=== PATIENT | female | born 1950 | race Caucasian/White ===

== ENCOUNTER 2021-10-05 10:17 | Outpatient (CLI) | payer MEDICARE, OTHER, SELFPAY | END 2021-10-05 10:18 | disposition home or self-care (01) | LOC: WOUND 10:17 | PROVIDERS: PCP Internal Medicine; Visit Provider Nurse Practitioner Family | DX: I89.0 Lymphedema, not elsewhere classified (principal); I87.301 Chronic venous hypertension (idiopathic) without complications of right lower extremity; L97.819 Non-pressure chronic ulcer of other part of right lower leg with unspecified severity | CPT/HCPCS: 11042 ==

== ENCOUNTER 2021-10-12 10:10 | Outpatient (CLI) | payer MEDICARE, OTHER, SELFPAY | END 2021-10-12 10:11 | disposition home or self-care (01) | PROVIDERS: PCP Internal Medicine; Visit Provider Nurse Practitioner Family | DX: I87.311 Chronic venous hypertension (idiopathic) with ulcer of right lower extremity (principal); L97.812 Non-pressure chronic ulcer of other part of right lower leg with fat layer exposed; I89.0 Lymphedema, not elsewhere classified | CPT/HCPCS: 11042 ==

== ENCOUNTER 2021-10-26 10:00 | Outpatient (CLI) | payer MEDICARE, OTHER, SELFPAY | END 2021-10-26 10:01 | disposition home or self-care (01) | LOC: WOUND 10:01 | PROVIDERS: PCP Internal Medicine; Visit Provider Nurse Practitioner Family | DX: I87.311 Chronic venous hypertension (idiopathic) with ulcer of right lower extremity (principal); I89.0 Lymphedema, not elsewhere classified; L97.812 Non-pressure chronic ulcer of other part of right lower leg with fat layer exposed | CPT/HCPCS: 11042 ==

== ENCOUNTER 2021-11-02 10:16 | Outpatient (CLI) | payer MEDICARE, OTHER, SELFPAY | END 2021-11-02 10:17 | disposition home or self-care (01) | LOC: WOUND 10:17 | PROVIDERS: PCP Internal Medicine; Visit Provider Nurse Practitioner Family | DX: I87.311 Chronic venous hypertension (idiopathic) with ulcer of right lower extremity (principal); L97.812 Non-pressure chronic ulcer of other part of right lower leg with fat layer exposed | CPT/HCPCS: 11042 ==

== ENCOUNTER 2021-11-09 14:47 | Outpatient (CLI) | payer MEDICARE, OTHER, SELFPAY ==
--- OUTSIDE RECORDS SUMMARY | 2022-01-19 15:35 | XMS_ITS | Encounter Summary ---
:1950 Author Organization [facility] Address [address] [place] [address] Care Team Providers Name Role Phone Elsewhere, Pcp Primary Care Provider Unavailable Encounter Details Date Type Department Care Team Description 03/10/2021 Ancillary Procedure Department of Emergency Medicine Social History Tobacco Use Types Packs/Day Years Used Date Smoking Tobacco: Never Smokeless Tobacco: Never Alcohol Use Standard Drinks/Week Comments Not Currently 0 (1 standard drink = 0.6 oz pure alcoho l) Sex Assigned at Date Recorded Female 12/20/2020 12:41 PM CDT documented as of this encounter Plan of Treatment Not on filedocumented as of this encounter Procedures Procedure Name Priority Date/Time Associated Comments Diagnosis EMERGENCY DEPARTMENT Routine 03/10/2021 2:04 PM R esults for this IMAGE EXAM COOK SOUP procedure are i n the results section. documented in this encounter Results Leg-Emergency Department Image Exam (03/10/2021 2:04 PM COOK SOUP) Specimen (Source) Anatomical Collection Method Collection Time Re ceived Time Location / / Volume Laterality 03/10/2021 2:02 PM COOK [facility]OUP Narrative [facility] - 03/10/2021 2:04 PM COOK SOUP This order has been created and auto-finalized to support the import of images acquired without order. The clini jordon documentation to support these images can be found on the encounter maty t produced images. Provider Not In System IMG NON RAD IMAGING PROCEDUR ES Performing Organization Address City/State/ZIP Code Phon e Number IIMS I[facility] NA documented in this encounter Visit Diagnoses Not on filedocumented in this encounter Care Teams Licensing Director Relationship Specialty Start Date End Date Elsewhere, Pcp PCP - General Family Medicine 12/02/20 documented as of this encounter
--- OUTSIDE RECORDS SUMMARY | 2022-01-19 15:35 | XMS_ITS | Encounter Summary ---
:1950 Author Organization [facility] Address [address] [place] [address] Care Team Providers Name Role Phone Elsewhere, Pcp Primary Care Provider Unavailable Encounter Details Date Type Department Care Team Description 08/09/2021 Immunization [facility] of [facility] [address] [address] [place], [place] [address] [phone] Social History Tobacco Use Types Packs/Day Years Used Date Smoking Tobacco: Never Smokeless Tobacco: Never Alcohol Use Standard Drinks/Week Comments Not Currently 0 (1 standard drink = 0.6 oz pure alcoho l) Sex Assigned at Date Recorded Female 12/20/2020 12:41 PM CDT documented as of this encounter Plan of Treatment Not on filedocumented as of this encounter Visit Diagnoses Not on filedocumented in this encounter Care Teams Cheese Blender Relationship Specialty Start Date End Date Elsewhere, Pcp PCP - General Family Medicine 12/02/20 documented as of this encounter
--- OUTSIDE RECORDS SUMMARY | 2022-01-19 15:35 | XMS_ITS | Encounter Summary ---
:1950 Author Organization [facility] Address [address] [place] [address] Care Team Providers Name Role Phone Elsewhere, Pcp Primary Care Provider Unavailable Reason for Visit Reason Comments Immunizations Encounter Details Date Type Department Care Team Description 01/19/2021 Immunization Section of Infectious Need V accine Immunization Diseases in [place], (Prim thomas Dx) [place] [address] [place] [address] Social History Tobacco Use Types Packs/Day Years Used Date Smoking Tobacco: Never Smokeless Tobacco: Never Sex Assigned at Date Recorded Female 12/20/2020 12:41 PM CDT documented as of this encounter Last Filed Vital Signs Vital Sign Reading Time Taken Comments Blood Pressure - - Pulse - - Temperature 36.4 ??C (97.6 ??F) 01/19/2021 10:39 AM CDT Respiratory Rate - - Oxygen Saturation - - Inhaled Oxygen Concentration - - Weight - - Height - - Body Mass Index - - documented in this encounter Plan of Treatment Not on filedocumented as of this encounter Visit Diagnoses Diagnosis Need Vaccine Immunization - Primary documented in this encounter Care Teams Pipeline Maintenance Supervisor Relationship Specialty Start Date End Date Elsewhere, Pcp PCP - General Family Medicine 12/02/20 documented as of this encounter
--- OUTSIDE RECORDS SUMMARY | 2022-01-19 15:35 | XMS_ITS | Encounter Summary ---
:1950 Author Organization [facility] Address [address] [place] [address] Care Team Providers Name Role Phone Elsewhere, Pcp Primary Care Provider Unavailable Reason for Visit Reason Comments Results Fabiana Patient Encounter Details Date Type Department Care Team Description 01/04/2021 Clinical Communication Department of Sabino Jung s ([facility] Neu[facility] krish Leach M.D., Patient) Laverne, Ph.D. [place] [address] [address] [facility] [address] [place] [id number] [phone] Social History Tobacco Use Types Packs/Day Years Used Date Smoking Tobacco: Never Smokeless Tobacco: Never Sex Assigned at Date Recorded Female 12/20/2020 12:41 PM CDT documented as of this encounter Miscellaneous Notes Telephone Encounter - Isabel Haley R.N. - 01/12/2021 9:05 AM CDT Missed call. Left portal message. Telephone Encounter - Sabino Jung M.D., Ph.D. - 01/10/2021 4:31 PM CDT If I were to order a simple thoracic MRI scan with and without contrast, which she be able to undergo that. If so, I would order that. Would then see her back after that scan is done. If she agrees shewould be able the tolerate this, the please go ahead and order those appointments and I will sign off on them. Telephone Encounter - Isabel Haley R.N. - 01/06/2021 3:16 PM CDT Portal message sent. Telephone Encounter - Tanya Espinoza - 01/04/2021 2:08 PM CDT Chief Complaint / Reason for Call: ?? Test results Patient calls checking the status of her MRI results. Home: or [phone] Date last seen: 12-20-2020 Future appointment: 01-19-2021 Dx: # 1 Imbalance # 2 Spasms # 3 Brief sudden episodes of loss of feeling from the waist down # 4 Episodes of lower extremity to whole-body spasms impairing respiration # 5 Massive lower extremity lymphedema Valid Auth, scan date of: Reverify prior to releasing information. documented in this encounter Plan of Treatment Not on filedocumented as of this encounter Visit Diagnoses Not on filedocumented in this encounter Care Teams Sprinkler Fitter Relationship Specialty Start Date End Date Elsewhere, Pcp PCP - General Family Medicine 12/02/20 documented as of this encounter
--- OUTSIDE RECORDS SUMMARY | 2022-01-19 15:35 | XMS_ITS | Continuity of Care Document ---
:1950 Author Organization [facility] Care Team Providers Name Role Phone [facility] Unavailable Unavailable Medications Combined list of outpatient medications from Department of Defense and Veterans Affairs facilities. Medications provided include 1) outpatient medications from the last 15 months, and 2) patient-reported medications. Medication Details Route Status Patient Prescription Prescription Last Ordering Order Source Instructions Expires Number Dispense Provider Date Date CEFUROXIME Active [id number] CAMEJO, Pharmac (CEFUROXIME 1 2020 y Data AXETIL), Transac 500 MG, tion TABLET, Service ORAL, Facilit ASCEND y LABORATO, 20 ea. BOTTLE CLOBETASOL Active [id number] [facility] 03/08/ Pharmac PROPIONATE 1 THERINE 2020 y Data (clobetasol Transac propionate) tion , 0.05 %, Service CREAM (G), Facilit TOPICAL, y AVKARE, 15 g TUBE CYCLOBENZAP Active [id number] [facility] / Pharmac RINE HCL 1 THERINE 2020 y Data (cyclobenza Transac maria isabel HCl), tion 10 MG, Service TABLET, Facilit ORAL, y AVKARE, 1000 ea. BOTTLE CYCLOBENZAP Active [id number] [facility] / Pharmac RINE HCL 2 THERINE 2021 y Data (cyclobenza Transac maria isabel HCl), tion 10 MG, Service TABLET, Facilit ORAL, y AVKARE, 1000 ea. BOTTLE CYCLOBENZAP Active [id number] [facility] / Pharmac RINE HCL 2 THERINE 2021 y Data (cyclobenza Transac maria isabel HCl), tion 10 MG, Service TABLET, Facilit ORAL, y AVKARE, 1000 ea. BOTTLE HYDROCHLORO Active [id number] [facility] / Pharmac THIAZIDE 1 THERINE 2020 y Data (hydrochlor Transac othiazide), tion 50 MG, Service TABLET, Facilit ORAL, GSMS, y INC., 1000 ea. BOTTLE KETOCONAZOL Active [id number] [facility] / Pharmac E 1 THERINE 2020 y Data (ketoconazo Transac le), 2 %, tion CREAM (G), Service TOPICAL, Facilit [employer], INC[employer] y 30 g TUBE TOBRAMYCIN- Active [id number] [facility], / Pharmac DEXAMETHASO 2 2021 y Data NE Transac (TOBRAMYCIN tion /DEXAMETHAS Service ONE), 0.3 Facilit %-0.1%, y DROPS SUSP, OPHTHALMIC, BAUSCH & LOMB P, 5 ml DROP BTL VALSARTAN Active [id number] [facility] 05/23 / Pharmac (valsartan) 2 THERINE 2021 y Data , 80 MG, Transac TABLET, tion ORAL, Service AVKARE, 90 Facilit ea. BOTTLE y VALSARTAN Active [id number] [facility] 08/03 / Pharmac (valsartan) 2 THERINE 2021 y Data , 80 MG, Transac TABLET, tion ORAL, Service AVKARE, 90 Facilit ea. BOTTLE y VALSARTAN Active [id number] [facility] 10/30 / Pharmac (valsartan) 2 THERINE 2021 y Data , 80 MG, Transac TABLET, tion ORAL, Service AVKARE, 90 Facilit ea. BOTTLE y Social History Combined list of available smoking, tobacco, and other social history from Department of Defense andVeterans Affairs facilities. Social History Type Response Date Comment Source This section is an empty social history section. DoD
--- OUTSIDE RECORDS SUMMARY | 2022-01-19 15:35 | XMS_ITS | Encounter Summary ---
:1950 Author Organization [facility] Address [address] [place] [address] Care Team Providers Name Role Phone Elsewhere, Pcp Primary Care Provider Unavailable Reason for Visit Reason Comments Wound Infection Lt lateral leg/foot wound-Hx stage 4 Lymph Edema, spont. blister burst 03/05, concerned for c ellulitis Encounter Details Date Type Department Care Team Description 03/10/2021 Emergency [facility] Sumeet Kearney , Cellulitis Leg Left Department ACCIDENT REPORT CLERK, C.N.P. (Primary Dx) [id number] [place], [place] [phone] (Wo rk) Social History Tobacco Use Types Packs/Day Years Used Date Smoking Tobacco: Never Smokeless Tobacco: Never Alcohol Use Standard Drinks/Week Comments Not Currently 0 (1 standard drink = 0.6 oz pure alcoho l) Sex Assigned at Date Recorded Female 12/20/2020 12:41 PM CDT documented as of this encounter Last Filed Vital Signs Vital Sign Reading Time Taken Comments Blood Pressure 176/94 03/10/2021 2:42 PM DIVERSIFIED CROPS FARMWORKER Pulse 84 03/10/2021 2:42 PM DIVERSIFIED CROPS FARMWORKER Temperature 36.7 ??C (98.1 ??F) 03/10/2021 2:42 PM DIVERSIFIED CROPS FARMWORKER Respiratory Rate 16 03/10/2021 2:42 PM DIVERSIFIED CROPS FARMWORKER Oxygen Saturation 98% 03/10/2021 2:42 PM DIVERSIFIED CROPS FARMWORKER Inhaled Oxygen Concentration - - Weight 140 kg (308 lb 3.3 oz) 03/10/2021 1:50 PM DIVERSIFIED CROPS FARMWORKER Height 176.5 cm (5' 9.5) 03/10/2021 1:50 PM DIVERSIFIED CROPS FARMWORKER Body Mass Index 44.86 03/10/2021 1:50 PM DIVERSIFIED CROPS FARMWORKER documented in this encounter Discharge Instructions Discharge InstructionsSumeet Kearney APRN, C.N.P. - 03/10/2021 2:40 PM DIVERSIFIED CROPS FARMWORKER Keep a close eye on the wound if the redness begins to spread up the leg after 48 hours on the antibiotic please return the ER immediately. If you develop any worsening fevers chills for feel that yourgetting sicker please return immediately. RSIFIED CROPS FARMWORKER AttachmentsThe following attachments cannot be sent through Care Everywhere. Cellulitis Adult Gacp-ev-Fayr (Hungarian)documented in this encounter Medications at Time of Discharge Medication Sig Dispensed Refills Start Date End Date cetirizine (ZyrTEC) 10 mg Take 1 tablet by 0 09/07 tablet mouth daily. clobetasol (TEMOVATE) 0.05 Apply topically as 0 0 10/03/2016 % cream directed. cyclobenzaprine (FLEXERIL) Take 0.3 tablets by 0 10/03/2016 10 mg tablet mouth at bedtime. hydroCHLOROthiazide 0 03/13/2019 (HYDRODIURIL) 50 mg tablet magnesium oxide (MAG-OX) Take 250 mg by 0 250 mg of magnesium tablet mouth daily. multivitamin capsule Take 1 capsule by 0 mouth daily. Women's day vitamin UNABLE TO FIND Apply topically as 0 10/03/2016 needed. KETOCONAZOLE CREAM TOP PRN cefUROXime (CEFTIN) 500 mg Take 1 tablet (500 20 tablet 0 1 05/11/2020 03/20/2021 tablet mg total) by mouth every 12 (twelve) hours for 10 days. documented as of this encounter ED Notes Sumeet Kearney APRN, C.N.P. - 03/10/2021 2:46 PM CST Images from the original note were not included. SUBJECTIVE CHIEF COMPLAINT/REASON FOR VISIT Wound Infection (Lt lateral leg/foot wound-Hx stage 4 Lymph Edema, spont. blister burst 03/05, concerned for cellulitis) HISTORY OF PRESENT ILLNESS Patient is 70-year-old female coming for evaluation of cellulitis of her left lower extremity. She does have a history of lymphedema to bilateral lower extremities. She notes that a few days ago she had a blister that burst and she has applied compression to the area to help with wound healing. She noted started this morning that she had significant redness going up her left leg. Extends about usp up her meyer where the blisters just above the ankle. She has not taken anything at home. She is coming in for concern for underlying cellulitis. She denies any fevers chills or any other accompanying symptoms this. History provided by: Patient REVIEW OF SYSTEMS Constitutional: Negative for fatigue and fever. HENT: Negative for sinus pressure and sore throat. Eyes: Negative for pain and redness. Respiratory: Negative for cough and shortness of breath. Cardiovascular: Positive for leg swelling (Baseline). Gastrointestinal: Negative. Genitourinary: Negative for urgency. Musculoskeletal: Negative. Skin: Positive for color change, rash and wound. Allergic/Immunologic: Negative. Negative for immunocompromised state. Neurological: Negative for speech difficulty, weakness and light-headedness. Hematological: Negative. Does not bruise/bleed easily. Psychiatric/Behavioral: Negative. OBJECTIVE Initial Vitals Temperature Pulse Rate Heart Rate Resp Rate Blood Pressure SpO2 03/10/21 1352 03/10/21 1352 -- 03/10/21 1352 03/10/21 1352 03/10/21 1352 36.5 ??C 88 16 (!) 163/88 99 % Pain Score 03/10/21 1350 0 - No pain PHYSICAL EXAMINATION Constitutional: Nursing note and vitals reviewed. Vital signs are normal. She appears not listless and not lethargic. She is active and cooperative. She is easily aroused. She does not appear ill. No distress. HENT: Head: Normocephalic and atraumatic. No signs of injury. There is normal jaw occlusion. Mouth/Throat: Oropharynx is clear and moist. Mucous membranes are moist. Eyes: Conjunctivae and EOM are normal. Pupils are equal, round, and reactive to light. Periorbital area normal appearing. Neck: Neck supple. Cardiovascular: Normal rate and normal peripheral perfusion. PMI is not displaced. Pulses are palpable. Pulses are no weak pulses. Capillary refill: takes less than 3 seconds, Edema: edema noted (Chronic lymphedema) Pulmonary/Chest: Effort normal. There is normal air entry. No apnea and no tachypnea. No respiratorydistress. Abdominal: Non-distended. Musculoskeletal: General: Edema present. No tenderness or deformity. Normal range of motion. Cervical back: Full passive range of motion without pain, normal range of motion and neck supple. Neurological: Alert, oriented to person, place, and time and easily aroused. She has normal sensation, normal strength and intact cranial nerves. She is not disoriented. GCS eye subscore is 4. GCS verbal subscore is 5. GCS motor subscore is 6. Normal speech. Gait normal. Skin: Skin is warm, dry, intact and normal color. Erythema of area and blister noted. She is not diaphoretic. Psychiatric: She has a normal mood and affect. Speech pattern is normal. Judgment and thought content normal. Relaxed.Cognition and memory are normal. ASSESSMENT/PLAN IMPRESSION AND PLAN Patient is 70-year-old female coming for evaluation of underlying cellulitis to her left leg. Her overall evaluation is concerning for cellulitis I do not suspect any systemic infection at this time she denies any fevers chills or any other general unwell feeling. She does have allergies to penicillins. She has tolerated Ceclor in the past which has previously done very well with her cellulitis. I did discuss with our ED pharmacist in [place] about placing her on Ceftin if they agreed that that would be a good choice given that the 2nd generation and that she has tolerated 2nd generation in the past. Patient will be discharged home advised to cloth picker the Ceftin and return to the ER if she has any worsening redness or development of fever. She verbalized understanding this. The patient was discharged stable condition. ED Course as of 03/10/21 184SatMar 10, 2021 1411 Patient has tolerated Ceclor in the past unfortunately it is very difficult to find will discuss with the ED pharmacist to see if Duricef will be a good substitute. 1420 I was able to speak with the ED pharmacist in [place] at this time given that Duricef is a 1st generation there is concern for possible cross-reactivity with the allergy to penicillins. As she has tolerated 2nd generation cephalosporins in the past we will provide her with Ceftin which has good coverage. The patient is agreeable to this plan. 1440 Patient remained stable in the ED. ??Indications to return to the emergency department were discussed in detail with the patient and they verbalized understanding. Educational handouts were given with further details on diagnoses and related topics. ??All was explained in plain language and the patient expressed agreement and understanding in the plan moving forward. Final Diagnoses: as of 03/10/21 1842 Cellulitis Leg Left Sumeet Kearney APRN, C.N.P. 03/11/21 0729 RSIFIED CROPS FARMWORKER documented in this encounter Plan of Treatment Not on filedocumented as of this encounter Visit Diagnoses Diagnosis Cellulitis Leg Left - Primary documented in this encounter Care Teams Aircraft Parts Assembler Relationship Specialty Start Date End Date Elsewhere, Pcp PCP - General Family Medicine 12/02/20 documented as of this encounter
--- OUTSIDE RECORDS SUMMARY | 2022-01-19 15:35 | XMS_ITS | Clinical Summary ---
:1950 Author Organization [facility] Address [address] [place] [address] Care Team Providers Name Role Phone Elsewhere, Pcp Primary Care Provider Unavailable Source Comments Patient records contain information from all sites at [facility]. For routine questions regarding patient records, call [phone] during business hours, M-F 8:00 AM - 5:00 PM Central Time. Record requests for emergency care only can be directed to [phone] at any time.[facility] Allergies Active Allergy Reactions Severity Noted Date Comments Animal Dander Other (see comments) 10/03/2016 asthma Diphtheria, Pertussis, Other (see comments) 04/06/2019 Tetanus Vaccine Erythromycin Base Nausea And Vomiting 04/03/2010 Melon Anaphylaxis 04/06/2019 Penicillins Other (see comments) 04/03/2010 Pineapple Other (see comments) 04/06/2019 Ragweed Shortness of breath 10/03/2016 wheeze, asthma, scrathy throat Allen Other (see comments) 04/06/2019 Positiv e on skin test, however a ble to eat. Sulfa (Sulfonamide Other (see comments) 10/03/2016 Antibiotics) Nathalie Anaphylaxis 04/06/2019 Both Urdu an d Black walnut Medications Medication Sig Dispensed Refills Start Date End Date Status hydroCHLOROthiazide 0 03/13/2019 Active (HYDRODIURIL) 50 mg tablet cyclobenzaprine Take 0.3 tablets 0 10/03/2016 Active (FLEXERIL) 10 mg tablet by mouth at bedtime. cetirizine (ZyrTEC) 10 Take 1 tablet by 0 10/03/2016 Active mg tablet mouth daily. clobetasol (TEMOVATE) Apply topically 0 10/03/2016 Active 0.05 % cream as directed. UNABLE TO FIND Apply topically 0 10/03/2016 Active as needed. KETOCONAZOLE CREAM TOP PRN magnesium oxide (MAG-OX) Take 250 mg by 0 Active 250 mg of magnesium mouth daily. tablet multivitamin capsule Take 1 capsule by 0 Active mouth daily. Women's day vitamin acetaminophen (TYLENOL) Take 2 capsules 25 capsule 0 1 Active 500 mg capsule (1,000 mg total) by mouth every 6 (six) hours as needed for pain for up to 5 days. Active Problems Problem Noted Date Lymphedema 06/25/2019 Morbid Obesity Body Mass Index 40.0-44.9 Adult 020 Bleeding Postmenopausal 04/06/2019 Overview: Added automatically from request for kamilah jain [id number] Radiculopathy Lumbar 09/20/2016 Immunizations Name Administration Dates Next Due Influenza high dose QV(65 years or older) (PF) 01/04/2021, 1 SARS-COV-2 (COVID-19) - PFIZER (12 years or older) 1 SARS-COV-2 (COVID-19) - PFIZER TS(12 years or older) 022 Td (Adult), adsorbed 09/21/2019 Td Preservative Free (TENIVAC, DECAVAC) 03/14/2016, 01/25/20 05 Family History Medical History Relation Name Comments defects Cousin Ovarian cancer Neg Hx Uterine cancer Neg Hx Relation Name Status Comments Cousin Social History Tobacco Use Types Packs/Day Years Used Date Smoking Tobacco: Never Smokeless Tobacco: Never Alcohol Use Standard Drinks/Week Comments Not Currently 0 (1 standard drink = 0.6 oz pure alcoho l) Sex Assigned at Date Recorded Female 12/20/2020 12:41 PM CDT Last Filed Vital Signs Vital Sign Reading Time Taken Comments Blood Pressure 176/94 03/10/2021 2:42 PM BASS GUITAR TEACHER Pulse 84 03/10/2021 2:42 PM BASS GUITAR TEACHER Temperature 36.7 ??C (98.1 ??F) 03/10/2021 2:42 PM BASS GUITAR TEACHER Respiratory Rate 16 03/10/2021 2:42 PM BASS GUITAR TEACHER Oxygen Saturation 98% 03/10/2021 2:42 PM BASS GUITAR TEACHER Inhaled Oxygen Concentration - - Weight 140 kg (308 lb 3.3 oz) 03/10/2021 1:50 PM BASS GUITAR TEACHER Height 176.5 cm (5' 9.5) 03/10/2021 1:50 PM BASS GUITAR TEACHER Body Mass Index 44.86 03/10/2021 1:50 PM BASS GUITAR TEACHER Plan of Treatment Health Maintenance Due Date Last Done Comments Bone Density Scan (Osteoporosis 1950 Screen) CT Colonography 1950 Cologuard 1950 FIT 1950 Hepatitis C Screening 1950 Zoster Vaccines (1 of 2) 06/29/2001 Mammogram 10/04/2011 10/03/2010 (Performed elsewhere), 03/08/2010, 03/08/2010, Additional history exists Pneumococcal vaccine (65+ years) 06/29/2016 (1 - PCV) Colonoscopy 10/04/2018 10/04/2008 (Performed elsewhere) Colorectal Cancer Screening 10/04/2018 Depression Screening (Annual 04/08/2021 PHQ-2) Fall Risk Screen (Annual) 04/08/2021 COVID-19 Vaccine (5 - Booster for 10/04/2021 08/09/2021, , Pfizer series) 05/24/2020, Additional history exists Creatinine Level 12/20/2021 12/20/2020, 10/14/2019, 04/06/2019 Potassium Level 12/20/2021 12/20/2020, 10/14/2019 Sodium Level 12/20/2021 12/20/2020, 10/14/2019 Influenza Vaccine (#1) 2022 01/04/2021, 01/26/2020 Fasting Glucose for Diabetes 12/21/2023 12/20/2020 Screening Medical Devices Implanted Type Area Human Services Instructor Device Shelf Model / Identifier Expiration Serial / Date Lot Conversions - Default Historical Implant Device Knee Left: Implanted: 10/03/2016 (Quantity not on file) Implant Knee Description: Body Location - Knee L. Dev ice Status Text - Knee Imp. Conversions - Default Historical Implant Device Ocular Lens Implanted: 10/03/2016 (Quantity not on file) Description: Device Status Text - OculrL ens. cataract lenses. Insurance Payer Benefit Plan Subscriber ID Effective Phone Address Typ e / Group Dates MEDICARE MEDICARE A [id number] 2016-Prese [address] Medicare AND B ernestine Mcginnis, SARAH [address] FOR FOR [id number] 2019-Pres [phone] [address] Indemnity [place] [address] (Home) [place] [address] Advance Directives For more information, please contact: [phone] Latest Code Status on File Code Status Date Activated Date Inactivated Comments Full Code 04/24/2019 10:01 AM 04/24/2019 3:16 PM Full Code: Discussed Care Teams Banana Handler Relationship Specialty Start Date End Date Elsewhere, Pcp PCP - General Family Medicine 12/02/20
--- OUTSIDE RECORDS SUMMARY | 2022-01-19 15:35 | XMS_ITS | Encounter Summary ---
:1950 Author Organization [facility] Address [address] [place] [address] Care Team Providers Name Role Phone Elsewhere, Pcp Primary Care Provider Unavailable Reason for Visit Outpatient (Routine) - Closed Specialty Diagnoses / Procedures Referred By Contact Refer red To Contact Neurology Sabino Jung M. D., Ph.D. [facility] [address] [place] [phone] Referral ID Status Reason Start Date Expiration Date Visits Requ ested Visits Authorized [id number] Closed 12/20/2020 12/20/2021 1 1 Encounter Details Date Type Department Care Team Description 01/19/2021 Office Visit Department of Sabino Jung Abnormal Gait Non Orthopedic (Primary Dx); Neurology in [place], Abnormal Findin gs On Diagnostic Imaging Of Other Parts Of Musculoskeletal System [place], [place] Ph.D. [address] [place] [address] [place] [phone] Social History Tobacco Use Types Packs/Day Years Used Date Smoking Tobacco: Never Smokeless Tobacco: Never Sex Assigned at Date Recorded Female 12/20/2020 12:41 PM CDT documented as of this encounter Progress Notes Sabino Jung M.D., Ph.D. - 01/19/2021 11:30 AM CDT Mrs. Mota came for follow-up after completing her tests. We reviewed her MRI scans of brain and cervical spinal cord and I pointed out that there were no clear lesions, such as a tumor stroke bleed or MS. Her thoracic spine MRI scan could not be done because of the long time in the scanner and she simply could not tolerate it with back pain making it difficult to hold still. We discussed whether would be appropriate to go ahead and try that again as a stand-alone imaging study and she thought she could be able to tolerate this if the scan time was not too long and I think this should go okay. Forthe pain, and OTC analgesics would be appropriate and I will defer to Radiology colleagues to provide her with a mildly sedating oral medication. As we discussed, I had also communicated with Dr. Velásquez, from the [facility]. I ultimately concluded as did he that there probably are not going to be any further treatment strategies thatwe could employed to address her lymphedema. As she knows as well as I do, she is caring around a lot of water weight in her lower extremities and this is contributing to her gait problems. We also reviewed the blood work. There was some minor departure is from the normal range but nothingof clinical significance. We are going to go ahead and have her undergo the thoracic MRI scan without contrast. I told her that I would not make her return to the clinic for the report but I can send the room result to her via the portal system. As I discussed with her, this is not a high probability of finding a thoracic spine abnormality relevant to her condition but I think it would be good to put complete closure on this. Time allocated for this visit including preparation of the above note spanned about 30 minutes. documented in this encounter Plan of Treatment Not on filedocumented as of this encounter Visit Diagnoses Diagnosis Abnormal Gait Non Orthopedic - Primary Abnormal Findings On Diagnostic Imaging Of Other Parts Of Musculoskeletal System documented in this encounter Care Teams Transportation Maintenance Supervisor Relationship Specialty Start Date End Date Elsewhere, Pcp PCP - General Family Medicine 12/02/20 documented as of this encounter"
--- OUTSIDE RECORDS SUMMARY | 2022-01-19 15:36 | XMS_ITS | Encounter Summary ---
:1950 Author Organization [facility] Address [address] [place] [address] Care Team Providers Name Role Phone Elsewhere, Pcp Primary Care Provider Unavailable Reason for Visit Reason Comments Pre-visit Intake Encounter Details Date Type Department Care Team Description 12/13/2020 Clinical Communication Visit Review in Pr e-visit Intake [place], [place] [address] [place], [place] [phone] Social History Tobacco Use Types Packs/Day Years Used Date Smoking Tobacco: Never Smokeless Tobacco: Never Sex Assigned at Date Recorded Female 12/20/2020 12:41 PM CDT documented as of this encounter Plan of Treatment Not on filedocumented as of this encounter Visit Diagnoses Not on filedocumented in this encounter Care Teams Professor Of Floriculture Relationship Specialty Start Date End Date Elsewhere, Pcp PCP - General Family Medicine 12/02/20 documented as of this encounter
--- OUTSIDE RECORDS SUMMARY | 2022-01-19 15:36 | XMS_ITS | Encounter Summary ---
:1950 Author Organization [facility] Address [address] [place] [address] Care Team Providers Name Role Phone Elsewhere, Pcp Primary Care Provider Unavailable Reason for Visit Outpatient (Routine) - Closed Specialty Diagnoses / Procedures Referred By Contact Refer red To Contact Obstetrics and Guerrero Ordonez Noemi on Gynecology Lori Costa M.D. [address] [place] [phone] Referral ID Status Reason Start Date Expiration Date Visits Requ ested Visits Authorized [id number] Closed 04/29/2019 04/28/2020 1 1 Encounter Details Date Type Department Care Team Description 10/19/2019 Office Visit Department of Mindy Ordonez Postmenopausal Obstetrics and Lori Costa M.D. (Primary Dx) Gynecology in [address] [place] [address] [place] [phone] [place], [place] [phone] (Work) [phone] Social History Tobacco Use Types Packs/Day Years Used Date Smoking Tobacco: Never Smokeless Tobacco: Never Sex Assigned at Date Recorded Female 12/20/2020 12:41 PM CDT documented as of this encounter Progress Notes Lori Ordonez M.D. - 10/19/2019 11:30 AM CDT Mrs. Mota comes for follow-up visit after her polypectomy which showed pathology with focal glandular crowding. We had wanted her to come back for biopsy because of the results but then COVID occurred. She has not been bleeding at all - she had one episode of a hollingsworth discharge that did not appear brown or blood-tinged at all. We discussed that bleeding after menopause can be a sign of abnormal tissueand bleeding can present as brown discharge or bright red blood. If she has any signs of this, she should contact us. We discussed endometrial biopsy - it was difficult to do the first time so we have decided to monitor for signs of bleeding instead of proceeding with biopsy based on risks and benefits of biopsy She can call us with any questions about whether she should come in - she would prefer not to have to [facility] during pandemic but reach us by phone. We did review that we removed 2 polyps and the glandular crowding was likely in one of them which wedid remove. There is a chance of recurrence which is why we want her to be alert to bleeding. documented in this encounter Plan of Treatment Not on filedocumented as of this encounter Visit Diagnoses Diagnosis Bleeding Postmenopausal - Primary documented in this encounter Care Teams Network Intern Relationship 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
--- OUTSIDE RECORDS SUMMARY | 2022-01-19 15:36 | XMS_ITS | Encounter Summary ---
:1950 Author Organization [facility] Address [address] [place] [address] Care Team Providers Name Role Phone Elsewhere, Pcp Primary Care Provider Unavailable Encounter Details Date Type Department Care Team Description 11/29/2020 Lab Urgent Care in [facility] , Encounter For Screening [place] Lori Costa M.D. For Other Viral Diseases [address] [facility] (COVID-19) [place] [address] [place], [place] [phone] (Wo rk) Social History Tobacco Use Types Packs/Day Years Used Date Smoking Tobacco: Never Smokeless Tobacco: Never Sex Assigned at Date Recorded Female 12/20/2020 12:41 PM CDT documented as of this encounter Plan of Treatment Not on filedocumented as of this encounter Procedures Procedure Name Priority Date/Time Associated Diagnosis Comme nts SARS CORONAVIRUS-2 STAT 11/29/2020 2:04 PM Encounter For Re sults for this RNA, V CDT Screening For Other procedur e are in Viral Diseases the results (COVID-19) section. documented in this encounter Results SARS Coronavirus-2 RNA, V Asymptomatic (11/29/2020 2:04 PM CDT) [facility] Method Time Signature SARS-CoV-2 Swab, 11/30/2020 [facility] Specimen Nasopharynx 2:52 AM CDT Source SARS CoV-2 Undetected Undetected 11/30/2020 [facility] RNA, TMA 2:52 AM CDT Comment: SARS-CoV-2 RNA absent. This result does not rule out COVID-19 in the patient, as the sensitivity of the test depends o n the timing of the specimen collection and the quality of the specim en. Result should be correlated with patient's history and clinical presentat ion. ----ADDITIONAL INFORMATION---- This molecular amplification test was pe rformed using the Aptima SARS-CoV-2 assay ([employer] on the [employer] tem under emergency use authorization (EUA) by the U.S. Food and Drug Administ ration. Fact sheets for this EUA assay can be fo und at the following links: For Healthcare Providers: https://www.RPost a.gov/media/096994/download For Patients: https://www.fda.gov/media/ 988913/download Specimen Anatomical Collection Method Collection Time Receive d Time (Source) Location / / Volume Laterality Varies 11/29/2020 2:04 PM 9:37 (Nasopharynx) CDT PM CDT Lori Ordonez M.D. LAB MICROBIOLOGY - GEN ERAL ORDERABLES Performing Organization Address City/State/ZIP Code Phon e Number [facility]- [address] [place] [phone] [facility] [place] [address] System in [address] documented in this encounter Visit Diagnoses Diagnosis Encounter For Screening For Other Viral Diseases (COVID-19) documented in this encounter Additional Health Concerns Infection Onset Date Last Indicated Resolved Time COVID19 Pending 11/29/2020 11/29/2020 11/30/2020 2:53 AM CDT documented as of this encounter Care Teams Flight Crew Time Clerk Relationship 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
--- OUTSIDE RECORDS SUMMARY | 2022-01-19 15:36 | XMS_ITS | Encounter Summary ---
:1950 Author Organization [facility] Address [address] [place] [address] Care Team Providers Name Role Phone Elsewhere, Pcp Primary Care Provider Unavailable Reason for Referral Outpatient (Routine) - Closed Specialty Diagnoses / Procedures Referred By Contact Refer red To Contact Diagnoses Bleeding Postmenopausal [facility] Procedures US Pelvis Transvaginal and Transabdominal Lori Costa M.D. [address] [place] [phone] Referral ID Status Reason Start Date Expiration Date Visits Requ ested Visits Authorized [id number] Closed 10/07/2020 10/07/2021 1 1 Reason for Visit Outpatient (Routine) - Closed Specialty Diagnoses / Procedures Referred By Contact Refer red To Contact Diagnoses Bleeding Postmenopausal [facility] Procedures US Pelvis Transvaginal and Transabdominal Lori Costa M.D. [address] [place] [phone] Referral ID Status Reason Start Date Expiration Date Visits Requ ested Visits Authorized [id number] Closed 10/07/2020 10/07/2021 1 1 Encounter Details Date Type Department Care Team Description 10/21/2020 [facility], Lori Peng, Postmenopa krish Topete M.D. [address] [place] [phone] [place], [place] [phone] (Work) [phone] Social History Tobacco Use Types Packs/Day Years Used Date Smoking Tobacco: Never Smokeless Tobacco: Never Sex Assigned at Date Recorded Female 12/20/2020 12:41 PM CDT documented as of this encounter Medications at Time of Discharge Medication Sig Dispensed Refills Start Date End Date acetaminophen (TYLENOL) Take 2 capsules 25 capsule 0 021 500 mg capsule (1,000 mg total) by mouth every 6 (six) hours as needed for pain for up to 5 days. cetirizine (ZyrTEC) 10 mg Take 1 tablet [...] 0 10/03/2016 needed. KETOCONAZOLE CREAM TOP PRN acetaminophen (Tylenol Take 2 tablets by 0 201612/02/2020 Arthritis Pain) 650 mg ER mouth at bedtime. tablet aspirin [address] tablet Take 81 mg by mouth 0 01/20/2021 daily. ibuprofen (ADVIL,MOTRIN) Take 1 tablet (600 20 tablet 0 01/20/2021 600 mg tablet mg total) by mouth every 6 (six) hours as needed for pain for up to 5 days. documented as of this encounter Plan of Treatment Not on filedocumented as of this encounter Procedures Procedure Name Priority Date/Time Associated Diagnosis Comme nts US PELVIS RAD - Routine 10/21/2020 Bleeding Results for TRANSVAGINAL AND (most inpatients 11:52 AM CDT Postmenopausal this procedure TRANSABDOMINAL and all are in the outpatients) results section. documented in this encounter Results US Pelvis Transvaginal and Transabdominal (10/21/2020 11:52 AM CDT) Anatomical Region Laterality Modality Pelvis, Ultrasound RST LOS, Ultrasound ARZ LOS, Ultrasound F LA N/A Ultrasound LOS Specimen (Source) Anatomical Collection Method Collection Time Re ceived Time Location / / Volume Laterality 10/21/2020 11:54 AM CDT Impressions 10/21/2020 11:59 AM CDT 1. Abnormal thickening of the endometrium. Sampling is recommended. 2. Small uterine fibroids are not signif icantly changed from prior. Narrative 10/21/2020 11:59 AM CDT EXAM: ??US PELVIS TRANSVAGINAL AND TRANSABDOMINAL COMPARISON: ??Pelvic ultrasound 04/06/20 19. TECHNIQUE: ??Transabdominal and transvag inal. FINDINGS: Uterus: 5.0 cmx6.3 cmx11.0 cm. Myometrium: Uterine positioning results in suboptimal endovaginal assessment. Two small uterine fibroids are seen in a myometrial and subserosal location at the lower uterine segment posteriorly me asuring 2.1 cm and at the uterine fundus measuring 2.9 cm; not significantly dumont ged from prior accounting for differences in technique. Endometrium: Uterine positioning results in suboptimal evaluation of the endometrium, however it appears at least markedly thickened with scattered cystic spaces and mildly increased color Doppler flow. No discrete polyp. Thickness: 22 mm ?? Right ovary: Seen transabdominally only. Normal. ??Ovarian volume: 4 ml. Left ovary: Normal. ??Ovarian volume: 3 ml. Intraperitoneal Fluid: None. Procedure Note Julian Allen M.D. - 10/21/2020 EXAM: US PELVIS TRANSVAGINAL AND TRANSAB DOMINAL COMPARISON: Pelvic ultrasound 04/06/2019 . TECHNIQUE: Transabdominal and transvagin al. FINDINGS: Uterus: 5.0 cmx6.3 cmx11.0 cm. Myometrium: Uterine positioning results in suboptimal endovaginal assessment. Two small uterine fibroids are seen in a myometrial and subserosal location at the lower uterine segment posteriorly me asuring 2.1 cm and at the uterine fundus measuring 2.9 cm; not significantly dumont ged from prior accounting for differences in technique. Endometrium: Uterine positioning results in suboptimal evaluation of the endometrium, however it appears at least markedly thickened with scattered cystic spaces and mildly increased color Doppler flow. No discrete polyp. Thickness: 22 mm Right ovary: Seen transabdominally only. Normal. Ovarian volume: 4 ml. Left ovary: Normal. Ovarian volume: 3 ml . Intraperitoneal Fluid: None. IMPRESSION: 1. Abnormal thickening of the endometriu m. Sampling is recommended. 2. Small uterine fibroids are not signif icantly changed from prior. Lori EMMANUEL US PROCEDURES documented in this encounter Visit Diagnoses Diagnosis Bleeding Postmenopausal documented in this encounter Care Teams Hop Farm Worker Relationship 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
--- OUTSIDE RECORDS SUMMARY | 2022-01-19 15:36 | XMS_ITS | Encounter Summary ---
:1950 Author Organization [facility] Address [address] [place] [phone] Care Team Providers Name Role Phone Elsewhere, Pcp Primary Care Provider Unavailable Reason for Visit Physical Therapy (Routine) - Closed Specialty Diagnoses / Procedures Referred By Contact Refer red To Contact Diagnoses Lymphedema Jese Velásquez M.D. [facility] Procedures PT or OT eval and treat (first available) [address] [place] [phone] Referral ID Status Reason Start Date Expiration Date Visits Requ ested Visits Authorized [id number] Closed 10/14/2019 10/13/2020 1 1 Encounter Details Date Type Department Care Team Description 10/19/2019 Comprehensive Visit Department of Physical Schmi Jese snowden M.D. [address] [place] [phone] Lymphedema Medicine and Catrachita Calix O.T., CLT-AISHA [address] [place] [phone] Rehabilitation in [place], [place] [address] [place] [phone] Social History Tobacco Use Types Packs/Day Years Used Date Smoking Tobacco: Never Smokeless Tobacco: Never Sex Assigned at Date Recorded Female 12/20/2020 12:41 PM CDT documented as of this encounter Consult Notes Catrachita Calix O.T., ALEXIST-AISHA - 10/19/2019 9:30 AM CDT Occupational Therapy Lymphedema Outpatient Evaluation and Treatment By co-signing this note, the provider certifies the therapy being provided to this patient is reasonable and necessary for the diagnosis or treatment of this patient. Patient's Name: Abby Mota Referring Provider: Jese Velásquez M.D. Rehab Diagnosis: 1. Lymphedema Reason for Referral: lower extremity edema management History of Present Illness: 69 year old with bilateral lower extremity multifactoirial lower extremity edema with lymphedema component. She has neuropathy, obesity, history cellulitis, Payor: MEDICARE / Plan: MEDICARE A AND B / Product Type: Medicare / Total Visit Count: 1 SUBJECTIVE Abby Mota is a 69 y.o. female who presents to therapy for evaluation and treatment for lower extremity edema. Activity and Prior Treatment Prior to Covid 19 performed water exercises three days a week. Occupational Profile Occupational Profile and History Review (OT): Brief Patient Comments: My has his own health problems so he cant help me. PERTINENT MEDICAL / SURGICAL HISTORY: Patient Active Problem List Diagnosis ??? Bleeding Postmenopausal ??? Radiculopathy Lumbar ??? Morbid Obesity Body Mass Index 40.0-44.9 Adult (HCC) ??? Lymphedema Past Surgical History: Procedure Laterality Date ??? CHOLECYSTECTOMY ??? OPERATIVE HYSTEROSCOPY N/A 04/24/2019 Procedure: OPERATIVE HYSTEROSCOPY, POLYPECTOMY, TruClear.; Surgeon: Lori Carranza M.D.; Location: [place] [address] OR ??? ORTHOPEDIC SURGERY Left left knee replacement. OBJECTIVE PHYSICAL EXAM Fall Risk Screening: Lymphedema/Edema Eval: Sensation: diminshed in feet Edema: Early Stage 2 Lymphedema +2 Pitting Edema Location: below knee, left greater then right Observations: Obscuration of normal anatomical landmarks and brenton prominences yes Perimalleolar swelling yes Brawny skin yes Stasis dermatitis minimal Functional Mobility: Travels by wheelchair but able to ambulate short distances Right Lower Extremity 10/19/2019 10 cm 24.9 20 cm 35.2 30 cm 45.1 40 cm 54.3 50 cm 55.6 60 cm 70 cm 80 cm 90 cm Lymph Volume (L) 6388.98 ml Left Lower Extremity 10/19/2019 10 cm 25.2 20 cm 35.7 30 cm 43.4 40 cm 55.3 50 cm 59.7 60 cm 70 cm 80 cm 90 cm Lymph Volume (L) 6573.44 ml TREATMENT Reviewed with patient role of compression, elevation and exercise to manage edema. Discussed importance of edema management to prevent infection. She verbalized many reasons why she could not use compression on her feet primarily revolving around her inability to tolerate comrpession as she gets hot. There is a lymphedema therapist in [place] we located that she could see daily for wrapping to reduce the leg She agreed to try wrapping to see what it is like. Reviewed with patient, teaching short stretch bandaging to left knee. Tolerated maybe 5 minutes and then requested it be removed. I showed her Velcro devices and that ideally we would wrap her to reduce her signification edema prior to fitting. She would like to try Velcro as a sole source of compression, start with one leg. This is at least some comrpession although not ideal and will be minimally effective. Contact monitoring: PPE used during therapy: Therapist was wearing the following PPE throughout entire session: surgicalmask and eye protection Patient was wearing a mask during therapy session: yes Additional Staff Present During Session: Maria L Vaz DPT Assessment Upon patient's arrival she verbalized many variables to why compression is not tolerable for her. She agreed to try wraps, they were removed in about 5 minutes due to being really hot. I showed her Velcro devices. She would like to try one of these at home to see if she tolerates. She has significant brawny leg edema below knees with risk of cellulitis if it is not managed. Therapy is very limited due to her ability to tolerate compression and participate in therapy. Rehab Potential: Ms. Mota has poor potential to achieve established occupational therapy therapy goals within the time frame outlined below, provided she actively participates in her occupational therapy treatment plan and home program. Complicating Factors: Comorbid Conditions: Arthritis Personal Factors: Balance impairment, Body habitus, Sedentary lifestyle Functional Goals and Timeframe's: Lymphedema OT/PT Goals Goal #1: patient to understand role of compression, elevation and exercise with managing edema Goal #1 Status: Met The severity of Ms. Mota's functional limitation will be re-assessed within the next 0 visits. Plan Ms. Mota was educated regarding evaluative findings, diagnosis, prognosis, potential risks and benefits of rehabilitation interventions. A collaborative effort was used to establish goals and plan ofcare. She was informed of her right to make decisions regarding her care, including refusal of examination or treatment or selection of therapy services from another provider if desired. The treatment plan may be progressed or modified based upon her response to treatment. Treatment Plan: Start of Plan of Care: 10/19/2019 Number of Visits: up to 1 visits Plan: Discontinue therapy Treatment interventions may include: Number of Performance Deficits (OT): 3 - 5 performance deficits Evaluation Complexity (OT): Moderate OT: Time Spent with Patient OT Evaluation (min): 15 min Therapeutic Activity (min): 49 min Time Calculation Total Timed Units (min): 49 min Total Treatment Time (min): 64 min Catrachita Calix O.T., CLT-LANA documented in this encounter Plan of Treatment Not on filedocumented as of this encounter Visit Diagnoses Diagnosis Lymphedema documented in this encounter Care Teams Accounting Methods Analyst Relationship 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
--- OUTSIDE RECORDS SUMMARY | 2022-01-19 15:36 | XMS_ITS | Encounter Summary ---
:1950 Author Organization [facility] Address [address] [place] [address] Care Team Providers Name Role Phone Elsewhere, Pcp Primary Care Provider Unavailable Encounter Details Date Type Department Care Team Description 12/02/2020 Ancillary Procedure Department of Gynecology Social History Tobacco Use Types Packs/Day Years Used Date Smoking Tobacco: Never Smokeless Tobacco: Never Sex Assigned at Date Recorded Female 12/20/2020 12:41 PM CDT documented as of this encounter Plan of Treatment Not on filedocumented as of this encounter Procedures Procedure Name Priority Date/Time Associated Comments Diagnosis GYNECOLOGY IMAGE Routine 12/02/2020 10:55 AM Resu lts for this EXAM CDT procedure are i n the results section. documented in this encounter Results HYST-Gynecology Image Exam (12/02/2020 10:55 AM CDT) Specimen (Source) Anatomical Collection Method Collection Time Re ceived Time Location / / Volume Laterality 12/02/2020 10:51 AM CDT Narrative [facility] - 12/02/2020 12:12 PM CDT This order has been created and auto-finalized [...] on filedocumented in this encounter Care Teams Harp Repairer Relationship Specialty Start Date End Date Elsewhere, Pcp PCP - General Family Medicine 12/02/20 documented as of this encounter
--- OUTSIDE RECORDS SUMMARY | 2022-01-19 15:36 | XMS_ITS | Encounter Summary ---
:1950 Author Organization [facility] Address [address] [place] [address] Care Team Providers Name Role Phone Elsewhere, Pcp Primary Care Provider Unavailable Reason for Referral MRI/CAT/PET Scan (Routine) - Closed Specialty Diagnoses / Procedures Referred By Contact Refer red To Contact Radiology Diagnoses Abnormal Findings On Diagnostic Imaging Of Other Parts Of Musculoskeletal System Sabino Jung M.D., [facility] Procedures MR Thoracic Spine without IV Contrast Ph.D. [address] [place] [phone] Referral ID Status Reason Start Date Expiration Date Visits Requ ested Visits Authorized [id number] Closed 12/20/2020 12/20/2021 1 1 MRI/CAT/PET Scan (Routine) - Closed Specialty Diagnoses / Procedures Referred By Contact Refer red To Contact Radiology Diagnoses Stenosis Spinal Cervical Sabino Jung M.D., [facility] Procedures MR Cervical Spine without IV Contrast Ph.D. [address] [place] [phone] Referral ID Status Reason Start Date Expiration Date Visits Requ ested Visits Authorized [id number] Closed 12/20/2020 12/20/2021 1 1 MRI/CAT/PET Scan (Routine) - Closed Specialty Diagnoses / Procedures Referred By Contact Refer red To Contact Radiology Diagnoses Paresthesia Stenosis Spinal Cervical Sabino Jung M.D., [facility] Procedures MR Brain without IV Contrast NV MRI BRAIN WO CNTRST HC MRI BRAIN WO CNTRST Ph.D. [address] [place] [phone] Referral ID Status Reason Start Date Expiration Date Visits Requ ested Visits Authorized [id number] Closed 12/20/2020 12/20/2021 1 1 Reason for Visit MRI/CAT/PET Scan (Routine) - Closed Specialty Diagnoses / Procedures Referred By Contact Refer red To Contact Radiology Diagnoses Abnormal Findings On Diagnostic Imaging Of Other Parts Of Musculoskeletal System Sabino Jung M.D., [facility] Procedures MR Thoracic Spine without IV Contrast Ph.D. [address] [place] [phone] Referral ID Status Reason Start Date Expiration Date Visits Requ ested Visits Authorized [id number] Closed 12/20/2020 12/20/2021 1 1 Encounter Details Date Type Department Care Team Description 01/03/2021 Hospital Encounter Department of Sabino Jung; Radiology, Jacob Leach M.D., Stenosis Spinal Cervical; [place], in Ph.D. Abnormal Findings On Diagnostic Imaging Of Other Parts Of Musculoskeletal System [address] [phone] [place], [place] [phone] (Work) [phone] Social History Tobacco Use Types Packs/Day Years [...] 0 10/03/2016 needed. KETOCONAZOLE CREAM TOP PRN aspirin [address] tablet Take 81 [...] Name Priority Date/Time Associated Diagnosis Comme nts MR THORACIC RAD - Routine 01/03/2021 5:21 Abnormal Findings On Res ults for SPINE WITHOUT IV (most inpatients PM CDT Diagnostic Imaging O f this procedure CONTRAST and all Other Parts Of are in the outpatients) Musculoskeletal results System section. MR CERVICAL RAD - Routine 01/03/2021 5:21 Stenosis Spinal Results for SPINE WITHOUT IV (most inpatients PM CDT Cervical this pr ocedure CONTRAST and all are in the outpatients) results section. MR BRAIN WITHOUT RAD - Routine 01/03/2021 5:21 Paresthesia Results for IV CONTRAST (most inpatients PM CDT Stenosis Spinal this pro cedure and all Cervical are in the outpatients) results section. documented in this encounter Results MR Thoracic Spine without IV Contrast (01/03/2021 5:21 PM CDT) Anatomical Region Laterality Modality Thoracic Spine, Neuroradiology RST LOS, Neuroradiology N/A Magnetic Resonance ARZ LOS, Neuroradiology FLA LOS Specimen (Source) Anatomical Collection Method Collection Time Re ceived Time Location / / Volume Laterality 01/03/2021 5:37 PM CDT Impressions 01/03/2021 5:37 PM CDT Examination could not be performed due t o patient discomfort. Narrative 01/03/2021 5:37 PM CDT EXAM: MR THORACIC SPINE WITHOUT IV CONTRAST Procedure Note Jason Terry M.D., Ph.D. - 01/03 EXAM: MR THORACIC SPINE WITHOUT IV CONTR AST IMPRESSION: Examination could not be performed due t o patient discomfort. Sabino Jung M.D., Ph.D. IMG MRI PROCEDURES MR Cervical Spine without IV Contrast (01/03/2021 5:21 PM CDT) Anatomical Region Laterality Modality Spine, Cervical Spine, Neuroradiology RST LOS, N/A Magnetic Resonance Neuroradiology ARZ [facility], Neuroradiology FLA [facility] Specimen (Source) Anatomical Collection Method Collection Time Re ceived Time Location / / Volume Laterality 01/03/2021 5:35 PM CDT Impressions 01/03/2021 5:36 PM CDT Disc osteophyte complex causing slight compression of the left side of the cord at C5-6 but no signal abnorm ality. Narrative 01/03/2021 5:36 PM CDT EXAM: MR CERVICAL SPINE WITHOUT IV CONTRAST COMPARISON: No comparison FINDINGS: Images are degraded by patient motion. Disc osteophyte complex at the C5-6 level causes slight indentation of the left side of the cord but there is no signal abnormality. Remainder of cerv ical spine grossly normal. Procedure Note Jason Terry M.D., Ph.D. - 01/03 EXAM: MR CERVICAL SPINE WITHOUT IV CONTR AST COMPARISON: No comparison FINDINGS: Images are degraded by patient motion. Disc osteophyte complex at the C5-6 level causes slight indentation of the left side of the cord but there is no signal abnormality. Remainder of cerv ical spine grossly normal. IMPRESSION: Disc osteophyte complex causing slight c ompression of the left side of the cord at C5-6 but no signal abnorm ality. Sabino Jung M.D., Ph.D. IMG MRI PROCEDURES MR Brain without IV Contrast (01/03/2021 5:21 PM CDT) Anatomical Region Laterality Modality Head, Brain, Neuroradiology RST LOS, Neuroradiology ARZ N/A Magnetic Resonance LOS, Neuroradiology FLA LOS Specimen (Source) Anatomical Collection Method Collection Time Re ceived Time Location / / Volume Laterality 01/03/2021 5:31 PM CDT Impressions 01/03/2021 5:34 PM CDT No cause for imbalance demonstrated. Narrative 01/03/2021 5:34 PM CDT EXAM: MR BRAIN WITHOUT IV CONTRAST COMPARISON: No comparison FINDINGS: Minimal leukoaraiosis. Ventric les are mildly prominent relative to sulcal atrophy but I see no prominent fl ow void and the temporal horns do not appear dilated. CP angles appear normal. Opacification of a left posterior sphenoid air cell. Retention cyst in the right maxillary antrum. Procedure Note Jason Terry M.D., Ph.D. - 01/03 EXAM: MR BRAIN WITHOUT IV CONTRAST COMPARISON: No comparison FINDINGS: Minimal leukoaraiosis. Ventric les are mildly prominent relative to sulcal atrophy but I see no prominent fl ow void and the temporal horns do not appear dilated. CP angles appear normal. Opacification of a left posterior sphenoid air cell. Retention cyst in the right maxillary antrum. IMPRESSION: No cause for imbalance demonstrated. Sabino Jung M.D., Ph.D. IMG MRI PROCEDURES documented in this encounter Visit Diagnoses Diagnosis Paresthesia Stenosis Spinal Cervical Abnormal Findings On Diagnostic Imaging Of Other Parts Of Musculoskeletal System documented in this encounter Care Teams Brim Stretching Machine Operator Relationship Specialty Start Date End Date Elsewhere, Pcp PCP - General Family Medicine 12/02/20 documented as of this encounter
--- OUTSIDE RECORDS SUMMARY | 2022-01-19 15:36 | XMS_ITS | Encounter Summary ---
:1950 Author Organization [facility] Address [address] [place] [address] Care Team Providers Name Role Phone Elsewhere, Pcp Primary Care Provider Unavailable Reason for Visit Reason Comments COVID Nurse Line Encounter Details Date Type Department Care Team Description 09/29/2019 Clinical Communication Department of [facility] LAURAID Nurse Line Obstetrics and Lori Gynecology in [facility], [address] [place], [place] [address] [place] [phone] [place], [place] [phone] (Work) [phone] Social History Tobacco Use Types Packs/Day Years Used Date Smoking Tobacco: Never Smokeless Tobacco: Never Sex Assigned at Date Recorded Female 12/20/2020 12:41 PM CDT documented as of this encounter Miscellaneous Notes Telephone Encounter - Emma Mendez - 09/29/2019 2:03 PM CDT ([facility] and [facility] locations only: If the patient is not having symptoms and is requesting COVID-19 Nasal Swab testing only, use the process listed [facility] the [facility] OTG COVID-19 [place] Patient Requesting COVID PCR Test). In the past 30 days have you had a swab for COVID that tested positive? no Route reply to: Scheduling Contact Number: documented in this encounter Plan of Treatment Not on filedocumented as of this encounter Visit Diagnoses Not on filedocumented in this encounter Care Teams Auto Self Service Station Attendant Relationship 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
--- OUTSIDE RECORDS SUMMARY | 2022-01-19 15:36 | XMS_ITS | Encounter Summary ---
:1950 Author Organization [facility] Address [address] [place] [address] Care Team Providers Name Role Phone Elsewhere, Pcp Primary Care Provider Unavailable Reason for Visit Reason Comments COVID Inquiry Encounter Details Date Type Department Care Team Description 10/13/2019 Clinical Communication Department of Physical Velásquez, Jese SANCHEZID Inquiry Medicine and D, M.D. Rehabilitation in [address] [place] [address] [place] [phone] [place], [place] [phone] (Work) [phone] Social History Tobacco Use Types Packs/Day Years Used Date Smoking Tobacco: Never Smokeless Tobacco: Never Sex Assigned at Date Recorded Female 12/20/2020 12:41 PM CDT documented as of this encounter Miscellaneous Notes Telephone Encounter - Gloria Rene Jennifer - 10/13/2019 2:02 PM CDT ([facility] and [facility] locations only: If the patient is not having symptoms and is requesting COVID-19 Nasal Swab testing only, use the process listed in the COVID-19 Patient Requesting COVID PCR Test OTG COVID-19 [place] Patient Requesting COVID PCR Test). 1. Do you have a pending COVID test because you had symptoms or exposure to someone with COVID or you have tested positive for COVID in the last 30 days? no 2. In the past 14 days, do you, anyone in the household, or anyone you have had prolonged exposure have any of the following? a. Fever greater than or equal to 37.8 C (100.0 F)? no b. New symptoms (Specifically: headache, cough, shortness of breath, respiratory distress, sore throat, diarrhea, nausea, vomiting, chills and repeated shaking with chills, myalgia's (muscle aches), loss of smell, or change or loss of taste sensation)? no c. Had close contact with a patient with known or possible COVID-19 in the last 14 days? no documented in this encounter Plan of Treatment Not on filedocumented as of this encounter Visit Diagnoses Not on filedocumented in this encounter Care Teams Museum Informatics Specialist Relationship 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
--- OUTSIDE RECORDS SUMMARY | 2022-01-19 15:36 | XMS_ITS | Encounter Summary ---
:1950 Author Organization [facility] Address [address] [place] [address] Care Team Providers Name Role Phone Elsewhere, Pcp Primary Care Provider Unavailable Encounter Details Date Type Department Care Team Description 11/03/2020 Virtual Visit Department of Victor M Conner M.D. [address] [place] [phone] Screening Dermatology in Aixa Alvarado R.N. [address] [place] [phone] Examination Skin [place], [place] Cancer [address] [place] [phone] Social History Tobacco Use Types Packs/Day Years Used Date Smoking Tobacco: Never Smokeless Tobacco: Never Sex Assigned at Date Recorded Female 12/20/2020 12:41 PM CDT documented as of this encounter Progress Notes Aixa Alvarado R.N. - 11/03/2020 8:00 AM CDT Patient referred through ARF process. Completed administrative pre-visit discussion to better understand patient goals and the needed patient itinerary for forthcoming on-site visit. Patient contacted [facility] requesting on-campus appointment; Pre-visit was scheduled following that request. Patient Provided Information 1. What is your main skin concern? Has a lot of dark spots, dark bumps under her breasts and her back. The spots under her breasts are irritating, itchy and hurt when rubbed by her bra they can also bleed. She has one spot that is like a flap that is near armpit, that also becomes very irritated from her bra. She would like these irritating spots removed. Patient states she also has some dark spots on face that hurt and itch, when rubbed or scratched they too may bleed and are bothersome. Patient states she also has Lichen Sclerosis on her vulva and she would like to more about the webbing that sheis able to feel in the area. 2. Describe your concern above. Onset:It is hard to see her back so she is unable to know when those spots came or how long they have been there, the spots under breasts have been there for years. Duration: Lichen Sclerosis has had for decades. Associated symptoms: Patient states she also has Itching in the folds of her pubic area and uses Ketoconazole for this. 3. Describe any evaluation including dermatology visits, laboratory results, skin biopsy location, date and outcome. Evaluated by a palletizer?: No Laboratory results: Skin biopsy: (site, date, result/report): No Imaging studies: No Other tests: None 4. Describe previous treatments, duration and response. Topical treatments (name, strength, duration, outcome, reason for discontinuation): Clobetasol for the Lichen Sclerosis every third night which keeps it from itching. Ketoconazole for the itching in her pubic folds. 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 She is very careful about injuring her legs as scratches or abrasions do not heal well. documented in this encounter Plan of Treatment Not on filedocumented as of this encounter Visit Diagnoses Diagnosis Screening Examination Skin Cancer documented in this encounter Care Teams Network Infrastructure Architect Relationship 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
--- OUTSIDE RECORDS SUMMARY | 2022-01-19 15:36 | XMS_ITS | Encounter Summary ---
:1950 Author Organization [facility] Address [address] [place] [address] Care Team Providers Name Role Phone Elsewhere, Pcp Primary Care Provider Unavailable Reason for Referral Outpatient (Routine) - Closed Specialty Diagnoses / Procedures Referred By Contact Refer red To Contact Neurology Diagnoses Paresthesia Meenakshi Keller M.D. [facility] [address] [place] [address] Referral ID Status Reason Start Date Expiration Date Visits Requ ested Visits Authorized [id number] Closed 10/06/2020 10/06/2021 1 1 Encounter Details Date Type Department Care Team Description 10/06/2020 [facility] Meenakshi Keller Paresthesia (Primary AND CLINICS [facility] D[facility]) [address] [facility] [address] [place] [id number] Social History Tobacco Use Types Packs/Day Years Used Date Smoking Tobacco: Never Smokeless Tobacco: Never Sex Assigned at Date Recorded Female 12/20/2020 12:41 PM CDT documented as of this encounter Plan of Treatment Scheduled Referrals Name Type Priority Associated Diagnoses Order S chedule Neurology Referral Outpatient Referral Routine Paresthesia Ex pected: 10/06/2020 (Approximate), Expires: 10/07/2023 documented as of this encounter Visit Diagnoses Diagnosis Paresthesia - Primary documented in this encounter Care Teams Frog Shaker Relationship 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
--- OUTSIDE RECORDS SUMMARY | 2022-01-19 15:36 | XMS_ITS | Encounter Summary ---
:1950 Author Organization [facility] Address [address] [place] [address] Care Team Providers Name Role Phone Elsewhere, Pcp Primary Care Provider Unavailable Reason for Visit Reason Comments ARF Referral-see [facility] Encounter Details Date Type Department Care Team Description 09/14/2020 Clinical Communication Department of Katie Brody ARF Referral-see Dermatology in A, R.N. document viewer for [place], [facility] [address] [place], [place] records [address] [facility] [address] [place], [place] [phone] (Work) [phone] Social History Tobacco Use Types Packs/Day Years Used Date Smoking Tobacco: Never Smokeless Tobacco: Never Sex Assigned at Date Recorded Female 12/20/2020 12:41 PM CDT documented as of this encounter Miscellaneous Notes Telephone Encounter - Katie Brody, R.N. - 09/14/2020 7:44 AM CDT Appointment request reviewed. Per Dr. Wood, patient appropriate to schedule. ARF: Who filled out form ?Patient Goals ?1) I hv many moles, some of them are black. Some are being irritated by putting on a bra. Remedy?2) I ??hv Lichen Sclerosis and wd like the webbing looked at. ?3) 4th Stage Lymphedema. Do you deal with this?4) My is treated at [facility] and I expect to be seen there, too. ?? Symptoms/Concerns ?1) Painful, itching moles maty t are in the way. Extreme discomfort from these. ?2) A large number of moles under my breasts where the underwire bra makes contact. Very uncomfortable and painful experience. ?3) Many moles, some of them are black on my back. Some get scraped repeatedly when putting on or taking off a bra, get irritated and bleed. ?4) Most Important Symptom/Concern #1: 1 1) Painful, itching moles that are in the way. Extreme discomfort from these. ?Duration: More than 6 months ?Previous Marie l: No ?Outcome: ?Biopsy: No ?? 2) A large number of moles under my breasts where the underwire bra makes contact. Very uncomfortable and painful experience. ?Duration: Less than 6 months ?Previous Eval: No ?Outcome: ?Biop sy: No ?? 3) Many moles, some of them are black on my back. Some get scraped repeatedly when putting on or taking off a bra, get irritated and bleed. ?Duration: More than 6 months ?Previous Eval: No ?Outcome: ?Biopsy: No ?? 4) ?Duration: ?Previous Eval: ?Outcome: ?Biopsy: ?? Narcotics ?No Medications ?7 Requested Consults ?Dermatology strategic consultant ?? Bothered by the following problems in last 2 weeks ?? (Scale: ??Not at all, Several Days , More than half the days, Nearly every day) ? Feeling nervous, anxious, or on edge: ??Several days ? Not being able to stop or control worrying : ??Not at all ? Little interest or pleasure in doing things : ??Not at all ? Feeling down, depresse d, or hopeless: ??Not at all ?? Overall Health: (Scale: ??Excellent, Very good, Good, Fair, Poor) ? Fair Radiology ?Iodine contrast reaction ? Unsure ?Gadolinium contrast reaction ? Unsure Dialysis ?No Kidney springer splant ?No Urine or no urine output past 48 hours ?No Implanted medical devices or pumps ?No: Diabetic ?No documented in this encounter Plan of Treatment Not on filedocumented as of this encounter Visit Diagnoses Not on filedocumented in this encounter Care Teams Tungsten Tender Relationship 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
--- OUTSIDE RECORDS SUMMARY | 2022-01-19 15:36 | XMS_ITS | Encounter Summary ---
:1950 Author Organization [facility] Address [address] [place] [address] Care Team Providers Name Role Phone Elsewhere, Pcp Primary Care Provider Unavailable Reason for Visit Outpatient (Routine) - Closed Specialty Diagnoses / Procedures Referred By Contact Refer red To Contact Obstetrics and Diagnoses [facility]eding [facility] Lori Costa M.D. [address] [place] [address] Referral ID Status Reason Start Date Expiration Date Visits Requ ested Visits Authorized [id number] Closed 10/07/2020 10/07/2021 1 1 Encounter Details Date Type Department Care Team Description 10/21/2020 Procedure visit Department of José Luis Bella g Postmenopausal Obstetrics and , Lori Costa, Gynecology in [facility], [address] [place], [place] [address] [facility] [address] [place], [place] [phone] (Work) [phone] Social History Tobacco Use Types Packs/Day Years Used Date Smoking Tobacco: Never Smokeless Tobacco: Never Sex Assigned at Date Recorded Female 12/20/2020 12:41 PM CDT documented as of this encounter Progress Notes Lori Ordonez M.D. - 10/21/2020 4:00 PM CDT Mrs. Mota is a pleasant 70-year-old multiparous patient who I saw in April of 2019 for postmenopausal bleeding and found a couple polyps in the uterus. At the time the biopsy was benign endometrialpolyp with some focal glandular crowding. I had her come back in 3 months but given the difficulty of the initial biopsy we did not repeat biopsy at that time as she had not had any bleeding. She went through the entire pandemic without any bleeding until recently on September 30 she had a few weeks of spotting and bleeding. Some tiny clots. No pain or cramping with it. She alerted us right away becauseof our concerns of last year's biopsy and we ordered an ultrasound. Ultrasound shows a thickened endometrial stripe of about 22 mm which I described to her is concerning for potential cancer/ precancer. We discussed at length today given her history of cervical stenosis and trouble with positioning forexams (significant lymphedema, right knee requires replacement, left-sided lower extremity footdrop)whether we should position her in the office with our stirrups or whether we should do this under anesthesia. After this discussion we decided that we should try to proceeding get a biopsy given the concern for abnormal ultrasound. During the pandemic, she has gained weight due to restricted and limited exercise and has only recently restarted exercising. She also had significant worsening of her lymphedema. objective On physical exam she is healthy appearing in no acute distress. She does have significant lymphedemaup to her thighs and reddening of her feet up to about 5 cm above the ankle. We tried to position her both in the leg stirrups as well as the foot stirrups and neither position was possible to be comfortable or to be safe as the stirrups were causing significant issues with both her lymphedema and herhips. Therefore we did not continue with the procedure. Assessment and plan #1 Postmenopausal bleeding #2 Thickened endometrial stripe #3 History of focal glandular crowding on last biopsy #4 Lymphedema #5 Obesity I discussed with the patient even prior to the attempt at the procedure that I would definitely recommend that we at least get a biopsy of this. She questions whether she should go to hysterectomy we talked about the risk and benefits of that. I would be open to her seeing our oncologist for discussion of hysterectomy and post potentially doing a biopsy with frozen section at the time of the procedure. She assures me that she did not want to proceed in that way and would rather do an outpatient procedure to get the biopsy 1st and be able to have a full conversation about the risks of hysterectomy then. In fact, she is hysterectomy hesitant and would have to consider whether to proceed to hysterectomy even in the face of cancer or precancer. Therefore we discussed potentially placing an IUD during a hysteroscopic procedure, which would allow her to have endometrial protection without having undergo hysterectomy. Would be protective againsthyperplasia and even some low- grade cancers. She is not comfortable with an IUD and would not want this placed the time of the procedure. Therefore I think we should proceed with an outpatient hysteroscopic procedure, possible polypectomy, proceed as indicated. She is aware may need to do a D&C. We discussed the risks of the procedure including bleeding, infection, and uterine perforation. I discussed the risks of blood transfusion and she is okay with that in case the life-saving emergency. I also discussed that there could be injury during positioning given the difficulty today- I will have her wear her lymphedema stocking on the leg that she has been measured for until the time of the procedure which should reduce that. We will using Yellofins for positioning and we may need to wrap the other leg to reduce the chance of compre ssion of some of the lymphedema. She would like to proceed on December 02- I encouraged her to consider an earlier date which she will do if she has any additional bleeding or other symptoms. Questions and concerns were addressed. I spent 45 minutes with the patient in both [id number] and non [id number] patient care. documented in this encounter Plan of Treatment Not on filedocumented as of this encounter Visit Diagnoses Diagnosis Bleeding Postmenopausal documented in this encounter Care Teams Audio Visual Technician Relationship 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
--- OUTSIDE RECORDS SUMMARY | 2022-01-19 15:36 | XMS_ITS | Encounter Summary ---
:1950 Author Organization [facility] Address [address] [place] [address] Care Team Providers Name Role Phone Elsewhere, Pcp Primary Care Provider Unavailable Reason for Referral Outpatient (Routine) - Closed Specialty Diagnoses / Referred By Contact Referred To Contact Procedures Physical Medicine [facility] Lisbeth Lora [address] [place] [phone] Referral ID Status Reason Start Date Expiration Date Visits Requ ested Visits Authorized [id number] Closed 10/14/2019 10/13/2020 1 1 Scheduling Instructions Return to see me in [facility]hed[facility] therapist Physical Therapy (Routine) - Closed Specialty Diagnoses / Procedures Referred By Contact Refer red To Contact Diagnoses Lymphedema Jese Velásquez M.D. [facility] Procedures PT or OT eval and treat (first available) [address] [place] [phone] Referral ID Status Reason Start Date Expiration Date Visits Requ ested Visits Authorized [id number] Closed 10/14/2019 10/13/2020 1 1 Reason for Visit Outpatient (Routine) - Closed Specialty Diagnoses / Referred By Contact Referred To Contact Procedures Physical Medicine and Diagnoses Lymphedema Francy Sosa, [facility] 200 [place] [address] Referral ID Status Reason Start Date Expiration Date Visits Requ ested Visits Authorized [id number] Closed 06/18/2019 06/17/2020 1 1 Encounter Details Date Type Department Care Team Description 10/14/2019 Comprehensive Visit Department of Physical Velásquez, Lymphedema; Medicine and Jese Mayorga, Malik ; Rehabilitation in M.D. Hypertension Essential Primary [place], [place] [address] [place] [address] [place] [phone] Social History Tobacco Use Types Packs/Day Years Used Date Smoking Tobacco: Never Smokeless Tobacco: Never Sex Assigned at Date Recorded Female 12/20/2020 12:41 PM CDT documented as of this encounter Last Filed Vital Signs Vital Sign Reading Time Taken Comments Blood Pressure - - Pulse - - Temperature - - Respiratory Rate - - Oxygen Saturation - - Inhaled Oxygen Concentration - - Weight 140 kg (309 lb 8.4 oz) 10/14/2019 9:00 AM CDT Height 175.5 cm (5' 9.09) 10/14/2019 9:00 AM CDT Body Mass Index 45.58 10/14/2019 9:00 AM CDT documented in this encounter Consult Notes Jese Velásquez M.D. - 10/14/2019 10:45 AM CDT SUBJECTIVE REFERRAL SOURCE Francy Sosa PA-C. REASON FOR CONSULT Recommendations for evaluation and treatment of bilateral lower extremity lymphedema. HISTORY OF PRESENT ILLNESS Ms. Mota is a 69-year-old retired woman from [place], [place]. Her past medical history includes right knee DJD, history of left total knee arthroplasty, peripheral neuropathy of unclearetiology, spinal stenosis, left lower extremity radiculopathy with footdrop, postmenopausal bleeding, hypertension, and challenges with weight management. Ms. Mota states that she has had significant swelling of her lower extremities for many years; at least greater than a decade. She has had difficulty with slow healing wounds in her legs. Most recently, toward the end of September, she developed an injury to the right pretibial region and sought medical attention; a Band-Aid she had applied caused further skin tearing when it was removed. She was treated by her local medical practitioner with antibiotics and was instructed on BOY bandaging. She states that she did do the BOY bandaging for about 8 days but was not able to tolerate it 29/10. However, this was somewhat helpful and eventually allowing the superficial wound to heal. Ms. Mota denies a history of DVTs; does not recall ever being checked for any. She does not have ahistory of cancer, any surgeries that should have interrupted the lymphatic system. She denies a history of any heart failure or kidney/liver problems. She presented this past June to her local emergency room; was felt to have left leg cellulitis and started on an oral antibiotic. She did not have any fever and chills; the antibiotic did not help clear up the redness. She subsequently was seen at the [facility] in [place] on June 17, and her lymphedema was noted. Shewas referred to the [facility]; this was delayed due to COVID-19. Ms. Mota has had minimal treatment for her lower extremity swelling in the past. She has been on HCTZ 50 mg daily for her hypertension. She has never been to a lymphedema therapist or had her swelling evaluated. As previously noted, BOY bandages were used on the left leg at the end of September when she had an open sore. Ms. Mota has a long history of challenges with weight management. She does not monitor her weight,so does not know if she has gained weight in the last year. She previously was on an exercise program of swimming and water exercises; this was interrupted due to COVID-19. I reviewed the pertinent past medical history, social history, family history, and review of systems. OBJECTIVE PHYSICAL EXAMINATION General: The patient is a very pleasant 69-year-old woman with a height of 175.5 cm and a weight of 140 kg. Lungs: Clear. Heart: Regular rate and rhythm. Abdomen: Soft and nontender without palpable masses. Lymphatics: No palpable inguinal lymphadenopathy. Musculoskeletal: Left TKA scar is well healed; right knee exam consistent with degenerative joint disease. Neuro: Antigravity strength throughout; her left foot dorsiflexors do seem a little weaker than the right. She also has decreased sensation distally. Extremities: Lower-the patient has significant swelling, especially below the knees bilaterally; themeasurements are fairly symmetrical with the left leg being a little higher than the right. She has swelling of the feet and toes as well. Stemmer sign is positive. Skin: There is pretibial skin thickening with some pretibial papilloma to skin changes. There is an erythematous blush to both lower extremities below the knees and including the feet. There is no current weeping of fluid or open sores. ASSESSMENT / PLAN #1 Bilateral lower extremity swelling, multifactorial #2 Lymphedema-possible genetic predisposition and obesity related #3 Body mass index greater than 45 #4 Peripheral neuropathy #5 History of slow healing lower extremity ulcerations #6 History of left total knee arthroplasty #7 Right knee degenerative joint disease #8 Spinal stenosis #9 History of left footdrop I reviewed the pathophysiology of swelling using diagrams of the vascular system; explained that there is a balance on how much fluid that leaks from the capillaries and how much is removed by the lymphatic system. Her exam is consistent with lymphedema; I suspect she has a genetic predisposition, butalso her body weight contributes to functional lymphatic and venous insufficiency. She has had lymphedema for many years, so I do not feel a CT abdomen/pelvis is necessary at this time. I also reviewedlymphoscintigraphy; we will defer as this likely will not change treatment. My suspicion of DVT is low given the chronicity of her swelling. I will go ahead and check blood work for cardiac, liver, kidney, and thyroid function. I reviewed with Ms. Mota that she is at risk for cellulitis as well as slow healing ulcerations given the degree of swelling. I reviewed with her the principles of edema management; discussed low-sodium diet, elevation, exercise. However, I indicated that the most important factor would be compression. I referred the patient to our lymphedema therapists; she needs lymphedema reduction with short stretch bandaging. However, this may be challenging; she is very heat sensitive and this may be too hot for her. She also indicates that she has very poor balance and needs to use a walker outside of the home; the bandages may affect her ability to ambulate safely. She also is not sure she has large enough shoes or sandals to accommodate the bandages. However, I would like our therapists to try the bandaging as this is the gold standard in an attempt to get the swelling down. I also would like our therapists to see the patient back and assess for a maintenance program of compression if tolerated; compress ion stockings would be indicated but may need to try Velcro compression devices given her challenges. Compressing the feet with Velcro compression devices is not the most ideal but may need to be considered. Of note is that finances may be a factor in the patient's maintenance program as well. I will go ahead and schedule the patient back to see myself and one of our therapists in about 3 months to assess given her numerous challenges. I later attempted to call the patient to let her know that her blood work looked good; I could not get through or leave a message on the listed phone number. I will attempt to send her a message through the portal system. Jese Velásquez M.D. CT CT Job ID: [id number] documented in this encounter Plan of Treatment Scheduled Referrals Name Type Priority Associated Order Schedule Diagnoses Physical Medicine and Outpatient Referral Routine Expected: Rehabilitation office 2019 visit (clinic) (Approximate) , Expires: 10/13/2022 documented as of this encounter Results S-TSH (Thyroid-Stimulating Hormone - Sensitive) (10/14/2019 12:20 PM CDT) athologist Signature TSH, Sensitive 1.6 0.3 - 4.2 10/14/2019 DTL mIU/L 1:39 PM CDT Specimen Anatomical Collection Method Collection Time Receive d Time (Source) Location / / Volume Laterality Blood (Blood, 10/14/2019 12:20 10/14/2019 1:12 Venous) PM CDT PM CDT Jese Velásquez M.D. LAB BLOOD ADD-ON Performing Organization Address City/State/ZIP Code Phon e Number [facility] - [address] [place], [place] [address] [facility] [place] [address] [facility] [address] Sodium (10/14/2019 12:20 PM CDT) athologist Signature Sodium, S 143 135 - 145 10/14/2019 1:39 DTL mmol/L PM CDT Specimen Anatomical Collection Method Collection Time Receive d Time (Source) Location / / Volume Laterality Blood (Blood, 10/14/2019 12:20 10/14/2019 1:12 Venous) PM CDT PM CDT Jese Velásquez M.D. LAB BLOOD ADD-ON Performing Organization Address City/[facility] [place] [facility] Phon e Number [facility] - [address] [place] [address] Potassium (10/14/2019 12:20 PM CDT) athologist Signature Potassium, S 3.9 3.6 - 5.2 10/14/2019 DTL mmol/L 1:39 PM CDT Specimen Anatomical Collection Method Collection Time Receive d Time (Source) Location / / Volume Laterality Blood (Blood, 10/14/2019 12:20 10/14/2019 1:12 Venous) PM CDT PM CDT Jese Velásquez M.D. LAB BLOOD ADD-ON Performing Organization Address [facility] [place] [facility] Phon e Number [facility] - [address] NT-Pro B-Type Natriuretic Peptide (BNP) (10/14/2019 12:20 PM CDT) athologist Signature NT-Pro BNP 61 <=199 pg/mL 10/14/2019 DTL 1:39 PM CDT Comment: NT-proBNP values less than 300 pg/mL hav e a 99% negative predictive value for excluding acute congestive heart brenden lure. A cutoff of 1200 pg/mL for patients with an eGFR<60 yields a diagno stic sensitivity and specificity of 89% and 72% for acute congestive heart f ailure. ??A diagnostic NT-proBNP cutoff of 900 pg/mL has been suggested i n adults 50-75 years of age in the absence of renal failure. Specimen Anatomical Collection Method Collection Time Receive d Time (Source) Location / / Volume Laterality Blood (Blood, 10/14/2019 12:20 10/14/2019 1:12 Venous) PM CDT PM CDT Jese Velásquez M.D. LAB BLOOD ADD-ON Performing Organization Address City/[facility] [place] [facility] Phon e Number [facility] - [address] [place], [place] [address] [facility] [place] [address] Creatinine with Estimated GFR (10/14/2019 12:20 PM CDT) P athologist Signature Creatinine 0.79 0.59 - 10/14/2019 DTL 1.04 mg/dL 1:39 PM CDT eGFR-Non 77 >=60 10/14/2019 DTL Black/ mL/min/BSA 1:39 PM CDT Malagasy Comment: ----ADDITIONAL INFORMATION---- Estimated GFR calculated using the 2009 CKD_EPI creatinine equation. eGFR-Black/ 89 >=60 mL/min/BSA 2019 1:39 PM CDT DTL Comment: ----ADDITIONAL INFORMATION---- Estimated GFR calculated using the 2009 CKD_EPI creatinine equation. Specimen Anatomical Collection Method Collection Time Receive d Time (Source) Location / / Volume Laterality Blood (Blood, 10/14/2019 12:20 10/14/2019 1:12 Venous) PM CDT PM CDT Jese Velásquez M.D. LAB BLOOD ADD-ON Performing Organization Address City/State/ZIP Code Phon e Number [facility] - [address] [place] [address] (ABNORMAL) CBC with Differential, Blood (10/14/2019 12:20 PM CDT) Patholo gist Method Time Signature Hemoglobin 14.2 11.6 - 10/14/2019 DTL 15.0 g/dL 12:50 PM CDT Hematocrit 44.0 35.5 - 10/14/2019 DTL 44.9 % 12:50 PM CDT Erythrocytes 5.06 3.92 - 10/14/2019 DTL 5.13 12:50 PM CDT x10(12)/L MCV 87.0 78.2 - 10/14/2019 DTL 97.9 fL 12:50 PM CDT RBC Distrib Width 13.0 12.2 - 10/14/2019 DTL 16.1 % 12:50 PM CDT Platelet Count 232 157 - 371 10/14/2019 DTL x10(9)/L 12:50 PM CDT Leukocytes 9.2 3.4 - 9.6 10/14/2019 DTL x10(9)/L 12:50 PM CDT Neutrophils 4.87 1.56 - 10/14/2019 DTL 6.45 12:50 PM CDT x10(9)/L Lymphocytes 3.36 (H) 0.95 - 10/14/2019 DTL 3.07 12:50 PM CDT x10(9)/L Monocytes 0.65 0.26 - 10/14/2019 DTL 0.81 12:50 PM CDT x10(9)/L Eosinophils 0.25 0.03 - 10/14/2019 DTL 0.48 12:50 PM CDT x10(9)/L Basophils 0.03 0.01 - 10/14/2019 DTL 0.08 12:50 PM CDT x10(9)/L Specimen Anatomical Collection Method Collection Time Receive d Time (Source) Location / / Volume Laterality Blood (Blood, 10/14/2019 12:20 10/14/2019 Venous) PM CDT 12:40 PM CDT Jese Velásquez M.D. LAB BLOOD ADD-ON Performing Organization Address City/[facility] [place] [facility] Code Phon e Number [facility] - [address] [place] [address] [facility] AST (Aspartate Aminotransferase) (10/14/2019 12:20 PM CDT) [facility] gist Method Time Signature Aspartate 24 8 - 43 10/14/2019 DTL Aminotransferase U/L 1:39 PM CDT (AST), S Specimen Anatomical Collection Method Collection Time Receive d Time (Source) Location / / Volume Laterality Blood (Blood, 10/14/2019 12:20 10/14/2019 1:12 Venous) PM CDT PM CDT Jese Velásquez M.D. LAB BLOOD ADD-ON Performing Organization Address City/State/[facility] Code Phon e Number [facility] - [address] [place] [address] [facility] ALT (Alanine Aminotransferase) (10/14/2019 12:20 PM CDT) Patholo gist Method Time Signature Alanine 25 7 - 45 10/14/2019 DTL Aminotransferase U/L 1:39 PM CDT (ALT), S Specimen Anatomical Collection Method Collection Time Receive d Time (Source) Location / / Volume Laterality Blood (Blood, 10/14/2019 12:20 10/14/2019 1:12 Venous) PM CDT PM CDT Jese Velásquez M.D. LAB BLOOD ADD-ON Performing Organization Address City/[facility] [place] [facility] Code Phon e Number [facility] - [address] Alkaline Phosphatase (10/14/2019 12:20 PM CDT) P athologist Signature Alkaline 56 35 - 104 10/14/2019 DTL Phosphatase, S U/L 1:39 PM CDT Specimen Anatomical Collection Method Collection Time Receive d Time (Source) Location / / Volume Laterality Blood (Blood, 10/14/2019 12:20 10/14/2019 1:12 Venous) PM CDT PM CDT Jese Velásquez M.D. LAB BLOOD ADD-ON Performing Organization Address City/[facility] [place] [facility] Phon e Number [facility] - [address] Albumin (10/14/2019 12:20 PM CDT) P athologist Signature Albumin, S 4.1 3.5 - 5.0 10/14/2019 DTL g/dL 1:39 PM CDT Specimen Anatomical Collection Method Collection Time Receive d Time (Source) Location / / Volume Laterality Blood (Blood, 10/14/2019 12:20 10/14/2019 1:12 Venous) PM CDT PM CDT Jese Velásquez M.D. LAB BLOOD ADD-ON Performing Organization Address City/[facility] [place] [facility]/ZIP Code Phon e Number [facility] - [address] documented in this encounter Visit Diagnoses Diagnosis Lymphedema Dyspnea Hypertension Essential Primary documented in this encounter Care Teams Textile Knitter Relationship 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
--- OUTSIDE RECORDS SUMMARY | 2022-01-19 15:36 | XMS_ITS | Encounter Summary ---
:1950 Author Organization [facility] Address [address] [place] [address] Care Team Providers Name Role Phone Elsewhere, Pcp Primary Care Provider Unavailable Reason for Referral Outpatient (Routine) - Closed Specialty Diagnoses / Procedures Referred By Contact Refer red To Contact Diagnoses Bleeding Postmenopausal [facility] Procedures US Pelvis Transvaginal and Transabdominal Lori Costa M.D. 200 [place], [place] [phone] Referral ID Status Reason Start Date Expiration Date Visits Requ ested Visits Authorized [id number] Closed 10/07/2020 10/07/2021 1 1 utpatient (Routine) - Closed Specialty Diagnoses / Procedures Referred By Contact Refer red To Contact Obstetrics and Diagnoses Bleeding Postmenopausal [facility] Gynecology Lori Costa M.D. 200 [place] [address] Referral ID Status Reason Start Date Expiration Date Visits Requ ested Visits Authorized [id number] Closed 10/07/2020 10/07/2021 1 1 Reason for Visit Reason Comments Communication Encounter Details Date Type Department Care Team Description 10/07/2020 Clinical Communication Department of Lalit Ordonez Obstetrics and Lori Costa M.D. Gynecology in [address] [place] [address] [place] [phone] [place], [place] [phone] (Work) [phone] Social History Tobacco Use Types Packs/Day Years Used Date Smoking Tobacco: Never Smokeless Tobacco: Never Sex Assigned at Date Recorded Female 12/20/2020 12:41 PM CDT documented as of this encounter Miscellaneous Notes Telephone Encounter - Catrachita Aguayo R.N. - 10/07/2020 11:36 AM CDT SUBJECTIVE CHIEF COMPLAINT / REASON FOR CALL Communication ASSESSMENT Abby calls with bleeding starting a week ago (09/30/2020.) She states the bleeding has been intermittent pink spotting with wiping. She does not describe any pain associated with this. Abby was seen with Dr. Lori Saavedramaso 04/24/2019 for operative hysteroscopy and polypectomy as office hysteroscopy was unable to be performed due to stenosis. PLAN Abby was advised to be seen to evaluate this bleeding. Pelvic ultrasound and Hysteroscopy was ordered. Disposition/Recommendation: patient transferred to the appointment desk. Information/Education: patient/caller able to teach back. Caller agreeable to plan of care: yes. The following references were used: nursing clinical judgement. Telephone Encounter - Marcela Mcmillan - 10/07/2020 11:30 AM CDT Patient calling with PMB again and would like nursing to call her today. 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
--- OUTSIDE RECORDS SUMMARY | 2022-01-19 15:36 | XMS_ITS | Encounter Summary ---
:1950 Author Organization [facility] Address [address] [place] [address] Care Team Providers Name Role Phone Elsewhere, Pcp Primary Care Provider Unavailable Reason for Referral Outpatient (Routine) - Closed Specialty Diagnoses / Procedures Referred By Contact Refer red To Contact Dermatology Diagnoses Screening Examination Skin Cancer Meenakshi Keller M.D. [facility] [address] [place] [address] Referral ID Status Reason Start Date Expiration Date Visits Requ ested Visits Authorized [id number] Closed 09/06/2020 09/06/2021 1 1 Encounter Details Date Type Department Care Team Description 09/06/2020 [facility] Meenakshi Keller Screening [facility] CLINICS Geno Hdz Examination Skin [address] Cancer (Primary Dx) [place] [address] [phone] Social History Tobacco Use Types Packs/Day Years Used Date Smoking Tobacco: Never Smokeless Tobacco: Never Sex Assigned at Date Recorded Female 12/20/2020 12:41 PM CDT documented as of this encounter Plan of Treatment Scheduled Referrals Name Type Priority Associated Diagnoses Order S chedule Dermatology Referral Outpatient Referral Routine Screening Expected: Examination Skin 09/06/2020 Cancer (Approximate), Expires: 09/07/2023 documented as of this encounter Visit Diagnoses Diagnosis Screening Examination Skin Cancer - Prim thomas documented in this encounter 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
--- OUTSIDE RECORDS SUMMARY | 2022-01-19 15:36 | XMS_ITS | Encounter Summary ---
:1950 Author Organization [facility] Address [address] [place] [address] Care Team Providers Name Role Phone Elsewhere, Pcp Primary Care Provider Unavailable Reason for Referral Outpatient (Routine) - Closed Specialty Diagnoses / Procedures Referred By Contact Refer red To Contact Neurology Sabino Jung M. D., Ph.D. [facility] [address] [place] [address] Referral ID Status Reason Start Date Expiration Date Visits Requ ested Visits Authorized [id number] Closed 12/20/2020 12/20/2021 1 1 Scheduling Instructions After all tests are back MRI/CAT/PET Scan (Routine) - Closed Specialty Diagnoses / Procedures Referred By Contact Refer red To Contact Radiology Diagnoses Abnormal Findings On Diagnostic Imaging Of Other Parts Of Musculoskeletal System Sabino Jung M.D., [facility] Procedures MR Thoracic Spine without IV Contrast Ph.D. [address] [place], [place] [phone] Referral ID Status Reason Start Date Expiration Date Visits Requ ested Visits Authorized [id number] Closed 12/20/2020 12/20/2021 1 1 MRI/CAT/PET Scan (Routine) - Closed Specialty Diagnoses / Procedures Referred By Contact Refer red To Contact Radiology Diagnoses Stenosis Spinal Cervical Sabino Jung M.D., [facility] Procedures MR Cervical Spine without IV Contrast Ph.D. [address] [place] [address] Referral ID Status Reason Start Date Expiration Date Visits Requ ested Visits Authorized [id number] Closed 12/20/2020 12/20/2021 1 1 MRI/CAT/PET Scan (Routine) - Closed Specialty Diagnoses / Procedures Referred By Contact Refer red To Contact Radiology Diagnoses Paresthesia Stenosis Spinal Cervical Sabino Jung M.D., [facility] Procedures MR Brain without IV Contrast [place] MRI BRAIN WO CNTRST [facility] MRI BRAIN WO CNTRST Ph.D. [address] [place] [address] Referral ID Status Reason Start Date Expiration Date Visits Requ ested Visits Authorized [id number] Closed 12/20/2020 12/20/2021 1 1 Reason for Visit Outpatient (Routine) - Closed Specialty Diagnoses / Procedures Referred By Contact Refer red To Contact Neurology Diagnoses Paresthesia Meenakshi Keller M.D. [address] [address] Referral ID Status Reason Start Date Expiration Date Visits Requ ested Visits Authorized [id number] Closed 10/06/2020 10/06/2021 1 1 Encounter Details Date Type Department Care Team Description 12/20/2020 Comprehensive Visit Department of Sabino Jung Non Orthopedic (Primary Dx); Neurology in [place], Paresthesia; Guerrero, Ph.D. Stenosis Spinal Cervical; [place] [address] Abnormal Findings On Diagnos tic Imaging Of Other Parts Of Musculoskeletal System; [address] [facility] Repeated Falls; [place], [place] Guerrero, Abnormal Gait Non Orthopedic; [phone] [place] [facility] ([facility]) [phone] Social History Tobacco Use Types Packs/Day Years Used Date Smoking Tobacco: Never Smokeless Tobacco: Never Sex Assigned at Date Recorded Female 12/20/2020 12:41 PM CDT documented as of this encounter Last Filed Vital Signs Vital Sign Reading Time Taken Comments Blood Pressure 174/102 12/20/2020 1:01 PM CDT Pulse 97 12/20/2020 1:01 PM CDT Temperature - - Respiratory Rate - - Oxygen Saturation - - Inhaled Oxygen Concentration - - Weight 138 kg (304 lb 2 oz) 12/20/2020 1:01 PM CDT Height 175.7 cm (5' 9.17) 12/20/2020 1:01 PM CDT Body Mass Index 44.69 12/20/2020 1:01 PM CDT documented in this encounter H&P Notes Sabino Jung M.D., Ph.D. - 12/20/2020 1:00 PM CDT Mrs. Mota came for a number of problems, which she summarized for me as follows. It should be noted that she has marked lymphedema of the lower extremities and undoubtedly, this is playing a role in some of her ambulatory problems. However, she was seen last summer in [address] Velásquez in the lymph edema Clinic and it seemed that there were not alot of options to help her with this. I have sent him a note just to make certain that we have not overlooked anything. The specific problem she brought to my attention are as follows. ?? Imbalance with a fall risk that has gradually gotten worse over the last 6-7 years. She recalls that it seem to surface after her left TKA. After that procedure, she noted a left foot drop in toe deformity. ?? She has which she describes as a ???peripheral neuropathy?? . I note that she saw Dr. Rodriguez and Dr. Jefferson in November of 2016. The notes indicate that an EMG was done elsewhere and ???..EMG nerve conduction studies done in June 2016 that were limited due to lower extremity edema showing low amplitude responses. The needle EMG was somewhat limited due to discomfort but overall the notshow compelling evidence for a left lumbosacral radiculopathy. ?? Low back spasms ?? Episodes recurring 4 times this summer of total loss of feeling from the waist down. Simultaneously, she experienced a paroxysm of pain up her spine. This was sudden in onset. ?? She has heat intolerance in her feet and legs and this is prevented using wraps to treat her massive lymphedema. Conversely, her upper body does not tolerate cold well. ?? She notes that her gait seems wooden and rigid if she tries to walk after sitting a while. ?? She has frequent left lower extremity spasms that generalize to the right lower extremity which is described as not a cramp. It then moves up to the trunk & for 3-5 minutes, she has trouble breathing. This tends to recur daily especially when she gets out of bed in the morning. Otherwise, her breathing is okay. ?? She has right knee pain and believes that a right TKA should be done but her lymphedema has been limiting proceeding with that. I reviewed her lumbar MRI scan done elsewhere from September of this year and I do not see any remarkableabnormalities. When we started the examination, she cautioned me about avoiding any sharp objects directed at her lower extremities since her skin is very sensitive and she does not heal abrasions or punctures. Hence, the exam was mildly limited in order to avoid that. Examination: The front office representative recorded her sitting blood pressure with a sitting value in the right forearm of 174/102 with a pulse of 97. I did the full neurologic exam with the results as follows: Strength: I assessed strength of all the major muscle groups of the 4 limbs and found strength to be intact. Specifically notable is a fact that I did not detect weakness of the anterior tibialis, posterior tibialis peroneus or toe muscles of the left foot. Tone: Limb tone was grossly normal in the 4 limbs. Sensation: She could feel a vibrating tuning fork distally in the fingertips. She could feel it at the right knee but not the left knee. There was massive edema/lymphedema and could not appreciated distally. Gait: I watched her walk using her 4 wheeled walker. I asked her if she would feel comfortable and safe towalk a few steps without it and she told me that she would be a fall risk if she did that. Watching her walk beyond the walker revealed a slowed in careful stride but nothing but beyond that. Cranial nerves: Eye movements were intact testing both pursuit and voluntary gaze. Her pupils were symmetric. Voluntary facial grimace was normal. Her palate elevated in the midline. Her tongue volume appeared normal without evidence of atrophy or fasciculation. With the COVID mask on, I did not detect any abnormalities of speech or phonation. DTR's: The deep tendon reflexes in the upper extremities were reduced with markedly reduced knee jerks and ankle jerks. I did not try to elicit plantar responses since she caution me not to do that because ofthe potential to damage her sensitive skin. AMR's: Finger-thumb tapping and foot tapping was done grossly within normal limits. The same was true for hand pronation-supination. Coordination: On cruivl-em-dmoh testing, there was no evidence of ataxia. Praxis: I did not see evidence of upper extremity apraxia. Tremor: I did not see tremor of any type. Dyskinesias: There are no other adventitious movements. Carotid auscultation: No bruits. Impression: # 1 Imbalance # 2 Spasms # 3 Brief sudden episodes of loss of feeling from the waist down # 4 Episodes of lower extremity to whole-body spasms impairing respiration # 5 Massive lower extremity lymphedema Mrs. Mota has become quite disabled by this constellation of problems. I did send a note to Dr. Velásquez who saw her in the lymphedema Clinic last summer to learn if there were any other strategies that could be employed to help her with the lymphedema. My suspicion is that perhaps not but it is worthwhile to inquire. ADDENDUM (January 06, 2021): I heard back last week from Dr. Velásquez and we addressed strategies for the lymphedema in our e-mail correspondence. Ultimately we both concluded that there are not additional things that could be tried that would likely proved more than minimally beneficial and tolerable. Hence, he did not expect here to benefit from a return visit at this time to the Lymphedema clinic. I have ordered blood work in view of the issue of peripheral neuropathy that has been suspected before. ADDENDUM (January 06, 2021): Her blood work is now back and unremarkable. I did not order an EMG since I do not believe she would tolerate this. In view of the imbalance, spasms and unusual episodes described above, I have ordered an MRI scan ofthe brain, cervical and thoracic spine. She and I looked at her lumbar MRI scan and there are no worrisome findings on that imaging study done 3 months ago. Hence, I will not repeat that. ADDENDUM (January 06, 2021): I reviewed her MRI brain scan and did not see any clinically significantfindings. Her midbrain on the sagittal images was within normal limits and not diminutive. The susceptibility weighted images did not document any striatal abnormalities. The FLAIR images did not document any clinically relevant findings. The cervical spine MRI scan likewise was unremarkable. Both of these MRI scans were done without contrast. I note that she could not tolerate the thoracic spine imaging so that study was aborted. I will see her back after these studies have been completed. Time allocated for this visit including review of the records, history, exam, counseling, test ordering and preparation of the above note spanned 90 minutes. documented in this encounter Plan of Treatment Scheduled Referrals Name Type Priority Associated Order Schedule Diagnoses Neurology office Outpatient Referral Routine 1 Oc currences visit (clinic) starting 12/07 until 4 documented as of this encounter Results MR Thoracic Spine without IV Contrast (01/03/2021 5:21 PM CDT) Anatomical Region Laterality Modality Thoracic Spine, Neuroradiology RST LOS, Neuroradiology N/A Magnetic Resonance ARZ [facility], Neuroradiology FLA [facility] Specimen (Source) Anatomical Collection Method Collection Time [...] Neuroradiology RST LOS, N/A Magnetic Resonance Neuroradiology [facility], Neuroradiology [facility] Specimen (Source) Anatomical Collection Method [...] Region Laterality Modality Head, Brain, Neuroradiology RST [facility], Neuroradiology ARZ N/A Magnetic Resonance [facility], Neuroradiology FLA LOS Specimen (Source) Anatomical Collection [...] Sabino Jung M.D., Ph.D. IMG MRI PROCEDURES Methylmalonic Acid (MMA), Quantitative (12/20/2020 2:45 PM CDT) Analysis Performed At Patho logist Time Signature Methylmalonic 0.21 <=0.40 12/22/2020 DTL Acid, QN, S nmol/mL 7:45 AM CDT Comment: ----ADDITIONAL INFORMATION---- This test was developed and its performa nce characteristics determined by [facility] in a manner consistent with CLIA requirements. This test has not been cleared or approved by the U.[place] John d and Drug Administration. Specimen Anatomical Collection Method Collection Time Receive d Time (Source) Location / / Volume Laterality Blood (Blood, 12/20/2020 2:45 PM 12/21/19 3:56 Venous) CDT PM CDT Sabino Jung M.D., Ph.D. LAB BLOOD ADD-ON Performing Organization Address City/State/ZIP Code Phon e Number [facility] - [address] [place], [place] [address] [facility] [place] [address] Laboratories-[facility] [address] Vitamin B12 Assay (12/20/2020 2:45 PM CDT) P athologist Signature Vitamin B12 383 180 - 914 12/21/2020 DTL Assay, S ng/L 7:08 AM CDT Comment: ----ADDITIONAL INFORMATION---- In patients being evaluated for vitamin B12 deficiency who have intrinsic factor blocking antibodie s (IFBA), false elevations of B12 may occur due to IFBA interference thus potentially obscuring a physiological de ficiency of B12. If observed B12 concentrations are disco rdant with clinical presentation, measurement of methylmalon ic acid (MMA) should be considered. Specimen Anatomical Collection Method Collection Time Receive d Time (Source) Location / / Volume Laterality Blood (Blood, 12/20/2020 2:45 PM 12/21/19 3:29 Venous) CDT PM CDT Sabino Jung M.D., Ph.D. LAB BLOOD ADD-ON Performing Organization Address City/[facility] Code Phon e Number [facility] - [address] [place] [phone] [facility] [place] [address] Laboratories-[address] Connective Tissue Diseases [place] (12/20/2020 2:45 PM CDT) athologist Signature Antinuclear Ab, 0.7 <=1.0 12/21/2020 [facility] S (Negative) 11:05 AM CDT U Comment: ----ADDITIONAL INFORMATION---- Method: Enzyme-linked immunoassay using HEp-2 nuclear extract supplemented with purified antig ens. Cyclic Citrullinated <15.6 <20.0 (Negative) U 12/21/2020 10:50 AM [facility] Peptide Ab, S CDT Interpretation SEE COMMENT 12/21/2020 11:05 AM SDS C CDT Comment: Tests for antibodies to dsDNA and RAZIA an tigens are not performed automatically unless the MARTHA r esult is > or = 3.0 U. ??Studies performed at [facility] indicate that positive MARTHA results <3.0 U are rarely a ccompanied by positive second order tests. Specimen Anatomical Collection Method Collection Time Receive d Time (Source) Location / / Volume Laterality Blood (Blood, 12/20/2020 2:45 PM 12/22/19 7:18 Venous) CDT AM CDT Sabino Jung M.D., Ph.D. LAB BLOOD ADD-ON Performing Organization Address City/[facility] Code Phon e Number [facility] [address] [place], [place] [address] [facility] [place] [address] Laboratory Medicine and Pathology [address] [place] Sedimentation Rate (12/20/2020 2:45 PM CDT) Analysis Performed At Patho logist Time Signature Sedimentation 20 2 - 22 12/20/2020 DTL Rate, B mm/h 4:20 PM CDT Specimen Anatomical Collection Method Collection Time Receive d Time (Source) Location / / Volume Laterality Blood (Blood, 12/20/2020 2:45 PM 12/21/19 21 3:25 Venous) CDT PM CDT Sabino Jung M.D., Ph.D. LAB BLOOD ADD-ON Performing Organization Address City/[facility] Code Phon e Number [facility] - [address] [place], [place] [address] [place] [address] Laboratories-[address] S-TSH (Thyroid-Stimulating Hormone - Sensitive) (12/20/2020 2:45 PM CDT) P athologist Signature TSH, Sensitive 1.3 0.3 - 4.2 12/20/2020 DTL mIU/L 3:57 PM CDT Specimen Anatomical Collection Method Collection Time Receive d Time (Source) Location / / Volume Laterality Blood (Blood, 12/20/2020 2:45 PM 12/21/19 21 3:29 Venous) CDT PM CDT Sabino Jung M.D., Ph.D. LAB BLOOD ADD-ON Performing Organization Address City/State/ZIP Code Phon e Number [facility] - [address] [place], [place] [address] [place] [address] Laboratories-[address] (ABNORMAL) Monoclonal Gammopathy Diagnostic (12/20/2020 2:45 PM CDT) Patholo gist Method Time Signature Therapeutic No 12/21/2020 SDSC Antibody 7:57 AM CDT Administered? Total Protein, 6.8 6.3 - 7.9 12/21/2020 [facility] S g/dL 8:34 AM CDT [place] Free 1.67 0.3300 - 12/21/2020 [facility] Light Chain, S 1.94 mg/dL 8:49 AM CDT Lambda Free 1.58 0.5700 - 12/21/2020 [facility] Light Chain, S 2.63 mg/dL 8:48 AM CDT [place]/Lambda 1.06 0.2600 - 12/21/2020 [facility] FLC Ratio 1.65 8:49 AM CDT Albumin 3.2 (L) 3.4 - 4.7 12/22/2020 [facility] g/dL 8:28 AM CDT Alpha-1 0.3 0.1 - 0.3 12/22/2020 [facility] Globulin g/dL 8:28 AM CDT Alpha-2 1.0 0.6 - 1.0 12/22/2020 [facility] Globulin g/dL 8:28 AM CDT Beta-Globulin 1.1 0.7 - 1.2 12/22/2020 [facility] g/dL 8:28 AM CDT Gamma-Globulin 1.3 0.6 - 1.6 12/22/2020 [facility] g/dL 8:28 AM CDT A/G Ratio 0.88 12/22/2020 [facility] 8:28 AM CDT Impression No apparent monoclonal protein on serum electrophoresi s. 12/22/2020 [facility] 8:28 AM CDT See Isotype. Flag, M-protein Negative Negative 12/22/2020 [facility] Isotype 12:27 PM CDT M-protein Cannot rule 12/22/2020 [facility] Isotype out small 12:27 PM MALDI-TOF MS monoclonal CDT protein. ~Suggest repeat testing in 6-12 months if clinically indicated. Comment: ----ADDITIONAL INFORMATION---- The submitted sample was assayed by five separate immunopurifications for IgG, IgA, IgM, kappa and lambda. ??The r esult reflects the findings of either no monoclonal protein detected or those monoclonal immunoglobulins that were detected. This test was developed and its performa nce characteristics determined by [facility] in a manner consistent with CLIA requirements. This test has not been cleared or approved by the U.S. John d and Drug Administration. Specimen Anatomical Collection Method Collection Time Receive d Time (Source) Location / / Volume Laterality Blood (Blood, 12/20/2020 2:45 PM 12/22/19 21 6:10 Venous) CDT AM CDT Narrative [facility] [address] SUPPORT TARAN R - 12/22/2020 12:27 PM CDT Specimen Information: Specimen ID: [id number] Specimen Type: Blood Specimen Collection Start Date: 12/21/19 ??2:45 PM Specimen Received Date: 12/21/2020 ??6:1 0 AM Specimen ID: [id number] Specimen Type: Blood Specimen Collection Start Date: 12/21/19 ??2:45 PM Specimen Received Date: 12/21/2020 ??7:5 7 AM Sabino Jung M.D., Ph.D. LAB BLOOD ADD-ON Performing Organization Address City/State/ZIP Code Phon e Number [facility] [address] [place], [place] [address] [place] [address] Laboratory Medicine and Pathology [address] [place] (ABNORMAL) Comprehensive Metabolic Panel (12/20/2020 2:45 PM CDT) athologist Signature Potassium, S 3.6 3.6 - 5.2 12/20/2020 DTL mmol/L 3:46 PM CDT Sodium, S 141 135 - 145 12/20/2020 DTL mmol/L 3:46 PM CDT Chloride, S 98 98 - 107 12/20/2020 DTL mmol/L 3:46 PM CDT Bicarbonate, S 32 (H) 22 - 29 12/20/2020 DTL mmol/L 4:04 PM CDT Anion Gap 11 7 - 15 12/20/2020 DTL 4:04 PM CDT BUN (Blood Urea 11 6 - 21 12/20/2020 DTL Nitrogen), S mg/dL 3:46 PM CDT Creatinine 0.74 0.59 - 12/20/2020 DTL 1.04 mg/dL 3:46 PM CDT eGFR-Non 83 >=60 12/20/2020 DTL Black/ mL/min/BSA 3:46 PM CDT Ethiopian Comment: ----ADDITIONAL INFORMATION---- Estimated GFR calculated using the 2009 CKD_EPI creatinine equation. eGFR-Black/ >90 >=60 mL/min/BSA 2020 3:46 PM CDT DTL Comment: ----ADDITIONAL INFORMATION---- Estimated GFR calculated using the 2009 CKD_EPI creatinine equation. Calcium, Total, S 10.2 8.8 - 10.2 mg/dL 12/20/2020 3:46 PM CDT DTL Glucose, S 95 70 - 140 mg/dL 12/20/2020 3:46 PM CDT D TL Protein, Total, S 7.1 6.3 - 7.9 g/dL 12/20/2020 3:46 P M CDT DTL Albumin, S 4.3 3.5 - 5.0 g/dL 12/20/2020 3:46 PM CDT D TL Aspartate Aminotransferase 16 8 - 43 U/L 12/20/2020 3 :46 PM CDT DTL (AST), S Alkaline Phosphatase, S 65 35 - 104 U/L 12/20/2020 3: 46 PM CDT DTL Alanine Aminotransferase (ALT), 16 7 - 45 U/L 021 3:46 PM CDT DTL S Bilirubin, Total, S 0.4 <=1.2 mg/dL 12/20/2020 3:46 PM CDT DTL Specimen Anatomical Collection Method Collection Time Receive d Time (Source) Location / / Volume Laterality Blood (Blood, 12/20/2020 2:45 PM 12/21/19 3:29 Venous) CDT PM CDT Sabino Jung M.D., Ph.D. LAB BLOOD ADD-ON Performing Organization Address City/State/ZIP Code Phon e Number [facility] - [address] [place], [place] [address] [facility] [place] [address] [facility] [address] (ABNORMAL) CBC with Differential, Blood (12/20/2020 2:45 PM CDT) [facility] Method Time Signature Hemoglobin 14.2 11.6 - 12/20/2020 DTL 15.0 g/dL 3:37 PM CDT Hematocrit 44.6 35.5 - 12/20/2020 DTL 44.9 % 3:37 PM CDT Erythrocytes 5.09 3.92 - 12/20/2020 DTL 5.13 3:37 PM CDT x10(12)/L MCV 87.6 78.2 - 12/20/2020 DTL 97.9 fL 3:37 PM CDT RBC Distrib Width 13.4 12.2 - 12/20/2020 DTL 16.1 % 3:37 PM CDT Platelet Count 259 157 - 371 12/20/2020 DTL x10(9)/L 3:37 PM CDT Leukocytes 9.8 (H) 3.4 - 9.6 12/20/2020 DTL x10(9)/L 3:37 PM CDT Neutrophils 5.73 1.56 - 12/20/2020 DTL 6.45 3:37 PM CDT x10(9)/L Lymphocytes 3.09 (H) 0.95 - 12/20/2020 DTL 3.07 3:37 PM CDT x10(9)/L Monocytes 0.75 0.26 - 12/20/2020 DTL 0.81 3:37 PM CDT x10(9)/L Eosinophils 0.16 0.03 - 12/20/2020 DTL 0.48 3:37 PM CDT x10(9)/L Basophils 0.04 0.01 - 12/20/2020 DTL 0.08 3:37 PM CDT x10(9)/L Specimen Anatomical Collection Method Collection Time Receive d Time (Source) Location / / Volume Laterality Blood (Blood, 12/20/2020 2:45 PM 12/21/19 21 3:25 Venous) CDT PM CDT Sabino Jung M.D., Ph.D. LAB BLOOD ADD-ON Performing Organization Address City/State/ZIP Code Phon e Number [facility] - [address] [place], [place] [address] [facility] [place] [address] Laboratories-[facility] [address] documented in this encounter Visit Diagnoses Diagnosis Imbalance Non Orthopedic - Primary Paresthesia Stenosis Spinal Cervical Abnormal Findings On Diagnostic Imaging Of Other Parts Of Musculoskeletal System Repeated Falls Abnormal Gait Non Orthopedic Spells Neurological (HCC) Paresthesia Stenosis Spinal Cervical Paresthesia Stenosis Spinal Cervical Abnormal Findings On Diagnostic Imaging Of Other Parts Of Musculoskeletal System documented in this encounter Care Teams Manager Category Relationship Specialty Start Date End Date Elsewhere, Pcp PCP - General Family Medicine 12/02/20 documented as of this encounter
--- OUTSIDE RECORDS SUMMARY | 2022-01-19 15:36 | XMS_ITS | Encounter Summary ---
:1950 Author Organization [facility] Address [address] [place] [address] Care Team Providers Name Role Phone Elsewhere, Pcp Primary Care Provider Unavailable Reason for Visit Outpatient (Routine) - Closed Specialty Diagnoses / Procedures Referred By Contact Refer red To Contact Dermatology Diagnoses Screening Examination Skin Cancer Meenakshi Keller M.D. [address] [address] Referral ID Status Reason Start Date Expiration Date Visits Requ ested Visits Authorized [id number] Closed 09/06/2020 09/06/2021 1 1 Encounter Details Date Type Department Care Team Description 12/16/2020 Comprehensive Visit Department of Maxim, Lichen Sclerosus (Primary Dx); Dermatology in Catie Conley M.D. Screening Examination Skin Cancer; [place], [place] [address] [facility] Keratosis Seborrheic Inflamed; [address] [place], [place] Keratosis Actinic; [place] [address] Tumor Skin Uncertain Behavior [id number] [phone] Social History Tobacco Use Types Packs/Day Years Used Date Smoking Tobacco: Never Smokeless Tobacco: Never Sex Assigned at Date Recorded Female 12/20/2020 12:41 PM CDT documented as of this encounter Consult Notes Catie Pan M.D. - 12/16/2020 2:40 PM CDT SUBJECTIVE CHIEF COMPLAINT / REASON FOR CONSULT Skin cancer screening exam Lesions of concern, right lateral back, left breast underside, left groin, right faith, and scalp Vulvar lichen sclerosus HISTORY OF PRESENT ILLNESS Ms. Mota is a pleasant 70 yo F with no personal history of skin cancer who presents for a skin cancer screening exam. 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 She finds this controls her pruritus well. She does not recallhaving a biopsy of the vulva. She had a lot of sun exposure in her earlier years. Family history of melanoma in her mother. OBJECTIVE PHYSICAL EXAM Detailed Exam: General: Awake, alert, in no acute distress, and with appropriate affect. Eyes: No scleral injection or icterus. No eyelid abnormalities. Cardio: No lower extremity edema. Skin: I have examined the scalp, face, neck, chest, abdomen, back, bilateral upper, extremities, lower extremities, palms, soles, vulva and buttocks. She has numerous seborrheic keratoses including in several of the areas she points out as itchy which also appear irritated, on right lateral back/flank, left underside of breast, and left groin. She has a gritty erythematous macule within the lateral left eye brown. She has a verrucous papule on the right faith. Sks within scalp. Vulva with complete agglutination of labia minora and mild whitish changes to perineum. ASSESSMENT / PLAN #1 Skin tumor uncertain behavior, right faith, probable verrucal keratosis I recommended a shave biopsy and she agrees. She would prefer results via portal and paper letter inthe mail. CONSENT Discussed the risks, benefits, alternatives, and the necessity of other members of the healthcare team participating in the procedure. All questions answered and consent given. UNIVERSAL PROTOCOL Procedural pause conducted to verify: correct patient identity, procedure to be performed, and as applicable, correct side and site, correct patient position, and availability of implants, special equipment, or special requirements. PROCEDURE INFORMATION Shave biopsy. We explained the potential diagnosis and recommended that we obtain a biopsy. The risks and benefitsof the procedure were discussed, and the patient consented to these procedures. Using 1% lidocaine with epinephrine for local anesthesia, a shave biopsy was obtained from the right faith. Biopsy submitted to Dermatopathology for H&E. Special stains will be performed as indicated. The bleeding waswell controlled with application of aluminum chloride. Dressing was applied, and wound care instructions were explained. Biopsy results and any further recommendations will be communicated to the patient by letter. Patient given pamphlet [id number]. #2 Inflamed seborrheic keratoses x3 The benign nature of these lesions was reviewed. Due to the inflamed/irritated state of these lesions, treatment was medically indicated. With the patient's permission, I treated each lesion with one, 20 second freeze-thaw cycle with liquid nitrogen cryotherapy. This was well tolerated. Aftercare discussed. #3 Actinic keratosis x1, left eyebrow The premalignant nature of this lesion was reviewed. With the patient's permission, I treated the lesion with one, 20 second freeze-thaw cycle with liquid nitrogen cryotherapy. This was well tolerated.Aftercare discussed. #4 Vulvar lichen sclerosis Clinical exam appears consistent with the diagnosis. Overall, this has been well controlled. I recommend continuing clobetasol 0.05% cream or ointment, 2-3 times weekly. During flares, she may use thistwice daily for up to four weeks at a time. She should have an annual gynecologic exam to screen forvulvar skin cancers. No concerning lesions identified today. It was a pleasure to see Ms. Moat in clinic today. documented in this encounter Plan of Treatment Not on filedocumented as of this encounter Procedures Procedure Name Priority Date/Time Associated Diagnosis Comme nts DERMATOPATHOLOGY Routine 12/16/2020 3:04 PM Screening Examinat ion Results for this CDT Skin Cancer procedure are i n the results section. documented in this encounter Results Dermatopathology (12/16/2020 3:04 PM CDT) Component Value Ref Test Analysis Performed At [facility] Range Method Time Signature 12/21/2020 PDRM 11:54 AM CDT Participated in Kayode Mari 12/21/2020 DREW the Interpretation Guevara Trujillo, 11:54 AM D.OFrankie-Patholog CDT y Fellow Report Randall Brody 12/21/2020 DREW electronically Geno Ross 11:54 AM signed by CDT Gross Description Received in formalin labeled with the patient's n mahad, 12/21/2020 PDR medical record number, and right faith is a shave biopsy 11:54 AM of a 0.5 x 0.5 x 0.4 cm pale tah-dexb-typ verrucoid lesion CDT with minimal peripheral skin present. ??Specimen is bisected and submitted entirely in cassette A1. ??Grossed by BRADLYW. Interpretation FINAL DIAGNOSIS 12/21/2020 PDRM A. ??Right faith, Skin shave biopsy: ??Pigmented seborrheic 11:54 AM keratosis CDT Specimen (Source) Anatomical Collection Method Collection Time Re ceived Time Location / / Volume Laterality Skin (Right 12/16/2020 3:04 PM faith) CDT Narrative This result has an attachment that is no t available. Catie Pan M.D. LAB PATH DERM ORDERABLES Performing Organization Address City/State/ZIP Code Phon e Number [facility] - [address] [place], [place] [address] [place] [address] [facility] [place] [address] documented in this encounter Visit Diagnoses Diagnosis Lichen Sclerosus - Primary Screening Examination Skin Cancer Keratosis Seborrheic Inflamed Keratosis Actinic Tumor Skin Uncertain Behavior documented in this encounter Care Teams Reed Worker Relationship Specialty Start Date End Date Elsewhere, Pcp PCP - General Family Medicine 12/02/20 documented as of this encounter
--- OUTSIDE RECORDS SUMMARY | 2022-01-19 15:36 | XMS_ITS | Encounter Summary ---
:1950 Author Organization [facility] Address [address] [place] [address] Care Team Providers Name Role Phone Elsewhere, Pcp Primary Care Provider Unavailable Encounter Details Date Type Department Care Team Description 12/02/2020 Hospital Encounter Outpatient [facility] in [place], M.D. [address] [place] [phone] Social History Tobacco Use Types Packs/Day Years Used Date Smoking Tobacco: Never Smokeless Tobacco: Never Sex Assigned at Date Recorded Female 12/20/2020 12:41 PM CDT documented as of this encounter Last Filed Vital Signs Vital Sign Reading Time Taken Comments Blood Pressure 136/96 12/02/2020 1:20 PM CDT Pulse 86 12/02/2020 1:30 PM CDT Temperature 36.5 ??C (97.7 ??F) 12/02/2020 1:20 PM CDT Respiratory Rate 17 12/02/2020 1:30 PM CDT Oxygen Saturation 98% 12/02/2020 1:30 PM CDT Inhaled Oxygen Concentration - - Weight 143 kg (314 lb 9.5 oz) 12/02/2020 10:58 AM CDT Height 175.3 cm (5' 9) 12/02/2020 10:58 AM CDT Body Mass Index 46.46 12/02/2020 10:58 AM CDT documented in this encounter Medications at Time of [...] 5 days. documented as of this encounter OR Notes Op Note - Lori Ordonez M.D. - 12/02/2020 11:50 AM CDT Pre-op Diagnosis Bleeding Postmenopausal Post-op Diagnosis Bleeding Postmenopausal A fleet administrative assistant actively participated and was necessary for one or more of the following: opening,exposure and visualization during the case, maintaining hemostasis, wound closure resulting in its safe and expeditious completion. Findings As expected. Complications None Description of Procedure Informed consent had been obtained previously. The patient was placed in the dorsal lithotomy position using Yellofins and was positioned awake. Anesthesia was general with ET tube. The perineum was prepped and draped in the usual sterile fashion, and a surgical pause was taken. A speculum was inserted. The anterior lip of the cervix was grasped with a single-tooth tenaculum. The cervix was serially dilated to accommodate a No. 6 Hegar dilator. A 6-mm operative hysteroscope was inserted inthe uterine cavity. Saline was used as the distending media. The uterine cavity was inspected. The cavity was free of polyps or fibroids but there was thicker tissue in the right cornua and anterior wall which could have been a broad based polyp. The endometrium appeared inactive in other areas. The thickened areas were resected in using hysteroscopic intrauterine rotary morcellator and there were directed biopsies on all brewster. At this point the uterine cavity was free of residual lesion. The hysteroscope was withdrawn. Tenaculum was removed from the cervix. The cervix was hemostatic. Sponge and instrument count was correct. The patient was transferred to the recovery room in excellent condition. Lori Ordonez M.D. Brief Op Note - Renuka Mejia M.D. - 12/02/2020 11:50 AM CDT Pre-op Diagnosis Bleeding Postmenopausal Post-op Diagnosis Bleeding Postmenopausal Findings Operative hysteroscopy with thickened endometrium posterior and anteriorly, polypectomy of broad based polyp with directed biopsies. Complications None Renuka Mejia M.D. documented in this encounter Miscellaneous Notes Result Encounter Note - Lori Ordonez M.D. - 12/06/2020 12:31 PM CDT I have reviewed the final pathology report and the identified diagnosis is consistent with the patient's clinical presentation. Note sent. documented in this encounter Plan of Treatment Not on filedocumented as of this encounter Procedures Procedure Name Priority Date/Time Associated Diagnosis Comme nts SURGICAL PATHOLOGY, Routine 12/02/2020 12:01 Bleeding Resu lts for this [facility] PM CDT Postmenopausal procedure are in the results section. OPERATIVE 12/02/2020 11:04 Bleeding HYSTEROSCOPY AM CDT Postmenopausal documented in this encounter Results Surgical Pathology, [facility] (12/02/2020 12:01 PM CDT) Component Value Ref Test Analysis Performed At [facility] gist Range Method Time Signature 12/05/2020 METH 6:47 PM CDT Report Dominga Milligan M.D (Ray)., Ph.D. [phone] METH electronically 6:47 PM CDT signed by I verify that I have examined all relevant slides/materials for the specimen(s) and rendered or confirmed the diagnosis. Gross Description A. ??Received in formalin labeled uterine conten ts is a 12/05/2020 METH 1.1 6:47 PM CDT x 1.0 x 0.3 cm aggregate of hollingsworth-white soft tissue fragments. All submitted for permanent sections. ??Grossed by CRISTIAN. Block Summary A Uterine contents 12/05/2020 METH A1 Uterine contents 6:47 PM CDT Interpretation FINAL DIAGNOSIS 12/05/2020 METH 6:47 PM CDT A. ??Endometrium, polypectomy: ??Benign endometrial polyp. Specimen (Source) Anatomical Collection Method Collection Time Re ceived Time Location / / Volume Laterality Tissue (Uterus) 12/02/2020 12:01 PM CDT Narrative This result has an attachment that is no t available. Lori Ordonez M.D. LAB SURG PATH ORDERABL ES Performing Organization Address City/State/ZIP Code Phon e Number [facility] [address] [place], [place] [address] [place] [address] [facility] [address] documented in this encounter Visit Diagnoses Diagnosis Bleeding Postmenopausal - Primary documented in this encounter Admitting Diagnoses Diagnosis Bleeding Postmenopausal documented in this encounter Administered Medications Inactive Administered Medications - up to 3 most recent administrations Medication Order MAR Action Action Date Dose Rate Site acetaminophen injection 1,000 mg 1,000 mg, intravenous, at 400 mL/hr, Adm inister over 15 Minutes, Once as needed, other, If patient has not received in pr evious 6 hours, Starting on Sat12/02/20 at 1220, For 1 dose, PACU (only), Oral unle ss RASS less than -1 or nausea/vomiting. Do not use if given in last 6 hours, Restri ction Criteria (Pharmacy will review and approve if criteria met): Unable to take or tolerate medications administered via the enteral route or orally (not just NPO) acetaminophen tablet 1,000 mg (TYLENOL) Given 12/02/2020 10:59 AM CDT 1,000 mg 1,000 mg, oral, Once, On Sat12/02/20 at 1015, For 1 dose, Pre-Op acetaminophen tablet 1,000 mg (TYLENOL) 1,000 mg, oral, Once as needed, other, I f patient has not received in the previous 6 hours, Starting on Sat12/02/20 at 1220 , For 1 dose, PACU (only), Oral unless RASS less than -1 or nausea/vomiting. Do not use if given i n last 6 hours celecoxib capsule 400 mg (CeleBREX) Given 12/02/2020 10:59 AM CDT 400 mg 400 mg, oral, Once, On Sat12/02/20 at 1045, For 1 dose, Pre-Op lactated ringers Continued from OR 12/02/2020 12:20 PM 20 mL/hr 20 mL/hr 20 mL/hr, intravenous, CDT Continuous, Starting on Sat12/02/20 at 1230, PACU & Post-Op miSOPROStoL tablet 200 mcg (CYTOTEC) Given 12/02/2020 10:59 AM CDT 200 mcg 200 mcg, oral, Once, On Sat12/02/20 at 1015, For 1 dose, Pre-Op oxyCODONE IR tablet 10 mg (ROXICODONE) Given 12/02/2020 12:27 PM CDT 10 mg 10 mg, oral, Once as needed, For pain 4 or greater, Starting on Sat12/02/20 at 1220, For 1 dose, PACU (only) sodium chloride 0.9 % injection 10 mL 10 mL, intravenous, As needed, line care , Starting on Sat12/02/20 at 1002, Pre-Op, Peripheral Intravenous Catheter and Rapid Infusion Cat heter, prior to blood sampling, post blood transfusion or post blood samplin g sodium chloride 0.9 % injection 3 mL 3 mL, intravenous, As needed, line care, Starting on Sat12/02/20 at 1002, Pre-Op, Prior to and following infusion and betw een multiple consecutive infusions: sodium chloride 0.9 % injection sodium chloride 0.9 % injection 3 mL 3 mL, intravenous, Every 12 hours scheduled, First dos e on Sat12/02/20 at 2100, Pre-Op, Peripheral Intravenous Catheter and Rapid Infu mckenna Catheter, when no infusion to maintain patency documented in this encounter Active and Recently Administered Medications Times are shown in CDT. Scheduled Medication Order 11/30/2020 12/01/2020 12/02/2020 acetaminophen tablet 1,000 mg (TYLENOL) (COMPLETED) 1059 (Given - Provider: Gabriela Hoyos) 1,000 mg, oral, Once, On Sat12/02/20 at 1015, For 1 dose, Pre-Op acetaminophen tablet 1,000 mg (TYLENOL) 1045 (Due) 1,000 mg, oral, Once, On Sat12/02/20 at 1045, For 1 dose, Pre-Op celecoxib capsule 400 mg (CeleBREX) (COMPLETED) 1059 (Given - Provider: Gabriela Hoyos) 400 mg, oral, Once, On Sat12/02/20 at 1045, For 1 dose, Pre-Op lidocaine 10 mg/mL (1 %) injection 1 mL (XYLOCAINE) 104 (Due) 1 mL, infiltration, Once, On Sat12/02/20 at 1045, For 1 dose, Pre-Op, May admin up to 1 mL at the site of IV site if not allergic to lidocaine miSOPROStoL tablet 200 mcg (CYTOTEC) (COMPLETED) 1059 (Given - Provider: Gabriela Hoyos) 200 mcg, oral, Once, On Sat12/02/20 at 1015, For 1 dose, Pre-Op sodium chloride 0.9 % injection 3 mL 3 mL, intravenous, Every 12 hours schedu led, First dose on Sat12/02/20 at 2100, Pre-Op, Peripheral Intravenous Catheter and Rapid Infusion Catheter, when no infusion to maintain patency sodium chloride 0.9 % injection 3 mL 3 mL, intravenous, Every 12 hours schedu led, First dose on Sat12/02/20 at 2100, Pre-Op, Peripheral Intravenous Catheter and Rapid Infusion Catheter, when no infusion to maintain patency Continuous Medication Order 11/30/2020 12/01/2020 12/02/2020 lactated ringers 1045 (Due) 20 mL/hr, intravenous, at 20 mL/hr, Cont inuous, Starting on Sat12/02/20 at 1045, Pre-Op lactated ringers 1220 (Continued from OR - Provider: Gabriela Hoyos)1408 (Stopped - Provider: Susy Can R.N.) 20 mL/hr, intravenous, at 20 mL/hr, Cont inuous, Starting on Sat12/02/20 at 1230, PACU & Post-Op PRN Medication Order 11/30/2020 12/01/2020 12/02/2020 acetaminophen injection 1,000 mg(Linked Group 1) 1,000 mg, intravenous, at 400 mL/hr, Adm inister over 15 Minutes, Once as needed, other, If patient has not received in previous 6 hours, Starting on Sat12/02/20 at 1220, For 1 dose, PACU (only), Oral un less RASS less than -1 or nausea/vomitin g. Do not use if given in last 6 hours, Restriction Criteria (Pharmacy will review and approve if criteria met): Unable to take or tolerate medications administer ed via the enteral route or orally (not just NPO) acetaminophen tablet 1,000 mg (TYLENOL)(Linked Group 1) 1,000 mg, oral, Once as needed, other, I f patient has not received in the previous 6 hours, Starting on Sat12/02/20 at 1220, For 1 dose, PACU (only), Oral unless RASS less than -1 or nausea/vomiting. Do not use if given in last 6 hours fentaNYL injection 25 mcg (SUBLIMAZE) 25 mcg, intravenous, Every 2 min PRN, Fo r pain 4 or greater (maximum 100 mcg). If max dose of Fentanyl is reached and if pain is greater than 4, discontinue Fentanyl: give Hydromorphone, Starting on Sat12/02/20 at 1220, PACU (only) granisetron (PF) injection 1 mg (KYTRIL) 1 mg, intravenous, Once as needed, nause a, vomiting, Starting on Sat12/02/20 at 1220, For 1 dose, PACU (only), If patient does not respond to ondansetron or haloperidol. (order of antiemetic administrat ion - ondansetron then haloperidol then granisetron) haloperidol lactate injection 1 mg (HALDOL) 1 mg, intravenous, Every 6 hours PRN, na usea, vomiting, Starting on Sat12/02/20 at 1220, For 48 hours, PACU (only), Total of 3 doses in 24 hour period. RASS must be -2 or higher to administer. If nausea and vomiting persists, move to shamar aquino. (order of antiemetic administration - ondansetron then haloperidol then granisetron) HYDROmorphone (PF) injection 0.2 mg (DILAUDID) 0.2 mg, intravenous, Every 5 min PRN, mo derate pain or score 4-6 of 10, severe pain or score 7-10 of 10, Starting on Sat12/02/20 at 1220, PACU (only), Up to maximum total dose of 2 mg ketamine injection 10 mg (KETALAR) 10 mg, intravenous, Once as needed, Refr actory moderate pain or score 4-6 of 10, Refractory severe pain score 7-10 of 10 after fentanyl or hydromorphone administration, Pain sedation mismatch AND RASS l ess than -1, Starting on Sat12/02/20 at 1220, For 1 dose, PACU ( only) ondansetron (PF) injection 4 mg (ZOFRAN) 4 mg, intravenous, Every 6 hours PRN, na usea, vomiting, (If patient has not received in the previous 6 hours), Starting on Sat12/02/20 at 1220, For 48 hours, PACU (only), Administer first. If nausea and vomiting persists, proceed with haloper idol. (order of antiemetic administration - ondansetron then haloperidol then granisetron) oxyCODONE IR tablet 10 mg (ROXICODONE) (COMPLETED) 1227 (Given - Provider: Gabriela Hoyos) 10 mg, oral, Once as needed, For pain 4 or greater, Starting on Sat12/02/20 at 1220, For 1 dose, PACU (only) sodium chloride 0.9 % injection 10 mL 10 mL, intravenous, As needed, line care , Starting on Sat12/02/20 at 1002, Pre- Op, Peripheral Intravenous Catheter and Rapid Infusion Catheter, prior to blood sampling, post blood transfusion or post blood sampling sodium chloride 0.9 % injection 10 mL 10 mL, intravenous, As needed, line care , Starting on Sat12/02/20 at 1037, Pre- Op, Peripheral Intravenous Catheter and Rapid Infusion Catheter, prior to blood sampling, post blood transfusion or post blood sampling sodium chloride 0.9 % injection 3 mL 3 mL, intravenous, As needed, line care, Starting on Sat12/02/20 at 1002, Pre- Op, Prior to and following infusion and between multiple consecutive infusions: sodium chloride 0.9 % injection sodium chloride 0.9 % injection 3 mL 3 mL, intravenous, As needed, line care, Starting on Sat12/02/20 at 1037, Pre- Op, Prior to and following infusion and between multiple consecutive infusions: sodium chloride 0.9 % injection Linked Groups Order Group 1: acetaminophen tablet 1,000 mg (TYLENOL)Jump to med 1,000 mg, oral, Once as needed, other, I f patient has not received in the previous 6 hours, Starting on Sat12/02/20 at 1220, For 1 dose, PACU (only)
Oral unless RASS less than -1 or nausea/vomiting. Do not use if given in last 6 hours
Or acetaminophen injection 1,000 mgJump to med 1,000 mg, intravenous, at 400 mL/hr, Adm inister over 15 Minutes, Once as needed, other, If patient has not received in previous 6 hours, Starting on Sat12/02/20 at 1220, For 1 dose, PACU (only)<br&gt ;Oral unless RASS less than -1 or nausea /vomiting. Do not use if given in last 6 hours
Restriction Criteria (Pharmacy will review and approve if criteria met): Unable to take or tolerate medica tions administered via the enteral route or orally (not just NPO) documented in this encounter Care Teams Auto Customize Painter Relationship Specialty Start Date End Date Elsewhere, Pcp PCP - General Family Medicine 12/02/20 documented as of this encounter
--- OUTSIDE RECORDS SUMMARY | 2022-01-19 15:36 | XMS_ITS | Encounter Summary ---
:1950 Author Organization [facility] Address [address] [place] [address] Care Team Providers Name Role Phone Elsewhere, Pcp Primary Care Provider Unavailable Encounter Details Date Type Department Care Team Description 12/20/2020 Hospital Encounter Department of Sabino Jung; Laboratory Medicine Geno Leach, Stenosis Spinal Cervical and Pathology, Ph.D. [facility] in [address] [place], [place] [address] [facility] [address] [place], [place] [phone] (Work) [phone] Social History Tobacco Use Types Packs/Day Years [...] Procedure Name Priority Date/Time Associated Comments Diagnosis MONOCLONAL GAMMOPATHY Routine 12/20/2020 2:45 PM Paresth esia Results for this DIAGNOSTIC, S CDT Stenosis Spinal procedure a re in Cervical the results section. METHYLMALONIC ACID Routine 12/20/2020 2:45 PM Paresthesi a Results for this (MMA), REMIGIO, S CDT Stenosis Spinal procedure are in Cervical the results section. CONNECTIVE TISSUE Routine 12/20/2020 2:45 PM Paresthesia Results for this DISEASE CASCADE, CDT Stenosis Spinal procedur e are in JULIANA, S Cervical the results section. SEDIMENTATION RATE, B Routine 12/20/2020 2:45 PM Paresth esia Results for this CDT Stenosis Spinal procedure ar e in Cervical the results section. CBC WITH DIFFERENTIAL, Routine 12/20/2020 2:45 PM Parest hesia Results for this B CDT Stenosis Spinal procedure ar e in Cervical the results section. THYROID-STIMULATING Routine 12/20/2020 2:45 PM Paresthes ia Results for this HORMONE-SENSITIVE CDT Stenosis Spinal procedu re are in (S-TSH) Cervical the results section. VITAMIN B12 ASSAY, S Routine 12/20/2020 2:45 PM Paresthe kaley Results for this CDT Stenosis Spinal procedure ar e in Cervical the results section. COMPREHENSIVE Routine 12/20/2020 2:45 PM Paresthesia Results for this METABOLIC PANEL, S/P CDT Stenosis Spinal proc edure are in Cervical the results section. documented in this encounter Results Methylmalonic Acid (MMA), Quantitative (12/20/2020 2:45 PM CDT) Analysis Performed At Patho logist Time Signature Methylmalonic 0.21 <=0.40 12/22/2020 DTL Acid, QN, S nmol/mL 7:45 AM CDT Comment: ----ADDITIONAL INFORMATION---- This test was developed and its performa nce characteristics determined by [facility] in a manner consistent with CLIA requirements. This test has not been cleared or approved by the U.[place] John d and Drug Administration. Specimen Anatomical Collection Method Collection Time Receive d Time (Source) Location / / Volume Laterality Blood (Blood, 12/20/2020 2:45 PM 12/21/19 21 3:56 Venous) CDT PM CDT Sabino Jung M.D., Ph.D. LAB BLOOD ADD-ON Performing Organization Address [facility] Phon e Number [facility] - [id number] [place] [address] Vitamin B12 Assay (12/20/2020 2:45 PM CDT) athologist Signature Vitamin B12 383 180 - [...] Ph.D. LAB BLOOD ADD-ON Performing Organization Address [facility] Phon e Number [facility] - 200 [place], [place] [address] [place] [id number] [place] [address] Connective Tissue Diseases [place] (12/20/2020 2:45 PM CDT) athologist Signature Antinuclear Ab, 0.7 <=1.0 12/21/2020 [facility] (Negative) 11:05 AM CDT U Comment: ----ADDITIONAL INFORMATION---- Method: Enzyme-linked immunoassay using HEp-2 nuclear extract supplemented with purified antig ens. Cyclic Citrullinated <15.6 <20.0 (Negative) U 12/21/2020 10:50 AM [facility] Peptide Ab, S CDT Interpretation SEE COMMENT 12/21/2020 11:05 AM SDS C CDT Comment: Tests for antibodies to dsDNA and RAZIA an tigens are not performed automatically unless the MARTHA r esult is > or = 3.0 U. ??Studies performed at [facility] indicate that positive MARTHA results <3.0 U are rarely a ccompanied by positive second order tests. Specimen Anatomical Collection Method Collection Time Receive d Time (Source) Location / / Volume Laterality Blood (Blood, 12/20/2020 2:45 PM 12/22/19 21 7:18 Venous) CDT AM CDT Sabino Jung M.D., Ph.D. LAB BLOOD ADD-ON Performing Organization Address City/[facility]/ZIP Code Phon e Number [facility] [address] NGO [place], [place] [address] [facility] [place] [address] Laboratory Medicine and Pathology [address] NGO Sedimentation Rate (12/20/2020 2:45 PM CDT) Analysis Performed At Patho logist Time Signature Sedimentation 20 2 - 22 12/20/2020 DT Rate, B mm/h 4:20 PM CDT Specimen Anatomical Collection Method Collection Time Receive d Time (Source) Location / / Volume Laterality Blood (Blood, 12/20/2020 2:45 PM 12/21/19 21 3:25 Venous) CDT PM CDT Sabino Jung M.D., Ph.D. LAB BLOOD ADD-ON Performing Organization Address City/[facility]/ZIP Code Phon e Number [facility] - [address] [place], [place] [address] [facility] [place] [address] Laboratories-[facility] [address] S-TSH (Thyroid-Stimulating Hormone - Sensitive) (12/20/2020 [...] Organization Address City/State/ZIP Code Phon e Number [facility] - 200 [place], [place] [address] [facility] [place] [address] [facility] [address] [facility] (ABNORMAL) Monoclonal Gammopathy Diagnostic (12/20/2020 2:45 PM CDT) [facility] Method Time Signature Therapeutic No 12/21/2020 [facility] Antibody 7:57 AM CDT Administered? Total Protein, 6.8 6.3 - 7.9 12/21/2020 [facility] S g/dL 8:34 AM CDT [place] Free 1.67 0.3300 - 12/21/2020 [facility] Light Chain, S 1.94 mg/dL 8:49 AM CDT [place] Free 1.58 0.5700 - 12/21/2020 [facility] Light Chain, S 2.63 mg/dL 8:48 AM CDT [place]/Lambda 1.06 0.2600 - 12/21/2020 [facility] FLC Ratio [...] monoclonal protein on serum electrophoresi s. 12/22/2020 [facility] 8:28 AM CDT See Isotype. Flag, M-protein [...] and its performa nce characteristics determined by [facility] in a manner consistent with CLIA requirements. This test has not been cleared or approved by the U.S. John d and Drug Administration. Specimen Anatomical Collection Method Collection Time Receive d Time (Source) Location / / Volume Laterality Blood (Blood, 12/20/2020 2:45 PM 12/22/19 6:10 Venous) CDT AM CDT Narrative [facility] R - 12/22/2020 12:27 PM CDT Specimen Information: Specimen ID: [id number] Specimen Type: Blood Specimen Collection Start Date: 12/21/19 ??2:45 PM Specimen Received Date: 12/21/2020 ??6:1 0 AM Specimen ID: [id number] Specimen Type: Blood Specimen Collection Start Date: 12/21/19 ??2:45 PM Specimen Received Date: 12/21/2020 ??7:5 7 AM Sabino Jung M.D., Ph.D. LAB BLOOD ADD-ON Performing Organization Address City/State/ZIP Code Phon e Number [facility] [address] [place] [address] [facility] [place] [address] Laboratory Medicine and Pathology [address] [place] [address] Dr. NGO (ABNORMAL) Comprehensive Metabolic Panel (12/20/2020 [...] 12/20/2020 DTL [place]/ mL/min/BSA 3:46 PM CDT [place] Comment: ----ADDITIONAL INFORMATION---- Estimated GFR calculated using [...] Organization Address City/State/ZIP Code Phon e Number [facility] - [address] [place] [address] [facility] [place] [address] [facility] 200 [facility] (ABNORMAL) CBC with Differential, Blood (12/20/2020 2:45 PM CDT) [facility] gist Method Time Signature Hemoglobin 14.2 11.6 [...] Laterality Blood (Blood, 12/20/2020 2:45 PM 12/21/19 3:25 Venous) CDT PM CDT Sabino Jung M.D., Ph.D. LAB BLOOD ADD-ON Performing Organization Address City/State/ZIP Code Phon e Number [facility] - [address] [place], [place] [address] [facility] [place] [address] Laboratories-[facility] [address] documented in this encounter Visit Diagnoses Diagnosis Paresthesia Stenosis Spinal Cervical documented in this encounter Care Teams Web Content Producer Relationship Specialty Start Date End Date Elsewhere, Pcp PCP - General Family Medicine 12/02/20 documented as of this encounter
--- OUTSIDE RECORDS SUMMARY | 2022-01-19 15:36 | XMS_ITS | Encounter Summary ---
:1950 Author Organization [facility] Address [address] [place] [address] Care Team Providers Name Role Phone Elsewhere, Pcp Primary Care Provider Unavailable Reason for Visit Reason Comments Pre-visit Testing Orders Encounter Details Date Type Department Care Team Description 11/14/2020 Clinical Communication Department of Ayesha Montez Pre- visit Testing Neurology in [place]ia Orders [place], [address] [place] [address] [address] [facility] [address] [place], [place] [phone] (Work) [phone] Social History Tobacco Use Types Packs/Day Years Used Date Smoking Tobacco: Never Smokeless Tobacco: Never Sex Assigned at Date Recorded Female 12/20/2020 12:41 PM CDT documented as of this encounter Plan of Treatment Not on filedocumented as of this encounter Visit Diagnoses Diagnosis Paresthesia - Primary documented in this encounter Care Teams Motel Operator Relationship 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
--- OUTSIDE RECORDS SUMMARY | 2022-01-19 15:36 | XMS_ITS | Encounter Summary ---
:1950 Author Organization [facility] Address [address] [place] [address] Care Team Providers Name Role Phone Elsewhere, Pcp Primary Care Provider Unavailable Encounter Details Date Type Department Care Team Description 10/19/2019 Clinical Communication Department of Physical Center [place], Medicine and Catrachita Conley O.T., Rehabilitation in [place], [place] [address] [facility] [address] [place] [address] [phone] Social History Tobacco Use Types Packs/Day Years Used Date Smoking Tobacco: Never Smokeless Tobacco: Never Sex Assigned at Date Recorded Female 12/20/2020 12:41 PM CDT documented as of this encounter Miscellaneous Notes Telephone Encounter - Catrachita Calix O.T., CLT-LANA - 10/19/2019 10:18 AM CDT The Lymphedema Service is requesting a prescription for a compression 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 Please write a prescription for: DME Gradient Compression wrap, non-elastic velcro device 18-30 mmHg for bilateral with a quantity of2 with 3 refills starting 10/19/[address] [facility] in medical justification: Abby Mota requires this compression garment due to Lymphedema. This is needed for the bilateral side of the body. Please fax the prescription to the [facility] documented in this encounter Plan of Treatment Not on filedocumented as of this encounter Visit Diagnoses Not on filedocumented in this encounter Care Teams Burr Picker Relationship 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
--- OUTSIDE RECORDS SUMMARY | 2022-01-19 15:36 | XMS_ITS | Encounter Summary ---
:1950 Author Organization [facility] Address [address] [place] [address] Care Team Providers Name Role Phone Elsewhere, Pcp Primary Care Provider Unavailable Encounter Details Date Type Department Care Team Description 12/16/2020 Ancillary Procedure Department of Dermatology Social History Tobacco Use Types Packs/Day Years Used Date Smoking Tobacco: Never Smokeless Tobacco: Never Sex Assigned at Date Recorded Female 12/20/2020 12:41 PM CDT documented as of this encounter Plan of Treatment Not on filedocumented as of this encounter Procedures Procedure Name Priority Date/Time Associated Comments Diagnosis DERMATOLOGY IMAGE Routine 12/16/2020 12:00 Result s for this EXAM AM CDT procedure are i n the results section. documented in this encounter Results Eyelids-Dermatology Image Exam (12/16/2020 12:00 AM CDT) Specimen (Source) Anatomical Location Collection Method / Collectio n Time Received Time / Laterality Volume Narrative [facility] - 12/19/2020 11:30 AM CDT This order has been created and [...] on filedocumented in this encounter Care Teams Refrigeration Manager Relationship Specialty Start Date End Date Elsewhere, Pcp PCP - General Family Medicine 12/02/20 documented as of this encounter
--- OUTSIDE RECORDS SUMMARY | 2022-01-19 15:36 | XMS_ITS | Encounter Summary ---
:1950 Author Organization [facility] Address [address] [place] [address] Care Team Providers Name Role Phone Elsewhere, Pcp Primary Care Provider Unavailable Encounter Details Date Type Department Care Team Description 10/23/2019 Orders Only Department of Physical Velásquez, Jese Jin mphedema (Primary Medicine and D, M.D. Dx) Rehabilitation in [address] [place] [address] [place] [address] [place] [address] [phone] Social History Tobacco Use Types Packs/Day Years Used Date Smoking Tobacco: Never Smokeless Tobacco: Never Sex Assigned at Date Recorded Female 12/20/2020 12:41 PM CDT documented as of this encounter Plan of Treatment Not on filedocumented as of this encounter Visit Diagnoses Diagnosis Lymphedema - Primary documented in this encounter Care Teams Cylinder Inspector And Tester Relationship 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
--- OUTSIDE RECORDS SUMMARY | 2022-01-19 15:36 | XMS_ITS | Encounter Summary ---
:1950 Author Organization [facility] Address [address] [place] [address] Care Team Providers Name Role Phone Elsewhere, Pcp Primary Care Provider Unavailable Encounter Details Date Type Department Care Team Description 12/02/2020 Surgery Outpatient Procedure José Luis, OP ERATIVE HYSTEROSCOPY, Center in [place], Lori Costa M.D. POLYPECTOMY, Directed [place] [address] [facility] biopsies [address] [place] [address] [phone] Social History Tobacco Use Types Packs/Day Years Used Date Smoking Tobacco: Never Smokeless Tobacco: Never Sex Assigned at Date Recorded Female 12/20/2020 12:41 PM CDT documented as of this encounter Last Filed Vital Signs Vital Sign Reading Time Taken Comments Blood Pressure 170/94 12/02/2020 12:45 PM CDT Pulse 80 12/02/2020 12:45 PM CDT Temperature 36.5 ??C (97.7 ??F) 12/02/2020 11:07 AM CDT Respiratory Rate 24 12/02/2020 12:45 PM CDT Oxygen Saturation 98% 12/02/2020 12:45 PM CDT Inhaled Oxygen Concentration - - [...] Bleeding Postmenopausal Post-op Diagnosis Bleeding Postmenopausal A learning and development assistant actively participated and was necessary for [...] Component Value Ref Test Analysis Performed At [facility] gist Range Method Time Signature 12/05/2020 [facility] 6:47 PM CDT Report Dominga Milligan M.D (Ray)., Ph.D. [phone] METH electronically 6:47 PM CDT signed by I verify that I have examined all relevant slides/materials for the specimen(s) and rendered or confirmed the diagnosis. Gross Description A. ??Received in formalin labeled uterine conten ts is a 12/05/2020 [facility] 1.1 6:47 PM CDT x 1.0 x 0.3 cm aggregate of hollingsworth-white soft tissue fragments. All submitted for permanent sections. ??Grossed by LEATHAW. Block Summary A Uterine contents 12/05/2020 METH [...] Address City/State/ZIP Code Phon e Number [facility] - [address] [place], [place] [address] [place] [address] Laboratories-[facility] [address] documented in this encounter Visit Diagnoses Diagnosis Bleeding Postmenopausal - Primary Bleeding Postmenopausal documented in this encounter Admitting Diagnoses Diagnosis [...] NPO) documented in this encounter Care Teams Roving Hand Relationship Specialty Start Date End Date Elsewhere, Pcp PCP - General Family Medicine 12/02/20 documented as of this encounter
--- OUTSIDE RECORDS SUMMARY | 2022-01-19 15:36 | XMS_ITS | Encounter Summary ---
:1950 Author Organization [facility] Address [address] [place] [address] Care Team Providers Name Role Phone Elsewhere, Pcp Primary Care Provider Unavailable Encounter Details Date Type Department Care Team Description 12/02/2020 Anesthesia Event Outpatient Procedure Fadi Ramirez, Center in [place], DISK SHARPENER, LINTING MACHINE OPERATOR, MNA [place] [address] [facility] [address] [place] [id number] [phone] (Wo rk) Anesthesia Record Procedure Summary Procedure Name Responsible Anesthesia Start Anesthesia Stop Time Anesthesiologist Time OPERATIVE Fadi Ramirez, EVER, 12/02/20 1124 1 1215 HYSTEROSCOPY, LINTING MACHINE OPERATOR, MNA POLYPECTOMY, Directed biopsies Events Date Time Event Comment 12/02/2020 1042 1124 An Start Machine/Equipmen t Checked Infection Precautions Foll owed Procedure/Site Verified NPO Sta tus Verified Supine Standard ASA Mon itors Applied 1137 An Induction 1139 An Intubation 1139 Turnover to Proceduralist 1150 Proc Start 1203 Proc Fin 1214 an stop data 1215 An End I completed my h andoff to the receiving staff during [facility] we 1. Identified the patient 2. Ident ified the responsible provider 3. Revi ewed the pertinent medical history 4. Discu ssed the surgical course 5. Reviewed intra-o p anesthesia management and issues during an esthesia 6. Set expectations for post-procedure period 7. Allowed opportun ity for questions and acknowledgement of understanding. Name Total fentanyl injection 50 mcg/mL 100 mcg lidocaine 2% (mg) injection 100 mg propofol 10 mg/mL 200 mg propofol 10 mg/mL infusion 552.96 mg succinylcholine 20 mg/mL injection 120 mg phenylephrine 100 mcg/mL injection 100 mcg ondansetron 4 mg/2 mL injection 4 mg midazolam 1 mg/mL injection 1 mg Lactated Ringers Free Drip 500 mL Agents No agents on file. Blood No blood administrations on file. Lines, Drains, and Airways Type Details Placement Removal ETT Placement Date: 12/02/20; 12/02/20 1139 by Placement Time: 1139 Fadi Ramirez APRN, (created via procedure LINTING MACHINE OPERATOR, MNA documentation); Mask Ventilation: Easy mask; Type: Standard ETT; Single Lumen Tube Size: 6.5 mm; Cuffed: Yes; Location: Oral; Grade View: Grade 1; Insertion Attempts: 1; Placement Verification: Bilateral breath sounds, Positive ETCO2, Symmetrical chest wall movement; Airway Comment: Patient expressed concern for her vocal cords pre-op so elected to use glidescope Peripheral IV Placement Date: 12/02/20; 12/02/20 1123 by 12/02 1407 by Placement Time: 1123; Gabriela Hoyos Nicole M, R.NFrankie Catheter Size: 22 G; Orientation: Anterior, Lower, Proximal, Right; Location: Forearm; Site Prep: Alcohol; Technique: Anatomical landmarks; Insertion Attempts: 3; Removal Date: 12/02/20; Removal Time: 1407; Removal Reason: Patient discharged documented in this encounter Social History Tobacco Use Types Packs/Day Years Used Date Smoking Tobacco: Never Smokeless Tobacco: Never Sex Assigned at Date Recorded Female 12/20/2020 12:41 PM CDT documented as of this encounter OR Notes Anesthesia Postprocedure Evaluation - Fadi Ramirez APRN, JILLIAN, MNA - 12/02/2020 12:17 PM CDT Patient: Abby Mota Procedure Summary Date: 12/02/20 Room / Location: [place] [address] / [facility] in [place], [place] Anesthesia Start: 1124 Anesthesia Stop: Procedure: OPERATIVE HYSTEROSCOPY, POLYPECTOMY, Directed biopsies (N/A ) Diagnosis: Bleeding Postmenopausal (Bleeding Postmenopausal [N95.0].) Surgeons: Lori Ordonez M.D. Responsible Provider: Fadi Ramirez APRN, CRNA, MNA Anesthesia Type: general ASA Status: 3 Anesthesia Type: general Last vitals Vitals Value Taken Time BP Temp Pulse Resp SpO2 Please reference Vitals flowsheet for most recent vital signs. Anesthesia Post Evaluation Patient Disposition: dismissal Cardiovascular status: hemodynamics (HR & BP) acceptable Respiratory status: patent airway with spontaneous effort Temperature: normothermic Oxygen requirements: room air Level of consciousness: awake Pain score: pain adequately controlled and/or at baseline Post Op nausea/vomiting: none Hydration status: euvolemic Anesthesia Procedure Notes - Fadi Ramirez APRN, CRNA, MNA - 12/02/2020 11:45 AM CDTAssociated Order(s): Airway Airway Date/Time: 12/02/2020 11:39 AM Performed by: Fadi Ramirez APRN, CRNA, MNA Authorized by: Fadi Ramirez APRN, CRNA, MNA Patient location during procedure: OR / Procedure Area PROCEDURE DETAILS: Mask difficulty assessment: easy mask Final airway type: video laryngoscope Laryngeal Manipulation: no Final best view of glottic structures - Cormack/Lehane Score: grade 1 ETT location: oral VL device: glide scope Adult tube size: 6.5 Adult ETT distance at teeth/gum: 21 Oral tube type: standard ETT Cuffed: yes Number of attempt to successful placement: 1 Airway confirmation: bilateral breath sounds, positive ETCO2 and bilateral chest rise Other previous techniques attempted: none Additional Comments Patient expressed concern for her vocal cords pre-op so elected to use glidescope PRE PROCEDURE DETAILS: Pre evaluation for airway management: procedure Urgency: elective Preop assessment of probable difficulty: questionable / suspicious difficult airway Preoxygenation: bag valve mask SEDATION / ANESTHESIA Anesthesia method: anesthesia POST PROCEDURE DETAILS: Procedure outcome: successful Airway event: no complications ATTESTATION STATEMENT Anesthesia Preprocedure Evaluation - Yonatan Smith M.D. - 12/02/2020 10:42 AM CDT Preprocedure Anesthesia & H&P Assessment Procedure Summary Date/Time: 12/02/20 113 Procedure: OPERATIVE HYSTEROSCOPY, POLYPECTOMY, PROCEED INDICATED. (N/A ) Diagnosis: Bleeding Postmenopausal [N95.0] Pre-op diagnosis: Bleeding Postmenopausal [N95.0]. Location: [address] in [place], [place] Surgeons: Lori Ordonez M.D. Pertinent components of the patient's history including current problem list, medical history, surgical history, family history, social history, medications and allergies were reviewed. Present illnessand pre-op diagnosis were confirmed. The planned surgery / procedure was verified with the patient /legal guardian. The patient's general health condition remains unchanged RELEVANT COMORBID CONDITIONS Other (+) Morbid Obesity Body Mass Index 40.0-44.9 Adult (HCC) OBJECTIVE PHYSICAL EXAMINATION Airway (HEENT) Mallampati: III TM Distance: >3 FB Neck ROM: Full Mouth Opening: >3 cm Upper Lip Bite Test Class: I Cardiovascular Rhythm: Regular Rate: Normal Cardiovascular Assessment: cardiovascular normal Functional Capacity: >4 METS Pulmonary Pulmonary Assessment: Clear General / Constitutional Constitutional Assessment: Obese General State of Health:: healthy appearing and calm ASSESSMENT / PLAN ANESTHESIA PLAN ASA: 3 Anesthesia Plan: general Patient seen and allergies reviewed, anesthesia plan and risks discussed directly with patient /legal guardian or through an registered dietitian. Risks/Benefits/Alternatives of Blood transfusion discussed with patient / legal guardian, including an opportunity to ask questions and/or decline some or all transfusion therapies. The patient / legalguardian consented to the use of all blood products, as deemed medically necessary Approval to Proceed: approved for anesthesia documented in this encounter Plan of Treatment Not on filedocumented as of this encounter Procedures Procedure Name Priority Date/Time Associated Comments Diagnosis LDA ANE ENDOTRACHEAL Routine 12/02/2020 11:39 Res ults for this AIRWAY AM CDT procedure are i n the results section. documented in this encounter Results LDA ANE ENDOTRACHEAL AIRWAY (12/02/2020 11:39 AM CDT) Narrative Fadi Ramirez APRN, CRNA, MNA - 11:39 AM CDT Fadi Ramirez APRN, CRNA, MNA ? 12/02/2020 11:47 AM Airway Date/Time: 12/02/2020 11:39 AM Performed by: Fadi Ramirez APRN, C RNA, MNA Authorized by: Fadi Ramirez APRN, CRNA, MNA Patient location during procedure: OR / Procedure Area PROCEDURE DETAILS: Mask difficulty assessment: easy mask Final airway type: video laryngoscope Laryngeal Manipulation: no ?? Final best view of glottic structures - Cormack/Lehane Score: grade 1 ETT location: oral VL device: glide scope Adult tube size: 6.5 Adult ETT distance at teeth/gum: 21 Oral tube type: standard ETT Cuffed: yes Number of attempt to successful placemen t: 1 Airway confirmation: bilateral breath so unds, positive ETCO2 and bilateral chest rise Other previous techniques attempted: non e Additional Comments Patient expressed concern for her vocal cords pre-op so elected to use glidescope ?? PRE PROCEDURE DETAILS: Pre evaluation for airway management: pr ocedure Urgency: elective Preop assessment of probable difficulty: questionable / suspicious difficult airway Preoxygenation: bag valve mask SEDATION / ANESTHESIA Anesthesia method: anesthesia POST PROCEDURE DETAILS: ? Procedure outcome: successful ?? Airway event: no complications ATTESTATION STATEMENT Fadi Ramirez APRN, CRNA, MNA ANESTHESIA ORDERABLES documented in this encounter Visit Diagnoses Not on filedocumented in this encounter Administered Medications Inactive Administered Medications - up to 3 most recent administrations Medication Order MAR Action Action Date Dose Rate Site fentaNYL injection (SUBLIMAZE) Given 12/02/2020 11:33 AM CDT 100 mcg intravenous, As needed, Starting on Sat12/02/20 at 1133, Anesthesia Intra-op lactated ringers New Bag 12/02/2020 11:24 AM CDT intravenous, Continuous Infusion: Per Instructions PRN, Starting on Sat12/02/20 at 1124, Anesthesia Intra-op lidocaine (PF) (cardiac) injection Given 12/02/2020 11:36 AM CDT 100 mg intravenous, As needed, Starting on Sat12/02/20 at 1136, Anesthesia Intra-op midazolam (PF) injection (VERSED) Given 12/02/2020 11:33 AM CDT 1 mg intravenous, As needed, Starting on Sat12/02/20 at 1133, Anesthesia Intra-op ondansetron (PF) injection (ZOFRAN) Given 12/02/2020 11:34 AM CDT 4 mg intravenous, As needed, Starting on Sat12/02/20 at 1134, Anesthesia Intra-op phenylephrine injection Given 12/02/2020 11:52 AM CDT 100 mcg intravenous, As needed, Starting on Sat12/02/20 at 1152, Anesthesia Intra-op propofol 10 mg/mL infusion Rate/Dose 12/02/2020 50 mcg/kg/min 42.81 (DIPRIVAN) Change 12:01 PM CDT mL/hr intravenous, Continuous Infusion: Per Instructions PRN, Starting on Sat12/02/20 at 1137, Anesthesia Intra-op Rate/Dose Change 12/02/2020 11:54 AM CDT 100 mcg/kg/min 85.62 mL/hr Rate/Dose Change 12/02/2020 11:51 AM CDT 125 mcg/kg/min 107.025 mL/ hr propofoL injection (DIPRIVAN) Given 12/02/2020 11:37 AM CDT 200 mg intravenous, As needed, Starting on Sat12/02/20 at 1137, Anesthesia Intra-op succinylcholine (PF) injection (ANECTINE ) Given 12/02/2020 11:37 AM CDT 120 mg intravenous, As needed, Starting on Sat12/02/20 at 1137, Anesthesia Intra-op documented in this encounter Care Teams Fingerprint Expert Relationship Specialty Start Date End Date Elsewhere, Pcp PCP - General Family Medicine 12/02/20 documented as of this encounter
--- OUTSIDE RECORDS SUMMARY | 2022-01-19 15:36 | XMS_ITS | Encounter Summary ---
:[address] [facility] Address [address] [place] [address] Care Team Providers Name Role Phone Elsewhere, Pcp Primary Care Provider Unavailable Reason for Visit Reason Comments COVID Nurse Line Encounter Details Date Type Department Care Team Description 07/27/2019 Clinical Communication Department of [facility] COVYULY Nurse Line Obstetrics and Lori Gynecology in [facility], [address] [place] [address] [place] [address] [place], [place] [phone] (Work) [phone] Social History Tobacco Use Types Packs/Day Years Used Date Smoking Tobacco: Never Smokeless Tobacco: Never Sex Assigned at Date Recorded Female 12/20/2020 12:41 PM CDT documented as of this encounter Miscellaneous Notes Telephone Encounter - Shima Sena Trever - 07/27/2019 2:11 PM CDT 1. In the past 5 days, do you, anyone in the household, or anyone you have had prolonged exposure have (any of the following)? a. Fever ? 38.0 C (100.5 F) last 24 hours? no 2. In the past 5 days do you, anyone in the household, or anyone you have had prolonged exposure to have new symptoms (Specifically: cough, shortness of breath, respiratory distress, sore throat, diarrhea, chills, myalgia's (muscle aches), loss of smell, or change or loss of taste sensation)? no 3. In the past 14 days have you, anyone in the household, or anyone you have had prolonged exposure to had close contact with persons who are under quarantine or isolation for COVID? no 4. In the last 14 days, have you, anyone in the household, or anyone you have had prolonged exposureto had close contact with a patient with known or possible COVID-19? no 5. In the past 14 days have you been tested for COVID-19 with a positive or pending result? no Route reply to: Scheduling Contact Number: documented in this encounter Plan of Treatment Not on filedocumented as of this encounter Visit Diagnoses Not on filedocumented in this encounter Care Teams Diamond Die Maker Relationship 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
--- OUTSIDE RECORDS SUMMARY | 2022-01-19 15:37 | XMS_ITS | Encounter Summary ---
:1950 Author Organization [facility] Address [address] [place] [address] Care Team Providers Name Role Phone Elsewhere, Pcp Primary Care Provider Unavailable Reason for Visit Reason Comments Follow-up Encounter Details Date Type Department Care Team Description 06/23/2019 Clinical Communication Department of Andreina Solitario, Follow-up Medicine, [place] [facility], in [address] [phone] Social History Tobacco Use Types Packs/Day Years Used Date Smoking Tobacco: Never Smokeless Tobacco: Never Sex Assigned at Date Recorded Female 12/20/2020 12:41 PM CDT documented as of this encounter Miscellaneous Notes Telephone Encounter - Bettie Garcia R.N. - 06/24/2019 10:35 AM CDT Information Discussed Discussed with provider. Patient does not have to come in for follow up appointment end of week if she is improving. Spoke with patient who states that she feels her leg is improving and does not have concerns at thistime. Patient declines to send pictures via portal as she is unsure how to do so but will call if she feels the cellulitis does not continue to improve or worsens. PLAN Disposition/Recommendation: recommended continue engagement in self-management activities Information/Education: patient/caller able to teach back Caller agreeable to plan of care: yes The following references were used: provider Francy Sosa. Telephone Encounter - Florencia Zafar - 06/23/2019 3:25 PM CDT Attempted to contact pt, no answer. Left generic VM asking her to call clinic. Telephone Encounter - Alisha Duff - 06/23/2019 1:49 PM CDT Pt is calling in regards to a recent visit with Francy Ian on 06/17, she was supposed to come in atthe end of this week to do a f/u with Francy. She is concerned for her husbands health as she is disabled and needs him to bring her. She is wanting to speak with a nurse and she also stated she can sendin pictures of her legs too if necessary. Please call her back at [phone] documented in this encounter Plan of Treatment Not on filedocumented as of this encounter Visit Diagnoses Not on filedocumented in this encounter Care Teams Communications Department Chair Relationship 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
--- OUTSIDE RECORDS SUMMARY | 2022-01-19 15:37 | XMS_ITS | Encounter Summary ---
:1950 Author Organization [facility] Address [address] [place] [address] Care Team Providers Name Role Phone Unavailable Primary Care Provider Unavailable Encounter Details Date Type Department Care Team Description 04/22/2019 Clinical Communication Department of Jaida Moreno , Obstetrics and R[facility]Teressa Gynecology in [address] [place] [address] [place] [phone] [place], [place] [phone] (Work) [phone] Social History Tobacco Use Types Packs/Day Years Used Date Smoking Tobacco: Never Smokeless Tobacco: Never Sex Assigned at Date Recorded Female 12/20/2020 12:41 PM CDT documented as of this encounter Miscellaneous Notes Telephone Encounter - Jaida Moreno R.N. - 04/22/2019 3:23 PM CST Patient returned call. Reviewed fasting instructions, calling evening before for report time with patient. She voices understanding of information. She does have concerns regarding positioning during her surgical case because of back and knee issues. Will add alert to listing to notify team. No further concerns. STANT CHIEF ENGINEER Telephone Encounter - Jaida Moreno R.N. - 04/22/2019 1:02 PM CST Patient scheduled for operative hysteroscopy, polypectomy with Dr. Lorenzo on 04-24-2019. Message left for patient-does she have any pre procedure questions. Review fasting instructions, calling evening before for report times and hold HCTZ morning of procedure. STANT CHIEF ENGINEER documented in this encounter Plan of Treatment Not on filedocumented as of this encounter Visit Diagnoses Not on filedocumented in this encounter
--- OUTSIDE RECORDS SUMMARY | 2022-01-19 15:37 | XMS_ITS | Encounter Summary ---
:1950 Author Organization [facility] Address [address] [place] [address] Care Team Providers Name Role Phone Unavailable Primary Care Provider Unavailable Encounter Details Date Type Department Care Team Description 04/06/2019 Hospital Encounter Department of [facility] Radiology, Lori Peng, [facility] in [place], [address] [place] [address] [place] [address] [place], [place] [phone] (Work) [phone] Social History Tobacco Use Types Packs/Day Years [...] 650 mg ER mouth at bedtime. tablet documented as of this encounter Miscellaneous Notes Result Encounter Note - Caity Perez R.N. - 04/06/2019 12:29 PM ASSEMBLER FAUCETS Pt has an appt this afternoon with Dr. Ordonez to discuss results. MBLER FAUCETS documented in this encounter Plan of Treatment Not on filedocumented as of this encounter Procedures Procedure Name Priority Date/Time Associated Diagnosis Comme nts US PELVIS RAD - Routine 04/06/2019 Bleeding Results for TRANSVAGINAL AND (most inpatients 11:50 AM ASSEMBLER FAUCETS Postmenopausal this procedure TRANSABDOMINAL and all are in the outpatients) results section. documented in this encounter Results US Pelvis Transvaginal and Transabdominal (04/06/2019 11:50 AM ASSEMBLER FAUCETS) Anatomical Region Laterality Modality Pelvis, Ultrasound RST LOS, Ultrasound ARZ LOS, Ultrasound F LA N/A Ultrasound LOS Specimen (Source) Anatomical Collection Method Collection Time Re ceived Time Location / / Volume Laterality 04/06/2019 11:52 AM ASSEMBLER FAUCETS Impressions 04/06/2019 12:00 PM ASSEMBLER FAUCETS Focal enlargement of the endometrium with features suggesting an endometrial polyp. Narrative 04/06/2019 12:00 PM ASSEMBLER FAUCETS EXAM: ??US PELVIS TRANSVAGINAL AND TRANSABDOMINAL COMPARISON: TECHNIQUE: ??Transabdominal and transvag inal. FINDINGS: Uterus: 4.8 cmx6.4 cmx10.1 cm. Myometrium: Small uterine fibroid measur ing 2.3 cm x 2 cm. Endometrium: Asymmetric enlargement of t he endometrium extending to the left fundal endometrium with a question of a vascular stalk raising the question of a large polyp. This may have been present in retrospect on MR of the lumbar spine dated 07/19/2016.. Thickness: 19 mm ?? Right ovary: Normal. ?? Left ovary: Normal. ?? Intraperitoneal Fluid: None. Procedure Note Killian Durand M.D. - 04/06/2019Format ting of this note might be different from the original. EXAM: US PELVIS TRANSVAGINAL AND TRANSAB DOMINAL COMPARISON: TECHNIQUE: Transabdominal and transvagin al. FINDINGS: Uterus: 4.8 cmx6.4 cmx10.1 cm. Myometrium: Small uterine fibroid measur ing 2.3 cm x 2 cm. Endometrium: Asymmetric enlargement of t he endometrium extending to the left fundal endometrium with a question of a vascular stalk raising the question of a large polyp. This may have been present in retrospect on MR of the lumbar spine dated 07/19/2016.. Thickness: 19 mm Right ovary: Normal. Left ovary: Normal. Intraperitoneal Fluid: None. IMPRESSION: Focal enlargement of the endometrium wit h features suggesting an endometrial polyp. Lori EMMANUEL US PROCEDURES documented in this encounter Visit Diagnoses Diagnosis Bleeding Postmenopausal documented in this encounter
--- OUTSIDE RECORDS SUMMARY | 2022-01-19 15:37 | XMS_ITS | Encounter Summary ---
:1950 Author Organization [facility] Address [address] [place] [id number] Care Team Providers Name Role Phone Unavailable Primary Care Provider Unavailable Reason for Visit Reason Onset Date Comments Communication 04/10/2019 Encounter Details Date Type Department Care Team Description 04/10/2019 Clinical Communication Department of Lalit Ordonez Obstetrics and Lori Costa M.D. Gynecology in [address] [place] [address] [place] [phone] [place], [place] [phone] (Work) [phone] Social History Tobacco Use Types Packs/Day Years Used Date Smoking Tobacco: Never Smokeless Tobacco: Never Sex Assigned at Date Recorded Female 12/20/2020 12:41 PM CDT documented as of this encounter Miscellaneous Notes Telephone Encounter - Jaida Moreno R.N. - 04/15/2019 5:13 PM CST Received copy of pre procedure exam done by Dr. Keller. She did not feel GI consult was necessary. Appointment for GI consult cancelled. Dr. Lorenzo aware. No further concerns. UNTS RECEIVABLE COLLECTOR Telephone Encounter - Shima Sena - 04/15/2019 4:07 PM CST Patient returned your call. Please call her back at [phone]. UNTS RECEIVABLE COLLECTOR Telephone Encounter - Jaida Moreno R.N. - 04/15/2019 11:49 AM ACCOUNTS RECEIVABLE COLLECTOR Message left for patient asking for return call. Received information for surgical clearance. Is shegoing to do GI locally. Thank you. UNTS RECEIVABLE COLLECTOR Telephone Encounter - Shima Sena - 04/14/2019 12:54 PM ACCOUNTS RECEIVABLE COLLECTOR Patient calling today frustrated and that she is stuck in the middle on what needs to be done beforesurgery. She states she was not able to get in as a receiving checker GI but they did schedule her an appointment [facility] on 04/21/2019. Patient does not wish to drive down again for another trip for this appointment. She states she received a call from [facility] stating she needs to do a FIT test but her local GP does not do this. She would like a call to clarify what needs to be done before her surgery on 04/24/2019. UNTS RECEIVABLE COLLECTOR Telephone Encounter - Divya Lomax R.N. 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 Her primary provider thinks it was a one time thing and will not liking do the GI testing. She has not had any bleeding since that one time. Wondering if ok to proceed without the testing. UNTS RECEIVABLE COLLECTOR Telephone Encounter - Caity De Oliveira - 04/10/2019 2:12 PM CST Patient called to schedule GI as ordered by [facility]. She had tried to get in locally, but was unable so decided to pursue here. GI's first available appointment was not until 05/01, but patient did not takethis stating she needs to be seen before her procedure with [facility] on 04/24. She also stated that her local provider did not feel a GI consult was needed. Please advise if this is needed prior to 04/24 surgery as GI is unable to facilitate. Patient was given information regarding calling for cancels and being a checkering machine adjuster. Thank you. (all [phone]- Thursday 04/13 only, otherwise home phone is best. UNTS RECEIVABLE COLLECTOR documented in this encounter Plan of Treatment Not on filedocumented as of this encounter Visit Diagnoses Not on filedocumented in this encounter
--- OUTSIDE RECORDS SUMMARY | 2022-01-19 15:37 | XMS_ITS | Encounter Summary ---
:1950 Author Organization [facility] Address [address] [place] [address] Care Team Providers Name Role Phone Unavailable Primary Care Provider Unavailable Encounter Details Date Type Department Care Team Description 04/24/2019 Surgery Outpatient Procedure José Luis, BELL ERATIVE HYSTEROSCOPY, Center in [place], Lori Costa M.D. POLYPECTOMY, [facility]. [address] [place] [phone] Social History Tobacco Use Types Packs/Day Years Used Date Smoking Tobacco: Never Smokeless Tobacco: Never Sex Assigned at Date Recorded Female 12/20/2020 12:41 PM CDT documented as of this encounter Last Filed Vital Signs Vital Sign Reading Time Taken Comments Blood Pressure 174/95 04/24/2019 10:02 AM CONCRETE ENGINEERING TECHNICIAN Pulse 86 04/24/2019 10:02 AM CONCRETE ENGINEERING TECHNICIAN Temperature 36.5 ??C (97.7 ??F) 04/24/2019 10:02 AM CONCRETE ENGINEERING TECHNICIAN Respiratory Rate 20 04/24/2019 10:02 AM CONCRETE ENGINEERING TECHNICIAN Oxygen Saturation 98% 04/24/2019 10:02 AM CONCRETE ENGINEERING TECHNICIAN Inhaled Oxygen Concentration - - Weight - - Height - - Body Mass Index - - documented in this encounter Medications at Time [...] bedtime. tablet documented as of this encounter OR Notes Op Note - Lori Ordonez M.D. - 04/24/2019 10:49 AM CST FULL OP NOTE Procedure(s): OPERATIVE HYSTEROSCOPY, POLYPECTOMY, [facility]. Surgeon(s) and Role: * Lori Ordonez M.D. - Primary * Alyce Hurst M.D. - Diet Assistant Anesthesia Type General Pre-operative Diagnosis Bleeding Postmenopausal Post-operative Diagnosis Bleeding Postmenopausal Findings As expected. Complications None Description of Procedure Informed consent had been obtained previously. The patient was placed in the dorsal lithotomy position using candy-cane stirrups. Anesthesia was general with LMA. The perineum was prepped and draped inthe usual sterile fashion, and a surgical pause was taken. A speculum was inserted. The anterior lipof the cervix was grasped with a single-tooth tenaculum. The cervix was serially dilated to accommodate a No. 5 Hegar dilator. A 5.5-mm operative hysteroscope was inserted in the uterine cavity. Salinewas used as the distending media. The uterine cavity was inspected. Arising from the anterior wall was a 3-cm uterine polyp and from the fundus was a 2-cm polyp. The endometrium appeared atrophic . The polyps were resected in their entirety using hysteroscopic intrauterine rotary morcellator. At this point the uterine cavity was free of residual lesion. The hysteroscope was withdrawn. Tenaculum was removed from the cervix. The cervix was hemostatic. Sponge and instrument count was correct. The patient was transferred to the recovery room in excellent condition. Specimens ID Type Source Tests Collected by Time A : uterine contents Tissue Uterus SURGICAL PATHOLOGY, [facility] Lori Carranza M.D. 04/24/2019 1111 Drains None Estimated Blood Loss 5 mL Implants None Intra-operative Medications Intra-op Medications None Lori Ordonez M.D. RETE ENGINEERING TECHNICIAN Brief Op Note - Alyce Hurst M.D. - 04/24/2019 10:00 AM CST BRIEF OP NOTE Procedure(s): OPERATIVE HYSTEROSCOPY, POLYPECTOMY, [facility]. Surgeon(s) and Role: * Lori Ordonez M.D. - Primary * Alyce Hurst M.D. - Diet Assistant Anesthesia Type General Pre-operative Diagnosis Bleeding Postmenopausal Post-operative Diagnosis Bleeding Postmenopausal Findings Endometrial polyp with increased vascularity Complications None Specimens ID Type Source Tests Collected by Time A : uterine contents Tissue Uterus SURGICAL PATHOLOGY, [facility] Lori Carranza M.D. 04/24/2019 1111 Drains None Estimated Blood Loss 5 mL Implants None Pablo Hurst M.D. RETE ENGINEERING TECHNICIAN documented in this encounter Miscellaneous Notes Result Encounter Note - Lori Ordonez M.D. - 04/29/2019 3:04 PM CST I agree with the final interpretation/diagnosis outlined on the final pathology report. I tried to call patient about the result, but it went to . Given the 'glandular crowding' (which may indicate apossibility of hyperplasia in future), I would consider doing an EMB again in 3 months and hope we can get in easier than before. I am sending this to myself again to try her tomorrow but FYI in case she calls back. Also sending her a message with it. RETE ENGINEERING TECHNICIAN documented in this encounter Plan of Treatment Not on filedocumented as of this encounter Procedures Procedure Name Priority Date/Time Associated Diagnosis Comme nts ADULT OXYGEN THERAPY Routine 04/24/2019 11:30 AM CONCRETE ENGINEERING TECHNICIAN SURGICAL PATHOLOGY, Routine 04/24/2019 11:11 Bleeding Resu lts for this [facility] AM CONCRETE ENGINEERING TECHNICIAN Postmenopausal procedure are in the results section. OPERATIVE 04/24/2019 10:05 Bleeding HYSTEROSCOPY AM CONCRETE ENGINEERING TECHNICIAN Postmenopausal documented in this encounter Results Surgical Pathology, [facility] (04/24/2019 11:11 AM CONCRETE ENGINEERING TECHNICIAN) Component Value Ref Test Analysis Performed Pathologis t Range Method Time At Signature 04/28/2019 GOND 2:29 PM CONCRETE ENGINEERING TECHNICIAN Participated in Roby Tiffanie, 04/28/2019 PAM the Geno-Pathology 2:29 PM Interpretation Fellow CONCRETE ENGINEERING TECHNICIAN Report Shandra Turner M.D. pager: [phone] 04/28/2019 GOND electronically I verify that I have examined all relevant slides/ma terials 2:29 PM signed by for the specimen(s) and rendered or confirmed the diagnosis. CONCRETE ENGINEERING TECHNICIAN Seen in consultation with: ??[employer]con [employer] M.D., Ph.D. [phone] Frozen A. ??Endometrium, polypectomy: ??Fragments of polypoid 04/28/2019 GOND Intraoperative endometrium with focal glandular crowding. 2:29 PM Report HOLD OVER for further evaluation on permanent sections. CONCRETE ENGINEERING TECHNICIAN Frozen section histologic interpretation performed by: Shandra Turner M.D. [id number] Gross Description A. ??Received fresh labeled uterine contents is a 3.5 x 04/28/2019 GOND 2.4 2:29 PM x 0.8 cm aggregate of irregular and friable pink-hollingsworth tissue CONCRETE ENGINEERING TECHNICIAN fragments. ??All submitted for frozen and permanent sections. Grossed by [facility]M. Block Summary A Uterine contents 04/28/2019 GOND A1 Uterine contents 1 2:29 PM A2 Uterine contents 2 CONCRETE ENGINEERING TECHNICIAN Interpretation FINAL DIAGNOSIS 04/28/2019 GOND A. ??Endometrium, polypectomy: ??Fragments of endometrial 2:29 PM polyp with focal glandular crowding. CONCRETE ENGINEERING TECHNICIAN Specimen (Source) Anatomical Collection Method Collection Time Re ceived Time Location / / Volume Laterality Tissue (Uterus) 04/24/2019 11:11 AM CONCRETE ENGINEERING TECHNICIAN Narrative This result has an attachment that is no t available. Lori Ordonez M.D. LAB SURG PATH ORDERABL ES Performing Organization Address City/State/ZIP Code Phon e Number [facility] - [address] [place], [place] [address] [facility] [place] [address] Laboratories-[facility] [address] documented in this encounter Visit Diagnoses Diagnosis Bleeding Postmenopausal - Primary Morbid Obesity Body Mass Index 40.0-44.9 Adult (HCC) Bleeding Postmenopausal documented in this encounter Admitting Diagnoses Diagnosis Bleeding Postmenopausal documented in this encounter Administered Medications Inactive Administered Medications - up to 3 most recent administrations Medication Order MAR Action Action Date Dose Rate Site acetaminophen tablet 1,000 mg Given 04/24/2019 11:34 AM CONCRETE ENGINEERING TECHNICIAN 1,00 0 mg (TYLENOL) 1,000 mg, oral, Once as needed, other, If patient has not received in the previous 6 hours, Starting on Sat04/24/19 at 1130, For 1 dose, PACU (only), Oral unless RASS less than -1 or nausea/vomiting. Do not use if given in last 6 hours fentaNYL injection 25 mcg (SUBLIMAZE) Given 04/24/2019 10:35 AM CONCRETE ENGINEERING TECHNICIAN 50 mcg 25 mcg, intravenous, Every 2 min PRN, moderate pain or score 4-6 of 10, severe pain or score 7-10 of 10, Starting on Sat04/24/19 at 0954, Pre-Op, Up to maximum total dose of 200 mcg Given 04/24/2019 10:32 AM CONCRETE ENGINEERING TECHNICIAN 50 mcg Given 04/24/2019 10:18 AM CONCRETE ENGINEERING TECHNICIAN 25 mcg fentaNYL injection 25 mcg (SUBLIMAZE) Given 04/24/2019 11:47 AM CONCRETE ENGINEERING TECHNICIAN 25 mcg 25 mcg, intravenous, Every 2 min PRN, moderate pain or score 4-6 of 10, severe pain or score 7-10 of 10, Starting on Sat04/24/19 at 1130, PACU (only), Up to maximum total dose of 200 mcg Given 04/24/2019 11:46 AM CONCRETE ENGINEERING TECHNICIAN 25 mcg Given 04/24/2019 11:44 AM CONCRETE ENGINEERING TECHNICIAN 25 mcg metoprolol tablet 12.5 mg (LOPRESSOR) Given 04/24/2019 10:13 AM CONCRETE ENGINEERING TECHNICIAN 12.5 mg 12.5 mg, oral, Once as needed, if patient did not take their last scheduled dose of beta willow prior to arrival, Starting on Sat04/24/19 at 1001, For 1 dose, Pre-Op, Do not give if patient does not take scheduled beta blockers, if patient is receiving intravenous vasopressors or inotropes, if heart rate is less than 50 beats per minute, if systolic blood pressure is less than 90 mmHg or if diastolic blood pressure is less than 40 mmHg, or if patient has an allergy to metoprolol. midazolam (PF) injection 1 mg (VERSED) Given 04/24/2019 10:15 AM CONCRETE ENGINEERING TECHNICIAN 1 mg 1 mg, intravenous, Once, On Sat04/24/19 at 1000, For 1 dose, Pre-Op miSOPROStol tablet 200 mcg (CYTOTEC) Given 04/24/2019 10:13 AM CONCRETE ENGINEERING TECHNICIAN 200 mcg 200 mcg, oral, Once, On Sat04/24/19 at 1015, For 1 dose, Pre-Op oxyCODONE IR tablet 5 mg (ROXICODONE) Given 04/24/2019 11:33 AM CONCRETE ENGINEERING TECHNICIAN 5 mg 5 mg, oral, Once, On Sat04/24/19 at 1145, For 1 dose, PACU (only), Prior to discharge sodium chloride 0.9 % injection 10 mL 10 mL, intravenous, As needed, line care , Starting on Sat04/24/19 at 1001, Pre-Op, Peripheral Intravenous Catheter and Rapid Infusion Cat heter, prior to blood sampling, post blood transfusion or post blood samplin g sodium chloride 0.9 % injection 3 mL 3 mL, intravenous, As needed, line care, Starting on Sat04/24/19 at 1001, Pre-Op, Prior to and following infusion and betw een multiple consecutive infusions: sodium chloride 0.9 % injection sodium chloride 0.9 % injection 3 mL 3 mL, intravenous, Every 12 hours scheduled, First dos e on Sat04/24/19 at 2100, Pre-Op, Peripheral Intravenous Catheter and Rapid Infu mckenna Catheter, when no infusion to maintain patency documented in this encounter Active and Recently Administered Medications Times are shown in CONCRETE ENGINEERING TECHNICIAN. Scheduled Medication Order 04/22/2019 04/23/2019 04/24/2019 midazolam (PF) injection 1 mg (VERSED) (COMPLETED) 1015 (Given - Provider: Nina Reddy R.N.) 1 mg, intravenous, Once, Sat04/24/19 at 1000, For 1 dose, Pre-Op miSOPROStol tablet 200 mcg (CYTOTEC) (COMPLETED) 1013 (Given - Provider: Nina Reddy R.N.) 200 mcg, oral, Once, Sat04/24/19 at 1015, For 1 dose, Pre-Op oxyCODONE IR tablet 5 mg (ROXICODONE) (COMPLETED) 1133 (Given - Provider: Nina Reddy R.N.) 5 mg, oral, Once, On Sat04/24/19 at 1145 , For 1 dose, PACU (only), Prior to discharge sodium chloride 0.9 % injection 3 mL 3 mL, intravenous, Every 12 hours schedu led, First dose on Sat04/24/19 at 2100, Pre-Op, Peripheral Intravenous Catheter and Rapid Infusion Catheter, when no infusion to maintain patency sodium chloride 0.9 % injection 3 mL 3 mL, intravenous, Every 12 hours schedu led, First dose on Sat04/24/19 at 2100, Pre-Op, Peripheral Intravenous Catheter and Rapid Infusion Catheter, when no infusion to maintain patency PRN Medication Order 04/22/2019 04/23/2019 04/24/2019 acetaminophen tablet 1,000 mg (TYLENOL) (COMPLETED) 1134 (Given - Provider: Nina Reddy R.N.) 1,000 mg, oral, Once as needed, other, I f patient has not received in the previous 6 hours, Starting on Sat04/24/19 at 1130, For 1 dose, PACU (only), Oral unless RASS less than -1 or nausea/vomiting. Do not use if given in last 6 hours fentaNYL injection 25 mcg (SUBLIMAZE) 1015 (Given - Provider: Nina Reddy R.N.)1018 (Given - Provider: Nina Reddy R.N.)1032 (Given - Provider: Caitlin Blanca APRN, TANK RIVETER)1035 (Given - Provider: Caitlin Blanca APRN, JILLIAN) 25 mcg, intravenous, Every 2 min PRN, mo derate pain or score 4-6 of 10, severe pain or score 7-10 of 10, Starting Sat04/24/19 at 0954, Pre-Op, Up to maximum total dose of 200 mcg fentaNYL injection 25 mcg (SUBLIMAZE) 1133 (Given - Provider: Nina Reddy R.N.)1144 (Given - Provider: Nina Reddy R.N.)1146 (Given - Provider: Nina Reddy R.N.)1147 (Given - Provider: Nina Reddy R.N.) 25 mcg, intravenous, Every 2 min PRN, mo derate pain or score 4-6 of 10, severe pain or score 7-10 of 10, Starting Sat04/24/19 at 1130, PACU (only), Up to maximum total dose of 200 mcg metoprolol tablet 12.5 mg (LOPRESSOR) (COMPLETED) 1013 (Given - Provider: Nina Reddy R.N.) 12.5 mg, oral, Once as needed, if patien t did not take their last scheduled dose of beta willow prior to arrival, Starting Sat04/24/19 at 1001, For 1 dose, Pre- Op, Do not give if patient does not take scheduled beta blockers, if patient is r eceiving intravenous vasopressors or inotropes, if heart rate is less than 50 beats per minute, if systolic blood pressure is less than 90 mmHg or if diastolic bl ood pressure is less than 40 mmHg, or if patient has an kenya rgy to metoprolol. sodium chloride 0.9 % injection 10 mL 10 mL, intravenous, As needed, line care , Starting Sat04/24/19 at 0954, Pre-Op, Peripheral Intravenous Catheter and Rapid Infusion Catheter, prior to blood sampling, post blood transfusion or post blood sampling sodium chloride 0.9 % injection 10 mL 10 mL, intravenous, As needed, line care , Starting Sat04/24/19 at 1001, Pre-Op, Peripheral Intravenous Catheter and Rapid Infusion Catheter, prior to blood sampling, post blood transfusion or post blood sampling sodium chloride 0.9 % injection 3 mL 3 mL, intravenous, As needed, line care, Starting Sat04/24/19 at 0954, Pre-Op, Prior to and following infusion and between multiple consecutive infusions: sodium chloride 0.9 % injection sodium chloride 0.9 % injection 3 mL 3 mL, intravenous, As needed, line care, Starting Sat04/24/19 at 1001, Pre-Op, Prior to and following infusion and between multiple consecutive infusions: sodium chloride 0.9 % injection documented in this encounter
--- OUTSIDE RECORDS SUMMARY | 2022-01-19 15:37 | XMS_ITS | Encounter Summary ---
:1950 Author Organization [facility] Address [address] [place] [address] Care Team Providers Name Role Phone Unavailable Primary Care Provider Unavailable Encounter Details Date Type Department Care Team Description 06/13/2019 Clinical Communication Department of [facility], Pcp Medicine, [facility], in [address] [id number] Social History Tobacco Use Types Packs/Day Years Used Date Smoking Tobacco: Never Smokeless Tobacco: Never Sex Assigned at Date Recorded Female 12/20/2020 12:41 PM CDT documented as of this encounter Miscellaneous Notes Telephone Encounter - Genia Castro - 06/13/2019 10:25 AM CST Ana Abby Jacinto Caio Mota Sebastian P, C.N.P. has put in a request for you to schedule a post emergency office visit, at your earliest convenience. To secure an appointment, please respond with your appointment time preferences (e.g. day of week, time of day, etc.) that would be close to the expected date that was requested. You can also reach us at your clinic appointment line if you would prefer to schedule this over the phone. [place]: [phone] [place]: [phone] [place]: [phone] [place]: [phone] [place]: [phone] [place]: [phone] Thank you for trusting your health care to [facility]. ORK OPERATIONS LEAD documented in this encounter Plan of Treatment Not on filedocumented as of this encounter Visit Diagnoses Not on filedocumented in this encounter
--- OUTSIDE RECORDS SUMMARY | 2022-01-19 15:37 | XMS_ITS | Encounter Summary ---
:1950 Author Organization [facility] Address [address] [place] [address] Care Team Providers Name Role Phone Elsewhere, Pcp Primary Care Provider Unavailable Reason for Visit Reason Comments Cellulitis follow-up Encounter Details Date Type Department Care Team Description 06/25/2019 Clinical Communication Department of Francy Sosa follow-up Family Medicine, Marina Rodriguez, [place] P.A. [facility], in [address] [phone] Social History Tobacco Use Types Packs/Day Years Used Date Smoking Tobacco: Never Smokeless Tobacco: Never Sex Assigned at Date Recorded Female 12/20/2020 12:41 PM CDT documented as of this encounter Miscellaneous Notes Telephone Encounter - Arlette Oneal RFrankieN. - 06/25/2019 10:59 AM CDT PLAN The following information was provided: Patient states that her body does not do well with antibiotics. She states that the only antibiotic she has done well with is Ceclor. She states her has Stage 4 Lymphoma and has poor immunity. She is trying to be the buffer and protect his immunity as well. She states that the provider can send the script, but unsure she will take it due to having lower abdominal issues when taking an antibiotics. She also does not want to taking any medications are unnecessary. Information/Education: patient/caller able to teach back The following references were used: nursing clinical judgment Please advise on antibiotic. Patient would like to send script to [facility]. Telephone Encounter - Francy Sosa P.A.-C. - 06/25/2019 10:50 AM CDT Would still send a script, would just ultimately be ideal if we can see how things look. Jackson, Francy Telephone Encounter - Marianne Terry R.N. - 06/25/2019 10:37 AM CDT SUBJECTIVE CHIEF COMPLAINT / REASON FOR CALL Cellulitis follow-up Information Discussed Pt contacted and notified of provider's message. When asked about the possibility of sending a portal message with a picture, pt became quite rude and short with staff stating she is not a techy person and instead requested to send it as an email. RN explained that her chart indicates that she has created a portal account (pt states that's true), nurse then explained that if patient can send a picture via email, the process is exactly the same in the portal, just an attached image from her camera roll. Pt also notified that an email is not a part of her chart and we do not communicate with patient's via email. Pt was again very rude during the conversation stating well you guys are the ones whoscrewed yourself by not allowing email. Pt wants to know what provider's response will be now sinceshe can't send a picture. Please review and advise. PLAN Disposition/Recommendation: notified provider and awaiting recommendations Information/Education: patient/caller able to teach back Caller agreeable to plan of care: yes The following references were used: provider Francy Sosa Telephone Encounter - Francy Sosa P.A.-C. - 06/25/2019 10:27 AM CDT We could try additional antibiotics with Keflex (in the same family as cefaclor). If she could send a portal message with a picture that would be ideal. Telephone Encounter - Florencia Zafar - 06/25/2019 10:15 AM CDT Per Pt: The left leg is still pretty red, it is not as big as when Francy Sosa P.A.-C saw it. She has completed the abx. States the red areas are slightly warmer than the unaffected areas, due to neuropathy she only has occasional discomfort. Sometimes she looks at it and it looks better, and sometimes it seems like the redness comes and goes. Pt says that per Francy, if it didn't get better with her first round of abx that she should be seen again to make a decision on a different kind of abx. Her question is, how long can she go without having to come in to the clinic given the current situation? Telephone Encounter - Genia Castro - 06/25/2019 10:08 AM CDT Patient returning phone call from nurse team. Please call back. [phone]. Telephone Encounter - Arlette Oneal, R.N. - 06/25/2019 8:39 AM CDT Attempted to contact patient, no answer, left voice message with patient to contact the clinic. Telephone Encounter - Marianne Terry RFrankieN. - 06/25/2019 6:44 AM CDT Images from the original note were not included. Francy Sosa P.A.-C. [facility] Team Nurse ?? Please call Abby at her home number before noon. How are her cellulitis symptoms? Thanks, Francy documented in this encounter Plan of Treatment Not on filedocumented as of this encounter Visit Diagnoses Not on filedocumented in this encounter Care Teams Tax Credit Leasing Consultant Relationship 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
--- OUTSIDE RECORDS SUMMARY | 2022-01-19 15:37 | XMS_ITS | Encounter Summary ---
:1950 Author Organization [facility] Address [address] [place] [address] Care Team Providers Name Role Phone Unavailable Primary Care Provider Unavailable Encounter Details Date Type Department Care Team Description 04/24/2019 Ancillary Procedure Department of Gynecology Social History Tobacco Use Types Packs/Day Years Used Date Smoking Tobacco: Never Smokeless Tobacco: Never Sex Assigned at Date Recorded Female 12/20/2020 12:41 PM CDT documented as of this encounter Plan of Treatment Not on filedocumented as of this encounter Procedures Procedure Name Priority Date/Time Associated Comments Diagnosis GYNECOLOGY IMAGE Routine 04/24/2019 7:10 AM Resul ts for this EXAM TICKET PULLER procedure are i n the results section. documented in this encounter Results HYST-Gynecology Image Exam (04/24/2019 7:10 AM TICKET PULLER) Specimen (Source) Anatomical Location Collection Method / Collectio n Time Received Time / Laterality Volume Narrative IIMS - 04/24/2019 11:17 AM TICKET PULLER This order has been created and auto-finalized [...]
--- OUTSIDE RECORDS SUMMARY | 2022-01-19 15:37 | XMS_ITS | Encounter Summary ---
:1950 Author Organization [facility] Address [address] [place] [address] Care Team Providers Name Role Phone Unavailable Primary Care Provider Unavailable Reason for Referral Outpatient (Routine) - Closed Specialty Diagnoses / Procedures Referred By Contact Refer red To Contact Emergency Medicine Diagnoses Cellulitis Leg Left Sumeet Kearney, [facility] MANAGEMENT ACCOUNTANT, C.N.P. [address] [place] [phone] Referral ID Status Reason Start Date Expiration Date Visits Requ ested Visits Authorized [id number] Closed 06/12/2019 06/11/2020 1 1 DING WHEEL FACER Reason for Visit Reason Comments Leg Swelling reddness Encounter Details Date Type Department Care Team Description 06/12/2019 Emergency [facility] Sumeet Kearney , Cellulitis Leg Left (Primary Dx); Department MANAGEMENT ACCOUNTANT, C.N.P. Swelling Leg Left [address] [place] [address] [address] [place] [phone] (Wo rk) Social History Tobacco Use Types Packs/Day Years Used Date Smoking Tobacco: Never Smokeless Tobacco: Never Sex Assigned at Date Recorded Female 12/20/2020 12:41 PM CDT documented as of this encounter Last Filed Vital Signs Vital Sign Reading Time Taken Comments Blood Pressure 180/103 06/12/2019 2:46 PM GRINDING WHEEL FACER Pulse - - Temperature 36.2 ??C (97.2 ??F) 06/12/2019 2:41 PM GRINDING WHEEL FACER Respiratory Rate - - Oxygen Saturation 99% 06/12/2019 2:41 PM GRINDING WHEEL FACER Inhaled Oxygen Concentration - - Weight - - Height - - Body Mass Index - - documented in this encounter Discharge Instructions Discharge InstructionsNohemy Dubon R.N. - 06/12/2019 3:34 PM CST Images from the original note were not included. Patient Education Cellulitis, Adult Cellulitis is a skin infection. The infected area is often warm, red, swollen, and sore. It occurs most often in the arms and lower legs. It is very important to get treated for this condition. What are the causes? This condition is caused by bacteria. The bacteria enter through a break in the skin, such as a cut,burn, insect bite, open sore, or crack. What increases the risk? This condition is more likely to occur in people who: ?? Have a weak body defense system (immune system). ?? Have open cuts, king, bites, or scrapes on the skin. ?? Are older than 60 years of age. ?? Have a blood sugar problem (diabetes). ?? Have a long-lasting (chronic) liver disease (cirrhosis) or kidney disease. ?? Are very overweight (obese). ?? Have a skin problem, such as: ? Itchy rash (eczema). ? Slow movement of blood in the veins (venous stasis). ? Fluid buildup below the skin (edema). ?? Have been treated with high-energy rays (radiation). ?? Use IV drugs. What are the signs or symptoms? Symptoms of this condition include: ?? Skin that is: ? Red. ? Streaking. ? Spotting. ? Swollen. ? Sore or painful when you touch it. ? Warm. ?? A fever. ?? Chills. ?? Blisters. How is this diagnosed? This condition is diagnosed based on: ?? Medical history. ?? Physical exam. ?? Blood tests. ?? Imaging tests. How is this treated? Treatment for this condition may include: ?? Medicines to treat infections or allergies. ?? Home care, such as: ? Rest. ? Placing cold or warm cloths (compresses) on the skin. ?? Hospital care, if the condition is very bad. Follow these instructions at home: Medicines ?? Take goyo-xch-niagnbj and prescription medicines only as told by your doctor. ?? If you were prescribed an antibiotic medicine, take it as told by your doctor. Do not stop takingit even if you start to feel better. General instructions ?? Drink enough fluid to keep your pee (urine) pale yellow. ?? Do not touch or rub the infected area. ?? Raise (elevate) the infected area above the level of your heart while you are sitting or lying down. ?? Place cold or warm cloths on the area as told by your doctor. ?? Keep all follow-up visits as told by your doctor. This is important. Contact a doctor if: ?? You have a fever. ?? You do not start to get better after 1-2 days of treatment. ?? Your bone or joint under the infected area starts to hurt after the skin has healed. ?? Your infection comes back. This can happen in the same area or another area. ?? You have a swollen bump in the area. ?? You have new symptoms. ?? You feel ill and have muscle aches and pains. Get help right away if: ?? Your symptoms get worse. ?? You feel very sleepy. ?? You throw up (vomit) or have watery poop (diarrhea) for a long time. ?? You see red streaks coming from the area. ?? Your red area gets larger. ?? Your red area turns dark in color. These symptoms may represent a serious problem that is an emergency. Do not wait to see if the symptoms will go away. Get medical help right away. Call your local emergency services (911 in the [place] Do not drive yourself to the hospital. Summary ?? Cellulitis is a skin infection. The area is often warm, red, swollen, and sore. ?? This condition is treated with medicines, rest, and cold and warm cloths. ?? Take all medicines only as told by your doctor. ?? Tell your doctor if symptoms do not start to get better after 1-2 days of treatment. This information is not intended to replace advice given to you by your health care provider. Make sure you discuss any questions you have with your health care provider. Document Released: 09/10/2008 Document Revised: 08/14/2018 Document Reviewed: 08/14/2018 [employer] Patient Education ?? 2019 [employer] DING WHEEL FACER documented in this encounter Medications at Time [...] bedtime. tablet documented as of this encounter ED Notes Sumeet Kearney C.N.P. - 06/12/2019 3:44 PM CST Images from the original note were not included. SUBJECTIVE CHIEF COMPLAINT/REASON FOR VISIT Leg Swelling (reddness) HISTORY OF PRESENT ILLNESS Patient pleasant 68-year-old female coming for evaluation of rash with left lower extremity. She recently got back from the beach she originally noticed this redness thing area. She did not want to go to the hospital while she was on vacation. So upon returning she came straight to the ER. She has a area of erythema that is slightly warmer than the other side. She has baseline lymphedema to bilaterallower extremities. She has no fevers chills and does not appear toxic or ill at this time. She has not take anything prior to arrival. She states that she has been attempting to wrap her legs at home with minimal relief of her swelling or redness. History provided by: Patient REVIEW OF SYSTEMS Constitutional: Negative for fever. Skin: Positive for rash and wound. All other systems reviewed and are negative. OBJECTIVE Initial Vitals [06/12/19 1441] Temperature Pulse Heart Rate Resp Blood Pressure SpO2 36.2 ??C -- 93 -- (!) 203/101 99 % Pain Score -- PHYSICAL EXAMINATION Constitutional: Vital signs are normal. She appears not [...] and reactive to light. Periorbital area normal appearing.Extraocular Movements: EOM normal. Neck: Normal range of motion and full passive range of motion without pain. Neck supple. Cardiovascular: Normal rate and normal peripheral perfusion. PMI is not displaced. Pulses are palpable. Pulses are no weak pulses. Capillary refill: takes less than 3 seconds, Pulmonary/Chest: Effort normal. There is normal air entry. No apnea and no tachypnea. No respiratorydistress. Abdominal: Normal appearance and non-distended. Musculoskeletal: Normal range of motion. No tenderness, deformity or edema. Neurological: She is alert, oriented to person, place, and time and easily aroused. She has normal sensation, normal strength and intact cranial nerves. She is not disoriented. GCS eye subscore is 4. GCS verbal subscore is 5. GCS motor subscore is 6. Normal speech. Gait normal. Skin: Skin is warm, dry, intact and normal color. Erythemia of area noted. No rash noted. She is notdiaphoretic. There is erythema. Bilateral dependent edema, baseline for patient Psychiatric: She has a normal mood and affect. Her speech pattern is normal. Judgment and thought content normal. She is relaxed.Cognition and memory are normal. ASSESSMENT/PLAN Impression and Plan Patient pleasant 68-year-old female multiple allergies coming for evaluation of cellulitis. After a thorough physical exam I have low suspicion that this is a life-threatening bacterial infection I feel this may be just a simple cellulitis secondary to lower leg edema. It is cellulitic in nature warm to the touch with good demarcated borders and slightly painful to the touch. Which she will be started on antibiotics I placed on Ceclor as she states this is the only antibiotic she is able to tolerate. I advised her to follow up with her primary care provider within the next 3-4 days for wound recheck or she has any worsening symptoms that she return to the ER immediately. Final Diagnoses: as of Jun 12 120 Cellulitis Leg Left Swelling Leg Left Sumeet Kearney C.N.P. 06/14/19 0921 documented in this encounter Plan of Treatment Scheduled Referrals Name Type Priority Associated Diagnoses Order S chedule POST ED VISIT Outpatient Referral Routine Cellulitis Leg Left Expected: Family Medicine 06/15/2019 (Approximate), Expires: 06/11/2022 documented as of this encounter Visit Diagnoses Diagnosis Cellulitis Leg Left - Primary Swelling Leg Left documented in this encounter
--- OUTSIDE RECORDS SUMMARY | 2022-01-19 15:37 | XMS_ITS | Encounter Summary ---
:1950 Author Organization [facility] Address [address] [place] [address] Care Team Providers Name Role Phone Elsewhere, Pcp Primary Care Provider Unavailable Reason for Referral Physical Therapy (Routine) - Closed Specialty Diagnoses / Procedures Referred By Contact Refer red To Contact Diagnoses Lymphedema Ponce Prajapati M.D. [facility] Procedures PT or OT eval and treat (first available) [address] [place] [phone] Referral ID Status Reason Start Date Expiration Date Visits Requ ested Visits Authorized [id number] Closed 06/25/2019 06/24/2020 1 1 Encounter Details Date Type Department Care Team Description 06/25/2019 Orders Only Department of Physical Depgricel, Lymph edema (Primary Medicine and Ponce Jorge M.D. Dx) Rehabilitation in [address] [place] [address] [place] [phone] [place] [phone] Social History Tobacco Use Types Packs/Day Years Used Date Smoking Tobacco: Never Smokeless Tobacco: Never Sex Assigned at Date Recorded Female 12/20/2020 12:41 PM CDT documented as of this encounter Plan of Treatment Not on filedocumented as of this encounter Visit Diagnoses Diagnosis Lymphedema - Primary documented in this encounter Care Teams Manager Competitive Intelligence Relationship 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
--- OUTSIDE RECORDS SUMMARY | 2022-01-19 15:37 | XMS_ITS | Encounter Summary ---
:1950 Author Organization [facility] Address [address] [place] [address] Care Team Providers Name Role Phone Unavailable Primary Care Provider Unavailable Encounter Details Date Type Department Care Team Description 04/24/2019 Hospital Encounter Outpatient [facility] in [place], M.D. [address] [place] [phone] [phone] Social History Tobacco Use Types Packs/Day Years Used Date Smoking Tobacco: Never Smokeless Tobacco: Never Sex Assigned at Date Recorded Female 12/20/2020 12:41 PM CDT documented as of this encounter Last Filed Vital Signs Vital Sign Reading Time Taken Comments Blood Pressure 161/89 04/24/2019 12:15 PM MANAGER RESOURCE Pulse 77 04/24/2019 12:25 PM MANAGER RESOURCE Temperature 36.6 ??C (97.9 ??F) 04/24/2019 12:00 PM MANAGER RESOURCE Respiratory Rate 17 04/24/2019 12:25 PM MANAGER RESOURCE Oxygen Saturation 99% 04/24/2019 12:25 PM MANAGER RESOURCE Inhaled Oxygen Concentration - - Weight - [...] - Primary * Alyce Hurst M.D. - Electric Meter Inspector Anesthesia Type General Pre-operative Diagnosis Bleeding Postmenopausal [...] Medications Intra-op Medications None Lori Ordonez M.D. GER RESOURCE Brief Op Note - Alyce Hurst M.D. - 04/24/2019 10:00 AM CST BRIEF OP NOTE Procedure(s): OPERATIVE HYSTEROSCOPY, POLYPECTOMY, TruClear. Surgeon(s) and Role: * Lori Ordonez M.D. - Primary * Alyce Hurst M.D. - Electric Meter Inspector Anesthesia Type General Pre-operative Diagnosis Bleeding Postmenopausal Post-operative Diagnosis Bleeding Postmenopausal Findings Endometrial polyp with increased vascularity Complications None Specimens ID Type Source Tests Collected by Time A : uterine contents Tissue Uterus SURGICAL PATHOLOGY, [facility] Lori Carranza M.D. 04/24/2019 1111 Drains None Estimated Blood Loss 5 mL Implants None Pablo Hurst M.D. GER [facility] documented in this encounter Miscellaneous Notes Result [...] Also sending her a message with it. GER RESOURCE documented in this encounter Plan of Treatment Not on filedocumented as of this encounter Procedures Procedure Name Priority Date/Time Associated Diagnosis Comme nts ADULT OXYGEN THERAPY Routine 04/24/2019 11:30 AM MANAGER RESOURCE SURGICAL PATHOLOGY, Routine 04/24/2019 11:11 Bleeding Resu lts for this [facility] AM MANAGER RESOURCE Postmenopausal procedure are in the results section. OPERATIVE 04/24/2019 10:05 Bleeding HYSTEROSCOPY AM MANAGER RESOURCE Postmenopausal documented in this encounter Results Surgical Pathology, [facility] (04/24/2019 11:11 AM MANAGER RESOURCE) Component Value Ref Test Analysis Performed Pathologis t Range Method Time At Signature 04/28/2019 GOND 2:29 PM MANAGER RESOURCE Participated in Roby Tiffanie, 04/28/2019 PAM the Geno-Pathology 2:29 PM Interpretation Fellow MANAGER RESOURCE Report Shandra Turner M.D. pager: [phone] 04/28/2019 GOND electronically I verify that I have examined all relevant slides/ma terials 2:29 PM signed by for the specimen(s) and rendered or confirmed the diagnosis. MANAGER RESOURCE Seen in consultation with: ??Alcon Painting M.D., Ph.D. [phone] Frozen A. ??Endometrium, polypectomy: ??Fragments of polypoid 04/28/2019 GOND Intraoperative endometrium with focal glandular crowding. 2:29 PM Report HOLD OVER for further evaluation on permanent sections. MANAGER RESOURCE Frozen section histologic interpretation performed by: Shandra Turner M.D. [id number] Gross Description A. ??Received fresh labeled uterine contents is a 3.5 x 04/28/2019 GOND 2.4 2:29 PM x 0.8 cm aggregate of irregular and friable pink-hollingsworth tissue MANAGER RESOURCE fragments. ??All submitted for frozen and permanent sections. Grossed by MRM. Block Summary A Uterine contents 04/28/2019 GOND A1 Uterine contents 1 2:29 PM A2 Uterine contents 2 MANAGER RESOURCE Interpretation FINAL DIAGNOSIS 04/28/2019 GOND A. ??Endometrium, polypectomy: ??Fragments of endometrial 2:29 PM polyp with focal glandular crowding. MANAGER RESOURCE Specimen (Source) Anatomical Collection Method Collection Time Re ceived Time Location / / Volume Laterality Tissue (Uterus) 04/24/2019 11:11 AM MANAGER RESOURCE Narrative This result has an attachment that is no t available. Lori Ordonez M.D. LAB SURG PATH ORDERABL ES Performing Organization Address City/State/ZIP Code Phon e Number [facility] - [address] [place], [place] [address] [place] [address] [facility] [address] documented in this encounter Visit Diagnoses Diagnosis Bleeding Postmenopausal - Primary Morbid Obesity Body Mass Index 40.0-44.9 Adult (HCC) documented in this encounter Admitting Diagnoses Diagnosis Bleeding Postmenopausal documented in this encounter Administered Medications Inactive Administered Medications - up to 3 most recent administrations Medication Order MAR Action Action Date Dose Rate Site acetaminophen tablet 1,000 mg Given 04/24/2019 11:34 AM MANAGER RESOURCE 1,00 0 mg (TYLENOL) 1,000 mg, oral, Once as needed, other, If patient has not received in the previous 6 hours, Starting on Sat04/24/19 at 1130, For 1 dose, PACU (only), Oral unless RASS less than -1 or nausea/vomiting. Do not use if given in last 6 hours fentaNYL injection 25 mcg (SUBLIMAZE) Given 04/24/2019 10:35 AM MANAGER RESOURCE 50 mcg 25 mcg, intravenous, Every 2 min PRN, moderate pain or score 4-6 of 10, severe pain or score 7-10 of 10, Starting on Sat04/24/19 at 0954, Pre-Op, Up to maximum total dose of 200 mcg Given 04/24/2019 10:32 AM MANAGER RESOURCE 50 mcg Given 04/24/2019 10:18 AM MANAGER RESOURCE 25 mcg fentaNYL injection 25 mcg (SUBLIMAZE) Given 04/24/2019 11:47 AM MANAGER RESOURCE 25 mcg 25 mcg, intravenous, Every 2 min PRN, moderate pain or score 4-6 of 10, severe pain or score 7-10 of 10, Starting on Sat04/24/19 at 1130, PACU (only), Up to maximum total dose of 200 mcg Given 04/24/2019 11:46 AM MANAGER RESOURCE 25 mcg Given 04/24/2019 11:44 AM MANAGER RESOURCE 25 mcg metoprolol tablet 12.5 mg (LOPRESSOR) Given 04/24/2019 10:13 AM MANAGER RESOURCE 12.5 mg 12.5 mg, oral, Once as [...] 1 mg (VERSED) Given 04/24/2019 10:15 AM MANAGER RESOURCE 1 mg 1 mg, intravenous, Once, On Sat04/24/19 at 1000, For 1 dose, Pre-Op miSOPROStol tablet 200 mcg (CYTOTEC) Given 04/24/2019 10:13 AM MANAGER RESOURCE 200 mcg 200 mcg, oral, Once, On Sat04/24/19 at 1015, For 1 dose, Pre-Op oxyCODONE IR tablet 5 mg (ROXICODONE) Given 04/24/2019 11:33 AM MANAGER RESOURCE 5 mg 5 mg, oral, Once, On [...] Recently Administered Medications Times are shown in MANAGER RESOURCE. Scheduled Medication Order 04/22/2019 04/23/2019 04/24/2019 midazolam [...] R.N.)1032 (Given - Provider: Caitlin Blanca APRN, [facility] PSYCHIATRIST)1035 (Given - Provider: Caitlin Blanca APRN, JILLIAN) [...]
--- OUTSIDE RECORDS SUMMARY | 2022-01-19 15:37 | XMS_ITS | Encounter Summary ---
:1950 Author Organization [facility] Address [address] [place] [address] Care Team Providers Name Role Phone Unavailable Primary Care Provider Unavailable Encounter Details Date Type Department Care Team Description 04/24/2019 Anesthesia Event Outpatient Procedure Angela Barbosa, MILIEU THERAPIST, DATA SOLUTIONS ARCHITECT [address] [place] [phone] [place] in [facility] Pratik Middleton M.D. [address] [place] [phone] [place] [address] [place], [place] [phone] Anesthesia Record Procedure Summary Procedure Name Responsible Anesthesia Start Anesthesia Stop Time Anesthesiologist Time OPERATIVE Angela Barbosa, EVER, 04/24/19 1026 0 1121 HYSTEROSCOPY, DATA SOLUTIONS ARCHITECT POLYPECTOMY, TruClear. Events Date Time Event Comment 04/24/2019 0955 1025 In Room 1026 An Start Machine/Equipmen t Checked Infection Precautions Foll owed Procedure/Site Verified NPO Sta tus Verified Supine Standard ASA Mon itors Applied 1032 An Induction 1037 An Intubation 1038 Turnover to Proceduralist 1048 Quick Note Surgical pause 1049 Proc Start 1110 Proc Fin 1121 An End I completed my h andoff to the receiving staff during [facility] we 1. Identified the patient 2. Ident ified the responsible provider 3. Revi ewed the pertinent medical history 4. Discu ssed the surgical course 5. Reviewed intra-o p anesthesia management and issues during an esthesia 6. Set expectations for post-procedure period 7. Allowed opportun ity for questions and acknowledgement of understanding. 1121 an stop data 1124 Out of Room Name Total lidocaine 2% (mg) injection 100 mg propofol 10 mg/mL 220 mg propofol 10 mg/mL infusion 594 mg ondansetron 4 mg/2 mL injection 4 mg fentaNYL injection 25 mcg (SUBLIMAZE) 100 mcg dexamethasone 4 mg/mL injection 4 mg Lactated Ringers Free Drip 200 mL Agents No agents on file. Blood No blood administrations on file. Lines, Drains, and Airways Type Details Placement Removal Peripheral IV Placement Date: 04/24/19 1000 by 04/24/19 1229 b y 04/24/19; Placement Nina Reddy Runkle, M elissa J, Time: 1000; Catheter R.N. R.N. Size: 22 G; Orientation: Left; Location: Hand; Site Prep: Alcohol; Technique: Anatomical landmarks; Removal Date: 04/24/19; Removal Time: 1229 Supraglottic Airway Placement Date: 04/24/19 1037 by 06/12/19 15 34 by 04/24/19; Placement Caitlin Blanca Warm, Broo ke M, R.N. Time: 1037 (created via JILLIAN CURTIS, MNA procedure documentation); Mask Ventilation: Easy mask; Removal Date: 06/12/19; Removal Time: 1534 documented in this encounter Social History Tobacco Use Types Packs/Day Years Used Date Smoking Tobacco: Never Smokeless Tobacco: Never Sex Assigned at Date Recorded Female 12/20/2020 12:41 PM CDT documented as of this encounter OR Notes Anesthesia Postprocedure Evaluation - Angela Barbosa APRN, CRNA - 04/24/2019 11:23 AM CST Patient: Abby Mota Procedure Summary Date: 04/24/19 Room / Location: [place] [address] / [facility] in [place], [place] Anesthesia Start: 1026 Anesthesia Stop: 1121 Procedure: OPERATIVE HYSTEROSCOPY, POLYPECTOMY, TruClear. (N/A ) Diagnosis: Bleeding Postmenopausal (Bleeding Postmenopausal [N95.0].) Surgeon: Lori Ordonez M.D. Responsible Provider: Angela Barbosa APRN, CRNA Anesthesia Type: general ASA Status: 3 Anesthesia Type: general Last vitals Vitals Value Taken Time BP 164/103 04/24/2019 11:28 AM Temp Pulse 82 04/24/2019 11:29 AM Resp 14 04/24/2019 11:29 AM SpO2 99 % 04/24/2019 11:29 AM Vitals shown include unvalidated device data. Please reference Vitals flowsheet for most recent vital signs. Anesthesia Post Evaluation Patient Disposition: dismissal Cardiovascular status: hemodynamics (HR & BP) acceptable Respiratory status: patent airway with spontaneous effort Temperature: normothermic Oxygen requirements: room air Level of consciousness: awake Pain score: pain adequately controlled and/or at baseline Post Op nausea/vomiting: none Hydration status: euvolemic HYSICAL COMPUTER Anesthesia Procedure Notes - Caitlin Blanca APRN, CRNA - 04/24/2019 10:45 AM CSTAssociated Order(s): Airway Airway Date/Time: 04/24/2019 10:37 AM Performed by: Caitlin Blanca APRN, CRNA Authorized by: Caitlin Blanca APRN, CRNA Patient location during procedure: OR / Procedure Area PROCEDURE DETAILS: Mask difficulty assessment: easy mask Final airway type: supraglottic airway Laryngeal Manipulation: no Supraglottic device: LMA unique Supraglottic device size: 4 Adult device size: 4 Airway confirmation: bilateral breath sounds, positive ETCO2 and bilateral chest rise Other previous techniques attempted: none Additional Comments Paper tape for eye protection bilateral, LMA secure PRE PROCEDURE DETAILS: Pre evaluation for airway management: procedure Urgency: elective Preoxygenation: bag valve mask SEDATION / ANESTHESIA Anesthesia method: anesthesia POST PROCEDURE DETAILS: Procedure outcome: successful Airway event: no complications HYSICAL COMPUTER Anesthesia Preprocedure Evaluation - Pratik Middleton M.D. - 04/24/2019 9:06 AM CST Preprocedure Anesthesia & H&P Assessment Procedure Summary Date/Time: 04/24/19 1000 Procedure: OPERATIVE HYSTEROSCOPY, POLYPECTOMY, TruClear. (N/A ) Diagnosis: Bleeding Postmenopausal [N95.0] Pre-op diagnosis: Bleeding Postmenopausal [N95.0]. Location: [address] in [place], [place] Surgeon: Lori Ordonez M.D. Pertinent components of the patient's history including current problem list, medical history, surgical history, family history, social history, medications and allergies were reviewed. Present illnessand pre-op diagnosis were confirmed. The planned surgery / procedure was verified with the patient /legal guardian. The patient's general health condition remains unchanged PROBLEM LIST Relevant Problems Other (+) Morbid Obesity Body Mass Index 40.0-44.9 Adult (HCC) (+) Radiculopathy Lumbar OBJECTIVE PHYSICAL EXAMINATION Airway (HEENT) Mallampati: I TM Distance: >3 FB Neck ROM: Full Mouth Opening: >3 cm Upper Lip Bite Test Class: I Cardiovascular Rhythm: Regular Rate: Normal Cardiovascular Assessment: cardiovascular normal Functional Capacity: >4 METS Pulmonary Pulmonary Assessment: Clear General / Constitutional Constitutional Assessment: Normal General State of Health:: healthy appearing and calm ASSESSMENT / PLAN ANESTHESIA PLAN ASA: 3 Anesthesia Plan: general Multiple concerns including back spasms, right leg pain, vocal cords etc addressed in a long conversation over 30 min. Also discussed the team model with a DATA SOLUTIONS ARCHITECT in the room and me being immediately available if needed. Patient seen and allergies reviewed, anesthesia plan and risks discussed directly with patient /legal guardian or through an inside sales engineer. The use of blood products not discussed Approval to Proceed: approved for anesthesia HYSICAL COMPUTER documented in this encounter Plan of Treatment Not on filedocumented as of this encounter Procedures Procedure Name Priority Date/Time Associated Diagnosis Comme nts LDA ANE Routine 04/24/2019 10:45 AM Results for this NON-SURGICAL AIRWAY GEOPHYSICAL COMPUTER windy esparza are in the results section. documented in this encounter Results LDA ANE NON-SURGICAL AIRWAY (04/24/2019 10:45 AM GEOPHYSICAL COMPUTER) Narrative Caitlin Blanca APRN, CRNA - 0 10:45 AM GEOPHYSICAL COMPUTER Caitlin Blanca APRN, CRNA ? 04/24/2019 10:46 AM Airway Date/Time: 04/24/2019 10:37 AM Performed by: Caitlin Blanca APRN, CR NA Authorized by: Caitlin Blanca APRN, C RNA Patient location during procedure: OR / Procedure Area PROCEDURE DETAILS: Mask difficulty assessment: easy mask Final airway type: supraglottic airway Laryngeal Manipulation: no ?? Supraglottic device: LMA unique ?? Supraglottic device size: 4 ?? Adult device size: 4 Airway confirmation: bilateral breath so unds, positive ETCO2 and bilateral chest rise Other previous techniques attempted: non e Additional Comments Paper tape for eye protection bilateral, LMA secure ?? PRE PROCEDURE DETAILS: Pre evaluation for airway management: pr ocedure Urgency: elective Preoxygenation: bag valve mask SEDATION / ANESTHESIA Anesthesia method: anesthesia POST PROCEDURE DETAILS: ? Procedure outcome: successful ?? Airway event: no complications Caitlin Blanca APRN, DATA SOLUTIONS ARCHITECT, MNA ANESTHESIA ORDERABLES documented in this encounter Visit Diagnoses Not on filedocumented in this encounter Administered Medications Inactive Administered Medications - up to 3 most recent administrations Medication Order MAR Action Action Date Dose Rate Site dexamethasone injection (DECADRON) Given 04/24/2019 10:38 AM GEOPHYSICAL COMPUTER 4 mg As needed, Starting on Sat04/24/19 at 1038, Anesthesia Intra-op fentaNYL injection 25 mcg (SUBLIMAZE) Given 04/24/2019 10:35 AM GEOPHYSICAL COMPUTER 50 mcg 25 mcg, intravenous, Every 2 min PRN, moderate pain or score 4-6 of 10, severe pain or score 7-10 of 10, Starting on Sat04/24/19 at 0954, Pre-Op, Up to maximum total dose of 200 mcg Given 04/24/2019 10:32 AM GEOPHYSICAL COMPUTER 50 mcg Given 04/24/2019 10:18 AM GEOPHYSICAL COMPUTER 25 mcg lactated ringers New Bag 04/24/2019 10:23 AM GEOPHYSICAL COMPUTER Continuous Infusion: Per Instructions PRN, Starting on Sat04/24/19 at 1023, Anesthesia Intra-op lidocaine (PF) (cardiac) injection Given 04/24/2019 10:31 AM GEOPHYSICAL COMPUTER 100 mg intravenous, As needed, Starting on Sat04/24/19 at 1031, Anesthesia Intra-op ondansetron (PF) injection (ZOFRAN) Given 04/24/2019 10:31 AM GEOPHYSICAL COMPUTER 4 mg intravenous, As needed, Starting on Sat04/24/19 at 1031, Anesthesia Intra-op propofol 10 mg/mL infusion New Bag 04/24/2019 10:32 125 mcg/kg/min 99 mL/hr (DIPRIVAN) AM GEOPHYSICAL COMPUTER intravenous, Continuous Infusion: Per Instructions PRN, Starting on Sat04/24/19 at 1032, Anesthesia Intra-op propofol injection (DIPRIVAN) Given 04/24/2019 10:48 AM GEOPHYSICAL COMPUTER 20 mg intravenous, As needed, Starting on Sat04/24/19 at 1036, Anesthesia Intra-op Given 04/24/2019 10:36 AM GEOPHYSICAL COMPUTER 200 mg documented in this encounter
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
--- OUTSIDE RECORDS SUMMARY | 2022-01-19 15:37 | XMS_ITS | Encounter Summary ---
:1950 Author Organization [facility] Address [address] [place] [address] Care Team Providers Name Role Phone Unavailable Primary Care Provider Unavailable Reason for Referral Outpatient (Routine) - Closed Specialty Diagnoses / Procedures Referred By Contact Refer red To Contact Obstetrics and [facility] Gynecology Lori Costa M.D. [address] [place] [phone] Referral ID Status Reason Start Date Expiration Date Visits Requ ested Visits Authorized [id number] Closed 04/29/2019 04/28/2020 1 1 Scheduling Instructions Repeat EMB H BEAMER Reason for Visit Reason Comments Results Encounter Details Date Type Department Care Team Description 04/29/2019 Clinical Communication Department of Simon Ordonez Obstetrics and Lori Costa M.D. Gynecology in [address] [place] [address] [place] [phone] [place], [place] [phone] (Work) [phone] Social History Tobacco Use Types Packs/Day Years Used Date Smoking Tobacco: Never Smokeless Tobacco: Never Sex Assigned at Date Recorded Female 12/20/2020 12:41 PM CDT documented as of this encounter Miscellaneous Notes Telephone Encounter - Lori Ordonez M.D. - 04/29/2019 3:50 PM CLOTH BEAMER Discussed focal glandular crowding on biopsy in context of the spectrum from normal to hyperplasia.This indicates that she could be at risk for hyperplasia and I did discuss with her that she has risk factors for it. Therefore I would suggest that we repeat a biopsy at 3-6 months in the office in order to make sure that there has been no new formation of hyperplasia. If that biopsies benign then she would not require any additional treatment or testing. If it is abnormal we'll discuss that at the time of the biopsy. Since this does not register completely as hyperplasia I would not recommend medical therapy at this time. We reviewed warning signs of infection and or abnormal bleeding. She is leaving for [place] soon and I've discussed with her that she can call us if she has any questions. Otherwise I'll see her back in 3 months. H BEAMER documented in this encounter Plan of Treatment Scheduled Referrals Name Type Priority Associated Order Schedule Diagnoses Obstetrics and Outpatient Referral Routine Expect ed: Gynecology office 09/07/2019 visit (clinic) (Approximate) , Expires: 04/29/2022 documented as of this encounter Visit Diagnoses Diagnosis Polyp Uterus - Primary documented in this encounter
--- OUTSIDE RECORDS SUMMARY | 2022-01-19 15:38 | XMS_ITS | Encounter Summary ---
:1950 Author Organization [facility] Address [address] [place] [address] Care Team Providers Name Role Phone Unavailable Primary Care Provider Unavailable Reason for Visit Reason Onset Date Comments Communication 01/12/2019 Encounter Details Date Type Department Care Team Description 01/12/2019 Clinical Communication Department of Lalit Ordonez Obstetrics and Lori Costa M.D. Gynecology in [address] [place] [address] [place] [phone] [place], [place] [phone] (Work) [phone] Social History Tobacco Use Types Packs/Day Years Used Date Smoking Tobacco: Never Sex Assigned at Date Recorded Female 12/20/2020 12:41 PM CDT documented as of this encounter Miscellaneous Notes Telephone Encounter - Caity De Oliveira - 01/12/2019 12:04 PM CDT Patient was called and US was scheduled prior to [facility] appt Telephone Encounter - Nohemy Lomax R.N. - 01/12/2019 11:51 AM CDT Orders placed. Telephone Encounter - Caity De Oliveira - 01/12/2019 11:42 AM CDT Patient is scheduled with [facility] on a hyst on 04/06 for PMB. She has not had any pelvic imaging. Pleaseplace order to link for hyst as well as pelvic ultrasound order. Thank you! documented in this encounter Plan of Treatment Not on filedocumented as of this encounter Visit Diagnoses Not on filedocumented in this encounter
--- OUTSIDE RECORDS SUMMARY | 2022-01-19 15:38 | XMS_ITS | Encounter Summary ---
:[address] [facility] Address [address] [place] [address] Care Team Providers Name Role Phone Unavailable Primary Care Provider Unavailable Reason for Visit Reason Comments Consult Appointment Request (Routine) - Closed Specialty Diagnoses / Procedures Referred By Contact Refer red To Contact Obstetrics and Gynecology Referral ID Status Reason Start Date Expiration Date Visits Requ ested Visits Authorized [id number] Closed 01/12/2019 01/12/2020 1 1 Encounter Details Date Type Department Care Team Description 04/06/2019 Procedure visit Department of Lona Ordonez ng Rectal (Primary Dx); Obstetrics and Lori Costa M.D. Bleeding Postmenopausal; Gynecology in [address] [facility] Preoperative Exam [place], [place] [address] [address] [place], [place] [phone] (Work) [phone] Social History Tobacco Use Types Packs/Day Years Used Date Smoking Tobacco: Never Smokeless Tobacco: Never Sex Assigned at Date Recorded Female 12/20/2020 12:41 PM CDT documented as of this encounter Last Filed Vital Signs Vital Sign Reading Time Taken Comments Blood Pressure 157/115 04/06/2019 2:33 PM PRODUCTION SERVICE MANAGER Pulse 96 04/06/2019 2:33 PM PRODUCTION SERVICE MANAGER Temperature - - Respiratory Rate - - Oxygen Saturation - - Inhaled Oxygen Concentration - - Weight 132 kg (291 lb 0.1 oz) 04/06/2019 2:33 PM PRODUCTION SERVICE MANAGER Height 175.5 cm (5' 9.09) 04/06/2019 2:33 PM PRODUCTION SERVICE MANAGER Body Mass Index 42.86 04/06/2019 2:33 PM PRODUCTION SERVICE MANAGER documented in this encounter Procedure Notes Lori Ordonez M.D. - 04/06/2019 3:00 PM CSTAssociated Order(s): Hysteroscopy Pre-Procedure Diagnose(s): Bleeding Postmenopausal Post-Procedure Diagnose(s): Bleeding Postmenopausal Hysteroscopy Date/Time: 04/06/2019 3:44 PM Performed by: Lori Ordonez M.D. Authorized by: Lori Ordonez M.D. Care team members present 1. Jaida Moreno R.N. PROCEDURE DETAILS Procedures: diagnostic Cervix dilated: yes Tenaculum applied to cervix: yes Scope used: 3 mm flex Vagina: Normal Cervix: Normal Inadequate study related to: Cervical stenosis Specimen sent to Pathology: No CONSENT Consent obtained: verbal Consent given by: patient The benefits, risks and alternatives to the procedure and the potential need for sedation or anesthesia as well as the names, roles, and responsibilities of healthcare team members performing significant interventional tasks were discussed with the patient and/or decision maker. UNIVERSAL PROTOCOL All relevant documentation and testing were reviewed and available. All required blood products, implants, devices and or special equipment were made available as applicable. Pre-procedure verificationwas conducted and the correct site was marked if required. A fire risk assessment was done as applicable. The procedural time-out was conducted prior to performing the procedure and confirmed in a procedural pause. PRE-PROCEDURE DETAILS Assessment - reasonably exclude based on: PREG criteria Indication: postmenopausal bleeding and thickened endometrial stripe Appropriate hand hygiene, gown, cap, mask, protective eyewear, sterile gloves, skin preparation, sterile drape, and strict aseptic technique were utilized as applicable for the procedure.: yes Site preparation: Povidone-iodine SEDATION / ANESTHESIA Anesthesia method: none POST-PROCEDURE DETAILS Procedure completed successfully: yes Complications: no apparent complications COMMENTS Unable to get into uterine cavity due to stenosis. Procedure terminated due to stenosis - patient was also having a back spasm at the time and need to sit up . 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 - 04/06/2019 3:00 PM CST SUBJECTIVE REFERRING PROVIDER No ref. provider found REASON FOR VISIT Consult HISTORY OF PRESENT CONDITION Ms. Mota is a 68 y.o., , who presents with postmenopausal bleeding and probable polyp on US. Discussed evaluation with hysteroscopy and endometrial biopsy. She has concerns that she had diarrhea with brown 'tea leaf' appearance - she is aware that this canbe associated with bleeding into the upper GI tract. She has not had that before. MENSTRUAL HISTORY No LMP recorded. Patient is postmenopausal. Postmenopausal: Yes Age at menopause: 48 Post coital spotting: (not currently sexually active) Hormone Replacement Therapy (HRT) use (currently or within past 12 months): No Tamoxifen use (currently or within past 12 months): No HISTORY Past Medical History: Diagnosis Date ??? Abnormal Pap Smear Cervix had cone biopsy early ??? Hypertension NOS Past Surgical History: Procedure Laterality Date ??? CHOLECYSTECTOMY ??? ORTHOPEDIC SURGERY Left left knee replacement. Family History Problem Relation Age of Onset ??? defects Cousin ??? Ovarian cancer Neg Hx ??? Uterine cancer Neg Hx SOCIAL HISTORY Social History Tobacco Use Smoking Status Never Smoker Smokeless Tobacco Never Used Abbyoswald Mota has no history on file for sexual activity. OBJECTIVE VITAL SIGNS Vitals: 04/06/19 1433 BP: (!) 157/115 BP Location: Left arm Patient Position: Sitting Cuff Size: Large Pulse: 96 Weight: 132 kg Height: 175.5 cm Body mass index is 42.86 kg/m??. PHYSICAL EXAM GYNSURG Exam Amb Sock Mender for pelvic exam or qualifying procedure: Jaida Moreno, R.NFrankie DIAGNOSTICS No results found for: HGB, WBC, PLT, GLUCOSE, CREATININE, CA125, ALBUMIN, HGBA1C PATHOLOGY Cervical Cancer Screening History - Results and Follow-ups All results No results or procedures during the timeframe IMAGING RESULTS, LAST 30 DAYS - IMPRESSION ONLY Us Pelvis Transvaginal And Transabdominal Result Date: 04/06/2019 Impression: Focal enlargement of the endometrium with features suggesting an endometrial polyp. ASSESSMENT / PLAN #1 Bleeding Postmenopausal #2 Bleeding Rectal Today we were not able to get into the uterine cavity secondary to cervical stenosis. We will need to do this under anesthesia were we can to the operative hysteroscopy and polypectomy. I would start with the small scope to fully evaluate the uterus before proceeding with the large go. We will give her Cytotec prior to the procedure. The patient is concerned about having larger than the OR we discussed the importance of teaching our residents and fellows had to do the procedures. She had a bad experience with a fellow in the past, and she asks that we do not the resident or fellow do a significant portion of the procedure. She feels strongly about this but will allow a resident or fellow to scrub into the procedure and be my graphic design assistant. The patient had an abnormal bowel movement yesterday which she was concerned had melena because of its tea leaf like appearance. She has not had rectal bleeding, GI bleeds, or ulcers before. She did have a very stressful week and is concerned that she had some kind of GI bleed secondary to the stress.I encouraged her to see her primary care physician in follow-up for this to determine if she has blood in her stool and also ordered a GI consult here. I would recommend she tries to see her primary care physician tomorrow for her concerns. We discussed the importance of going to the emergency department if she were to have bright red blood in her bowel movement or if she had additional dark stools that she was concerned were blood. We checked a CBC today for her preoperative visit which shows a normal hemoglobin. This is reassuring that she does not have significant anemia. However she has lightheadedness or dizziness with ongoing diarrhea or abnormal stools, she should present to the emergency department. Concerns and questions were addressed. Lori Ordoenz M.D. UCTION SERVICE MANAGER documented in this encounter Plan of Treatment Not on filedocumented as of this encounter Procedures Procedure Name Priority Date/Time Associated Diagnosis Comme nts [place] HYSTEROSCOPY Routine 04/06/2019 3:00 Bleeding Results f or this DIAGNOSTIC PM PRODUCTION SERVICE MANAGER Postmenopausal procedure are in the results section. documented in this encounter Results Creatinine with Estimated GFR (04/06/2019 4:40 PM PRODUCTION SERVICE MANAGER) P athologist Signature Creatinine 0.87 0.59 - 04/06/2019 DTL 1.04 mg/dL 5:54 PM PRODUCTION SERVICE MANAGER eGFR-Non 69 >=60 04/06/2019 DTL Black/ mL/min/BSA 5:54 PM PRODUCTION SERVICE MANAGER Samoan Comment: ----ADDITIONAL INFORMATION---- Estimated GFR calculated using the 2009 CKD_EPI creatinine equation. eGFR-Black/ 80 >=60 mL/min/BSA 2018 5:54 PM PRODUCTION SERVICE MANAGER DTL Comment: ----ADDITIONAL INFORMATION---- Estimated GFR calculated using the 2009 CKD_EPI creatinine equation. Specimen Anatomical Collection Method Collection Time Receive d Time (Source) Location / / Volume Laterality Blood (Blood, 04/06/2019 4:40 PM 04/06/20 19 5:07 Venous) PRODUCTION SERVICE MANAGER PM PRODUCTION SERVICE MANAGER Lori Ordonez M.D. LAB BLOOD ADD-ON Performing Organization Address City/[facility] Code Phon e Number [facility] - [address] [place], [place] [address] [place] [address] Laboratories-[address] (ABNORMAL) CBC without Differential (04/06/2019 4:40 PM PRODUCTION SERVICE MANAGER) [facility] gist Method Time Signature Hemoglobin 14.2 11.6 - 04/06/2019 DTL 15.0 g/dL 5:15 PM PRODUCTION SERVICE MANAGER Hematocrit 44.8 35.5 - 04/06/2019 DTL 44.9 % 5:15 PM PRODUCTION SERVICE MANAGER Erythrocytes 5.07 3.92 - 04/06/2019 DTL 5.13 5:15 PM PRODUCTION SERVICE MANAGER x10(12)/L MCV 88.4 78.2 - 04/06/2019 DTL 97.9 fL 5:15 PM PRODUCTION SERVICE MANAGER RBC Distrib Width 13.1 12.2 - 04/06/2019 DTL 16.1 % 5:15 PM PRODUCTION SERVICE MANAGER Platelet Count 243 157 - 371 04/06/2019 DTL x10(9)/L 5:15 PM PRODUCTION SERVICE MANAGER Leukocytes 10.3 (H) 3.4 - 9.6 04/06/2019 DTL x10(9)/L 5:15 PM PRODUCTION SERVICE MANAGER Specimen Anatomical Collection Method Collection Time Receive d Time (Source) Location / / Volume Laterality Blood (Blood, 04/06/2019 4:40 PM 04/06/20 19 5:07 Venous) PRODUCTION SERVICE MANAGER PM PRODUCTION SERVICE MANAGER Lori Ordonez M.D. LAB BLOOD ADD-ON Performing Organization Address City/[facility] Phon e Number [facility] - [address] [place], [place] [address] [place] [address] Laboratories-[facility] [address] [facility] [place] HYSTEROSCOPY DIAGNOSTIC (04/06/2019 3:00 PM PRODUCTION SERVICE MANAGER) Narrative MMODAL - 04/06/2019 3:00 PM PRODUCTION SERVICE MANAGER Lori Ordonez M.D. ? 04/06/2019 ??3:46 PM Hysteroscopy Date/Time: 04/06/2019 3:44 PM Performed by: Lori Ordonez M.D. Authorized by: Lori Ordonez M.D. Care team members present 1. Jaida Moreno R.N. PROCEDURE DETAILS ??Procedures: diagnostic ?Cervix dilated: yes ?Tenaculum applied to cervix: yes ?Scope used: ??3 mm flex ??Vagina: ??Normal ??Cervix: ??Normal ??Inadequate study related to: ??Cervic al stenosis ??Specimen sent to Pathology: No ?? CONSENT Consent obtained: verbal Consent given by: patient The benefits, risks and alternatives to the procedure and the potential need for sedation or anesthesia as well as the names, roles, and responsibilities of healthcare team memb ers performing significant interventional tasks were discussed with the patient and/or decision maker. UNIVERSAL PROTOCOL All relevant documentation and testing w ere reviewed and available. All required blood products, implants, devic es and or special equipment were made available as applicable. Pre-proced ure verification was conducted and the correct site was marked if required. A fire risk assessment was done as applicable. The procedural time-out w as conducted prior to performing the procedure and confirmed in a procedu ral pause. PRE-PROCEDURE DETAILS ?? Assessment - reas onably exclude based on: ??PREG criteria ??Indication: postmenopausal bleeding a nd thickened endometrial stripe ?Appropriate hand hygiene, gown, cap, mask, protective eyewear, sterile gloves, skin preparation, sterile drape, and strict aseptic technique were utilized as applicable for the procedure .: yes ?Site preparation: ??Povidone-iodine SEDATION / ANESTHESIA Anesthesia method: none POST-PROCEDURE DETAILS ??Procedure completed successfully: yes ?Complications: no apparent complicati ons ?? COMMENTS ?? Unable to get into uterine cavity du e to stenosis. Procedure terminated due to stenosis - patient was also havin g a back spasm at the time and need to sit up . Lori Ordonez M.D. OB GYNE ORDERABLES Performing Organization Address City/State/ZIP Code Phon e Number MMODAL MMODAL NA documented in this encounter Visit Diagnoses Diagnosis Bleeding Rectal - Primary Bleeding Postmenopausal Preoperative Exam documented in this encounter
--- OUTSIDE RECORDS SUMMARY | 2022-01-19 15:38 | XMS_ITS | Encounter Summary ---
:1950 Author Organization [facility] Address [address] [place] [address] Care Team Providers Name Role Phone Unavailable Primary Care Provider Unavailable Encounter Details Date Type Department Care Team Description 01/12/2019 Orders Only Department of Nohemy Lomax Bleeding P ostmenopausal Obstetrics and E, R.NFrankie (Primary Dx) Gynecology in [address] [place] [address] [place] [address] [place], [place] [phone] (Work) [phone] Social History Tobacco Use Types Packs/Day Years Used Date Smoking Tobacco: Never Sex Assigned at Date Recorded Female 12/20/2020 12:41 PM CDT documented as of this encounter Plan of Treatment Not on filedocumented as of this encounter Results [place] HYSTEROSCOPY DIAGNOSTIC (04/06/2019 3:[address] AW[address] DRIVER) Narrative MMODAL - 04/06/2019 3:[address] DRIVER Lori Ordonez M.D. ? 04/06/2019 ??3:46 PM Hysteroscopy Date/Time: 04/06/2019 3:44 PM Performed by: Lori Ordonez M.D. Authorized by: Lori Ordonez M.D. Care team members present 1. Jaida Moreno RFrankieNFrankie PROCEDURE DETAILS ??Procedures: diagnostic ?Cervix dilated: yes [...] Code Phon e Number MMODAL MMODAL NA US Pelvis Transvaginal and Transabdominal (04/06/2019 11:[address] DRIVER) Anatomical Region Laterality Modality Pelvis, Ultrasound RST LOS, Ultrasound ARZ LOS, Ultrasound F LA N/A Ultrasound LOS Specimen (Source) Anatomical Collection Method Collection Time Re ceived Time Location / / Volume Laterality 04/06/2019 11:[address] DRIVER Impressions 04/06/2019 12:[address] DRIVER Focal enlargement of the endometrium with features suggesting an endometrial polyp. Narrative 04/06/2019 12:[address] DRIVER EXAM: ??US PELVIS TRANSVAGINAL AND TRANSABDOMINAL COMPARISON: [...] Diagnoses Diagnosis Bleeding Postmenopausal - Primary Bleeding Rectal - Primary Bleeding Postmenopausal Preoperative Exam Bleeding Postmenopausal documented in this encounter
--- OUTSIDE RECORDS SUMMARY | 2022-01-19 15:38 | XMS_ITS | Clinical Summary ---
:1950 Author Organization [employer] [facility] [place] [address] Care Team Providers Name Role Phone Meenakshi Kellre MD Primary Care Provider Allergies Not on File Medications Not on file Active Problems Not on file Family History Medical History Relation Name Comments Cancer-breast Other mat first cousi n late 40's yrs old Cancer No Family History Cancer-colon No Family History Cancer-prostate No Family History Relation Name Status Comments Other Social History Tobacco Use Types Packs/Day Years Used Date Never Assessed Sex Assigned at Date Recorded Not on file Obstetrics History Plan of Treatment Health Maintenance Due Date Last Done Comments COVID-19 vaccine series (#1) 1950 Tdap 06/29/1962 Depression screening for age 12+ 1963 BMI (ht and wt on same day) for age 0306/29/1969 18+ Hepatitis C screening for age 18-79 06/29/1969 Tetanus booster 1971 Colonoscopy through age 75 06/29/1996 Zoster (shingles) series for age 50+ 06/29/2001 (1 of 2) Lipids for age 45-75 10/18/2008 10/19/2003 Mammogram for age 45-75 03/08/2011 03/08/2010, 03/08/2010, 04/05/2004 DEXA/DXA scan for age 65+ 06/29/2016 Pneumococcal series for age 65+ ( - 06/29/2016 PCV) Influenza for age 65+ 12/07/2021 Results Not on filefrom Last 3 Months Insurance Payer Benefit Plan / Subscriber ID Effective Dates Phone Addre ss Type Group [employer] [place] [id number] 1996-Present [place] [address] [address] [place] [address] [place] [id number] 2008-Present [employer]/ [address] [place] [phone] Care Teams Medical Lab Assistant Relationship Specialty Start Date End Date Meenakshi Keller MD PCP - General 03/06/10
== END 2021-11-09 14:48 | disposition home or self-care (01) ==
LOC: WOUND 01-19 15:34
PROVIDERS: PCP Internal Medicine; Visit Provider Nurse Practitioner Family
DX: Q82.0 Hereditary lymphedema (principal); L97.819 Non-pressure chronic ulcer of other part of right lower leg with unspecified severity
CPT/HCPCS: 99212

== ENCOUNTER 2021-11-23 10:07 | Outpatient (CLI) | payer MEDICARE, OTHER, SELFPAY | END 2021-11-23 10:08 | disposition home or self-care (01) | LOC: WOUND 10:08 | PROVIDERS: PCP Internal Medicine; Visit Provider Nurse Practitioner Family | DX: I89.0 Lymphedema, not elsewhere classified (principal); I87.301 Chronic venous hypertension (idiopathic) without complications of right lower extremity; L97.819 Non-pressure chronic ulcer of other part of right lower leg with unspecified severity | CPT/HCPCS: 99212 ==

== ENCOUNTER 2022-07-09 11:06 | Outpatient (CLI) | payer MEDICARE, OTHER, SELFPAY | END 2022-07-09 11:07 | disposition home or self-care (01) | PROVIDERS: PCP Internal Medicine; Visit Provider Internal Medicine | DX: I10 Essential (primary) hypertension (principal); E78.5 Hyperlipidemia, unspecified | CPT/HCPCS: 80048; 80061 ==

== ENCOUNTER 2022-07-20 14:18 | Outpatient (CLI) | payer MEDICARE, OTHER, SELFPAY ==
--- NOTE | 2022-07-20 14:30 | CRLHL7_ITS ---
For Patients: As a result of the Century Cures Act, medical imaging exams and procedure reports are released immediately into your electronic medical record. You may view this report before your referring provider. If you have questions, please contact your health care provider. HISTORY: Right shoulder pain TECHNIQUE: Axial, sagittal oblique and coronal oblique T1, proton density, proton density fat-sat and T2 weighted images were obtained of the right shoulder without contrast administration. COMPARISON: None FINDINGS: Rotator cuff: Moderate supraspinatus, infraspinatus and subscapularis tendinosis. Rotator cuff muscle mass is maintained. - AC joint and coracoacromial arch: Moderate AC joint degenerative arthrosis. No significant fluid in the subacromial/subdeltoid bursa. No os acromiale. - Biceps-labral complex: Severe tenosynovitis and moderate intra-articular tendinosis of the long head of the biceps tendon. Diffuse degenerative tearing of the labrum. - Glenohumeral joint: Moderate joint effusion with synovitis. Calcific joint body in the subscapularis recess measuring 12 mm (series 5, image 16). Severe full-thickness glenohumeral joint articular cartilage loss. No significant malalignment. No glenohumeral joint capsular edema. - Bones and soft tissues: There is no acute fracture. No abnormality within the suprascapular or spinoglenoid notches nor within the quadrilateral space. IMPRESSION: 1. Severe glenohumeral joint degenerative arthrosis. 2. Moderate AC joint degenerative arthrosis. 3. Moderate glenohumeral joint effusion with synovitis and loose bodies. 4. Moderate rotator cuff tendinosis as above. 5. Severe tenosynovitis and moderate intra-articular tendinosis of long head of biceps tendon. Dictated by Carl Burtno MD @ 07/23/2022 9:50:27 AM (Electronically Signed)
== END 2022-07-20 14:19 | disposition home or self-care (01) ==
PROVIDERS: PCP Internal Medicine; Visit Provider Internal Medicine
DX: M25.511 Pain in right shoulder (principal); M19.011 Primary osteoarthritis, right shoulder; M25.411 Effusion, right shoulder; M65.811 Other synovitis and tenosynovitis, right shoulder
CPT/HCPCS: 73221

== ENCOUNTER 2022-08-01 14:31 | Outpatient (CLI) | payer MEDICARE, OTHER, SELFPAY ==
--- NOTE | 2022-08-01 14:30 | CRLHL7_ITS ---
For Patients: As a result of the Century Cures Act, medical imaging exams and procedure reports are released immediately into your electronic medical record. You may view this report before your referring provider. If you have questions, please contact your health care provider. INDICATION: Intrascapular pain. Radiculopathy. COMPARISON: 07/23/2022. TECHNIQUE: Sagittal T1, T2, and STIR sequences. Axial T2/gradient sequences. FINDINGS: Kyphosis of the midthoracic spine. Lower thoracic spine convex the left. In sagittal plane, normal vertebral body facet alignment. No fractures. No vertebral body loss of height. No spondylolisthesis. No evidence injury. No suspicious osseous lesions. Patchy T2 and STIR hyperintensity within the left dorsal cord at the level of T1-2 (best seen on series 3, image 10; series 5, image 8). Finding may represent demyelination. No abnormal signal intensity within the remainder of the thoracic cord. No cord atrophy or expansion. No intradural mass or lesion. Thoracic spondylosis with multilevel disc degeneration. T3-4: Mild disc generation with no spinal canal or neural foraminal narrowing. T4-5: Tiny left paracentral disc protrusion with no spinal canal neural foraminal narrowing. T6-7: Disc degeneration with a small left paracentral disc protrusion measuring approximately 2 millimeters in short axis. No narrowing of spinal canal. No neural foraminal narrowing. T7-8: Disc degeneration and left paracentral disc protrusion or disc osteophyte complex measuring approximately 3 mm in short axis. Effacement of left ventral aspect of thecal sac. No narrowing of spinal canal. No neural foraminal narrowing. T9-10: Mild disc degeneration. Hypertrophy of the right facet joint with no spinal canal or neural foraminal narrowing. T9-10 T10-11: Disc generation and posterior disc bulging. No narrowing of the spinal canal. No neural foraminal narrowing. No spinal canal neural foraminal narrowing at remaining levels of the thoracic spine. Normal paraspinal soft tissues. IMPRESSION: 1. Patchy T2 and STIR hyperintense lesion within the left dorsal cord at T1-2 which may represent demyelination. Consider follow-up with MRI of the brain and cervical spine for further evaluation 2. Otherwise, normal signal intensity within the remainder of the cord. No cord atrophy or expansion. 3. Thoracic spondylosis 4. No fractures 5. At T7-8, left paracentral disc protrusion or disc osteophyte complex. Otherwise, no spinal canal or neural foraminal narrowing. 6. No spinal canal or neural foraminal narrowing at the remaining levels Dictated by Sharath Carrera MD @ 08/02/2022 3:09:19 PM (Electronically Signed)
== END 2022-08-01 14:32 | disposition home or self-care (01) ==
LOC: MRI 14:32
PROVIDERS: PCP Internal Medicine; Visit Provider Family Medicine
DX: M54.10 Radiculopathy, site unspecified (principal); M47.814 Spondylosis without myelopathy or radiculopathy, thoracic region; M51.24 Other intervertebral disc displacement, thoracic region
CPT/HCPCS: 72146

== ENCOUNTER 2022-08-07 08:00 | Outpatient (CLI) | payer MEDICARE, OTHER, SELFPAY | END 2022-08-07 08:01 | disposition home or self-care (01) | LOC: WOUND 08:00 | PROVIDERS: PCP Internal Medicine; Visit Provider Nurse Practitioner Family | DX: I89.0 Lymphedema, not elsewhere classified (principal); L97.522 Non-pressure chronic ulcer of other part of left foot with fat layer exposed | CPT/HCPCS: 97597; 99213 ==

== ENCOUNTER 2022-11-02 10:02 | Outpatient (CLI) | payer MEDICARE, OTHER, SELFPAY ==
--- NOTE | 2022-11-02 10:15 | CRLHL7_ITS ---
For Patients: As a result of the Century Cures Act, medical imaging exams and procedure reports are released immediately into your electronic medical record. You may view this report before your referring provider. If you have questions, please contact your health care provider. INDICATION: Leg weakness. Paresthesias of the lower extremities. TECHNIQUE: Noncontrast Sagittal T1,Axial FSE T2, Flair, DWI, post contrast axial and coronal T1W images submitted. No comparisons. FINDINGS: The ventricles, sulci and gyri are of normal size, shape and contour for age. Midline structures are centrally located. No convincing evidence of suspicious intra- or extra-axial fluid collections. Minimal scattered foci of increased T2 signal within the periventricular and subcortical white matter of both cerebral hemispheres. No regions of restricted diffusion or suspicious regions of abnormal parenchymal enhancement. Complete opacification of the left sphenoid sinus. Mild mucosal thickening within the floor of the maxillary sinus and scattered ethmoid air cells. IMPRESSION: 1. No radiographic evidence of acute intracranial abnormalities. 2. Minimal supratentorial white matter changes that are non-specific, but statistically most likely related to chronic small vessel ischemic disease. 3. Poly sinusitis with a left sphenoid sinus being most severely affected. Dictated by Scott Villarreal MD @ 11/04/2022 9:28:23 AM (Electronically Signed)
== END 2022-11-02 10:03 | disposition home or self-care (01) ==
LOC: MRI 10:03
PROVIDERS: PCP Internal Medicine; Visit Provider Psychiatry & Neurology Neurology
DX: G83.10 Monoplegia of lower limb affecting unspecified side (principal); M62.830 Muscle spasm of back; R20.2 Paresthesia of skin; J32.3 Chronic sphenoidal sinusitis
CPT/HCPCS: 70553; A9575

== ENCOUNTER 2022-11-07 12:42 | Outpatient (CLI) | payer MEDICARE, OTHER, SELFPAY ==
--- NOTE | 2022-11-07 13:00 | CRLHL7_ITS ---
For Patients: As a result of the 21st Century Cures Act, medical imaging exams and procedure reports are released immediately into your electronic medical record. You may view this report before your referring provider. If you have questions, please contact your health care provider. Indication: Back spasm and leg weakness. Technique: Noncontrast sagittal T1, T2, STIR and axial GRE sequences are provided. Sagittal and axial T1 postcontrast images obtained after administration of IV contrast. Comparison: No prior studies available for comparison at this institution. Findings: There is straightening of cervical spine alignment. Grade 1 anterolisthesis at C4-5, C7-T1, and T1-2. No prevertebral or paraspinal edema. No aggressive osseous lesions. The craniocervical junction is unremarkable. Mucosal thickening in the sphenoid sinus. No abnormal intramedullary spinal cord signal. No pathologic enhancement. C1-2: No spinal canal stenosis C2-3: No significant spinal canal stenosis or neural foramen narrowing. C3-4: Mild disc bulge. No significant spinal canal stenosis or neural foramen narrowing. Mild facet arthrosis. C4-5: Moderate left facet arthrosis. No significant spinal canal stenosis or neural foramen narrowing. C5-6: Left paracentral disc osteophyte complex results in mild flattening of the ventral cord surface and mild spinal canal stenosis. Uncovertebral hypertrophy results in severe left and [id number] right neural foramen narrowing. C6-7: Shallow right paracentral disc protrusion and osteophytic spurring indents the ventral thecal sac. No significant spinal canal stenosis or neural foramen narrowing. C7-T1: No significant spinal canal stenosis or neural foramen narrowing. Impression: 1. No acute osseous or ligamentous injury. Mild straightening of the cervical spine alignment. Grade 1 anterolisthesis at C4-5, C7-T1, and T1-2. 2. At C5-6 there is mild spinal canal stenosis due to disc osteophyte complex resulting in mild flattening of the ventral cord surface and mild spinal canal stenosis. Severe left and [id number] right neural foramen narrowing. 3. At C6-7, there is a right paracentral disc osteophyte complex without significant spinal canal stenosis. 4. At C4-5 there is moderate left facet arthrosis. 5. No abnormal intramedullary spinal cord signal. No intradural pathology. 6. No pathologic enhancement. Dictated by Carl Gold MD @ 11/09/2022 12:25:28 PM (Electronically Signed)
--- NOTE | 2022-11-07 13:45 | CRLHL7_ITS ---
For Patients: As a result of the Century Cures Act, medical imaging exams and procedure reports are released immediately into your electronic medical record. You may view this report before your referring provider. If you have questions, please contact your health care provider. Indication: BACK SPASM, LEG WEAKNESS Technique: Noncontrast sagittal T1, T2, STIR and axial T2 spin echo and GRE sequences are provided. Sagittal and axial T1 postcontrast images obtained after administration of 15 ml Dotarem IV contrast. Comparison: MRI 08/01/2022 Findings: Normal thoracic spine alignment. Vertebral body heights are maintained. No fractures. No prevertebral or paraspinal edema. No aggressive osseous lesions. Grade 1 anterolisthesis at C7-T1 and T1-T2, unchanged. No compression fractures. Multilevel disc height loss, disc desiccation and anterior osteophytic spurring. Small left paracentral protrusion at T6-7 and T7-8 indent the thecal sac without significant spinal canal stenosis. Advanced right facet arthrosis at T9-10 indents the thecal sac and contacts the dorsal lateral cord surface without cord deformity. Mild disc bulge at T10-T11. Disc bulge and bilateral facet arthrosis at T11-12. Stable 1 cm T2 hyperintense lesion in the left laurie cord at the T1-T2 level without evidence of cord expansion, only imaged on sagittal sequences. Post-contrast images at this location are better evaluated on the accompanying MRI cervical spine. There is no associated enhancement of the lesion. Impression : 1. Stable 1 cm T2 hyperintense lesion in the left hemicord at the T1-T2 level without evidence of cord expansion, only imaged on sagittal sequences. There is no associated enhancement. Finding is concerning for chronic demyelinating lesion. 2. Stable thoracic spondylosis, detailed above. Advanced right facet arthrosis at T9-10 indents the thecal sac and contacts the dorsal lateral spinal cord surface without cord deformity. No high-grade spinal canal stenosis or neural foramina narrowing. Dictated by Carl Gold MD @ 11/09/2022 12:47:35 PM (Electronically Signed)
== END 2022-11-07 12:43 | disposition home or self-care (01) ==
LOC: MRI 12:42
PROVIDERS: PCP Internal Medicine; Visit Provider Psychiatry & Neurology Neurology
DX: M54.9 Dorsalgia, unspecified (principal); R29.898 Other symptoms and signs involving the musculoskeletal system; M48.02 Spinal stenosis, cervical region; M47.812 Spondylosis without myelopathy or radiculopathy, cervical region
CPT/HCPCS: 72156; 72157; A9575

== ENCOUNTER 2023-05-15 08:04 | Outpatient (CLI) | payer MEDICARE, OTHER, SELFPAY ==
--- OUTSIDE RECORDS SUMMARY | 2023-05-15 08:07 | XMS_ITS | Encounter Summary ---
Author Name Unknown Organization [facility] Address [address] [place] [address] Care Team Providers Care Edge Inker Name Role Phone Elsewhere, Pcp Primary Care Provider Unavailabl e Encounter Details Date Type Department Care Team (Latest Contact Info) Description 11/06/2022 11:00 AM CDT - 11/06/2022 11:59 PM CDT Hospital Encounter Department of Laboratory Medicine in [address] [id number] Krystal Cha M.D., D.O. [address] [address] Muscle Spasm Of Back; Monoplegia Lower Limb (HCC); Paresthesia Discharge Disposition: Home or Self Care Social History Tobacco Use Types Packs/Day Years Used Date Smoking Tobacco: Never Smokeless Tobacco: Never Alcohol Use Standard Drinks/Week Comments Not Currently 0 (1 standard drink = 0.6 oz pur e alcohol) PHQ-2 Answer Date Recorded PHQ-2 Score 0 06/18/2019 Nutrition Answer Date Recorded Nutrition: EVOO Fat Source Unknown 06/07 Nutrition: Servings of Fruits/Vegetables per Day Not on file 06/07/2020 Dental Answer Date Recorded Dental: Regular Dentist Unknown 06/08/19 21 Sex and Gender Information Value Date Recorded Sex Assigned at Female 12/20/2020 12:41 PM CDT Gender Identity Female 12/20/2020 12:41 PM CDT Sexual Orientation Straight 12/20/2020 12 :41 PM CDT documented as of this encounter Medications at Time of Discharge Medication Sig Dispensed Refills Start Date End Date acetaminophen (TYLENOL) 500 mg capsule Take 2 capsules (1,000 mg total) by mouth every 6 (six) hours as needed for pain for up to 5 days. 25 capsule 0 12/02/2020 cetirizine (ZyrTEC) 10 mg tablet Take 1 tablet by mouth daily. 0 10/03/2016 clobetasol (TEMOVATE) 0.05 % cream Apply topically as directed. 0 10/03/2016 cyclobenzaprine (FLEXERIL) 10 mg tablet Take 0.3 tablets by mouth at bedtime. 0 10/03/2016 hydroCHLOROthiazide (HYDRODIURIL) 50 mg tablet 0 03/13/2019 magnesium oxide (MAG-OX) 250 mg of magnesium tablet Take 250 mg by mouth daily. 0 multivitamin capsule Take 1 capsule by mouth daily. Women's day vitamin 0 UNABLE TO FIND Apply topically as needed. KETOCONAZOLE CREAM TOP PRN 0 10/03/2016 hydrocortisone (HYTONE) 2.5 % creamIndications:Can didiasis Intertrigo Apply 1 application topically 2 (two) times a day. To spot on left elbow, submammary fold, and groin until redness and itching have resolved. 30 g 11 04/19/2022 04/19/2023 documented as of this encounter Plan of Treatment Not on file documented as of this encounter Procedures Procedure Name Priority Date/Time Associated Diagnosis Comments MOVEMENT, AUTOIMM/PARANEO, SERUM Routine 11/06/2022 11:09 AM CDT Muscle Spasm Of Back Monoplegia Lower Limb (HCC) Paresthesia documented in this encounter Results * Movement Disorder, Autoimmune/Paraneoplastic Evaluation (11/06/2022 11:09 AM CDT) Movement Disorder Interp, S see below 11/12/2022 5:08 PM CDT DTL Comment: No informative autoantibodies were detected in this evaluation. However, a negative result does not exclude an autoimmune movement disorder. Sensitivity is enhanced by testing both serum and CSF. IFA Notes None. 11/12/2022 5:08 PM CDT DTL Amphiphysin Ab, S Negative Negative 023 5:08 PM CDT DTL Comment: ----ADDITIONAL INFORMATION---- This test was developed and its performance characteristics determined by [facility] in a manner consistent with CLIA requirements. This test has not been cleared or approved by the U.S. Food and Drug Administration. AGNA-1, S Negative Negative 11/12/2022 5:08 PM CDT DTL Comment: ----ADDITIONAL INFORMATION---- This test was developed and its performance characteristics determined by [facility] in a manner consistent with CLIA requirements. This test has not been cleared or approved by the U.S. Food and Drug Administration. RAAD-1, S Negative Negative 11/12/2022 5:08 PM CDT DTL Comment: ----ADDITIONAL INFORMATION---- This test was developed and its performance characteristics determined by [facility] in a manner consistent with CLIA requirements. This test has not been cleared or approved by the U.S. Food and Drug Administration. RAAD-2, S Negative Negative 11/12/2022 5:08 PM CDT DTL Comment: ----ADDITIONAL INFORMATION---- This test was developed and its performance characteristics determined by [facility] in a manner consistent with CLIA requirements. This test has not been cleared or approved by the U.S. Food and Drug Administration. RAAD-3, S Negative Negative 11/12/2022 5:08 PM CDT DTL Comment: ----ADDITIONAL INFORMATION---- This test was developed and its performance characteristics determined by [facility] in a manner consistent with CLIA requirements. This test has not been cleared or approved by the U.S. Food and Drug Administration. CASPR2-IgG CBA, S Negative Negative 023 5:08 PM CDT DTL Comment: ----ADDITIONAL INFORMATION---- This test was developed and its performance characteristics determined by [facility] in a manner consistent with CLIA requirements. This test has not been cleared or approved by the U.S. Food and Drug Administration. CRMP-5-IgG Western Blot, S Negative Negative 11/12/2022 5:08 PM CDT DTL Comment: ----ADDITIONAL INFORMATION---- This test was developed and its performance characteristics determined by [facility] in a manner consistent with CLIA requirements. This test has not been cleared or approved by the U.S. Food and Drug Administration. DPPX Ab IFA, S Negative Negative 11/12/2022 5:08 PM CDT DTL Comment: ----ADDITIONAL INFORMATION---- This test was developed and its performance characteristics determined by [facility] in a manner consistent with CLIA requirements. This test has not been cleared or approved by the U.S. Food and Drug Administration. GAD65 Ab Assay, S 0.00 <=0.02 nmol/L 11/12/2022 5:08 PM CDT DTL Comment: ----ADDITIONAL INFORMATION---- This test was developed and its performance characteristics determined by [facility] in a manner consistent with CLIA requirements. This test has not been cleared or approved by the U.S. Food and Drug Administration. GRAF1 IFA, S Negative Negative 11/12/2022 5:08 PM CDT DTL Comment: ----ADDITIONAL INFORMATION---- This test was developed and its performance characteristics determined by [facility] in a manner consistent with CLIA requirements. This test has not been cleared or approved by the U.S. Food and Drug Administration. IgLON5 IFA, S Negative Negative 11/12/2022 5:08 PM CDT DTL Comment: ----ADDITIONAL INFORMATION---- This test was developed and its performance characteristics determined by [facility] in a manner consistent with CLIA requirements. This test has not been cleared or approved by the U.S. Food and Drug Administration. ITPR1 IFA, S Negative Negative 11/12/2022 5:08 PM CDT DTL Comment: ----ADDITIONAL INFORMATION---- This test was developed and its performance characteristics determined by [facility] in a manner consistent with CLIA requirements. This test has not been cleared or approved by the U.S. Food and Drug Administration. KLHL11 Ab CBA, S Negative Negative 11/13/19 23 5:08 PM CDT DTL Comment: ----ADDITIONAL INFORMATION---- This test was developed and its performance characteristics determined by [facility] in a manner consistent with CLIA requirements. This test has not been cleared or approved by the U.S. Food and Drug Administration. LGI1-IgG CBA, S Negative Negative 3 5:08 PM CDT DTL Comment: ----ADDITIONAL INFORMATION---- This test was developed and its performance characteristics determined by [facility] in a manner consistent with CLIA requirements. This test has not been cleared or approved by the U.S. Food and Drug Administration. mGluR1 Ab IFA, S Negative Negative 11/13/19 5:08 PM CDT DTL Comment: ----ADDITIONAL INFORMATION---- This test was developed and its performance characteristics determined by [facility] in a manner consistent with CLIA requirements. This test has not been cleared or approved by the U.S. Food and Drug Administration. NIF IFA, S Negative Negative 11/12/2022 5:08 PM CDT DTL Comment: ----ADDITIONAL INFORMATION---- This test was developed and its performance characteristics determined by [facility] in a manner consistent with CLIA requirements. This test has not been cleared or approved by the U.S. Food and Drug Administration. NMDA-R Ab CBA, S Negative Negative 11/13/19 5:08 PM CDT DTL Comment: ----ADDITIONAL INFORMATION---- This test was developed and its performance characteristics determined by [facility] in a manner consistent with CLIA requirements. This test has not been cleared or approved by the U.S. Food and Drug Administration. P/Q-Type Calcium Channel Ab 0.00 <=0.02 nmol/L 11/12/2022 5:08 PM CDT DTL Comment: ----ADDITIONAL INFORMATION---- This test was developed and its performance characteristics determined by [facility] in a manner consistent with CLIA requirements. This test has not been cleared or approved by the U.S. Food and Drug Administration. INSURANCE HEALTHCARE CONSULTANT-1, S Negative Negative 11/12/2022 5:08 PM CDT DTL Comment: ----ADDITIONAL INFORMATION---- This test was developed and its performance characteristics determined by [facility] in a manner consistent with CLIA requirements. This test has not been cleared or approved by the U.S. Food and Drug Administration. INSURANCE HEALTHCARE CONSULTANT-2, S Negative Negative 11/12/2022 5:08 PM CDT DTL Comment: ----ADDITIONAL INFORMATION---- This test was developed and its performance characteristics determined by [facility] in a manner consistent with CLIA requirements. This test has not been cleared or approved by the U.S. Food and Drug Administration. INSURANCE HEALTHCARE CONSULTANT-Tr, S Negative Negative 11/12/2022 5:08 PM CDT DTL Comment: ----ADDITIONAL INFORMATION---- This test was developed and its performance characteristics determined by [facility] in a manner consistent with CLIA requirements. This test has not been cleared or approved by the U.S. Food and Drug Administration. AP3B2 IFA, S Negative Negative 11/12/2022 5:08 PM CDT DTL Comment: ----ADDITIONAL INFORMATION---- This test was developed and its performance characteristics determined by [facility] in a manner consistent with CLIA requirements. This test has not been cleared or approved by the U.S. Food and Drug Administration. GFAP IFA, S Negative Negative 11/12/2022 5:08 PM CDT DTL Comment: ----ADDITIONAL INFORMATION---- This test was developed and its performance characteristics determined by [facility] in a manner consistent with CLIA requirements. This test has not been cleared or approved by the U.S. Food and Drug Administration. Neurochondrin IFA, S Negative Negative 11/12/2022 5:08 PM CDT DTL Comment: ----ADDITIONAL INFORMATION---- This test was developed and its performance characteristics determined by [facility] in a manner consistent with CLIA requirements. This test has not been cleared or approved by the U.S. Food and Drug Administration. Septin-5 IFA, S Negative Negative 3 5:08 PM CDT DTL Comment: ----ADDITIONAL INFORMATION---- This test was developed and its performance characteristics determined by [facility] in a manner consistent with CLIA requirements. This test has not been cleared or approved by the U.S. Food and Drug Administration. Septin-7 IFA, S Negative Negative 3 5:08 PM CDT DTL Comment: ----ADDITIONAL INFORMATION---- This test was developed and its performance characteristics determined by [facility] in a manner consistent with CLIA requirements. This test has not been cleared or approved by the U.S. Food and Drug Administration. AMPA-R Ab CBA, S Negative Negative 11/13/19 23 5:08 PM CDT DTL Comment: ----ADDITIONAL INFORMATION---- This test was developed and its performance characteristics determined by [facility] in a manner consistent with CLIA requirements. This test has not been cleared or approved by the U.S. Food and Drug Administration. RAIMUNDO-B-R Ab CBA, S Negative Negative 2022 5:08 PM CDT DTL Comment: ----ADDITIONAL INFORMATION---- This test was developed and its performance characteristics determined by [facility] in a manner consistent with CLIA requirements. This test has not been cleared or approved by the U.S. Food and Drug Administration. Blood (Blood, Venous) 11/06/2022 11:09 AM CDT 11/07/2022 1:35 PM CDT Krystal Cha M.D., D.O. LAB BLOOD ADD -ON [facility] [address] [place] [address], [facility] DTL [address] [place] [address] documented in this encounter Visit Diagnoses Diagnosis Muscle Spasm Of Back Monoplegia Lower Limb (HCC) Paresthesia documented in this encounter Care Teams Edge Inker Relationship Specialty Start Date End Date Elsewhere, Pcp PCP - General Family Medicine 12/02/20 documented as of this encounter
--- OUTSIDE RECORDS SUMMARY | 2023-05-15 08:07 | XMS_ITS | Clinical Summary ---
Author Name Unknown Organization [facility] Address [address] [place] [address] Care Team Providers Care Rf Microwave Engineer Name Role Phone Elsewhere, Pcp Primary Care Provider Unavailabl e Source Comments Patient records contain information from all sites at [facility]. For routine questions regarding patient records, call [phone] during business hours, M-F 8:00 AM - 5:00 PM Central Time. Record requests for emergency care only can be directed to [phone] at any time.[facility] Allergies Active Allergy Reactions Criticality Noted Date Comments Animal Dander Other (see comments) 10/03/2016 asthma Diphtheria, Pertussis, Tetanus Vaccine Other (see comments) 04/06/2019 Erythromycin Base Nausea And Vomiting 0 Melon Anaphylaxis 04/06/2019 Penicillins Other (see comments) 04/03/2010 Pineapple Other (see comments) 04/06/2019 Ragweed Shortness of breath (Reselect Reaction) 10/03/2016 wheeze, asthma, scrathy throat [place] Other (see comments) 04/06/2019 Positive on skin test, however able to eat. Sulfa (Sulfonamide Antibiotics) Other (see comments) 10/03/2016 [place] Anaphylaxis 04/06/2019 Both Slovak and Black walnut Medications Medication Sig Dispensed Refills Start Date End Date Status hydroCHLOROthiazi de (HYDRODIURIL) 50 mg tablet 0 03/13/2019 Active cyclobenzaprine (FLEXERIL) 10 mg tablet Take 0.3 tablets by mouth at bedtime. 0 10/03/2016 Active cetirizine (ZyrTEC) 10 mg tablet Take 1 tablet by mouth daily. 0 10/03/2016 Active clobetasol (TEMOVATE) 0.05 % cream Apply topically as directed. 0 10/03/2016 Active UNABLE TO FIND Apply topically as needed. KETOCONAZOLE CREAM TOP PRN 0 10/03/2016 Active magnesium oxide (MAG-OX) 250 mg of magnesium tablet Take 250 mg by mouth daily. 0 Active multivitamin capsule Take 1 capsule by mouth daily. Women's day vitamin 0 Active acetaminophen (TYLENOL) 500 mg capsule Take 2 capsules (1,000 mg total) by mouth every 6 (six) hours as needed for pain for up to 5 days. 25 capsule 0 12/02/2020 Active nystatin (NYSTOP) 100,000 unit/gram powder Apply 1 Application topically 3 (three) times a day. Apply to right groin area. 15 g 0 01/25/2023 Active valsartan (DIOVAN) 80 mg tablet Take 1 tablet (80 mg total) by mouth daily for 3 days. 3 tablet 0 01/25/2023 Active hydrocortisone (HYTONE) 2.5 % creamIndications: Candidiasis Intertrigo Apply 1 application topically 2 (two) times a day. To spot on left elbow, submammary fold, and groin until redness and itching have resolved. 30 g 11 04/19/2022 04/19/2023 Active Problems Problem Noted Date Diagnosed Date Lymphedema 06/25/2019 Morbid Obesity Body Mass Index 40.0-44.9 Adult 0 04/24/2019 Bleeding Postmenopausal 04/06/2019 Overview: Added automatically from request for surgery [id number] Radiculopathy Lumbar 09/20/2016 Immunizations Name Administration Dates Next Due Influenza high dose QV(65 years or older) (PF) 0 01/04/2021,01/26/2020 SARS-COV-2 (COVID-19) - PFIZ ER (Discontinued)(12 years or older) 01/19/2021 SARS-COV-2 (COVID-19) - PFIZ ER TS(Discontinued)(12 years or older) 08/09/2021 Td (Adult), adsorbed 09/21/2019 Td Preservative Free (TENIVAC, DECAVAC) 03/14/20 16,01/24/2005 Family History Medical History Relation Name Comments [...] Orientation Straight 12/20/2020 12 :41 PM CDT Last Filed Vital Signs Vital Sign Reading Time Taken Comments Blood Pressure 209/96 01/25/2023 10:02 AM CDT Pulse 87 01/25/2023 10:18 AM CDT Temperature 36 ??C (96.8 ??F) 01/25/2023 10:02 AM CDT Respiratory Rate 20 01/25/2023 10:18 AM CDT Oxygen Saturation 98% 01/25/2023 10:18 AM CDT Inhaled Oxygen Concentration - - Weight 140 kg (308 lb 3.3 oz) 03/10/2021 1:50 PM MUSIC VIDEO PRODUCER Height 176.5 cm (5' 9.5) 03/10/2021 1:50 PM MUSIC VIDEO PRODUCER Body Mass Index 44.86 03/10/2021 1:50 PM MUSIC VIDEO PRODUCER Plan of Treatment Health Maintenance Due Date Last Done Comments Bone Density Scan (Osteoporo sis Screen) 1950 CT Colonography 1950 FIT 1950 Hepatitis C Screening 1950 Zoster Vaccines (1 of 2) 06/29/2001 Mammogram 10/04/2011 10/03/2010 (Perf ormed elsewhere), 03/08/2010, 03/08/2010, Additional history exists Colonoscopy 10/04/2018 10/04/2008 (Perf ormed elsewhere) Depression Screening (Annual PHQ-2) 04/08/2023 Fall Risk Screen (Annual) 04/08/2023 Fasting Glucose for Diabetes Screening 12/21/2023 12/20/2020 Cologuard 07/07/2024 07/07/2021 Colorectal Cancer Screening 07/07/2024 Pneumococcal vaccine (65+ years) Completed 07/10/19 23 COVID-19 Vaccine Completed 01/22/2023, 07/2021, 08/09/2021, Additional history exists Influenza Vaccine Completed 01/22/2023, , 01/04/2021, Additional history exists Medical Devices Implanted Type Area Wrestling Coach Device Identifier Shelf Expiration Date Model / Serial / Lot Conversions - Default Historical Implant Device Implanted:10/03 (Quantity not on file) Knee Implant Left: Knee Description:Body Location - Knee L. Device Status Text - Knee Imp. Conversions - Default Historical Implant Device Implanted:10/03 (Quantity not on file) Ocular Lens Description:Device Status Te xt - OculrLens. cataract lenses. Advance Directives For more information, please contact: [phone] Latest Code Status on File Code Status Date Activated Date Inactivated Comments Full Code 04/24/2019 10:01 AM 04/24/2019 3:16 PM Question Answer Comments Full Code: Discussed Care Teams Rf Microwave Engineer Relationship Specialty Start Date End Date Elsewhere, Pcp PCP - General Family Medicine 12/02/20
--- OUTSIDE RECORDS SUMMARY | 2023-05-15 08:07 | XMS_ITS ---
Author Name Unknown Organization [facility] Address [address] [place] [address] Care Team Providers Care Research Management Associate Name Role Phone Unavailable Unavailable Unavailable Surgery Details Not on file Complications Check Surgery Details section. Procedure Estimated Blood Loss Check Surgery Details section. Procedure Findings Check Surgery Details section. Procedure Specimens Taken Check Surgery Details section.
--- OUTSIDE RECORDS SUMMARY | 2023-05-15 08:07 | XMS_ITS | Clinical Summary ---
Author Name Unknown Organization [facility] Address [place], [place] [address] Care Team Providers Care Director Stage Name Role Phone Meenakshi Keller MD Primary Care Provider [phone] Family History Medical History Relation Name Comments Cancer-breast Other mat first cous in late 40's yrs old Cancer No Family History Cancer-colon No Family History Cancer-prostate No Family History Relation Name Status Comments Other Social History Tobacco Use Types Packs/Day Years Used Date Smoking Tobacco: Never Assessed Sex and Gender Information Value Date Recorded Sex Assigned at Not on file Gender Identity Not on file Sexual Orientation Not on file Obstetrics History Plan of Treatment Health Maintenance Due Date Last Done Comments Tdap 06/29/1962 Depression screening for age 12+ 1963 BMI (ht and wt on same day) for age 18+ 06/29/1969 Hepatitis C screening for age 18-79 06/29/1969 Tetanus booster 1971 Colonoscopy through age 75 06/29/1996 Zoster (shingles) series for age 50+ (1 of 2) 06/29/2001 Lipids for age 45-75 10/18/2008 10/19/2003 Mammogram for age 45-75 03/08/2011 03/08/20 10, 03/08/2010, 04/05/2004 DEXA/DXA scan for age 65+ 06/29/2016 Pneumococcal series for age 65+ (1 of 1 - PCV) 06/29/2016 COVID-19 vaccine series (3 - 2022- season) 2022 08/09/2021, 01/19/2021 Influenza for age 65+ 12/07/2022 Care Teams Director Stage Relationship Specialty Start Date End Date Meenakshi Keller MD PCP - General 03/06/10
--- OUTSIDE RECORDS SUMMARY | 2023-05-15 08:07 | XMS_ITS | Encounter Summary ---
Author Name Unknown Organization [facility] Address [address] [place] [address] Care Team Providers Care Noise Tester Name Role Phone Elsewhere, Pcp Primary Care Provider Unavailabl e Reason for Visit * Reason Comments Cellulitis 72 year old female a dmits with concerns of right lower lateral spot on leg patient has concerns of cellulitis Encounter Details Date Type Department Care Team (Late st Contact Info) Description 09/05/2022 6:03 PM CDT - 09/05/2022 6:32 PM CDT Emergency [facility] [address] [place] [phone] Shiraz Bryant, P.A.-C., P.A. [address] [place] [phone] Cellulitis Leg (Primary Dx) Discharge Disposition: Home or Self Care Social [...] Taken Comments Blood Pressure - - Pulse 80 09/05/2022 6:18 PM CDT Temperature 36.7 ??C (98.1 ??F) 09/05/2022 6:18 PM CD T Respiratory Rate 20 09/05/2022 6:18 PM CDT Oxygen Saturation 98% 09/05/2022 6:18 PM CDT Inhaled Oxygen Concentration - - Weight - - Height - - Body Mass Index - - documented in this encounter Discharge Instructions * Discharge Instructions* Shiraz Bryant P.A.-C., P.A. - 09/05/2022 6:28 PM CDT Use the antibiotics as prescribed. Come back if you worsen. * Attachments The following attachments cannot be sent through Care Everywhere. * Cellulitis Adult (Portuguese) documented in this encounter Medications at Time [...] needed. KETOCONAZOLE CREAM TOP PRN 0 10/03/2016 cefUROXime (CEFTIN) 500 mg tablet Take 1 tablet (500 mg total) by mouth every 12 (twelve) hours for 10 days. 20 tablet 0 09/05/2022 09/15/2022 hydrocortisone (HYTONE) 2.5 % creamIndications:Can didiasis Intertrigo Apply 1 application topically 2 (two) times a day. To spot on left elbow, submammary fold, and groin until redness and itching have resolved. 30 g 11 04/19/2022 04/19/2023 documented as of this encounter ED Notes * Shiraz Bryant P.A.-C., P.A. - 09/05/2022 6:28 PM CDT SUBJECTIVE CHIEF COMPLAINT/REASON FOR VISIT Cellulitis (72 year old female admits with concerns of right lower lateral spot on leg patient has concerns of cellulitis) HISTORY OF PRESENT ILLNESS Abby Mota is a 72-year-old female who presents with leg redness. She picked off a scab onher right lower leg yesterday and then noticed some redness around the area. It feels a bit warm toher. She is concerned she may have cellulitis. She does have a history of lymphedema and cellulitisin the past. History provided by: Patient and medical records radiation oncology therapist needed/used: no REVIEW OF SYSTEMS Constitutional: Negative for activity change, appetite change, chills, diaphoresis, fatigue and fever. Gastrointestinal: Negative for nausea and vomiting. Musculoskeletal: Negative for back pain and neck pain. Skin: Positive for color change. Neurological: Negative for syncope and light-headedness. Psychiatric/Behavioral: Negative for confusion. OBJECTIVE Initial Vitals Temperature 09/05/228 36.7 ??C Pulse Rate 09/05/22 1818 80 Heart Rate -- Resp Rate 09/05/22 1818 20 BP -- SpO2 09/05/221817 98 % Pain Score 09/05/221818 4 PHYSICAL EXAMINATION Constitutional: Nursing note and vitals reviewed. Vital signs are normal. She is active. She does not appear ill. No distress. HENT: Head: Normocephalic and atraumatic. Eyes: Conjunctivae and lids are normal. Neck: Phonation normal. Cardiovascular: Normal rate. Edema:Right pedal: 4+. Left pedal: 4+. Right pretibial: 4+. Left pretibial: 4+. Pulmonary/Chest: Effort normal. No tachypnea. No respiratory distress. Musculoskeletal: Cervical back: No pain with movement. Neurological: Alert and oriented to person, place, and time. Normal speech. Skin: Skin is warm, dry and normal color. Erythema of area noted. No rash noted. Right lower leg - 4 cm diameter area mild erythema. Not warm to touch. Not especially tender. No area of fluctuance. Psychiatric: She has a normal mood and affect. Relaxed. ASSESSMENT/PLAN Assessment and Plan Abby Mota is a 72-year-old female who presents with leg redness. She noticed some increased redness at her right lower leg today. She does have a history of significant lymphedema. On exam she may have early cellulitis. She states that she has had cellulitis in the past and records show that she tolerated Ceftin most recently. I will give her another prescription for this. She will comeback to the emergency department if she worsens.. DIFFERENTIAL DIAGNOSES Cellulitis, lymphedema, allergic reaction, abscess. PROBLEMS ADDRESSED THIS VISIT Cellulitis. I reviewed the following external records: primary care records. Final Diagnoses: as of 09/05/221827 Cellulitis Leg The following tests were considered but ultimately not performed: Labs are considered but overall she appears well with no constitutional symptoms.. Shiraz Bryant P.A.-C., P.A. 09/05/221830 documented in this encounter Plan of Treatment Not on file documented as of this encounter Visit Diagnoses Diagnosis Cellulitis Leg- Primary documented in this encounter Care Teams Noise Tester Relationship Specialty Start Date End Date Elsewhere, Pcp PCP - General Family Medicine 12/02/20 documented as of this encounter
--- OUTSIDE RECORDS SUMMARY | 2023-05-15 08:07 | XMS_ITS | Referral Summary ---
Author Name Unknown Organization [facility] Address [address] [place] [address] Care Team Providers Care Market Development Specialist Name Role Phone Elsewhere, Pcp Primary Care Provider Unavailabl e Source Comments Patient records contain information from all sites at [facility]. For routine questions regarding patient records, call [phone] during business hours, M-F 8:00 AM - 5:00 PM Central Time. Record requests for emergency care only can be directed to [phone] at any time.[facility] Allergies Active Allergy Reactions Criticality Noted Date Comments Animal Dander Other (see comments) 10/03/2016 asthma Diphtheria, Pertussis, Tetanus Vaccine Other (see comments) 04/06/2019 Erythromycin Base Nausea And Vomiting 0 Melon Anaphylaxis 04/06/2019 Penicillins Other (see comments) 04/03/2010 Pineapple Other (see comments) 04/06/2019 Ragweed Shortness of breath (Reselect Reaction) 10/03/2016 wheeze, asthma, scrathy throat [place] Other (see comments) 04/06/2019 Positive on skin test, however able to eat. Sulfa (Sulfonamide Antibiotics) Other (see comments) 10/03/2016 [place] Anaphylaxis 04/06/2019 Both Kyrgyz and Black walnut Medications Medication Sig Dispensed [...] Overview: Added automatically from request for surgery [id number] Radiculopathy Lumbar 09/20/2016 Immunizations Name Administration Dates Next Due Influenza high dose QV(65 years or older) (PF) 0 01/04/2021,01/26/2020 SARS-COV-2 (COVID-19) - PFIZ ER (Discontinued)(12 years or older) 01/19/2021 SARS-COV-2 (COVID-19) - PFIZ ER TS(Discontinued)(12 years or older) 08/09/2021 Td (Adult), adsorbed 09/21/2019 Td Preservative Free (TENIVAC, DECAVAC) 03/14/20 16,01/24/2005 Social History Tobacco Use Types Packs/Day Years [...] (308 lb 3.3 oz) 03/10/2021 1:50 PM PAVING SUPERVISOR Height 176.5 cm (5' 9.5) 03/10/2021 1:50 PM PAVING SUPERVISOR Body Mass Index 44.86 03/10/2021 1:50 PM PAVING SUPERVISOR Plan of Treatment Not on file Medical Devices Implanted Type Area Instructor Industrial Design Device Identifier Shelf Expiration Date Model / [...] Advance Directives For more information, please contact: [phone] Latest Code Status on File Code Status Date Activated Date Inactivated Comments Full Code 04/24/2019 10:01 AM 04/24/2019 3:16 PM Question Answer Comments Full Code: Discussed Care Teams Market Development Specialist Relationship Specialty Start Date End Date Elsewhere, Pcp PCP - General Family Medicine 12/02/20
--- OUTSIDE RECORDS SUMMARY | 2023-05-15 08:07 | XMS_ITS | Encounter Summary ---
Author Name Unknown Organization [facility] Address [address] [place] [address] Care Team Providers Care Building Insulation Installer Name Role Phone Elsewhere, Pcp Primary Care Provider Unavailabl e Reason for Visit * Reason Comments Rash Encounter Details Date Type Department Care Team (Late st Contact Info) Description 01/25/2023 10:00 AM CDT - 01/25/2023 10:33 AM CDT Emergency [facility] [address] [place] [phone] Elena Vora, EVER, C.N.P., R.N. [address] [phone] Intertrigo (Primary Dx); Elevated Blood Pressure Discharge Disposition: Home or Self Care Social [...] documented in this encounter Discharge Instructions * Attachments The following attachments cannot be sent through Care Everywhere. * Intertrigo [id number] (Georgian) documented in this encounter Medications at Time [...] by mouth daily. Women's day vitamin 0 nystatin (NYSTOP) 100,000 unit/gram powder Apply 1 Application topically 3 (three) times a day. Apply to right groin area. 15 g 0 01/25/2023 UNABLE TO FIND Apply topically as needed. KETOCONAZOLE CREAM TOP PRN 0 10/03/2016 valsartan (DIOVAN) 80 mg tablet Take 1 tablet (80 mg total) by mouth daily for 3 days. 3 tablet 0 01/25/2023 hydrocortisone (HYTONE) 2.5 % creamIndications:Can didiasis Intertrigo Apply 1 application topically 2 (two) times a day. To spot on left elbow, submammary fold, and groin until redness and itching have resolved. 30 g 11 04/19/2022 04/19/2023 documented as of this encounter ED Notes * Shawna Brewer R.N. - 01/25/2023 10:02 AM CDT Pt presents to the ED for rash to perineum/thigh area. Pt noticed rash last night, applied hydrocortisone cream, unsure if that helped. Pain increases to 9/10 depending on position. Shawna Brewer R.N. 01/25/23 1007 * Elena Vora APRN, C.N.P., REze. - 01/25/2023 10:01 AM CDT Images from the original note were not included. SUBJECTIVE CHIEF COMPLAINT/REASON FOR VISIT Rash HISTORY OF PRESENT ILLNESS History provided by: Patient and medical records academic affairs specialist needed/used: no Abby Mota is a very pleasant 72 y.o. with past medical history of monoplegia, paresthesia, cellulitis who presents via private car from home for evaluation of rash. REVIEW OF SYSTEMS Constitutional: Negative for chills and fever. HENT: Negative for congestion and sore throat. Respiratory: Negative for chest tightness and shortness of breath. Cardiovascular: Negative for chest pain and palpitations. Gastrointestinal: Negative for diarrhea, nausea and vomiting. Genitourinary: Negative for dysuria and hematuria. Skin: Positive for rash. Neurological: Negative for dizziness and weakness. OBJECTIVE Initial Vitals [01/25/23 1002] Temperature 36 ??C Pulse Rate 85 Heart Rate Resp Rate 20 Blood Pressure (Abnormal) 209/96 SpO2 97 % Pain Score 9 PHYSICAL EXAMINATION Constitutional: Nursing note and vitals reviewed. She is cooperative. HENT: Head: Atraumatic. Mouth/Throat: Oropharynx is clear and moist. Mucous membranes are moist. Eyes: Conjunctivae are normal. Neck: Neck supple. Cardiovascular: Normal rate. Pulmonary/Chest: Effort normal. No respiratory distress. Abdominal: Normal appearance. Musculoskeletal: Cervical back: Neck supple. Comments: Moves all extremities Neurological: Alert. Normal speech. Skin: Rash noted. ASSESSMENT/PLAN Assessment and Plan Abby Mota is a 72 y.o. presents with rash concerning for intertrigo, cellulitis or other acute pathology. Exam per above. See ED Course. . I reviewed the following external records: office records. ED Course as of 01/25/23 1030 SatJan 25, 2023 1010 I performed my initial evaluation of the patient. We discussed emergency department course including treatment, impression, recommendations. Rash noted last night, no improvement with hydrocortisone cream. She has red scaly moints patches of skin in left groin. Will treat with nystatin powder tid. Patient with elevated blood pressure noted today, states that she left her home in a hurry and forgot her BP medication at home. She is in route to destination and will not have two days worth of bp meds and is asking for rx fill. Will provide this for her here today as well Discussed impression and recommendations with patient. Questions answered to the best of my ability. Discharged home. Final Diagnoses: as of 01/25/23 1030 Intertrigo Elevated Blood Pressure Elena Vora APRN, C.N.P., R.N. 01/25/23 1030 documented in this encounter Plan of Treatment Not on file documented as of this encounter Visit Diagnoses Diagnosis Intertrigo- Primary Elevated Blood Pressure documented in this encounter Care Teams Building Insulation Installer Relationship Specialty Start Date End Date Elsewhere, Pcp PCP - General Family Medicine 12/02/20 documented as of this encounter
--- OUTSIDE RECORDS SUMMARY | 2023-05-15 08:07 | XMS_ITS | Continuity of Care Document ---
Author Name [facility] Organization [facility] Care Team Providers Care Coin Purse Assembler Name Role Phone [facility] Unavailable Unavailable Medications Combined list of outpatient medications from Department of Defense and Veterans Affairs facilities.Medications provided include 1) outpatient medications from the last 15 months, and 2) patient-reported medications. Medication Details Route Status Patient Instructions Prescription Expires Prescription Number Last Dispense Date Ordering Provider Order Date Source CARVEDILOL (CARVEDILOL ), 12.5MG, TABLET, ORAL, [employer], 500 ea. BOTTLE Active [id number] 2023 Pharmac y Data Transac tion Service Facilit y Social History Combined list of available smoking, tobacco, and other social history from Department of Defense and Veterans Affairs facilities. Social History Type Response Date Comment Sourc e This section is an empty social history section. DoD
--- OUTSIDE RECORDS SUMMARY | 2023-05-15 08:07 | XMS_ITS | Encounter Summary ---
Author Name Unknown Organization [facility] Address [address] [place] [address] Care Team Providers Care Elementary [employer] Art Teacher Name Role Phone Elsewhere, Pcp Primary Care Provider Unavailabl e Reason for Visit * Reason Onset Date Comments [facility] 12/05/2022 bran Encounter Details Date Type Department Care Team (Late st Contact Info) Description 12/05/2022 Clinical Communication Department of Neurology in [place], [place] [address] [place] [phone] Provider, Unknown [facility] (bran) Social History Tobacco Use Types Packs/Day Years [...] Date Recorded Dental: Regular Dentist Unknown 06/08/19 Sex and Gender Information Value Date Recorded Sex Assigned at Female 12/20/2020 12:41 PM CDT Gender Identity Female 12/20/2020 12:41 PM CDT Sexual Orientation Straight 12/20/2020 12 :41 PM CDT documented as of this encounter Plan of Treatment Not on file documented as of this encounter Visit Diagnoses Not on filedocumented in this encounter Care Teams [employer] Art Teacher Relationship Specialty Start Date End Date Elsewhere, Pcp PCP - General Family Medicine 12/02/20 documented as of this encounter
== END 2023-05-15 08:05 | disposition home or self-care (01) ==
LOC: WOUND 08:04
PROVIDERS: PCP Internal Medicine; Visit Provider Family Medicine
DX: I87.332 Chronic venous hypertension (idiopathic) with ulcer and inflammation of left lower extremity (principal); I89.0 Lymphedema, not elsewhere classified; L97.528 Non-pressure chronic ulcer of other part of left foot with other specified severity
CPT/HCPCS: G0463

== ENCOUNTER 2023-05-17 10:30 | Outpatient (CLI) | payer MEDICARE, OTHER, SELFPAY ==
--- OUTSIDE RECORDS SUMMARY | 2023-05-17 10:33 | XMS_ITS | Encounter Summary ---
Author Name Unknown Organization [facility] Address [address] [place] [address] Care Team Providers Care Cigarette Machine Filler Name Role Phone Elsewhere, Pcp Primary Care Provider Unavailabl e Encounter Details Date Type Department Care Team (Latest Contact Info) Description 11/06/2022 11:00 AM CDT - 11/06/2022 11:59 PM CDT Hospital Encounter Department of Laboratory Medicine in [address] [phone] Krystal Cha M.D., D.O. [address] [phone] Muscle Spasm Of Back; Monoplegia [...] 1 tablet by mouth daily. 0 10/03/2016 cyclobenzaprine (FLEXERIL) 10 mg tablet Take 0.3 tablets by mouth at bedtime. 0 10/03/2016 magnesium oxide (MAG-OX) 250 mg of magnesium tablet Take 250 mg by mouth daily. 0 multivitamin capsule Take 1 capsule by mouth daily. Women's day vitamin 0 clobetasol (TEMOVATE) 0.05 % cream Apply topically as directed. 0 10/03/2016 hydroCHLOROthiazide (HYDRODIURIL) 50 mg tablet 0 03/13/2019 UNABLE TO FIND Apply topically as needed. [...] developed and its performance characteristics determined by [facility] in a manner consistent with CLIA requirements. This test has not been cleared or approved by the U.S. Food and Drug Administration. AGNA-1, S Negative Negative 11/12/2022 5:08 PM CDT DTL Comment: ----ADDITIONAL INFORMATION---- This test was developed and its performance characteristics determined by [facility] in a manner consistent with CLIA requirements. This test has not been cleared or approved by the U.S. Food and Drug Administration. RAAD-1, S Negative Negative 11/12/2022 5:08 PM CDT DTL Comment: ----ADDITIONAL INFORMATION---- This test was developed and its performance characteristics determined by [facility] in a manner consistent with CLIA requirements. This test has not been cleared or approved by the U.S. Food and Drug Administration. RAAD-2, S Negative Negative 11/12/2022 5:08 PM CDT DTL Comment: ----ADDITIONAL INFORMATION---- This test was developed and its performance characteristics determined by [facility] in a manner consistent with CLIA requirements. This test has not been cleared or approved by the U.S. Food and Drug Administration. RAAD-3, S Negative Negative 11/12/2022 5:08 PM CDT DTL Comment: ----ADDITIONAL INFORMATION---- This test was developed and its performance characteristics determined by [facility] in a manner consistent with CLIA requirements. This test has not been cleared or approved by the U.S. Food and Drug Administration. CASPR2-IgG CBA, S Negative Negative 023 5:08 PM CDT DTL Comment: ----ADDITIONAL INFORMATION---- This test was developed and its performance characteristics determined by [facility] in a manner consistent with CLIA requirements. This test has not been cleared or approved by the U.S. Food and Drug Administration. CRMP-5-IgG Western Blot, S Negative Negative 11/12/2022 5:08 PM CDT DTL Comment: ----ADDITIONAL INFORMATION---- This test was developed and its performance characteristics determined by [facility] in a manner consistent with CLIA requirements. This test has not been cleared or approved by the U.S. Food and Drug Administration. DPPX Ab IFA, S Negative Negative 11/12/2022 5:08 PM CDT DTL Comment: ----ADDITIONAL INFORMATION---- This test was developed and its performance characteristics determined by [facility] in a manner consistent with CLIA requirements. This test has not been cleared or approved by the U.S. Food and Drug Administration. GAD65 Ab Assay, S 0.00 <=0.02 nmol/L 11/12/2022 5:08 PM CDT DTL Comment: ----ADDITIONAL INFORMATION---- This test was developed and its performance characteristics determined by [facility] in a manner consistent with CLIA requirements. This test has not been cleared or approved by the U.S. Food and Drug Administration. GRAF1 IFA, S Negative Negative 11/12/2022 5:08 PM CDT DTL Comment: ----ADDITIONAL INFORMATION---- This test was developed and its performance characteristics determined by [facility] in a manner consistent with CLIA requirements. This test has not been cleared or approved by the U.S. Food and Drug Administration. IgLON5 IFA, S Negative Negative 11/12/2022 5:08 PM CDT DTL Comment: ----ADDITIONAL INFORMATION---- This test was developed and its performance characteristics determined by [facility] in a manner consistent with CLIA requirements. This test has not been cleared or approved by the U.S. Food and Drug Administration. ITPR1 IFA, S Negative Negative 11/12/2022 5:08 PM CDT DTL Comment: ----ADDITIONAL INFORMATION---- This test was developed and its performance characteristics determined by [facility] in a manner consistent with CLIA requirements. This test has not been cleared or approved by the U.S. Food and Drug Administration. KLHL11 Ab CBA, S Negative Negative 11/13/19 23 5:08 PM CDT DTL Comment: ----ADDITIONAL INFORMATION---- This test was developed and its performance characteristics determined by [facility] in a manner consistent with CLIA requirements. This test has not been cleared or approved by the U.S. Food and Drug Administration. LGI1-IgG CBA, S Negative Negative 3 5:08 PM CDT DTL Comment: ----ADDITIONAL INFORMATION---- This test was developed and its performance characteristics determined by [facility] in a manner consistent with CLIA requirements. This test has not been cleared or approved by the U.S. Food and Drug Administration. mGluR1 Ab IFA, S Negative Negative 11/13/19 5:08 PM CDT DTL Comment: ----ADDITIONAL INFORMATION---- This test was developed and its performance characteristics determined by [facility] in a manner consistent with CLIA requirements. This test has not been cleared or approved by the U.S. Food and Drug Administration. NIF IFA, S Negative Negative 11/12/2022 5:08 PM CDT DTL Comment: ----ADDITIONAL INFORMATION---- This test was developed and its performance characteristics determined by [facility] in a manner consistent with CLIA requirements. This test has not been cleared or approved by the U.S. Food and Drug Administration. NMDA-R Ab CBA, S Negative Negative 11/13/19 5:08 PM CDT DTL Comment: ----ADDITIONAL INFORMATION---- This test was developed and its performance characteristics determined by [facility] in a manner consistent with CLIA requirements. This test has not been cleared or approved by the U.S. Food and Drug Administration. P/Q-Type Calcium Channel Ab 0.00 <=0.02 nmol/L 11/12/2022 5:08 PM CDT DTL Comment: ----ADDITIONAL INFORMATION---- This test was developed and its performance characteristics determined by [facility] in a manner consistent with CLIA requirements. This test has not been cleared or approved by the U.S. Food and Drug Administration. DELIVERY CLERK-1, S Negative Negative 11/12/2022 5:08 PM CDT DTL Comment: ----ADDITIONAL INFORMATION---- This test was developed and its performance characteristics determined by [facility] in a manner consistent with CLIA requirements. This test has not been cleared or approved by the U.S. Food and Drug Administration. DELIVERY CLERK-2, S Negative Negative 11/12/2022 5:08 PM CDT DTL Comment: ----ADDITIONAL INFORMATION---- This test was developed and its performance characteristics determined by [facility] in a manner consistent with CLIA requirements. This test has not been cleared or approved by the U.S. Food and Drug Administration. DELIVERY CLERK-Tr, S Negative Negative 11/12/2022 5:08 PM CDT DTL Comment: ----ADDITIONAL INFORMATION---- This test was developed and its performance characteristics determined by [facility] in a manner consistent with CLIA requirements. This test has not been cleared or approved by the U.S. Food and Drug Administration. AP3B2 IFA, S Negative Negative 11/12/2022 5:08 PM CDT DTL Comment: ----ADDITIONAL INFORMATION---- This test was developed and its performance characteristics determined by [facility] in a manner consistent with CLIA requirements. This test has not been cleared or approved by the U.S. Food and Drug Administration. GFAP IFA, S Negative Negative 11/12/2022 5:08 PM CDT DTL Comment: ----ADDITIONAL INFORMATION---- This test was developed and its performance characteristics determined by [facility] in a manner consistent with CLIA requirements. This test has not been cleared or approved by the U.S. Food and Drug Administration. Neurochondrin IFA, S Negative Negative 11/12/2022 5:08 PM CDT DTL Comment: ----ADDITIONAL INFORMATION---- This test was developed and its performance characteristics determined by [facility] in a manner consistent with CLIA requirements. This test has not been cleared or approved by the U.S. Food and Drug Administration. Septin-5 IFA, S Negative Negative 3 5:08 PM CDT DTL Comment: ----ADDITIONAL INFORMATION---- This test was developed and its performance characteristics determined by [facility] in a manner consistent with CLIA requirements. This test has not been cleared or approved by the U.S. Food and Drug Administration. Septin-7 IFA, S Negative Negative 3 5:08 PM CDT DTL Comment: ----ADDITIONAL INFORMATION---- This test was developed and its performance characteristics determined by [facility] in a manner consistent with CLIA requirements. This test has not been cleared or approved by the U.S. Food and Drug Administration. AMPA-R Ab CBA, S Negative Negative 11/13/19 23 5:08 PM CDT DTL Comment: ----ADDITIONAL INFORMATION---- This test was developed and its performance characteristics determined by [facility] in a manner consistent with CLIA requirements. This test has not been cleared or approved by the U.S. Food and Drug Administration. RAIMUNDO-B-R Ab CBA, S Negative Negative 2022 5:08 PM CDT DTL Comment: ----ADDITIONAL INFORMATION---- This test was developed and its performance characteristics determined by [facility] in a manner consistent with CLIA requirements. This test has not been cleared or approved by the U.S. Food and Drug Administration. Blood (Blood, Venous) 11/06/2022 11:09 AM CDT 11/07/2022 1:35 PM CDT Krystal Cha M.D., D.O. LAB BLOOD ADD -ON [facility] [address] [place] [address], [facility] DTL [address] [place] [address] documented in this encounter Visit Diagnoses Diagnosis Muscle Spasm Of Back Monoplegia Lower Limb (HCC) Paresthesia documented in this encounter Care Teams Cigarette Machine Filler Relationship Specialty Start Date End Date Elsewhere, Pcp PCP - General Family Medicine 12/02/20 documented as of this encounter
--- OUTSIDE RECORDS SUMMARY | 2023-05-17 10:33 | XMS_ITS | Encounter Summary ---
Author Name Unknown Organization [facility] Address [address] [place] [address] Care Team Providers Care Web Graphic Designer Name Role Phone Elsewhere, Pcp Primary Care Provider Unavailabl e Reason for Visit * Reason Comments Cellulitis 72 year old female a dmits with concerns of right lower lateral spot on leg patient has concerns of cellulitis Encounter Details Date Type Department Care Team (Late st Contact Info) Description 09/05/2022 6:03 PM CDT - 09/05/2022 6:32 PM CDT Emergency [facility] [address] [place] [phone] Shiraz Bryant, P.A.-C., P.A. [address] [place] [phone] Cellulitis Leg (Primary Dx) Discharge Disposition: Home [...] sent through Care Everywhere. * Cellulitis Adult ([place]) documented in this encounter Medications at Time [...] History provided by: Patient and medical records rinkman needed/used: no REVIEW OF SYSTEMS Constitutional: Negative [...] she appears well with no constitutional symptoms.. hSiraz Bryant P.A.-C., P.A. 09/05/221830 documented in this encounter Plan of Treatment Not on file documented as of this encounter Visit Diagnoses Diagnosis Cellulitis Leg- Primary documented in this encounter Care Teams Web Graphic Designer Relationship Specialty Start Date End Date Elsewhere, Pcp PCP - General Family Medicine 12/02/20 documented as of this encounter
--- OUTSIDE RECORDS SUMMARY | 2023-05-17 10:33 | XMS_ITS | Clinical Summary ---
Author Name Unknown Organization [facility] Address [address] [place] [address] Care Team Providers Care Director Peoplesoft Name Role Phone Elsewhere, Pcp Primary Care Provider Unavailabl e Source Comments Patient records contain information from all sites at [facility]. For routine questions regarding patient records, call [phone] during business hours, M-F 8:00 AM - 5:00 PM Central Time. Record requests for emergency care only can be directed to [phone] at any time.[facility] Allergies Active Allergy Reactions Criticality Noted Date Comments Animal Dander Other (see comments) 10/03/2016 asthma Diphtheria, Pertussis, Tetanus Vaccine Other (see comments) 04/06/2019 Erythromycin Base Nausea And Vomiting 0 Melon Anaphylaxis 04/06/2019 Penicillins Other (see comments) 04/03/2010 Pineapple Other (see comments) 04/06/2019 Ragweed Shortness of breath (Reselect Reaction) 10/03/2016 wheeze, asthma, scrathy throat Lead Other (see comments) 04/06/2019 Positive on skin test, however able to eat. Sulfa (Sulfonamide Antibiotics) Other (see comments) 10/03/2016 [place] Anaphylaxis 04/06/2019 Both Japanese and Black walnut Medications Medication Sig Dispensed [...] Overview: Added automatically from request for surgery [id number] Radiculopathy Lumbar 09/20/2016 Immunizations Name Administration Dates [...] (308 lb 3.3 oz) 03/10/2021 1:50 PM SUPPLY CHAIN BUYER Height 176.5 cm (5' 9.5) 03/10/2021 1:50 PM SUPPLY CHAIN BUYER Body Mass Index 44.86 03/10/2021 1:50 PM SUPPLY CHAIN BUYER Plan of Treatment Health Maintenance Due Date [...] history exists Medical Devices Implanted Type Area Water Systems Engineer Device Identifier Shelf Expiration Date Model / [...] Advance Directives For more information, please contact: [phone] Latest Code Status on File Code Status Date Activated Date Inactivated Comments Full Code 04/24/2019 10:01 AM 04/24/2019 3:16 PM Question Answer Comments Full Code: Discussed Care Teams Director Peoplesoft Relationship Specialty Start Date End Date Elsewhere, Pcp PCP - General Family Medicine 12/02/20
--- OUTSIDE RECORDS SUMMARY | 2023-05-17 10:33 | XMS_ITS ---
Author Name Unknown Organization [facility] Address [address] [place] [address] Care Team Providers Care Marble Mason Name Role Phone Unavailable Unavailable Unavailable Surgery Details Not on file Complications Check Surgery Details section. Procedure Estimated Blood Loss Check Surgery Details section. Procedure Findings Check Surgery Details section. Procedure Specimens Taken Check Surgery Details section.
--- OUTSIDE RECORDS SUMMARY | 2023-05-17 10:33 | XMS_ITS | Referral Summary ---
Author Name Unknown Organization [facility] Address [address] [place] [address] Care Team Providers Care Bench Loom Weaver Name Role Phone Elsewhere, Pcp Primary Care Provider Unavailabl e Source Comments Patient records contain information from all sites at [facility]. For routine questions regarding patient records, call [phone] during business hours, M-F 8:00 AM - 5:00 PM Central Time. Record requests for emergency care only can be directed to [phone] at any time.[facility] Allergies Active Allergy Reactions Criticality Noted Date Comments Animal Dander Other (see comments) 10/03/2016 asthma Diphtheria, Pertussis, Tetanus Vaccine Other (see comments) 04/06/2019 Erythromycin Base Nausea And Vomiting 0 Melon Anaphylaxis 04/06/2019 Penicillins Other (see comments) 04/03/2010 Pineapple Other (see comments) 04/06/2019 Ragweed Shortness of breath (Reselect Reaction) 10/03/2016 wheeze, asthma, scrathy throat [place] Other (see comments) 04/06/2019 Positive on skin test, however able to eat. Sulfa (Sulfonamide Antibiotics) Other (see comments) 10/03/2016 [place] Anaphylaxis 04/06/2019 Both Sami and Black walnut Medications Medication Sig Dispensed [...] Overview: Added automatically from request for surgery [id number] Radiculopathy Lumbar 09/20/2016 Immunizations Name Administration Dates [...] (308 lb 3.3 oz) 03/10/2021 1:50 PM CHAIN MACHINE OPERATOR Height 176.5 cm (5' 9.5) 03/10/2021 1:50 PM CHAIN MACHINE OPERATOR Body Mass Index 44.86 03/10/2021 1:50 PM CHAIN MACHINE OPERATOR Plan of Treatment Not on file Medical Devices Implanted Type Area Cost Reduction Engineer Device Identifier Shelf Expiration Date Model [...] Advance Directives For more information, please contact: [phone] Latest Code Status on File Code Status Date Activated Date Inactivated Comments Full Code 04/24/2019 10:01 AM 04/24/2019 3:16 PM Question Answer Comments Full Code: Discussed Care Teams Bench Loom Weaver Relationship Specialty Start Date End Date Elsewhere, Pcp PCP - General Family Medicine 12/02/20
--- OUTSIDE RECORDS SUMMARY | 2023-05-17 10:33 | XMS_ITS | Encounter Summary ---
Author Name Unknown Organization [facility] Address [address] [place] [address] Care Team Providers Care Cosmetic Manager Name Role Phone Elsewhere, Pcp Primary Care Provider Unavailabl e Reason for Visit * Reason Comments Rash Encounter Details Date Type Department Care Team (Late st Contact Info) Description 01/25/2023 10:00 AM CDT - 01/25/2023 10:33 AM CDT Emergency [facility] [address] [place] [phone] Elena Vora, EVER, C.N.P., R.N. [address] [phone] Intertrigo (Primary Dx); Elevated Blood Pressure Discharge [...] be sent through Care Everywhere. * Intertrigo [id number] (Vietnamese) documented in this encounter Medications at Time [...] by mouth daily. Women's day vitamin 0 valsartan (DIOVAN) 80 mg tablet Take 1 tablet (80 mg total) by mouth daily for 3 days. 3 tablet 0 01/25/2023 clobetasol (TEMOVATE) 0.05 % cream Apply topically as directed. 0 10/03/2016 hydroCHLOROthiazide (HYDRODIURIL) 50 mg tablet 0 03/13/2019 nystatin (NYSTOP) 100,000 unit/gram powder Apply 1 [...] History provided by: Patient and medical records merchandise displayer needed/used: no Abby Mota is a very [...] Pressure documented in this encounter Care Teams Cosmetic Manager Relationship Specialty Start Date End Date Elsewhere, Pcp PCP - General Family Medicine 12/02/20 documented as of this encounter
--- OUTSIDE RECORDS SUMMARY | 2023-05-17 10:33 | XMS_ITS | Encounter Summary ---
Author Name Unknown Organization [facility] Address [address] [place] [address] Care Team Providers Care Spray Painter Helper Name Role Phone Elsewhere, Pcp Primary Care Provider Unavailabl e Reason for Visit * Reason Onset Date Comments OSM 12/05/2022 bran Encounter Details Date Type Department Care Team (Late st Contact Info) Description 12/05/2022 Clinical Communication Department of Neurology in [place], [place] [address] [place] [phone] Provider, Unknown [facility] (bran) Social History Tobacco [...] on filedocumented in this encounter Care Teams Spray Painter Helper Relationship Specialty Start Date End Date Elsewhere, Pcp PCP - General Family Medicine 12/02/20 documented as of this encounter
--- OUTSIDE RECORDS SUMMARY | 2023-05-17 10:33 | XMS_ITS | Clinical Summary ---
Author Name Unknown Organization [facility] Address [place], [place] [address] Care Team Providers Care University Administrative Assistant Name Role Phone Meenakshi Keller MD Primary Care Provider [phone] Family History Medical History Relation Name Comments [...] Influenza for age 65+ 12/07/2022 Care Teams University Administrative Assistant Relationship Specialty Start Date End Date Meenakshi Keller MD PCP - General 03/06/10
== END 2023-05-17 10:31 | disposition home or self-care (01) ==
LOC: WOUND 10:30
PROVIDERS: PCP Internal Medicine; Visit Provider Family Medicine
DX: I87.332 Chronic venous hypertension (idiopathic) with ulcer and inflammation of left lower extremity (principal); I89.0 Lymphedema, not elsewhere classified; L97.522 Non-pressure chronic ulcer of other part of left foot with fat layer exposed
CPT/HCPCS: G0463

== ENCOUNTER 2023-05-20 10:29 | Outpatient (CLI) | payer MEDICARE, OTHER, SELFPAY | END 2023-05-20 10:30 | disposition home or self-care (01) | LOC: WOUND 10:29 | PROVIDERS: PCP Internal Medicine; Visit Provider Family Medicine | DX: I87.332 Chronic venous hypertension (idiopathic) with ulcer and inflammation of left lower extremity (principal); I89.0 Lymphedema, not elsewhere classified; L97.522 Non-pressure chronic ulcer of other part of left foot with fat layer exposed | CPT/HCPCS: G0463 ==

== ENCOUNTER 2023-05-28 10:58 | Outpatient (CLI) | payer MEDICARE, OTHER, SELFPAY ==
--- OUTSIDE RECORDS SUMMARY | 2023-05-28 11:06 | XMS_ITS | Encounter Summary ---
Author Name Unknown Organization [facility] Address [address] [place] [address] Care Team Providers Care Jig And Fixture Builder Name Role Phone Elsewhere, Pcp Primary Care Provider Unavailabl e Reason for Visit * Reason Comments Rash Encounter Details Date Type Department Care Team (Late st Contact Info) Description 01/25/2023 10:00 AM CDT - 01/25/2023 10:33 AM CDT [facility] [address] [place] [phone] Elena Vora, EVER, C.N.P., R.N. [address] [phone] Intertrigo (Primary Dx); Elevated Blood Pressure Discharge [...] be sent through Care Everywhere. * Intertrigo [id number] ([place] Sudanese) documented in this encounter Medications at Time [...] History provided by: Patient and medical records banquet kitchen supervisor needed/used: no Abby Mota is a very [...] Pressure documented in this encounter Care Teams Jig And Fixture Builder Relationship Specialty Start Date End Date Elsewhere, Pcp PCP - General Family Medicine 12/02/20 documented as of this encounter
--- OUTSIDE RECORDS SUMMARY | 2023-05-28 11:06 | XMS_ITS | Encounter Summary ---
Author Name Unknown Organization [facility] Address [address] [place] [address] Care Team Providers Care Cotton Tipper Name Role Phone Elsewhere, Pcp Primary Care Provider Unavailabl e Reason for Visit * Reason Onset Date Comments OSM 12/05/2022 bran Encounter Details Date Type Department Care Team (Late st Contact Info) Description 12/05/2022 Clinical Communication Department of Neurology in [place], [place] [address] [place] [phone] Provider, Unknown OSM (bran) Social History Tobacco [...] on filedocumented in this encounter Care Teams Cotton Tipper Relationship Specialty Start Date End Date Elsewhere, Pcp PCP - General Family Medicine 12/02/20 documented as of this encounter
--- OUTSIDE RECORDS SUMMARY | 2023-05-28 11:06 | XMS_ITS | Clinical Summary ---
Author Name Unknown Organization [facility] Address [address] [place] [address] Care Team Providers Care Adjunct History Instructor Name Role Phone Elsewhere, Pcp Primary Care Provider Unavailabl e Source Comments Patient records contain information from all sites at [facility]. For routine questions regarding patient records, call [phone] during business hours, M-F 8:00 AM - 5:00 PM Central Time. Record requests for emergency care only can be directed to [phone] at any time.[facility] Allergies Active Allergy Reactions Criticality Noted Date Comments Animal Dander Other (see comments) 10/03/2016 asthma Diphtheria, Pertussis, Tetanus Vaccine Other (see comments) 04/06/2019 Erythromycin Base Nausea And Vomiting 0 Melon Anaphylaxis 04/06/2019 Penicillins Other (see comments) 04/03/2010 Pineapple Other (see comments) 04/06/2019 Ragweed Shortness of breath (Reselect Reaction) 10/03/2016 wheeze, asthma, scrathy throat [place] Other (see comments) 04/06/2019 Positive on skin test, however able to eat. Sulfa (Sulfonamide Antibiotics) Other (see comments) 10/03/2016 Palmetto Anaphylaxis 04/06/2019 Both Egyptian and Black walnut Medications Medication Sig Dispensed Refills Start Date End Date Status hydroCHLOROthiazid e (HYDRODIURIL) 50 mg tablet 0 03/13/2019 Active [...] 3 days. 3 tablet 0 01/25/2023 Active Active Problems Problem Noted Date Diagnosed Date Lymphedema 06/25/2019 Morbid Obesity Body Mass Index 40.0-44.9 Adult 0 04/24/2019 Bleeding Postmenopausal 04/06/2019 Overview: Added automatically from request for surgery [id number] Radiculopathy Lumbar 09/20/2016 Immunizations Name Administration Dates [...] (308 lb 3.3 oz) 03/10/2021 1:50 PM GUN PERFORATOR LOADER Height 176.5 cm (5' 9.5) 03/10/2021 1:50 PM GUN PERFORATOR LOADER Body Mass Index 44.86 03/10/2021 1:50 PM GUN PERFORATOR LOADER Plan of Treatment Health Maintenance Due Date [...] history exists Medical Devices Implanted Type Area Sales And Marketing Manager Device Identifier Shelf Expiration Date Model / [...] Advance Directives For more information, please contact: [phone] Latest Code Status on File Code Status Date Activated Date Inactivated Comments Full Code 04/24/2019 10:01 AM 04/24/2019 3:16 PM Question Answer Comments Full Code: Discussed Care Teams Adjunct History Instructor Relationship Specialty Start Date End Date Elsewhere, Pcp PCP - General Family Medicine 12/02/20
--- OUTSIDE RECORDS SUMMARY | 2023-05-28 11:06 | XMS_ITS | Continuity of Care Document ---
Author Name [facility] Organization [facility] Care Team Providers Care Microwave Technician Name Role Phone [facility] Unavailable Unavailable Medications Combined list of outpatient medications from [facility] of Defense and [facility] facilities.Medications provided include 1) outpatient medications from the last 15 months, and 2) patient-reported medications. Medication Details Route Status Patient Instructions Prescription Expires Prescription Number Last Dispense Date Ordering Provider Order Date Source CARVEDILOL (CARVEDILOL ), 12.5MG, TABLET, ORAL, Brandwatch, 500 ea. BOTTLE Active [id number] 2023 Pharmac y Data Transac tion Service Facilit y Social History Combined list of available smoking, tobacco, and other social history from Department of Defense and Veterans Affairs facilities. Social History Type Response Date Comment Sourc e This section is an empty social history section. DoD
--- OUTSIDE RECORDS SUMMARY | 2023-05-28 11:06 | XMS_ITS | Clinical Summary ---
Author Name Unknown Organization [facility] Address [place], [place] [address] Care Team Providers Care It Manager Name Role Phone Meenakshi Keller MD Primary Care Provider [phone] Family History Medical History Relation Name Comments [...] Influenza for age 65+ 12/07/2022 Care Teams It Manager Relationship Specialty Start Date End Date Meenakshi Keller MD PCP - General 03/06/10
--- OUTSIDE RECORDS SUMMARY | 2023-05-28 11:06 | XMS_ITS | Encounter Summary ---
Author Name Unknown Organization [facility] Address [address] [place] [address] Care Team Providers Care Specialty Molder Name Role Phone Elsewhere, Pcp Primary Care Provider Unavailabl e Encounter Details Date Type Department Care Team (Latest Contact Info) Description 11/06/2022 11:00 AM CDT - 11/06/2022 11:59 PM CDT Hospital Encounter Department of Laboratory Medicine in [address] [phone] Krystal Cha M.D., D.O. [address] [address] Muscle Spasm Of Back; Monoplegia [...] developed and its performance characteristics determined by [facility] in a manner consistent with CLIA requirements. This test has not been cleared or approved by the U.S. Food and Drug Administration. AGNA-1, S Negative Negative 11/12/2022 5:08 PM CDT DTL Comment: ----ADDITIONAL INFORMATION---- This test was developed and its performance characteristics determined by [facility] in a manner consistent with CLIA requirements. This test has not been cleared or approved by the U.S. Food and Drug Administration. RAAD-1, S Negative Negative 11/12/2022 5:08 PM CDT DTL Comment: ----ADDITIONAL INFORMATION---- This test was developed and its performance characteristics determined by [facility] in a manner consistent with CLIA requirements. This test has not been cleared or approved by the U.S. Food and Drug Administration. RAAD-2, S Negative Negative 11/12/2022 5:08 PM CDT DTL Comment: ----ADDITIONAL INFORMATION---- This test was developed and its performance characteristics determined by [facility] in a manner consistent with CLIA requirements. This test has not been cleared or approved by the U.S. Food and Drug Administration. RAAD-3, S Negative Negative 11/12/2022 5:08 PM CDT DTL Comment: ----ADDITIONAL INFORMATION---- This test was developed and its performance characteristics determined by [facility] in a manner consistent with CLIA requirements. This test has not been cleared or approved by the U.S. Food and Drug Administration. CASPR2-IgG CBA, S Negative Negative 023 5:08 PM CDT DTL Comment: ----ADDITIONAL INFORMATION---- This test was developed and its performance characteristics determined by [facility] in a manner consistent with CLIA requirements. This test has not been cleared or approved by the U.S. Food and Drug Administration. CRMP-5-IgG Western Blot, S Negative Negative 11/12/2022 5:08 PM CDT DTL Comment: ----ADDITIONAL INFORMATION---- This test was developed and its performance characteristics determined by [facility] in a manner consistent with CLIA requirements. This test has not been cleared or approved by the U.S. Food and Drug Administration. DPPX Ab IFA, S Negative Negative 11/12/2022 5:08 PM CDT DTL Comment: ----ADDITIONAL INFORMATION---- This test was developed and its performance characteristics determined by [facility] in a manner consistent with CLIA requirements. This test has not been cleared or approved by the U.S. Food and Drug Administration. GAD65 Ab Assay, S 0.00 <=0.02 nmol/L 11/12/2022 5:08 PM CDT DTL Comment: ----ADDITIONAL INFORMATION---- This test was developed and its performance characteristics determined by [facility] in a manner consistent with CLIA requirements. This test has not been cleared or approved by the U.S. Food and Drug Administration. GRAF1 IFA, S Negative Negative 11/12/2022 5:08 PM CDT DTL Comment: ----ADDITIONAL INFORMATION---- This test was developed and its performance characteristics determined by [facility] in a manner consistent with CLIA requirements. This test has not been cleared or approved by the U.S. Food and Drug Administration. IgLON5 IFA, S Negative Negative 11/12/2022 5:08 PM CDT DTL Comment: ----ADDITIONAL INFORMATION---- This test was developed and its performance characteristics determined by [facility] in a manner consistent with CLIA requirements. This test has not been cleared or approved by the U.S. Food and Drug Administration. ITPR1 IFA, S Negative Negative 11/12/2022 5:08 PM CDT DTL Comment: ----ADDITIONAL INFORMATION---- This test was developed and its performance characteristics determined by [facility] in a manner consistent with CLIA requirements. This test has not been cleared or approved by the U.S. Food and Drug Administration. KLHL11 Ab CBA, S Negative Negative 11/13/19 23 5:08 PM CDT DTL Comment: ----ADDITIONAL INFORMATION---- This test was developed and its performance characteristics determined by [facility] in a manner consistent with CLIA requirements. This test has not been cleared or approved by the U.S. Food and Drug Administration. LGI1-IgG CBA, S Negative Negative 3 5:08 PM CDT DTL Comment: ----ADDITIONAL INFORMATION---- This test was developed and its performance characteristics determined by [facility] in a manner consistent with CLIA requirements. This test has not been cleared or approved by the U.S. Food and Drug Administration. mGluR1 Ab IFA, S Negative Negative 11/13/19 5:08 PM CDT DTL Comment: ----ADDITIONAL INFORMATION---- This test was developed and its performance characteristics determined by [facility] in a manner consistent with CLIA requirements. This test has not been cleared or approved by the U.S. Food and Drug Administration. NIF IFA, S Negative Negative 11/12/2022 5:08 PM CDT DTL Comment: ----ADDITIONAL INFORMATION---- This test was developed and its performance characteristics determined by [facility] in a manner consistent with CLIA requirements. This test has not been cleared or approved by the U.S. Food and Drug Administration. NMDA-R Ab CBA, S Negative Negative 11/13/19 5:08 PM CDT DTL Comment: ----ADDITIONAL INFORMATION---- This test was developed and its performance characteristics determined by [facility] in a manner consistent with CLIA requirements. This test has not been cleared or approved by the U.S. Food and Drug Administration. P/Q-Type Calcium Channel Ab 0.00 <=0.02 nmol/L 11/12/2022 5:08 PM CDT DTL Comment: ----ADDITIONAL INFORMATION---- This test was developed and its performance characteristics determined by [facility] in a manner consistent with CLIA requirements. This test has not been cleared or approved by the U.S. Food and Drug Administration. DRAFTING CLERK-1, S Negative Negative 11/12/2022 5:08 PM CDT DTL Comment: ----ADDITIONAL INFORMATION---- This test was developed and its performance characteristics determined by [facility] in a manner consistent with CLIA requirements. This test has not been cleared or approved by the U.S. Food and Drug Administration. DRAFTING CLERK-2, S Negative Negative 11/12/2022 5:08 PM CDT DTL Comment: ----ADDITIONAL INFORMATION---- This test was developed and its performance characteristics determined by [facility] in a manner consistent with CLIA requirements. This test has not been cleared or approved by the U.S. Food and Drug Administration. DRAFTING CLERK-Tr, S Negative Negative 11/12/2022 5:08 PM CDT DTL Comment: ----ADDITIONAL INFORMATION---- This test was developed and its performance characteristics determined by [facility] in a manner consistent with CLIA requirements. This test has not been cleared or approved by the U.S. Food and Drug Administration. AP3B2 IFA, S Negative Negative 11/12/2022 5:08 PM CDT DTL Comment: ----ADDITIONAL INFORMATION---- This test was developed and its performance characteristics determined by [facility] in a manner consistent with CLIA requirements. This test has not been cleared or approved by the U.S. Food and Drug Administration. GFAP IFA, S Negative Negative 11/12/2022 5:08 PM CDT DTL Comment: ----ADDITIONAL INFORMATION---- This test was developed and its performance characteristics determined by [facility] in a manner consistent with CLIA requirements. This test has not been cleared or approved by the U.S. Food and Drug Administration. Neurochondrin IFA, S Negative Negative 11/12/2022 5:08 PM CDT DTL Comment: ----ADDITIONAL INFORMATION---- This test was developed and its performance characteristics determined by [facility] in a manner consistent with CLIA requirements. This test has not been cleared or approved by the U.S. Food and Drug Administration. Septin-5 IFA, S Negative Negative 3 5:08 PM CDT DTL Comment: ----ADDITIONAL INFORMATION---- This test was developed and its performance characteristics determined by [facility] in a manner consistent with CLIA requirements. This test has not been cleared or approved by the U.S. Food and Drug Administration. Septin-7 IFA, S Negative Negative 3 5:08 PM CDT DTL Comment: ----ADDITIONAL INFORMATION---- This test was developed and its performance characteristics determined by [facility] in a manner consistent with CLIA requirements. This test has not been cleared or approved by the U.S. Food and Drug Administration. AMPA-R Ab CBA, S Negative Negative 11/13/19 23 5:08 PM CDT DTL Comment: ----ADDITIONAL INFORMATION---- This test was developed and its performance characteristics determined by [facility] in a manner consistent with CLIA requirements. This test has not been cleared or approved by the U.S. Food and Drug Administration. RAIMUNDO-B-R Ab CBA, S Negative Negative 2022 5:08 PM CDT DTL Comment: ----ADDITIONAL INFORMATION---- This test was developed and its performance characteristics determined by [facility] in a manner consistent with CLIA requirements. This test has not been cleared or approved by the U.S. Food and Drug Administration. Blood (Blood, Venous) 11/06/2022 11:09 AM CDT 11/07/2022 1:35 PM CDT Krystal Cha M.D., D.O. LAB BLOOD ADD -ON [facility] [address] [place] [address], [facility] DTL [address] [place] [address] documented in this encounter Visit Diagnoses Diagnosis Muscle Spasm Of Back Monoplegia Lower Limb (HCC) Paresthesia documented in this encounter Care Teams Specialty Molder Relationship Specialty Start Date End Date Elsewhere, Pcp PCP - General Family Medicine 12/02/20 documented as of this encounter
--- OUTSIDE RECORDS SUMMARY | 2023-05-28 11:06 | XMS_ITS ---
Author Name Unknown Organization [facility] Address [address] [place] [address] Care Team Providers Care Party Director Name Role Phone Unavailable Unavailable Unavailable Surgery Details Not on file Complications Check Surgery Details section. Procedure Estimated Blood Loss Check Surgery Details section. Procedure Findings Check Surgery Details section. Procedure Specimens Taken Check Surgery Details section.
--- OUTSIDE RECORDS SUMMARY | 2023-05-28 11:06 | XMS_ITS | Referral Summary ---
Author Name Unknown Organization [facility] Address [address] [place] [address] Care Team Providers Care Comptometer Operator Name Role Phone Elsewhere, Pcp Primary Care Provider Unavailabl e Source Comments Patient records contain information from all sites at [facility]. For routine questions regarding patient records, call [phone] during business hours, M-F 8:00 AM - 5:00 PM Central Time. Record requests for emergency care only can be directed to [phone] at any time.[facility] Allergies Active Allergy Reactions Criticality Noted Date Comments Animal Dander Other (see comments) 10/03/2016 asthma Diphtheria, Pertussis, Tetanus Vaccine Other (see comments) 04/06/2019 Erythromycin Base Nausea And Vomiting 0 Melon Anaphylaxis 04/06/2019 Penicillins Other (see comments) 04/03/2010 Pineapple Other (see comments) 04/06/2019 Ragweed Shortness of breath (Reselect Reaction) 10/03/2016 wheeze, asthma, scrathy throat [place] Other (see comments) 04/06/2019 Positive on skin test, however able to eat. Sulfa (Sulfonamide Antibiotics) Other (see comments) 10/03/2016 [place] Anaphylaxis 04/06/2019 Both Libyan and Black walnut Medications Medication Sig Dispensed [...] Overview: Added automatically from request for surgery [id number] Radiculopathy Lumbar 09/20/2016 Immunizations Name Administration Dates [...] (308 lb 3.3 oz) 03/10/2021 1:50 PM TOLL BRIDGE ATTENDANT Height 176.5 cm (5' 9.5) 03/10/2021 1:50 PM TOLL BRIDGE ATTENDANT Body Mass Index 44.86 03/10/2021 1:50 PM TOLL BRIDGE ATTENDANT Plan of Treatment Not on file Medical Devices Implanted Type Area Controller Mechanic Device Identifier Shelf Expiration Date Model / [...] Advance Directives For more information, please contact: [phone] Latest Code Status on File Code Status Date Activated Date Inactivated Comments Full Code 04/24/2019 10:01 AM 04/24/2019 3:16 PM Question Answer Comments Full Code: Discussed Care Teams Comptometer Operator Relationship Specialty Start Date End Date Elsewhere, Pcp PCP - General Family Medicine 12/02/20
--- OUTSIDE RECORDS SUMMARY | 2023-05-28 11:06 | XMS_ITS | Encounter Summary ---
Author Name Unknown Organization [facility] Address [address] [place] [address] Care Team Providers Care Copy Preparer Name Role Phone Elsewhere, Pcp Primary Care Provider Unavailabl e Reason for Visit * Reason Comments Cellulitis 72 year old female a dmits with concerns of right lower lateral spot on leg patient has concerns of cellulitis Encounter Details Date Type Department Care Team (Late st Contact Info) Description 09/05/2022 6:03 PM CDT - 09/05/2022 6:32 PM CDT Emergency [facility] [address] [place] [phone] Shiraz Bryant, P.A.-C., P.A. [address] [place] [id number] Cellulitis Leg (Primary Dx) Discharge Disposition: Home [...] sent through Care Everywhere. * Cellulitis Adult (Hungarian) documented in this encounter Medications at Time [...] History provided by: Patient and medical records plaster mold maker needed/used: no REVIEW OF SYSTEMS Constitutional: Negative [...] Primary documented in this encounter Care Teams Copy Preparer Relationship Specialty Start Date End Date Elsewhere, Pcp PCP - General Family Medicine 12/02/20 documented as of this encounter
== END 2023-05-28 10:59 | disposition home or self-care (01) ==
LOC: WOUND 10:59
PROVIDERS: PCP Internal Medicine; Visit Provider Nurse Practitioner Family
DX: I89.0 Lymphedema, not elsewhere classified (principal)
CPT/HCPCS: G0463

== ENCOUNTER 2023-06-25 13:19 | Outpatient (CLI) | payer MEDICARE, OTHER, SELFPAY | END 2023-06-25 13:20 | disposition home or self-care (01) | LOC: NFLDREF 13:23 | PROVIDERS: PCP Internal Medicine; Visit Provider Internal Medicine | DX: R60.9 Edema, unspecified (principal) | CPT/HCPCS: 80048 ==

== ENCOUNTER 2023-07-04 13:45 | Outpatient (CLI) | payer MEDICARE, OTHER, SELFPAY | END 2023-07-04 13:46 | disposition home or self-care (01) | LOC: RAD 13:45 | PROVIDERS: PCP Internal Medicine; Visit Provider Internal Medicine | DX: R60.9 Edema, unspecified (principal); I34.0 Nonrheumatic mitral (valve) insufficiency | CPT/HCPCS: 93306 ==

== ENCOUNTER 2023-07-23 14:29 | Outpatient (CLI) | payer MEDICARE, OTHER, SELFPAY ==
--- OUTSIDE RECORDS SUMMARY | 2023-07-23 14:31 | XMS_ITS | Clinical Summary ---
Author Name Unknown Organization [facility] Address [address] [place] [address] Care Team Providers Care Supervisor Asphalt Paving Name Role Phone Elsewhere, Pcp Primary Care Provider Unavailabl e Source Comments Patient records contain information from all sites at [facility]. For routine questions regarding patient records, call [phone] during business hours, M-F 8:00 AM - 5:00 PM Central Time. Record requests for emergency care only can be directed to [phone] at any time.[facility] Allergies Active Allergy Reactions Criticality Noted Date Comments Animal Dander Other (see comments) 10/03/2016 asthma Diphtheria, Pertussis, Tetanus Vaccine Other (see comments) 04/06/2019 Erythromycin Base Nausea And Vomiting 0 Melon Anaphylaxis 04/06/2019 Penicillins Other (see comments) 04/03/2010 Pineapple Other (see comments) 04/06/2019 Ragweed Shortness of breath (Reselect Reaction) 10/03/2016 wheeze, asthma, scrathy throat [place] Other (see comments) 04/06/2019 Positive on skin test, however able to eat. Sulfa (Sulfonamide Antibiotics) Other (see comments) 10/03/2016 Walling Anaphylaxis 04/06/2019 Both Nigerian and Black walnut Medications Medication Sig Dispensed Refills Start Date End Date Status hydroCHLOROthiazid e (HYDRODIURIL) 50 mg tablet 03/13/2019 Active cyclobenzaprine (FLEXERIL) 10 mg tablet Take 0.3 tablets by mouth at bedtime. 10/03/2016 Active cetirizine (ZyrTEC) 10 mg tablet Take 1 tablet by mouth daily. 10/03/2016 Active clobetasol (TEMOVATE) 0.05 % cream Apply topically as directed. 10/03/2016 Active UNABLE TO FIND Apply topically as needed. KETOCONAZOLE CREAM TOP PRN 10/03/2016 Active magnesium oxide (MAG-OX) 250 mg of magnesium tablet Take 250 mg by mouth daily. Active multivitamin capsule Take 1 capsule by mouth daily. Women's day vitamin Active acetaminophen (TYLENOL) 500 mg capsule Take 2 capsules (1,000 mg total) by mouth every 6 (six) hours as needed for pain for up to 5 days. 25 capsule 12/02/2020 Active nystatin (NYSTOP) 100,000 unit/gram powder Apply 1 Application topically 3 (three) times a day. Apply to right groin area. 15 g 01/25/2023 Active valsartan (DIOVAN) 80 mg tablet Take 1 tablet (80 mg total) by mouth daily for 3 days. 3 tablet 01/25/2023 Active Active Problems Problem Noted Date Diagnosed Date Lymphedema 06/25/2019 Morbid Obesity Body Mass Index 40.0-44.9 Adult 0 04/24/2019 Bleeding Postmenopausal 04/06/2019 Overview: Added automatically from request for surgery [id number] Radiculopathy Lumbar 09/20/2016 Immunizations Name Administration Dates [...] (308 lb 3.3 oz) 03/10/2021 1:50 PM ACADEMIC TUTOR Height 176.5 cm (5' 9.5) 03/10/2021 1:50 PM ACADEMIC TUTOR Body Mass Index 44.86 03/10/2021 1:50 PM ACADEMIC TUTOR Plan of Treatment Health Maintenance Due Date [...] history exists Medical Devices Implanted Type Area Car Spotter Device Identifier Shelf Expiration Date Model / Serial / Lot Conversions - Default Historical Implant Device Implanted:10/03 (Quantity not on file) Knee Implant Left: Knee Description:Body Location - Knee L. Device Status Text - Knee Imp. Conversions - Default Historical Implant Device Implanted:10/03 (Quantity not on file) Ocular Lens Description:Device Status Te xt - OculrLens. cataract lenses. Procedures Procedure Name Priority Date/Time Associated Diagnosis Comments COMPREHENSIVE METABOLIC PANEL, S/P Routine 12/20/2020 2:45 PM CDT Paresthesia Stenosis Spinal Cervical OUTSIDE MG MAMMOGRAM Routine 03/08/2010 4:13 PM ACADEMIC TUTOR from Last 3 Months or Most Recently Relevant to Health Maintenance Results * (ABNORMAL) Comprehensive Metabolic Panel (12/20/2020 2:45 PM CDT) Potassium, S 3.6 3.6 - 5.2 mmol/L 12/20/2020 3:46 PM CDT DTL Sodium, S 141 135 - 145 mmol/L 12/20/2020 3:46 PM CDT DTL Chloride, S 98 98 - 107 mmol/L 12/20/2020 3:46 PM CDT DTL Bicarbonate, S 32(H) 22 - 29 mmol/L 12/20/2020 4:04 PM CDT DTL Anion Gap 11 7 - 15 12/20/2020 4:04 PM CDT DTL BUN (Blood Urea Nitrogen), S 11 6 - 21 mg/dL 12/20/2020 3:46 PM CDT DTL Creatinine 0.74 0.59 - 1.04 mg/dL 12/20/2020 3:46 PM CDT DTL eGFR-Non Black/ 83 >=60 mL/min/BS A 12/20/2020 3:46 PM CDT DTL Comment: ----ADDITIONAL INFORMATION---- Estimated GFR calculated using the 2009 CKD_EPI creatinine equation. eGFR-Black/ >90 >=60 mL/min/BS A 12/20/2020 3:46 PM CDT DTL Comment: ----ADDITIONAL INFORMATION---- Estimated GFR calculated using the 2009 CKD_EPI creatinine equation. Calcium, Total, S 10.2 8.8 - 10.2 mg/dL 12/20/2020 3:46 PM CDT DTL Glucose, S 95 70 - 140 mg/dL 12/20/2020 3:46 PM CDT DTL Protein, Total, S 7.1 6.3 - 7.9 g/dL 12/20/2020 3:46 PM CDT DTL Albumin, S 4.3 3.5 - 5.0 g/dL 12/20/2020 3:46 PM CDT DTL Aspartate Aminotransferase (AST), S 16 8 - 43 U/L 12/20/2020 3:46 PM CDT DTL Alkaline Phosphatase, S 65 35 - 104 U/L 12/20/2020 3:46 PM CDT DTL Alanine Aminotransferase (ALT), S 16 7 - 45 U/L 12/20/2020 3:46 PM CDT DTL Bilirubin, Total, S 0.4 <=1.2 mg/dL 12/20/2020 3:46 PM CDT DTL Blood (Blood, Venous) 12/20/2020 2:45 PM CDT 12/20/2020 3:29 PM CDT Sabino Jung M.D., Ph.D. LAB BLOOD AD D-ON [facility] [address] [place] [address], [facility] DTL [facility] [address] [place] [address] * Outside MG Mammogram (03/08/2010 4:13 PM ACADEMIC TUTOR) 03/08/2010 4:13 PM ACADEMIC TUTOR Addenda Addendum by ProviderValeriano M.D. on 03/08/2010 4:13 PM ACADEMIC TUTOR ODM^^^MCR XR FFDM MAMMO UNI ADDL VIEWS LEFT 03/08/2010 16:13:51 Historical Provider IMG BI PROCEDURES [facility] [address] [place] [address], [facility] from Last 3 Months or Most Recently Relevant to Health Maintenance Advance Directives For more information, please contact: [phone] * Full Code (Latest Code Status on File) Date Activated Date Inactivated Comments 04/24/2019 10:01 AM 04/24/2019 3:16 PM Question Answer Comments Full Code: Discussed Care Teams Supervisor Asphalt Paving Relationship Specialty Start Date End Date Elsewhere, Pcp PCP - General Family Medicine 12/02/20
--- OUTSIDE RECORDS SUMMARY | 2023-07-23 14:32 | XMS_ITS ---
Author Name Unknown Organization [facility] Address [address] [place] [address] Care Team Providers Care Core Drilling Supervisor Name Role Phone Unavailable Unavailable Unavailable Surgery Details Not on file Complications Check Surgery Details section. Procedure Estimated Blood Loss Check Surgery Details section. Procedure Findings Check Surgery Details section. Procedure Specimens Taken Check Surgery Details section.
--- OUTSIDE RECORDS SUMMARY | 2023-07-23 14:32 | XMS_ITS | Continuity of Care Document ---
Author Name [facility] Organization [facility] Care Team Providers Care Fountain Waitress/Waiter Name Role Phone [facility] Unavailable Unavailable Medications Combined list of outpatient medications from Department of Defense and Veterans Affairs facilities.Medications provided include 1) outpatient medications from the last 15 months, and 2) patient-reported medications. Medication Details Route Status Patient Instructions Prescription Expires Prescription Number Last Dispense Date Ordering Provider Order Date Order Qty Source CARVEDILOL (CARVEDILOL ), 12.5MG, TABLET, ORAL, GLENMARK PHARMA, 500 ea. BOTTLE Active [id number] 4 2023 60 Pharmac y Data Transac tion Service Facilit y CARVEDILOL (CARVEDILOL ), 12.5MG, TABLET, ORAL, GLENMARK PHARMA, 500 ea. BOTTLE Active [id number] 4 2023 60 Pharmac y Data Transac tion Service Facilit y CARVEDILOL (CARVEDILOL ), 12.5MG, TABLET, ORAL, GLENMARK PHARMA, 500 ea. BOTTLE Active [id number] 4 2023 60 Pharmac y Data Transac tion Service Facilit y FUROSEMIDE (furosemide ), 20 MG, TABLET, ORAL, RISING PHARM, 1000 ea. BOTTLE Active [id number] 4 2023 60 Pharmac y Data Transac tion Service Facilit y FUROSEMIDE (furosemide ), 20 MG, TABLET, ORAL, RISING PHARM, 1000 ea. BOTTLE Active [id number] 4 2023 30 Pharmac y Data Transac tion Service Facilit y Social History Combined list of available smoking, tobacco, and other social history from Department of Defense and Veterans Affairs facilities. Social History Type Response Date Comment Sourc e This section is an empty social history section. [facility]
--- OUTSIDE RECORDS SUMMARY | 2023-07-23 14:32 | XMS_ITS | Clinical Summary ---
Author Name Unknown Organization [facility] Address [place], [place] [address] Care Team Providers Care Credit Reporting Clerk Name Role Phone Meenakshi Keller MD Primary Care Provider [phone] None Unavailable Unavailable Encounters Date Type Department Care Team Description 07/04/2023 2:00 PM CDT Ancillary Procedure [facility] at [facility] [address] [place] [address] from Last 3 Months Family History Medical History Relation Name Comments [...] PCV) 06/29/2016 COVID-19 vaccine series (3 - season) 2022 08/09/2021, 01/19/2021 Influenza for age 65+ 12/08/2023 Procedures Procedure Name Priority Date/Time Associated Diagnosis Comments ECHO TTE COMPLETE WO CONTRAST Routine 07/04/2023 2:44 PM CDT Edema XR MAMMO BILAT SCREEN FFDM (IA) Routine 03/08/2010 3:58 PM NIGHT AUDITOR Other screening mammogram LIPID PANEL Timed 10/19/2003 3:20 PM CDT from Last 3 Months or Most Recently Relevant to Health Maintenance Results * ECHO TTE COMPLETE WO CONTRAST (07/04/2023 2:44 PM CDT) AORTIC VALVE MEAN PG 5 mmHg EJECTION FRACTION 45 % LVEDD 4.8 cm EJECTION FRACTION 45 - 50% Anatomical Region Laterality Modality Ultrasound 07/04/2023 2:23 PM CDT Narrative 07/04/2023 2:54 PM CDT ECHOCARDIOGRAM GEORGIE DUFFY ? Accession#: ?? [id number] : ?1950 73 years Study Date: ?? 07/04/2023 2:23:10 PM Gender: F ?BP: ? 128/78 mmHg Height: 175.00 cm ?BSA: ?2.53 m? ? ? Weight: 147.00 kg ?Tech: ? NWA ? Referring MD: RUDDY JOHNSON Site: ? [facility] Reading Location: Mobile-OP Patient Location: Outpatient. Procedure: 2D, Color Doppler and Spectral Doppler. Indication for study: Edema Cardiac Rhythm: Regular.Study quality: Imaging limitations: This study was subject to imaging limitations due to body habitus and lack of cooperation. Final Impressions: 1. Normal LV size, mildly increased wall thickness, mildly reduced global systolic function with an estimated EF of 45 - 50%. 2. The mitral valve is sclerotic, trace mitral regurgitation. 3. No pericardial effusion. Chamber Sizes and Function Normal left ventricular size, mildly increased wall thickness, mildly reduced global systolic function with an estimated EF of 45 - 50%. Left atrial size is normal. Right ventricular cavity size is normal, global systolic RV function is normal. RV wall thickness is normal. The right atrium is normal. Right atrial volume index is 19 ml/m? ? ?. Right atrial area is 18 cm? ? ?. The pulmonary artery is of normal size and origin. The sinus of Valsalva is normal sized. The ascending aorta is normal sized. Valves, RV Pressures and Diastolic Function The aortic valve is normal in structure and trileaflet, no stenosis and no regurgitation. The mitral valve is sclerotic, trace mitral regurgitation. Spectral Doppler shows Grade 1 pattern of LV diastolic filling. The tricuspid valve is normal in structure. Tricuspid regurgitation is regurgitation is not evident. The pulmonic valve is normal. No pulmonary regurgitation. Masses, Effusion, Shunts There is no pericardial effusion. The inferior vena cava is normal sized, respiratory size variation greater than 50%. No left to right shunting was detected by limited color flow Doppler interrogation of the interatrial septum. MEASUREMENTS AND CALCULATIONS 2-D Measurements and LV Function: LVID (d) 4.8 cm LV FS% (2D) ?? 36 % LVID (s) 3.1 cm LVOT diameter 2.2 cm IVS (d) ??1.4 cm HR ?91 bpm LVPW (d) 1.6 cm LA Vol index ??22 ml/m2 Ao Sinus 3.6 cm RA Vol index ??19 ml/m2 Asc Ao ?? 3.6 cm RA area ? 18 cm? ? ? LA ? 4.0 cm RV Max 4C (d) 3.5 cm Diastology: Mitral ?Tissue Doppler ?Pulmonary veins E Peak 0.9 m/s ??e', Septum ? 0.18 m/s Pulm s ?73.3 cm/s A Peak 1.1 m/s ??e', Lateral ?0.09 m/s Pulm d ?63.6 cm/s E/A ?0.8 ?E/e' Average ?? 6.75 ? Pulm s/d ratio ??1.15 DT ? 144 msec Aortic Valve: Vmax ? 1.6 m/s ??LISA (V) ?? 2.54 cm? ? ? VTI ?0.34 m ?? LISA (I) ?? 2.84 cm? ? ? LVOT V max 1.0 m/s ??Max PG ?10 mmHg LVOT VTI ?? 0.25 m ?? Mean PG ?? 5 mmHg SV ? 97 ml ?Dim Index 0.73 SV index ?? 38 ml/m? ? ? CO ?8.8 l/min ?CI ?3.5 l/min/m? ? ? Mitral Valve: MVA ?5.3 cm? ? ? MV P 1/2 42 msec Tricuspid Valve and estimated PA pressures: TAPSE 2.3 cm Pulmonic Valve: PV Vmax 1.3 m/s . This study was interpreted by an [facility] accredited facility. CC: [facility] ([facility]) [facility]. ??Final ?? Procedure Note Corrie Snyder MD - 07/04/2023 ECHOCARDIOGRAM GEORGIE DUFFY : 1950 73 years Study Date: 07/04/2023 2:23:10 PM Gender: F BP: 128/78 mmHg Height: 175.00 cm BSA: 2.53 m? ? ? Weight: 147.00 kg Tech: RALF Referring MD: RUDDY JOHNSON Site: [facility] Reading Location: Mobile-OP Patient Location: Outpatient. Procedure: 2D, Color Doppler and Spectral Doppler. Indication for study: Edema Cardiac Rhythm: Regular.Study quality: Imaging limitations: This study was subject to imaging limitations due tobody habitus and lack of cooperation. Final Impressions: 1. Normal LV size, mildly increased wall thickness, mildly reduced globalsystolic function with an estimated EF of 45 - 50%. 2. The mitral valve is sclerotic, trace mitral regurgitation. 3. No pericardial effusion. Chamber Sizes and Function Normal left ventricular size, mildly increased wall thickness, mildlyreduced global systolic function with an estimated EF of 45 - 50%. Leftatrial size is normal. Right ventricular cavity size is normal, globalsystolic RV function is normal. RV wall thickness is normal. The rightatrium is normal. Right atrial volume index is 19 ml/m? ? ?. Right atrialarea is 18 cm? ? ?. The pulmonary artery is of normal size and origin. Thesinus of Valsalva is normal sized. The ascending aorta is normal sized. Valves, RV Pressures and Diastolic Function The aortic valve is normal in structure and trileaflet, no stenosis and noregurgitation. The mitral valve is sclerotic, trace mitral regurgitation.Spectral Doppler shows Grade 1 pattern of LV diastolic filling. Thetricuspid valve is normal in structure. Tricuspid regurgitation isregurgitation is not evident. The pulmonic valve is normal. No pulmonaryregurgitation. Masses, Effusion, Shunts There is no pericardial effusion. The inferior vena cava is normal sized,respiratory size variation greater than 50%. No left to right shunting wasdetected by limited color flow Doppler interrogation of the interatrialseptum. MEASUREMENTS AND CALCULATIONS 2-D Measurements and LV Function: LVID (d) 4.8 cm LV FS% (2D) 36 % LVID (s) 3.1 cm LVOT diameter 2.2 cm IVS (d) 1.4 cm HR 91 bpm LVPW (d) 1.6 cm LA Vol index 22 ml/m2 Ao Sinus 3.6 cm RA Vol index 19 ml/m2 Asc Ao 3.6 cm RA area 18 cm? ? ? LA 4.0 cm RV Max 4C (d) 3.5 cm Diastology: Mitral Tissue Doppler Pulmonary veins E Peak 0.9 m/s e', Septum 0.18 m/s Pulm s 73.3 cm/s A Peak 1.1 m/s e', Lateral 0.09 m/s Pulm d 63.6 cm/s E/A 0.8 E/e' Average 6.75 Pulm s/d ratio 1.15 DT 144 msec Aortic Valve: Vmax 1.6 m/s LISA (V) 2.54 cm? ? ? VTI 0.34 m LISA (I) 2.84 cm? ? ? LVOT V max 1.0 m/s Max PG 10 mmHg LVOT VTI 0.25 m Mean PG 5 mmHg SV 97 ml Dim Index 0.73 SV index 38 ml/m? ? ? CO 8.8 l/min CI 3.5 l/min/m? ? ? Mitral Valve: MVA 5.3 cm? ? ? MV P 1/2 42 msec Tricuspid Valve and estimated PA pressures: TAPSE 2.3 cm Pulmonic Valve: PV Vmax 1.3 m/s . This study was interpreted by an [facility] accredited facility. CC: [facility] ([facility]) [facility]. Final Ruddy Johnson MD ECHO ORD * XR MAMMO BILAT SCREEN FFDM (03/08/2010 3:58 PM NIGHT AUDITOR) Anatomical Region Laterality Modality BREASTS, Breast Left, Breast Right Bilateral Mammography Impressions 03/08/2010 4:47 PM NIGHT AUDITOR Questionable calcifications in the lateral LEFT breast. Recommend magnification views in the craniocaudad and mediolateral positions to better assess these calcifications. The patient is still in the department, and we will proceed to this now. ACR 0 Incomplete: Additional imaging evaluation needed Gladys Snow MD Breast/Diagnostic Radiologist [facility] BAT/giancarlo ?? [id number] Narrative 03/08/2010 4:47 PM NIGHT AUDITOR BILATERAL SCREENING MAMMOGRAM DONE WITH FULL FIELD DIGITAL MAMMOGRAPHY AND COMPUTER-AIDED DETECTION 03/08/2010 CLINICAL HISTORY: This is a 59-year-old patient with no family history of breast cancer. She has no current breast concerns. Mammography done with computer-aided detection. COMPARISONS: This study is compared to earlier ones from 04/05/04. FINDINGS: There is scattered fibroglandular tissue (25%-50% glandular tissue). Scattered calcifications are noted bilaterally. These appear to be punctate. There is a grouping of calcifications, however, in the left lateral breast which are more concentrated than the remainder of the breast tissue. This extends over about 5 cm and are in about the 2-3 o'clock position. No other changes are seen compared to earlier study, allowing for some interval fatty involution. Procedure Note Gladys Snow MD - 03/08/2010 BILATERAL SCREENING MAMMOGRAM DONE WITH FULL FIELD DIGITAL MAMMOGRAPHY ANDCOMPUTER-AIDED DETECTION 03/08/2010 CLINICAL HISTORY: This is a 59-year-old patient with no family history ofbreast cancer. She has no current breast concerns. Mammography done with computer-aided detection. COMPARISONS: This study is compared to earlier ones from 04/05/04. FINDINGS: There is scattered fibroglandular tissue (25%-50% glandulartissue). Scattered calcifications are noted bilaterally. These appear loc punctate. There is a grouping of calcifications, however, in the leftlateral breast which are more concentrated than the remainder of thebreast tissue. This extends over about 5 cm and are in about the 2-3o'clock position. No other changes are seen compared to earlier study,allowing for some interval fatty involution. IMPRESSION: Questionable calcifications in the lateral LEFT breast.Recommend magnification views in the craniocaudad and mediolateralpositions to better assess these calcifications. The patient is still inthe department, and we will proceed to this now. ACR 0 Incomplete: Additional imaging evaluation needed Gladys Snow MD Breast/Diagnostic Radiologist [facility] BAT/giancarlo 1610 Meenakshi Keller MD MAMMO * (ABNORMAL) LIPID PANEL (10/19/2003 3:20 PM CDT) CHOLESTEROL,TOTAL 237(H) 110 - 199 mg/dL [facility] TRIGLYCERIDES 124 40 - 149 mg/dL [facility] HDL CHOLESTEROL 43 41 - 95 mg/dL [facility] CHOL/HDL RATIO 5.51(H) <4.51 [facility] LDL CHOLESTEROL 169(H) 60 - 130 mg/dL [facility] PATIENT STATUS Fasting [facility] 10/19/2003 3:20 PM CDT 10/19/2003 6:07 PM CDT Brian Yi MD CHEMISTRY [facility] [place]NAL ZIP [address] [place] [id number] from Last 3 Months or Most Recently Relevant to Health Maintenance Care Teams Credit Reporting Clerk Relationship Specialty Start Date End Date Meenakshi Keller MD PCP - General 03/06/10 None . 03/06/10
--- OUTSIDE RECORDS SUMMARY | 2023-07-23 14:32 | XMS_ITS | Referral Summary ---
Author Name Unknown Organization [facility] Address [address] [place] [address] Care Team Providers Care Tool Mechanic Name Role Phone Elsewhere, Pcp Primary Care Provider Unavailabl e Source Comments Patient records contain information from all sites at [facility]. For routine questions regarding patient records, call [phone] during business hours, M-F 8:00 AM - 5:00 PM Central Time. Record requests for emergency care only can be directed to [phone] at any time.[facility] Allergies Active Allergy Reactions Criticality Noted Date Comments Animal Dander Other (see comments) 10/03/2016 asthma Diphtheria, Pertussis, Tetanus Vaccine Other (see comments) 04/06/2019 Erythromycin Base Nausea And Vomiting 0 Melon Anaphylaxis 04/06/2019 Penicillins Other (see comments) 04/03/2010 Pineapple Other (see comments) 04/06/2019 Ragweed Shortness of breath (Reselect Reaction) 10/03/2016 wheeze, asthma, scrathy throat [place] Other (see comments) 04/06/2019 Positive on skin test, however able to eat. Sulfa (Sulfonamide Antibiotics) Other (see comments) 10/03/2016 [place] Anaphylaxis 04/06/2019 Both Serbian and Black walnut Medications Medication Sig Dispensed [...] Overview: Added automatically from request for surgery [id number] Radiculopathy Lumbar 09/20/2016 Immunizations Name Administration Dates [...] (308 lb 3.3 oz) 03/10/2021 1:50 PM SPINNERET CLEANER Height 176.5 cm (5' 9.5) 03/10/2021 1:50 PM SPINNERET CLEANER Body Mass Index 44.86 03/10/2021 1:50 PM SPINNERET CLEANER Plan of Treatment Not on file Medical Devices Implanted Type Area Maintenance Instructor Device Identifier Shelf Expiration Date Model / [...] OUTSIDE MG MAMMOGRAM Routine 03/08/2010 4:13 PM SPINNERET CLEANER from Last 3 Months or Most Recently [...] Jung M.D., Ph.D. LAB BLOOD AD D-ON [facility] [address] [place] [address], [place] DTL [facility] [address] [place] [address] * Outside MG Mammogram (03/08/2010 4:13 PM SPINNERET CLEANER) 03/08/2010 4:13 PM SPINNERET CLEANER Addenda Addendum by ProviderValeriano M.D. on 03/08/2010 4:13 PM SPINNERET CLEANER ODM^^^MCR XR FFDM MAMMO UNI ADDL VIEWS LEFT 03/08/2010 16:13:51 Historical Provider IMG BI PROCEDURES [facility] [address] [place] [address] from Last 3 Months or Most Recently Relevant to Health Maintenance Advance Directives For more information, please contact: [phone] * Full Code (Latest Code Status on File) Date Activated Date Inactivated Comments 04/24/2019 10:01 AM 04/24/2019 3:16 PM Question Answer Comments Full Code: Discussed Care Teams Tool Mechanic Relationship Specialty Start Date End Date Elsewhere, Pcp PCP - General Family Medicine 12/02/20
--- NOTE | 2023-07-23 15:00 | CT_ITS ---
Patient: GEORGIE DUFFY Facility:?[facility] RIS Patient ID:?[id number] Site Patient ID:?[id number]. Site :?[id number] Study:?CT-Abdomen/Pelvis W/ 150CC ISOVUE 370-07/23/2023 3:34:23 PM Ordering Physician:LESLY Final Report: Indication: Peripheral edema Technique: CT Abdomen/Pelvis W/ 150CC ISOVUE 370 Please note that all CT scans at this facility use dose modulation, iterative reconstruction, and/or weight-based dosing when appropriate to reduce radiation dose to as low as reasonably achievable. Comparison: CT 07/30/2017 Findings: Lung bases are clear. Simple cyst within the right hepatic lobe is similar measuring 4 cm. Lobular cyst in the left hepatic lobe is also unchanged measuring 7.4 cm. Small focus of fat deposition within the falciform ligament. Small hemangioma suspected within the left hepatic lobe measuring 9 millimeters. Gallbladder absent. No biliary obstruction. The spleen is normal in size without splenomegaly. Normal kidneys and adrenal glands. Pancreas is normal. Mild atherosclerotic changes. No hiatal hernia. Incidental circumaortic left renal vein. A few scattered subcentimeter retroperitoneal lymph nodes are present. The bladder is normal. Bicornuate uterus is present. No pelvic mass. Normal patency of the main portal vein. No DVT. No bowel obstruction. Sigmoid diverticulosis. No diverticulitis. Appendix normal. Fat filled umbilical hernia is unchanged. Grade 1 degenerative spondylolisthesis of L4 on L5. Multilevel degenerative facet arthropathy lumbar spine. No vertebral body compression fracture. Impression: No acute findings are present. Please note that all CT scans at this facility use dose modulation, iterative reconstruction, and/or weight-based dosing when appropriate to reduce radiation dose to as low as reasonably achievable. Dictated by Carl Pearl MD @ 07/24/2023 1:02:04 PM Signed by:?Carl Pearl MD @07/24/2023 1:02:04 PM (Electronic Signature)
[2023-07-23 16:01] LABS: Appearance Urine Clear (Clear); Bilirubin Urine Negative (Negative); Blood Urine Negative (Negative); Color Urine Yellow (Yellow); Glucose Urine Negative (Negative); Ketones Urine Negative (Negative); Leukocyte Esterase Urine Negative (Negative); Nitrite Urine Negative (Negative); Protein Urine Negative (Negative); Urobilinogen Urine 0.2 (0.2-1.0)
[2023-07-23 16:47] LABS: RBC Urine 0-2 (0-2); Squamous Epithelial Cell Urine Few (None-Few); WBC Urine 0-2 (0-5)
[2023-07-23 16:49] LABS: Bacteria Urine Few
== END 2023-07-23 14:30 | disposition home or self-care (01) ==
LOC: CT 14:30
PROVIDERS: PCP Internal Medicine; Visit Provider Internal Medicine
DX: R60.9 Edema, unspecified (principal)
CPT/HCPCS: 74177; 81001; 87086; Q9967

== ENCOUNTER 2023-10-23 14:17 | Outpatient (CLI) | payer MEDICARE, OTHER, SELFPAY | END 2023-10-23 14:18 | disposition home or self-care (01) | LOC: WOUND 14:17 | PROVIDERS: PCP Internal Medicine; Visit Provider Surgery | DX: I89.0 Lymphedema, not elsewhere classified (principal); S90.932A Unspecified superficial injury of left great toe, initial encounter | CPT/HCPCS: G0463 ==

== ENCOUNTER 2024-01-02 19:33 | Emergency (ER) | payer MEDICARE, OTHER, SELFPAY ==
[2024-01-02 20:15] VITALS: BP 154/78; PULSE 78; RESP 20; TEMP 36.6; O2SAT 99
--- NOTE | 2024-01-02 21:50 | ED_ITS ---
HPI - Back Pain/Injury General Date Seen: 01/02/24 Chief Complaint: Back Injury/Pain Stated Complaint: back pain Time Seen by Provider: 01/02/24 21:21 Source: patient Mode of arrival: ambulatory Limitations: no limitations History of Present Illness HPI Narrative: Patient is a 73-year-old female presenting to the emergency department for left- sided back pain. She has describes as the muscle spasm throughout left side of her lumbar region. She states this is been an ongoing issue for several years and she has seen [facility] and [facility]. She has been trying to get in with the spine doctors and [facility] but has been unsuccessful. States usually symptoms only last a day or 2 but this 1 has lasted for 5 days and her typical Tylenol and Flexeril were not helping. States symptoms are very random in the past and can not really think of anything that causes the pain to start. She has had a previous MRI showing scoliosis but no other abnormalities. She also has lymphedema, osteoarthritis of her left knee which she states no surgical do surgery on due to her lymphedema. No other concerns noted. Related Data Home Medications ?Medication ?Instructions ?Recorded ?Confirmed acetaminophen 650 mg 1,300 mg PO Q8H 11/17/21 11/20/23 tablet,extended release ketoconazole 2 % topical cream 1 applic topical PRN 11/17/21 11/20/23 magnesium 250 mg tablet 250 mg PO QDAY 11/17/21 11/20/23 multivitamin 1 tab PO QDAY 11/17/21 11/20/23 cetirizine 10 mg tablet 10 mg PO QDAY 03/14/23 11/20/23 metoprolol succinate 25 mg 25 mg PO DAILY 11/20/23 11/20/23 tablet,extended release 24 hr Previous Rx's ?Medication ?Instructions ?Recorded clobetasol 0.05 % topical cream 1 applic topical .Bedtime #120 07/09/22 grams cyclobenzaprine 10 mg tablet 10 mg PO .Bedtime as needed PRN 11/12/23 muscle spasm #90 tabs oxycodone 5 mg tablet 5 mg PO Q6H PRN pain #4 tabs 01/02/24 Allergies Allergy/AdvReac Type Severity Reaction Status Date / Time penicillin V Allergy Unknown Verified 01/02/24 20:17 erythromycin base Allergy Verified 01/02/24 20:17 Sulfa (Sulfonamide Allergy Vomiting Verified 01/02/24 20:17 Antibiotics) nickel AdvReac Verified 01/02/24 20:17 Review of Systems Narrative: Pertinent systems reviewed and were negative unless stated in HPI PFSH PFS Medical History Edema ?R60.9 - Edema, unspecified (ICD-10) Surgical History S/P left knee arthroscopy (06/08/08) ?Z98.890 - Other specified postprocedural states (ICD-10) History of benign breast biopsy ?Z98.890 - Other specified postprocedural states (ICD-10) H/O cervical biopsy (~1989) ?Z98.890 - Other specified postprocedural states (ICD-10) 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) ?Z96.652 - Presence of left artificial knee joint (ICD-10) History of thumb surgery (~2003) ?Z98.890 - Other specified postprocedural states (ICD-10) History of pilonidal cyst (06/08/09) ?Z87.2 - Personal history of diseases of the skin and subcutaneous tissue (ICD-10) History of cholecystectomy (~1994) ?Z90.49 - Acquired absence of other specified parts of digestive tract (ICD- 10) History of cervical dysplasia (06/08/09) ?Z87.410 - Personal history of cervical dysplasia (ICD-10) Family History Mother Melanoma Stroke Alzheimers disease Father Bladder cancer Maternal Grandmother Diabetes Brother Schizophrenia Social History Smoking Status: Never smoker Do you use any of these nicotine containing products: None Second hand tobacco smoke exposure: No How often do you have a drink containing alcohol: monthly or less AUDIT-C Alcohol total score: 1 Non-prescribed substance use: denies use Little interest or pleasure in doing things: not at all Feeling down, depressed, or hopeless: not at all Exam Narrative: Exam Narrative: Const: Well-nourished, Well-developed, in moderate distress Eyes: PERRL, no conjunctival injection, and symmetrical lids HENT: Atraumatic external nose and ears. Moist mucous membranes. MSK:Extremities w/o deformity, Normal Active ROM Skin: Warm, Dry. No rashes or lesions. Neuro: Normal Muscle tone, No focal neurological deficits. Psych: Awake, Alert, & Oriented x3. Appropriate mood and affect. Const: Vital Signs, click to edit/add: Vital Signs - 24 hr 01/02/24 20:15 Temperature 97.9 F Pulse Rate [Right Pulse Oximeter] 78 Respiratory Rate 20 Blood Pressure [Le ft Upper Arm] 154/78 H Pulse Oximetry 99 Oxygen Delivery Me thod Room Air Course Vital Signs Vital signs: Initial Vital Signs Temperature 97.9 F 01/02/24 20:15 Temperature Source Temporal Artery Scan 01/02/24 20:15 Pulse Rate 78 01/02/24 20:15 Respiratory Rate 20 01/02/24 20:15 Blood Pressure 154/78 H 01/02/24 20:15 Blood Pressure Mean 103 01/02/24 20:15 Blood Pressure Position Sitting 01/02/24 20:15 Pulse Oximetry 99 01/02/24 20:15 Oxygen Delivery Method Room Air 01/02/24 20:15 Vital Signs Temperature 97.9 F 01/02/24 20:15 Pulse Rate 78 01/02/24 20:15 Respiratory Rate 20 01/02/24 20:15 Blood Pressure 154/78 H 01/02/24 20:15 Pulse Oximetry 99 01/02/24 20:15 Oxygen Delivery Method Room Air 01/02/24 20:15 Temperature 97.9 F 01/02/24 20:15 Pulse Rate 78 01/02/24 20:15 Respiratory Rate 20 01/02/24 20:15 Blood Pressure 154/78 H 01/02/24 20:15 Pulse Oximetry 99 01/02/24 20:15 Oxygen Delivery Method Room Air 01/02/24 20:15 MDM - Back Pain/Injury MDM Narrative Medical decision making narrative: Patient is a 73-year-old female with left-sided back pain. The she has scribe's as a muscle cramping. Denies any urinary retention or saddle anesthesia. No signs of cauda equina. She states is just like her previous back issues that she gets regularly. You this I do not believe imaging is necessary. I did have a long conversation with her though and I am comfortable giving her some oxycodone and told her start taking naproxen also. She states she was never told to stay away from NSAIDs. Also informed to follow-up with [facility] again. She is agreeable to this plan. Discharge Plan Discharge Clinical Impression: Lumbar radiculopathy Patient Disposition: Home, Self-Care Condition: Stable Instructions: Acute Low Back Pain (ED) Additional Instructions: I recommend start taking naproxen along with the other medications per use the oxycodone as needed for pain. We do use oxycodone try to not move around to help stretch out the back and that may help his symptoms. Also recommend you follow back up with [facility] for possible help getting set up with a spinal surgeon. You will not be able to get further narcotics from the emergency department and you need to follow-up with your doctors. Prescriptions: New oxycodone 5 mg tablet 5 mg PO Q6H PRN (Reason: pain) Qty: 4 0RF No Action clobetasol 0.05 % cream 1 applic topical .Bedtime Qty: 120 3RF Rx Instructions: APPLY SPARINGLY TO AFFECTED AREA (perineum) metoprolol succinate 25 mg tablet extended release 24 hr 25 mg PO DAILY multivitamin Tablet 1 tab PO QDAY magnesium 250 mg tablet 250 mg PO QDAY ketoconazole 2 % cream 1 applic topical PRN Rx Instructions: use to skin folds acetaminophen 650 mg tablet extended release 1,300 mg PO Q8H cetirizine 10 mg tablet 10 mg PO QDAY cyclobenzaprine 10 mg tablet 10 mg PO .Bedtime as needed PRN (Reason: muscle spasm) Qty: 90 2RF Follow Up/Referrals: Meenakshi Keller MD [Primary Care Provider] - Stand Alone Forms: [employer] Info Instructions
[2024-01-02] MEDS: OXYCODONE 5 MG TABLET PO (22:05)
--- OUTSIDE RECORDS SUMMARY | 2024-01-02 22:07 | XMS_ITS | Referral Summary ---
Author Organization [facility] Address [address] [place] [address] Care Team Providers Care Senior Cost Accountant Name Role Phone Elsewhere, Pcp Primary Care Provider Unavailabl e Source Comments Patient records contain information from all sites at [facility]. For routine questions regarding patient records, call [phone] during business hours, M-F 8:00 AM - 5:00 PM Central Time. Record requests for emergency care only can be directed to [phone] at any time.[facility] Allergies Active Allergy Reactions Criticality Noted Date Comments Animal Dander Other (see comments) 10/03/2016 asthma Diphtheria, Pertussis, Tetanus Vaccine Other (see comments) 04/06/2019 Erythromycin Base Nausea And Vomiting 0 Melon Anaphylaxis 04/06/2019 Penicillins Other (see comments) 04/03/2010 Pineapple Other (see comments) 04/06/2019 Ragweed Shortness of breath (Reselect Reaction) 10/03/2016 wheeze, asthma, scrathy throat [place] Other (see comments) 04/06/2019 Positive on skin test, however able to eat. Sulfa (Sulfonamide Antibiotics) Other (see comments) 10/03/2016 [place] Anaphylaxis 04/06/2019 Both Maori and Black walnut Medications Medication Sig Dispensed [...] 40.0-44.9 Adult 0 04/24/2019 Bleeding Postmenopausal 04/06/2019 Overview (04/06/2019): Added automatically from request for surgery [id number] Radiculopathy Lumbar 09/20/2016 Immunizations Name Administration Dates [...] (308 lb 3.3 oz) 03/10/2021 1:50 PM SOLID WASTE FACILITY SUPERVISOR Height 176.5 cm (5' 9.5) 03/10/2021 1:50 PM SOLID WASTE FACILITY SUPERVISOR Body Mass Index 44.86 03/10/2021 1:50 PM SOLID WASTE FACILITY SUPERVISOR Plan of Treatment Not on file Medical Devices Implanted Type Area Machine Shop Lead Man Device Identifier Shelf Expiration Date Model / [...] OUTSIDE MG MAMMOGRAM Routine 03/08/2010 4:13 PM SOLID WASTE FACILITY SUPERVISOR from Last 3 Months or Most Recently Relevant to Health Maintenance Results * (ABNORMAL) Comprehensive Metabolic Panel (12/20/2020 2:45 PM CDT) Pathologist [facility] Potassium, S 3.6 3.6 - 5.2 mmol/L [...] Jung M.D., Ph.D. LAB BLOOD AD D-ON [facility] [address] [place] [address], [facility] [address] [place] [address] * Outside MG Mammogram (03/08/2010 4:13 PM SOLID WASTE FACILITY SUPERVISOR) 03/08/2010 4:13 PM SOLID WASTE FACILITY SUPERVISOR Addenda Addendum by Provider, Geno Bal on 03/08/2010 4:13 PM SOLID WASTE FACILITY SUPERVISOR ODM^^^MCR XR FFDM MAMMO UNI ADDL VIEWS LEFT 03/08/2010 16:13:51 Historical Provider IMG BI PROCEDURES [facility] [address] [place] [address] from Last 3 Months or Most Recently Relevant to Health Maintenance Advance Directives For more information, please contact: [phone] * Full Code (Latest Code Status on File) Date Activated Date Inactivated Comments 04/24/2019 10:01 AM 04/24/2019 3:16 PM Question Answer Comments Full Code: Discussed Care Teams Senior Cost Accountant Relationship Specialty Start Date End Date Elsewhere, Pcp PCP - General Family Medicine 12/02/20
--- OUTSIDE RECORDS SUMMARY | 2024-01-02 22:07 | XMS_ITS ---
Author Organization [facility] Address [address] [place] [address] Care Team Providers Care Cloth Framer Name Role Phone Unavailable Unavailable Unavailable Surgery Details Not on file Complications Check Surgery Details section. Procedure Estimated Blood Loss Check Surgery Details section. Procedure Findings Check Surgery Details section. Procedure Specimens Taken Check Surgery Details section.
--- OUTSIDE RECORDS SUMMARY | 2024-01-02 22:07 | XMS_ITS | Clinical Summary ---
Author Organization [facility] Address [place], [place] [address] Care Team Providers Care Field Property Loss Specialist Name Role Phone None Unavailable Unavailable Meenakshi Keller MD Primary Care Provider [phone] Allergies Active Allergy Reactions Criticality Noted Date Comments Animal Dander *Unknown 10/03/2016 asthma Diphtheria, Pertussis, Tetanus Vaccine *Unknown 04/06/2019 Erythromycin Base Nausea And Vomiting 0 Melon Anaphylaxis High 04/06/2019 Penicillins *Unknown 12/24/2023 Taken a test but have never taken the medication Pineapple *Unknown 04/06/2019 Ragweed Dyspnea 10/03/2016 wheeze, asthma, scrathy throat [place] *Unknown 04/06/2019 Positive on skin test, however able to eat. Sulfa (Sulfonamide Antibiotics) *Unknown 10/03/2016 [place] Anaphylaxis High 04/06/2019 Both [place] and Black walnut Medications Medication Sig Dispensed Refills Start Date End Date Status metoprolol succinate (Toprol XL) 25 mg Sustained-Release tabletIndications:Hyp ertension Take 1 Tablet (25 mg) by mouth once daily. 90 Tablet 3 10/08/2023 Active carvediloL (COREG) 12.5 mg tablet 04/09/2023 Active cyclobenzaprine (FLEXERIL) 10 mg tablet 08/15/2023 Active furosemide (LASIX) 20 mg tablet 07/06/2023 Active Encounters Date Type Department Care Team Description 12/24/2023 1:15 PM CDT Office Visit [facility] [address] [place] [address] Alan Villarreal, DPGloria Consult (Left great toenail concerns) 12/24/2023 Travel 10/08/[address] [place] [address] Renan Shore MD Refill Request from Last 3 Months Family History Medical History Relation Name Comments Cancer-breast Other mat first cous in late 40's yrs old Cancer No Family History Cancer-colon No Family History Cancer-prostate No Family History Relation Name Status Comments Other Social History Tobacco Use Types Packs/Day Years Used Date Smoking Tobacco: Never Assessed Social Connections Answer Date Recorded Frequency of Communication with Friends and Fami ly Not on file 08/22/2023 Sex and Gender Information Value Date Recorded Sex Assigned at Not on file Gender Identity Not on file Sexual Orientation Not on file Obstetrics History Last Filed Vital Signs Vital Sign Reading Time Taken Comments Blood Pressure - - Pulse 79 12/24/2023 1:29 PM CDT Temperature - - Respiratory Rate - - Oxygen Saturation 98% 12/24/2023 1:29 PM CDT Inhaled Oxygen Concentration - - Weight - - Height - - Body Mass Index - - Plan of Treatment Health Maintenance Due Date Last Done Comments Tdap 06/29/1962 Depression screening for age 12+ 1963 BMI (ht and wt on same day) for age 18+ 06/29/1969 Hepatitis C screening for ag e 18-79 06/29/1969 Tetanus booster 1971 Colonoscopy through age 75 06/29/1996 Zoster (shingles) series for age 50+ (1 of 2) 06/29/2001 Lipids for age 45-75 10/18/2008 10/19/2003 Mammogram for age 45-75 03/08/2011 03/08/20 10, 03/08/2010, 04/05/2004 DEXA/DXA scan for age 65+ 06/29/2016 Pneumococcal series for age 65+ (1 of 1 - PCV) 06/29/2016 COVID-19 vaccine series ( season) 2023 01/22/2023, 01/09/2022, 08/09/2021, Additional history exists Influenza for age 65+ 12/08/2023 Procedures Procedure Name Priority Date/Time Associated Diagnosis Comments XR MAMMO BILAT SCREEN FFDM (IA) Routine 03/08/2010 3:58 PM TRANSPLANTER Other screening mammogram LIPID PANEL Timed 10/19/2003 3:20 PM CDT from Last 3 Months or Most Recently Relevant to Health Maintenance Results * XR MAMMO BILAT SCREEN FFDM (03/08/2010 3:58 PM TRANSPLANTER) Anatomical Region Laterality Modality BREASTS, Breast Left, Breast Right Bilateral Mammography Impressions 03/08/2010 4:47 PM TRANSPLANTER Questionable calcifications in the lateral LEFT breast. Recommend magnification views in the craniocaudad and mediolateral positions to better assess these calcifications. The patient is still in the department, and we will proceed to this now. ACR 0 Incomplete: Additional imaging evaluation needed Gladys Snow MD Breast/Diagnostic Radiologist [facility] BAT/giancarlo ?? 1610 Narrative 03/08/2010 4:47 PM TRANSPLANTER BILATERAL SCREENING MAMMOGRAM DONE WITH FULL FIELD [...] needed Gladys Snow MD Breast/Diagnostic Radiologist [facility] [employer] [employer] BAT/giancarlo 1610 Meenakshi Keller MD MAMMO * (ABNORMAL) LIPID PANEL (10/19/2003 3:20 PM CDT) CHOLESTEROL,TOTAL 237(H) 110 - 199 mg/dL [facility] TRIGLYCERIDES 124 40 - 149 mg/dL [facility] HDL CHOLESTEROL 43 41 - 95 mg/dL [facility] CHOL/HDL RATIO 5.51(H) <4.51 [facility] LDL CHOLESTEROL 169(H) 60 - 130 mg/dL [facility] PATIENT STATUS Fasting [facility] 10/19/2003 3:20 PM CDT 10/19/2003 6:07 PM CDT Brian Yi MD CHEMISTRY [facility] INTERNAL ZIP [address] [address] from Last 3 Months or Most Recently Relevant to Health Maintenance Care Teams Field Property Loss Specialist Relationship Specialty Start Date End Date Meenakshi Keller MD [address] [place] [id number] PCP - General Internal Medicine 08/15/23 None . 03/06/10
--- OUTSIDE RECORDS SUMMARY | 2024-01-02 22:07 | XMS_ITS | Clinical Summary ---
Author Organization [facility] Address [address] [place] [address] Care Team Providers Care Acquisition Specialist Name Role Phone Elsewhere, Pcp Primary Care Provider Unavailabl e Source Comments Patient records contain information from all sites at [facility]. For routine questions regarding patient records, call [phone] during business hours, M-F 8:00 AM - 5:00 PM Central Time. Record requests for emergency care only can be directed to [phone] at any time.[facility] Allergies Active Allergy Reactions Criticality Noted Date Comments Animal Dander Other (see comments) 10/03/2016 asthma Diphtheria, Pertussis, Tetanus Vaccine Other (see comments) 04/06/2019 Erythromycin Base Nausea And Vomiting 0 Melon Anaphylaxis 04/06/2019 Penicillins Other (see comments) 04/03/2010 [place] Other (see comments) 04/06/2019 Ragweed Shortness of breath (Reselect Reaction) 10/03/2016 wheeze, asthma, scrathy throat [place] Other (see comments) 04/06/2019 Positive on skin test, however able to eat. Sulfa (Sulfonamide Antibiotics) Other (see comments) 10/03/2016 [place] Anaphylaxis 04/06/2019 Both [place] and Black walnut Medications Medication Sig Dispensed [...] (04/06/2019): Added automatically from request for surgery [id number] Radiculopathy Lumbar 09/20/2016 Immunizations Name Administration Dates [...] (308 lb 3.3 oz) 03/10/2021 1:50 PM DATA CENTER MANAGER Height 176.5 cm (5' 9.5) 03/10/2021 1:50 PM DATA CENTER MANAGER Body Mass Index 44.86 03/10/2021 1:50 PM DATA CENTER MANAGER Plan of Treatment Health Maintenance Due Date Last Done Comments Bone Density Scan (Osteoporo sis Screen) 1951 CT Colonography 1950 FIT 1950 Hepatitis C Screening 1950 Zoster Vaccines (1 of 2) 06/29/2001 Mammogram 10/04/2011 10/03/2010 (Perf ormed elsewhere), 03/08/2010, 03/08/2010, Additional history exists Colonoscopy 10/04/2018 10/04/2008 (Perf ormed elsewhere) Depression Screening (Annual PHQ-2) 04/08/2023 Fall Risk Screen (Annual) 04/08/2023 COVID-19 Vaccine (2023-2 5 season) 2023 01/22/2023, 01/09/2022, 08/09/2021, Additional history exists Fasting Glucose for Diabetes Screening 12/21/2023 12/20/2020 Influenza Vaccine (#1) 2024 , 01/09/2022, 01/04/2021, Additional history exists Cologuard 07/07/2024 07/07/2021 Colorectal Cancer Screening 07/07/2024 Pneumococcal vaccine (65+ years) Completed 07/10/19 23 Medical Devices Implanted Type Area Industrial Yard Brake Coupler Device Identifier Shelf Expiration Date Model / [...] OUTSIDE MG MAMMOGRAM Routine 03/08/2010 4:13 PM DATA CENTER MANAGER from Last 3 Months or Most Recently [...] Jung M.D., Ph.D. LAB BLOOD AD D-ON [facility] [address] [place] [address], [facility] DTL [facility] [address] [place] [address] * Outside MG Mammogram (03/08/2010 4:13 PM DATA CENTER MANAGER) 03/08/2010 4:13 PM DATA CENTER MANAGER Addenda Addendum by Provider, Geno Bal on 03/08/2010 4:13 PM DATA CENTER MANAGER ODM^^^MCR XR FFDM MAMMO UNI ADDL VIEWS LEFT 03/08/2010 16:13:51 Historical Provider IMG BI PROCEDURES [facility] [address] [place] [address], [facility] from Last 3 Months or Most Recently Relevant to Health Maintenance Advance Directives For more information, please contact: [phone] * Full Code (Latest Code Status on File) Date Activated Date Inactivated Comments 04/24/2019 10:01 AM 04/24/2019 3:16 PM Question Answer Comments Full Code: Discussed Care Teams Acquisition Specialist Relationship Specialty Start Date End Date Elsewhere, Pcp PCP - General Family Medicine 12/02/20
== END 2024-01-02 22:21 | disposition home or self-care (01) ==
PROVIDERS: Emergency Provider Student in an Organized Health Care Education/Training Program; PCP Internal Medicine
DX: M54.16 Radiculopathy, lumbar region (principal)
CPT/HCPCS: 99282; 99283; A9270

== ENCOUNTER 2024-01-28 12:33 | Outpatient (CLI) | payer MEDICARE, OTHER, SELFPAY ==
--- OUTSIDE RECORDS SUMMARY | 2024-01-28 12:35 | XMS_ITS | Referral Summary ---
Author Organization [facility] Address [address] [place] [address] Care Team Providers Care Seismograph Operator Name Role Phone Elsewhere, Pcp Primary Care Provider Unavailabl e Source Comments Patient records contain information from all sites at [facility]. For routine questions regarding patient records, call [phone] during business hours, M-F 8:00 AM - 5:00 PM Central Time. Record requests for emergency care only can be directed to [phone] at any time.[facility] Allergies Active Allergy Reactions Criticality Noted Date Comments Animal Dander Other (see comments) 10/03/2016 asthma Diphtheria, Pertussis, Tetanus Vaccine Other (see comments) 04/06/2019 Erythromycin Base Nausea And Vomiting 0 Melon Anaphylaxis 04/06/2019 Penicillins Other (see comments) 04/03/2010 Pineapple Other (see comments) 04/06/2019 Ragweed Shortness of breath (Reselect Reaction) 10/03/2016 wheeze, asthma, scrathy throat [place] Other (see comments) 04/06/2019 Positive on skin test, however able to eat. Sulfa (Sulfonamide Antibiotics) Other (see comments) 10/03/2016 [place] Anaphylaxis 04/06/2019 Both Kinyarwanda and Black walnut Medications hydroCHLOROthia zide (HYDRODIURIL) 50 mg tablet 9 Active cyclobenzaprine (FLEXERIL) 10 mg tablet Take 0.3 tablets by mouth at bedtime. 7 Active cetirizine (ZyrTEC) 10 mg tablet Take 1 tablet by mouth daily. 7 Active clobetasol (TEMOVATE) 0.05 % cream Apply topically as directed. 7 Active UNABLE TO FIND Apply topically as needed. KETOCONAZOLE CREAM TOP PRN 7 Active magnesium oxide (MAG-OX) 250 mg of magnesium tablet Take 250 mg by mouth daily. Active multivitamin capsule Take 1 capsule by mouth daily. Women's day vitamin Active acetaminophen (TYLENOL) 500 mg capsule Take 2 capsules (1,000 mg total) by mouth every 6 (six) hours as needed for pain for up to 5 days. 25 capsule 1 Active nystatin (NYSTOP) 100,000 unit/gram powder Apply 1 Application topically 3 (three) times a day. Apply to right groin area. 15 g 3 Active valsartan (DIOVAN) 80 mg tablet Take 1 tablet (80 mg total) by mouth daily for 3 days. 3 tablet 3 Active Active Problems Problem Noted Date Diagnosed Date Lymphedema 06/25/2019 Morbid Obesity Body Mass Index 40.0-44.9 Adult 0 04/24/2019 Bleeding Postmenopausal 04/06/2019 Overview (04/06/2019): Added automatically from request for surgery [id number] Radiculopathy Lumbar 09/20/2016 Immunizations Name Administration Dates [...] Recorded Dental: Regular Dentist Unknown 06/08/19 21 Comments No Sex and Gender Information Value Date Recorded Sex Assigned at Female 12/20/2020 12:41 PM CDT Legal Sex Female 10:36 AM SLOT FLOORPERSON Gender Identity Female 12/20/2020 12:41 PM CDT [...] (308 lb 3.3 oz) 03/10/2021 1:50 PM SLOT FLOORPERSON Height 176.5 cm (5' 9.5) 03/10/2021 1:50 PM SLOT FLOORPERSON Body Mass Index 44.86 03/10/2021 1:50 PM SLOT FLOORPERSON Plan of Treatment Not on file Medical Devices Implanted Type Area Product Marketing Analyst Device Identifier Shelf Expiration Date Model / [...] OUTSIDE MG MAMMOGRAM Routine 03/08/2010 4:13 PM SLOT FLOORPERSON from Last 3 Months or Most Recently Relevant to Health Maintenance Results * (ABNORMAL) Comprehensive Metabolic Panel (12/20/2020 2:45 PM CDT) [facility] Potassium, S 3.6 3.6 - 5.2 mmol/L [...] Sabino Jung M.D., Ph.D. LAB BLOOD ADD-ON Fin al Result [facility] [address] [place] [address], [facility] DTL [facility] [address] [place] [address] * Outside MG Mammogram (03/08/2010 4:13 PM SLOT FLOORPERSON) 03/08/2010 4:13 PM SLOT FLOORPERSON Addenda Addendum by ProviderValeriano M.D. on 03/08/2010 4:13 PM SLOT FLOORPERSON ODM^^^MCR XR FFDM MAMMO UNI ADDL VIEWS LEFT 03/08/2010 16:13:51 Historical Provider IMG BI PROCEDURES Final Resu lt Performing Organization Address City/[facility] Co de Phone Number [facility] [address] [place] [address] from Last 3 Months or Most Recently Relevant to Health Maintenance Insurance MEDICARE [facility] FOR [employer] Advance Directives For more information, please contact: [phone] * Full Code (Latest Code Status on File) Date Activated Date Inactivated Comments 04/24/2019 10:01 AM 04/24/2019 3:16 PM Question Answer Comments Full Code: Discussed Care Teams Seismograph Operator Relationship Specialty Start Date End Date Elsewhere, Pcp PCP - General Family Medicine 12/02/20
--- OUTSIDE RECORDS SUMMARY | 2024-01-28 12:35 | XMS_ITS | Clinical Summary ---
Author Organization [facility] Address [address] [place] [address] Care Team Providers Care Fitness Supervisor Name Role Phone Elsewhere, Pcp Primary Care Provider Unavailabl e Source Comments Patient records contain information from all sites at [facility]. For routine questions regarding patient records, call [phone] during business hours, M-F 8:00 AM - 5:00 PM Central Time. Record requests for emergency care only can be directed to [phone] at any time.[facility] Allergies Active Allergy Reactions Criticality Noted Date Comments Animal Dander Other (see comments) 10/03/2016 asthma Diphtheria, Pertussis, Tetanus Vaccine Other (see comments) 04/06/2019 Erythromycin Base Nausea And Vomiting 0 Melon Anaphylaxis 04/06/2019 Penicillins Other (see comments) 04/03/2010 Pineapple Other (see comments) 04/06/2019 Ragweed Shortness of breath (Reselect Reaction) 10/03/2016 wheeze, asthma, scrathy throat [place] Other (see comments) 04/06/2019 Positive on skin test, however able to eat. Sulfa (Sulfonamide Antibiotics) Other (see comments) 10/03/2016 [place] Anaphylaxis 04/06/2019 Both Uzbek and Black walnut Medications hydroCHLOROthia zide (HYDRODIURIL) [...] (04/06/2019): Added automatically from request for surgery [id number] Radiculopathy Lumbar 09/20/2016 Immunizations Name Administration Dates [...] PM CDT Legal Sex Female 10:36 AM COMMERCIAL SEWING INSTRUCTOR Gender Identity Female 12/20/2020 12:41 PM CDT [...] (308 lb 3.3 oz) 03/10/2021 1:50 PM COMMERCIAL SEWING INSTRUCTOR Height 176.5 cm (5' 9.5) 03/10/2021 1:50 PM COMMERCIAL SEWING INSTRUCTOR Body Mass Index 44.86 03/10/2021 1:50 PM COMMERCIAL SEWING INSTRUCTOR Plan of Treatment Health Maintenance Due Date [...] Screening 12/21/2023 12/20/2020 Influenza Vaccine (#1) 2024 3, 01/09/2022, 01/04/2021, Additional history exists Cologuard 07/07/2024 07/07/2021 Colorectal Cancer Screening 07/07/2024 Pneumococcal vaccine (65+ years) Completed 07/10/19 23 Medical Devices Implanted Type Area Meeting Facilitator Device Identifier Shelf Expiration Date Model / [...] OUTSIDE MG MAMMOGRAM Routine 03/08/2010 4:13 PM COMMERCIAL SEWING INSTRUCTOR from Last 3 Months or Most Recently Relevant to Health Maintenance Results * (ABNORMAL) Comprehensive Metabolic Panel (12/20/2020 2:45 PM CDT) Pathologist [facility] Potassium, S 3.6 3.6 - 5.2 mmol/L [...] Ph.D. LAB BLOOD ADD-ON Fin al Result [facility] [address] [place] [address], [place] DTL [facility] [address] [place] [address] * Outside MG Mammogram (03/08/2010 4:13 PM COMMERCIAL SEWING INSTRUCTOR) 03/08/2010 4:13 PM COMMERCIAL SEWING INSTRUCTOR Addenda Addendum by Provider, Historical, M.D. on 03/08/2010 4:13 PM COMMERCIAL SEWING INSTRUCTOR ODM^^^MCR XR FFDM MAMMO UNI ADDL VIEWS LEFT 03/08/2010 16:13:51 us Historical Provider IMG BI PROCEDURES Final Resu lt [facility] [address] from Last 3 Months or Most Recently Relevant to Health Maintenance Insurance [facility] Advance Directives For more information, please contact: [phone] * Full Code (Latest Code Status on File) Date Activated Date Inactivated Comments 04/24/2019 10:01 AM 04/24/2019 3:16 PM Question Answer Comments Full Code: Discussed Care Teams Fitness Supervisor Relationship Specialty Start Date End Date Elsewhere, Pcp PCP - General Family Medicine 12/02/20
--- OUTSIDE RECORDS SUMMARY | 2024-01-28 12:35 | XMS_ITS ---
Author Organization [facility] Address [address] [place] [address] Care Team Providers Care Supervisor Silvering Department Name Role Phone Unavailable Unavailable Unavailable Surgery Details Not on file Complications Check Surgery Details section. Procedure Estimated Blood Loss Check Surgery Details section. Procedure Findings Check Surgery Details section. Procedure Specimens Taken Check Surgery Details section.
--- OUTSIDE RECORDS SUMMARY | 2024-01-28 12:36 | XMS_ITS | Clinical Summary ---
Author Organization [facility] Address [place], [place] [address] Care Team Providers Care Geotechnical Laboratory Technician Name Role Phone None Unavailable Unavailable Meenakshi Keller MD Primary Care Provider [phone] Allergies Active Allergy Reactions Criticality Noted Date Comments Animal Dander *Unknown 10/03/2016 asthma Diphtheria, Pertussis, Tetanus Vaccine *Unknown 04/06/2019 Erythromycin Base Nausea And Vomiting 0 Melon Anaphylaxis High 04/06/2019 Penicillins *Unknown 12/24/2023 Taken a test but have never taken the medication Pineapple *Unknown 04/06/2019 Ragweed Dyspnea 10/03/2016 wheeze, asthma, scrathy throat [place] *Unknown 04/06/2019 Positive on skin test, however able to eat. Sulfa (Sulfonamide Antibiotics) *Unknown 10/03/2016 [place] Anaphylaxis High 04/06/2019 Both Ecuadorean and Black walnut Medications Medication Sig Dispensed [...] Description 12/24/2023 1:15 PM CDT Office Visit [facility] [address] [place] [address] Alan Villarreal, DPGloria Consult (Left great toenail concerns) 12/24/2023 Travel from Last 3 Months Family History Medical [...] 1 - PCV) 06/29/2016 COVID-19 vaccine series (2023- season) 2023 01/22/2023, 01/09/2022, 08/09/2021, Additional history exists Influenza for age 65+ 12/08/2023 Procedures Procedure Name Priority Date/Time Associated Diagnosis Comments XR MAMMO BILAT SCREEN FFDM (IA) Routine 03/08/2010 3:58 PM FIXED ROUTE BUS OPERATOR Other screening mammogram LIPID PANEL Timed 10/19/2003 3:20 PM CDT from Last 3 Months or Most Recently Relevant to Health Maintenance Results * XR MAMMO BILAT SCREEN FFDM (03/08/2010 3:58 PM FIXED ROUTE BUS OPERATOR) Anatomical Region Laterality Modality BREASTS, Breast Left, Breast Right Bilateral Mammography Impressions 03/08/2010 4:47 PM FIXED ROUTE BUS OPERATOR Questionable calcifications in the lateral LEFT breast. Recommend magnification views in the craniocaudad and mediolateral positions to better assess these calcifications. The patient is still in the department, and we will proceed to this now. ACR 0 Incomplete: Additional imaging evaluation needed Gladys Snow MD Breast/Diagnostic Radiologist [facility] BAT/giancarlo ?? [id number] Narrative 03/08/2010 4:47 PM FIXED ROUTE BUS OPERATOR BILATERAL SCREENING MAMMOGRAM DONE WITH FULL FIELD [...] CDT) CHOLESTEROL,TOTAL 237(H) 110 - 199 mg/dL [facility] TRIGLYCERIDES 124 40 - 149 mg/dL [facility] HDL CHOLESTEROL 43 41 - 95 mg/dL [facility] CHOL/HDL RATIO 5.51(H) <4.51 [facility] LDL CHOLESTEROL 169(H) 60 - 130 mg/dL [facility] PATIENT STATUS Fasting [facility] 10/19/2003 3:20 PM CDT 10/19/2003 6:07 PM CDT Brian Yi MD CHEMISTRY [facility] INTERNAL ZIP [address] [address] from Last 3 Months or Most Recently Relevant to Health Maintenance Care Teams Geotechnical Laboratory Technician Relationship Specialty Start Date End Date Meenakshi Keller MD [address] [place] [id number] PCP - General Internal Medicine 08/15/23 None . 03/06/10
--- OUTSIDE RECORDS SUMMARY | 2024-01-28 12:36 | XMS_ITS | Continuity of Care Document ---
Author Name [facility] Organization [facility] Care Team Providers Care Event Sales Assistant Name Role Phone [facility] Unavailable Unavailable Medications Combined list of outpatient medications from Department of Defense and Veterans Affairs facilities.Medications provided include 1) outpatient medications from the last 15 months, and 2) patient-reported medications. Medication Details Route Status Patient Instructions Prescription Expires Prescription Number Last Dispense Date Ordering Provider Order Date Order Qty Source CARVEDILOL (CARVEDILOL ), 12.5MG, TABLET, ORAL, GLENMARK PHARMA, 500 ea. BOTTLE Cancele d [id number] : 2023 0 Pharmac y Data Transac tion Service Facilit y CARVEDILOL (CARVEDILOL ), 12.5MG, TABLET, ORAL, GLENMARK PHARMA, 500 ea. BOTTLE Active [id number] 4 2023 60 Pharmac y Data Transac tion Service Facilit y CARVEDILOL (CARVEDILOL ), 12.5MG, TABLET, ORAL, GLENMARK PHARMA, 500 ea. BOTTLE Active [id number] 4 2023 60 Pharmac y Data Transac tion Service Facilit y CARVEDILOL (CARVEDILOL ), 12.5MG, TABLET, ORAL, GLENMARK PHARMA, 500 ea. BOTTLE Active [id number] 4 2023 60 Pharmac y Data Transac tion Service Facilit y CYCLOBENZAP RINE HCL (cyclobenza maria isabel HCl), 10 MG, TABLET, ORAL, UNICHEM PHARMAC, 1000 ea. BOTTLE Active [id number] 4 2023 90 Pharmac y Data Transac tion Service Facilit y FUROSEMIDE (furosemide ), 20 MG, TABLET, ORAL, RISING PHARM, 1000 ea. BOTTLE Cancele d [id number] : 2023 0 Pharmac y Data Transac tion Service Facilit y FUROSEMIDE (furosemide ), 20 MG, TABLET, ORAL, RISING PHARM, 1000 ea. BOTTLE Active [id number] 4 2023 60 Pharmac y Data Transac tion Service Facilit y FUROSEMIDE (furosemide ), 20 MG, TABLET, ORAL, RISING PHARM, 1000 ea. BOTTLE Active [id number] 4 2023 30 Pharmac y Data Transac tion Service Facilit y Social History Combined list of available smoking, tobacco, and other social history from Department of Defense and Veterans Affairs facilities. Social History Type Response Date Comment Sour e This section is an empty social history section. DoD
== END 2024-01-28 12:34 | disposition home or self-care (01) ==
LOC: WOUND 12:33
PROVIDERS: PCP Internal Medicine; Visit Provider Nurse Practitioner Family
DX: I87.312 Chronic venous hypertension (idiopathic) with ulcer of left lower extremity (principal); I87.2 Venous insufficiency (chronic) (peripheral); I89.0 Lymphedema, not elsewhere classified; L97.828 Non-pressure chronic ulcer of other part of left lower leg with other specified severity
CPT/HCPCS: 97602; G0463

== ENCOUNTER 2024-01-31 09:01 | Outpatient (CLI) | payer MEDICARE, OTHER, SELFPAY ==
--- OUTSIDE RECORDS SUMMARY | 2024-01-31 09:03 | XMS_ITS | Referral Summary ---
Author Organization [facility] Address [address] [place] [address] Care Team Providers Care Workers Compensation Specialist Name Role Phone Elsewhere, Pcp Primary Care Provider Unavailabl e Source Comments Patient records contain information from all sites at [facility]. For routine questions regarding patient records, call [phone] during business hours, M-F 8:00 AM - 5:00 PM Central Time. Record requests for emergency care only can be directed to [phone] at any time.[facility] Allergies Active Allergy Reactions Criticality Noted Date Comments Animal Dander Other (see comments) 10/03/2016 asthma Diphtheria, Pertussis, Tetanus Vaccine Other (see comments) 04/06/2019 Erythromycin Base Nausea And Vomiting 0 Melon Anaphylaxis 04/06/2019 Penicillins Other (see comments) 04/03/2010 Pineapple Other (see comments) 04/06/2019 Ragweed Shortness of breath (Reselect Reaction) 10/03/2016 wheeze, asthma, scrathy throat [place] Other (see comments) 04/06/2019 Positive on skin test, however able to eat. Sulfa (Sulfonamide Antibiotics) Other (see comments) 10/03/2016 [place] Anaphylaxis 04/06/2019 Both Indonesian and Black walnut Medications hydroCHLOROthia zide (HYDRODIURIL) [...] (04/06/2019): Added automatically from request for surgery [id number] Radiculopathy Lumbar 09/20/2016 Immunizations Name Administration Dates [...] PM CDT Legal Sex Female 10:36 AM DIRECTOR OF OUTPATIENT SERVICES Gender Identity Female 12/20/2020 12:41 PM CDT [...] (308 lb 3.3 oz) 03/10/2021 1:50 PM DIRECTOR OF OUTPATIENT SERVICES Height 176.5 cm (5' 9.5) 03/10/2021 1:50 PM DIRECTOR OF OUTPATIENT SERVICES Body Mass Index 44.86 03/10/2021 1:50 PM DIRECTOR OF OUTPATIENT SERVICES Plan of Treatment Not on file Medical Devices Implanted Type Area Rn Intake Device Identifier Shelf Expiration Date Model / [...] OUTSIDE MG MAMMOGRAM Routine 03/08/2010 4:13 PM DIRECTOR OF OUTPATIENT SERVICES from Last 3 Months or Most Recently Relevant to Health Maintenance Results * (ABNORMAL) Comprehensive Metabolic Panel (12/20/2020 2:45 PM CDT) [facility] [address] Potassium, S 3.6 3.6 - 5.2 mmol/L [...] BLOOD ADD-ON Fin al Result [facility] [address] [place] [address], [facility] DTL [facility] [address] [place] [address] * Outside MG Mammogram (03/08/2010 4:13 PM DIRECTOR OF OUTPATIENT SERVICES) 03/08/2010 4:13 PM DIRECTOR OF OUTPATIENT SERVICES Addenda Addendum by ProviderValeriano M.D. on 03/08/2010 4:13 PM DIRECTOR OF OUTPATIENT SERVICES ODM^^^MCR XR FFDM MAMMO UNI ADDL VIEWS LEFT 03/08/2010 16:13:51 Historical Provider IMG BI PROCEDURES Final Resu lt Performing Organization Address City/[facility] Co de Phone Number [facility] [address] [place] [address] from Last 3 Months or Most Recently Relevant to Health Maintenance Insurance MEDICARE [facility] [employer] Advance Directives For more information, please contact: [phone] * Full Code (Latest Code Status on File) Date Activated Date Inactivated Comments 04/24/2019 10:01 AM 04/24/2019 3:16 PM Question Answer Comments Full Code: Discussed Care Teams Workers Compensation Specialist Relationship Specialty Start Date End Date Elsewhere, Pcp PCP - General Family Medicine 12/02/20
--- OUTSIDE RECORDS SUMMARY | 2024-01-31 09:03 | XMS_ITS | Clinical Summary ---
Author Organization [facility] Address [address] [place] [address] Care Team Providers Care Restaurant Greeter Name Role Phone Elsewhere, Pcp Primary Care Provider Unavailabl e Source Comments Patient records contain information from all sites at [facility]. For routine questions regarding patient records, call [phone] during business hours, M-F 8:00 AM - 5:00 PM Central Time. Record requests for emergency care only can be directed to [phone] at any time.[facility] Allergies Active Allergy Reactions Criticality Noted Date Comments Animal Dander Other (see comments) 10/03/2016 asthma Diphtheria, Pertussis, Tetanus Vaccine Other (see comments) 04/06/2019 Erythromycin Base Nausea And Vomiting 0 Melon Anaphylaxis 04/06/2019 Penicillins Other (see comments) 04/03/2010 Pineapple Other (see comments) 04/06/2019 Ragweed Shortness of breath (Reselect Reaction) 10/03/2016 wheeze, asthma, scrathy throat [place] Other (see comments) 04/06/2019 Positive on skin test, however able to eat. Sulfa (Sulfonamide Antibiotics) Other (see comments) 10/03/2016 [place] Anaphylaxis 04/06/2019 Both German and Black walnut Medications hydroCHLOROthia zide (HYDRODIURIL) [...] (04/06/2019): Added automatically from request for surgery [id number] Radiculopathy Lumbar 09/20/2016 Immunizations Name Administration Dates [...] PM CDT Legal Sex Female 10:36 AM KITCHEN AND COUNTER WORKER Gender Identity Female 12/20/2020 12:41 PM CDT [...] (308 lb 3.3 oz) 03/10/2021 1:50 PM KITCHEN AND COUNTER WORKER Height 176.5 cm (5' 9.5) 03/10/2021 1:50 PM KITCHEN AND COUNTER WORKER Body Mass Index 44.86 03/10/2021 1:50 PM KITCHEN AND COUNTER WORKER Plan of Treatment Health Maintenance Due Date [...] 07/10/19 23 Medical Devices Implanted Type Area Head Of It Device Identifier Shelf Expiration Date Model / [...] OUTSIDE MG MAMMOGRAM Routine 03/08/2010 4:13 PM KITCHEN AND COUNTER WORKER from Last 3 Months or Most Recently Relevant to Health Maintenance Results * (ABNORMAL) Comprehensive Metabolic Panel (12/20/2020 2:45 PM CDT) Pathologist [facility] Potassium, S 3.6 3.6 - 5.2 mmol/L [...] Ph.D. LAB BLOOD ADD-ON Fin al Result [facility] [address] [place] [address], [place] D[place] [facility] [address] [place] [address] * Outside MG Mammogram (03/08/2010 4:13 PM KITCHEN AND COUNTER WORKER) 03/08/2010 4:13 PM KITCHEN AND COUNTER WORKER Addenda Addendum by Provider, Historical, M.D. on 03/08/2010 4:13 PM KITCHEN AND COUNTER WORKER ODM^^^MCR XR FFDM MAMMO UNI ADDL VIEWS LEFT 03/08/2010 16:13:51 us Historical Provider IMG BI PROCEDURES Final Resu lt [facility] [address] from Last 3 Months or Most Recently Relevant to Health Maintenance Insurance MEDICARE [facility] Advance Directives For more information, please contact: [phone] * Full Code (Latest Code Status on File) Date Activated Date Inactivated Comments 04/24/2019 10:01 AM 04/24/2019 3:16 PM Question Answer Comments Full Code: Discussed Care Teams Restaurant Greeter Relationship Specialty Start Date End Date Elsewhere, Pcp PCP - General Family Medicine 12/02/20
--- OUTSIDE RECORDS SUMMARY | 2024-01-31 09:03 | XMS_ITS | Continuity of Care Document ---
Author Name [facility] Organization [facility] Care Team Providers Care Rv Repair Technician Name Role Phone [facility] Unavailable Unavailable Medications Combined list of outpatient medications from Department of Defense and Veterans Affairs facilities.Medications provided include 1) outpatient medications from the last 15 months, and 2) patient-reported medications. Medication Details Route Status Patient Instructions Prescription Expires Prescription Number Last Dispense Date Ordering Provider Order Date Order Qty Source CARVEDILOL (CARVEDILOL ), 12.5MG, TABLET, ORAL, GLENMARK PHARMA, 500 ea. BOTTLE Cancele d [id number] : 2023 0 Pharmac y Data Transac tion Service Facilit y CARVEDILOL (CARVEDILOL ), 12.5MG, TABLET, ORAL, GLENMARK PHARMA, 500 ea. BOTTLE Active [id number] 4 2023 60 Pharmac y Data Transac tion Service Facilit y CARVEDILOL (CARVEDILOL ), 12.5MG, TABLET, ORAL, GLENMARK PHARMA, 500 ea. BOTTLE Active [id number] 2023 60 Pharmac y Data Transac tion Service Facilit y CARVEDILOL (CARVEDILOL ), 12.5MG, TABLET, ORAL, GLENMARK PHARMA, 500 ea. BOTTLE Active [id number] 4 2023 60 Pharmac y Data Transac tion Service Facilit y CYCLOBENZAP RINE HCL (cyclobenza maria isabel HCl), 10 MG, TABLET, ORAL, UNICHEM PHARMAC, 1000 ea. BOTTLE Active [id number] 4 2023 90 Pharmac y Data Transac tion Service Facilit y FUROSEMIDE (furosemide ), 20 MG, TABLET, ORAL, RISING PHARM, 1000 ea. BOTTLE Cancele d [id number] : 2023 0 Pharmac y Data Transac tion Service Facilit y FUROSEMIDE (furosemide ), 20 MG, TABLET, ORAL, RISING PHARM, 1000 ea. BOTTLE Active [id number] 4 2023 60 Pharmac y Data Transac tion Service Facilit y FUROSEMIDE (furosemide ), 20 MG, TABLET, ORAL, RISING PHARM, 1000 ea. BOTTLE Active [id number] 4 2023 30 Pharmac y Data Transac tion Service Facilit y Social History Combined list of available smoking, tobacco, and other social history from Department of Defense and Veterans Affairs facilities. Social History Type Response Date Comment Sour e This section is an empty social history section. DoD
--- OUTSIDE RECORDS SUMMARY | 2024-01-31 09:03 | XMS_ITS | Clinical Summary ---
Author Organization [facility] Address [place], [place] [address] Care Team Providers Care Organic Extractions Technician Name Role Phone None Unavailable Unavailable Meenakshi Keller MD Primary Care Provider [phone]- [phone] Allergies Active Allergy Reactions Criticality Noted Date Comments Animal Dander *Unknown 10/03/2016 asthma Diphtheria, Pertussis, Tetanus Vaccine *Unknown 04/06/2019 Erythromycin Base Nausea And Vomiting 0 Melon Anaphylaxis High 04/06/2019 Penicillins *Unknown 12/24/2023 Taken a test but have never taken the medication Pineapple *Unknown 04/06/2019 Ragweed Dyspnea 10/03/2016 wheeze, asthma, scrathy throat [place] *Unknown 04/06/2019 Positive on skin test, however able to eat. Sulfa (Sulfonamide Antibiotics) *Unknown 10/03/2016 [place] Anaphylaxis High 04/06/[address] [place] and Black walnut Medications Medication Sig Dispensed [...] Description 12/24/2023 1:15 PM CDT Office Visit [facility] [address] [place] [address] Alan Villarreal, DPGloria Consult (Left great toenail [...] SCREEN FFDM (IA) Routine 03/08/2010 3:58 PM DOG HANDLER Other screening mammogram LIPID PANEL Timed 10/19/2003 3:20 PM CDT from Last 3 Months or Most Recently Relevant to Health Maintenance Results * XR MAMMO BILAT SCREEN FFDM (03/08/2010 3:58 PM DOG HANDLER) Anatomical Region Laterality Modality BREASTS, Breast Left, Breast Right Bilateral Mammography Impressions 03/08/2010 4:47 PM DOG HANDLER Questionable calcifications in the lateral LEFT breast. Recommend magnification views in the craniocaudad and mediolateral positions to better assess these calcifications. The patient is still in the department, and we will proceed to this now. ACR 0 Incomplete: Additional imaging evaluation needed Gladys Snow MD Breast/Diagnostic Radiologist [facility] BAT/giancarlo ?? 1610 Narrative 03/08/2010 4:47 PM DOG HANDLER BILATERAL SCREENING MAMMOGRAM DONE WITH FULL FIELD [...] CDT) CHOLESTEROL,TOTAL 237(H) 110 - 199 mg/dL [facility] TRIGLYCERIDES 124 40 - 149 mg/dL [facility] HDL CHOLESTEROL 43 41 - 95 mg/dL [facility] CHOL/HDL RATIO 5.51(H) <4.51 [facility] LDL CHOLESTEROL 169(H) 60 - 130 mg/dL [facility] PATIENT STATUS Fasting [facility] 10/19/2003 3:20 PM CDT 10/19/2003 6:07 PM CDT Brian Yi MD CHEMISTRY [facility] INTERNAL ZIP [address] [address] from Last 3 Months or Most Recently Relevant to Health Maintenance Care Teams Organic Extractions Technician Relationship Specialty Start Date End Date Meenakshi Keller MD [address] [place] [address] PCP - General Internal Medicine 08/15/23 None . 03/06/10
--- OUTSIDE RECORDS SUMMARY | 2024-01-31 09:03 | XMS_ITS ---
Author Organization [facility] Address [address] [place] [address] Care Team Providers Care Paper Baler Name Role Phone Unavailable Unavailable Unavailable Surgery Details Not on file Complications Check Surgery Details section. Procedure Estimated Blood Loss Check Surgery Details section. Procedure Findings Check Surgery Details section. Procedure Specimens Taken Check Surgery Details section.
== END 2024-01-31 09:02 | disposition home or self-care (01) ==
LOC: WOUND 09:01
PROVIDERS: PCP Internal Medicine; Visit Provider Nurse Practitioner Family
DX: I87.312 Chronic venous hypertension (idiopathic) with ulcer of left lower extremity (principal); I87.2 Venous insufficiency (chronic) (peripheral); I89.0 Lymphedema, not elsewhere classified; L97.821 Non-pressure chronic ulcer of other part of left lower leg limited to breakdown of skin
CPT/HCPCS: G0463

== ENCOUNTER 2024-02-03 14:00 | Outpatient (CLI) | payer MEDICARE, OTHER, SELFPAY ==
--- OUTSIDE RECORDS SUMMARY | 2024-02-03 14:02 | XMS_ITS | Clinical Summary ---
Author Organization [employer] [facility] Address [place], [place] [address] Care Team Providers Care Fur Comber Name Role Phone None Unavailable Unavailable Meenakshi Keller MD Primary Care Provider [phone]- [phone] Allergies Active Allergy Reactions Criticality Noted Date Comments Animal Dander *Unknown 10/03/2016 asthma Diphtheria, Pertussis, Tetanus Vaccine *Unknown 04/06/2019 Erythromycin Base Nausea And Vomiting 0 Melon Anaphylaxis High 04/06/2019 Penicillins *Unknown 12/24/2023 Taken a test but have never taken the medication Pineapple *Unknown 04/06/2019 Ragweed Dyspnea 10/03/2016 wheeze, asthma, scrathy throat [place] *Unknown 04/06/2019 Positive on skin test, however able to eat. Sulfa (Sulfonamide Antibiotics) *Unknown 10/03/2016 [place] Anaphylaxis High 04/06/2019 Both [place] and Black walnut Medications Medication Sig Dispensed [...] Description 12/24/2023 1:15 PM CDT Office Visit [facility] [address] [place] [address] Alan Villarreal, DPGloria Consult (Left great toenail [...] SCREEN FFDM (IA) Routine 03/08/2010 3:58 PM STRUCTURAL SHOP HELPER Other screening mammogram LIPID PANEL Timed 10/19/2003 3:20 PM CDT from Last 3 Months or Most Recently Relevant to Health Maintenance Results * XR MAMMO BILAT SCREEN FFDM (03/08/2010 3:58 PM STRUCTURAL SHOP HELPER) Anatomical Region Laterality Modality BREASTS, Breast Left, Breast Right Bilateral Mammography Impressions 03/08/2010 4:47 PM STRUCTURAL SHOP HELPER Questionable calcifications in the lateral LEFT breast. Recommend magnification views in the craniocaudad and mediolateral positions to better assess these calcifications. The patient is still in the department, and we will proceed to this now. ACR 0 Incomplete: Additional imaging evaluation needed Gladys Snow MD Breast/Diagnostic Radiologist [facility] BAT/giancarlo ?? 1610 Narrative 03/08/2010 4:47 PM STRUCTURAL SHOP HELPER BILATERAL SCREENING MAMMOGRAM DONE WITH FULL FIELD [...] CDT) CHOLESTEROL,TOTAL 237(H) 110 - 199 mg/dL [facility] TRIGLYCERIDES 124 40 - 149 mg/dL [facility] HDL CHOLESTEROL 43 41 - 95 mg/dL [facility] CHOL/HDL RATIO 5.51(H) <4.51 [facility] LDL CHOLESTEROL 169(H) 60 - 130 mg/dL [facility] PATIENT STATUS Fasting [facility] 10/19/2003 3:20 PM CDT 10/19/2003 6:07 PM CDT Brian Yi MD CHEMISTRY [facility] INTERNAL ZIP [address] [address] from Last 3 Months or Most Recently Relevant to Health Maintenance Care Teams Fur Comber Relationship Specialty Start Date End Date Meenakshi Keller MD [address] [place] [address] PCP - General Internal Medicine 08/15/23 None . 03/06/10
--- OUTSIDE RECORDS SUMMARY | 2024-02-03 14:02 | XMS_ITS | Referral Summary ---
Author Organization [facility] Address [address] [place] [address] Care Team Providers Care Packager Head Name Role Phone Elsewhere, Pcp Primary Care Provider Unavailabl e Source Comments Patient records contain information from all sites at [facility]. For routine questions regarding patient records, call [phone] during business hours, M-F 8:00 AM - 5:00 PM Central Time. Record requests for emergency care only can be directed to [phone] at any time.[facility] Allergies Active Allergy Reactions Criticality Noted Date Comments Animal Dander Other (see comments) 10/03/2016 asthma Diphtheria, Pertussis, Tetanus Vaccine Other (see comments) 04/06/2019 Erythromycin Base Nausea And Vomiting 0 Melon Anaphylaxis 04/06/2019 Penicillins Other (see comments) 04/03/2010 Pineapple Other (see comments) 04/06/2019 Ragweed Shortness of breath (Reselect Reaction) 10/03/2016 wheeze, asthma, scrathy throat [place] Other (see comments) 04/06/2019 Positive on skin test, however able to eat. Sulfa (Sulfonamide Antibiotics) Other (see comments) 10/03/2016 [place] Anaphylaxis 04/06/2019 Both [place] and Black walnut Medications hydroCHLOROthia zide (HYDRODIURIL) [...] (04/06/2019): Added automatically from request for surgery [id number] Radiculopathy Lumbar 09/20/2016 Immunizations Name Administration Dates [...] PM CDT Legal Sex Female 10:36 AM JUKEBOX ROUTEMAN Gender Identity Female 12/20/2020 12:41 PM CDT [...] (308 lb 3.3 oz) 03/10/2021 1:50 PM JUKEBOX ROUTEMAN Height 176.5 cm (5' 9.5) 03/10/2021 1:50 PM JUKEBOX ROUTEMAN Body Mass Index 44.86 03/10/2021 1:50 PM JUKEBOX ROUTEMAN Plan of Treatment Not on file Medical Devices Implanted Type Area Riveter Portable Machine Device Identifier Shelf Expiration Date Model / [...] OUTSIDE MG MAMMOGRAM Routine 03/08/2010 4:13 PM JUKEBOX ROUTEMAN from Last 3 Months or Most Recently Relevant to Health Maintenance Results * (ABNORMAL) Comprehensive Metabolic Panel (12/20/2020 2:45 PM CDT) [facility] Potassium, S 3.6 3.6 - 5.2 mmol/L [...] Ph.D. LAB BLOOD ADD-ON Fin al Result [facility] [address] [place] [address], [place] [facility] [facility] [address] [place] [address] * Outside MG Mammogram (03/08/2010 4:13 PM JUKEBOX ROUTEMAN) 03/08/2010 4:13 PM JUKEBOX ROUTEMAN Addenda Addendum by ProviderValeriano M.D. on 03/08/2010 4:13 PM JUKEBOX ROUTEMAN ODM^^^MCR XR FFDM MAMMO UNI ADDL VIEWS LEFT 03/08/2010 16:13:51 Historical Provider IMG BI PROCEDURES Final Resu lt Performing Organization Address City/[facility] Co de Phone Number [facility] [address] [place] [address] from Last 3 Months or Most Recently Relevant to Health Maintenance Insurance MEDICARE [facility] FOR [place] Advance Directives For more information, please contact: [phone] * Full Code (Latest Code Status on File) Date Activated Date Inactivated Comments 04/24/2019 10:01 AM 04/24/2019 3:16 PM Question Answer Comments Full Code: Discussed Care Teams Packager Head Relationship Specialty Start Date End Date Elsewhere, Pcp PCP - General Family Medicine 12/02/20
--- OUTSIDE RECORDS SUMMARY | 2024-02-03 14:02 | XMS_ITS | Continuity of Care Document ---
Author Name [facility] Organization [facility] Care Team Providers Care Clinical Pharmacist Name Role Phone [facility] Unavailable Unavailable Medications Combined list of outpatient medications from Department of Defense and Veterans Affairs facilities.Medications provided include 1) outpatient medications from the last 15 months, and 2) patient-reported medications. Medication Details Route Status Patient Instructions Prescription Expires Prescription Number Last Dispense Date Ordering Provider Order Date Order Qty Source CARVEDILOL (CARVEDILOL ), 12.5MG, TABLET, ORAL, GLENMARK PHARMA, 500 ea. BOTTLE Cancele d [id number] : 2023 0 Pharmac y Data Transac tion Service Facilit y CARVEDILOL (CARVEDILOL ), 12.5MG, TABLET, ORAL, GLENMARK PHARMA, 500 ea. BOTTLE Active [id number] 4 2023 60 Pharmac y Data Transac tion Service Facilit y CARVEDILOL (CARVEDILOL ), 12.5MG, TABLET, ORAL, GLENMARK PHARMA, 500 ea. BOTTLE Active [id number] 4 2023 60 Pharmac y Data Transac tion Service Facilit y CARVEDILOL (CARVEDILOL ), 12.5MG, TABLET, ORAL, GLENMARK PHARMA, 500 ea. BOTTLE Active [id number] 4 2023 60 Pharmac y Data Transac tion Service Facilit y CYCLOBENZAP RINE HCL (cyclobenza maria isabel HCl), 10 MG, TABLET, ORAL, [facility]M [facility], 1000 ea. BOTTLE Active [id number] 4 2023 90 Pharmac y Data Transac tion Service Facilit y FUROSEMIDE (furosemide ), 20 MG, TABLET, ORAL, RISING PHARM, 1000 ea. BOTTLE Cancele d [id number] : 2023 0 Pharmac y Data Transac tion Service Facilit y FUROSEMIDE (furosemide ), 20 MG, TABLET, ORAL, RISING PHARM, 1000 ea. BOTTLE Active [id number] 4 2023 60 Pharmac y Data Transac tion Service Facilit y FUROSEMIDE (furosemide ), 20 MG, TABLET, ORAL, RISING PHARM, 1000 ea. BOTTLE Active [id number] 4 2023 30 Pharmac y Data Transac tion Service Facilit y Social History Combined list of available smoking, tobacco, and other social history from Department of Defense and Veterans Affairs facilities. Social History Type Response Date Comment Sour e This section is an empty social history section. DoD
--- OUTSIDE RECORDS SUMMARY | 2024-02-03 14:02 | XMS_ITS ---
Author Organization [facility] Address [address] [place] [address] Care Team Providers Care Band Saw Operator Cake Cutting Name Role Phone Unavailable Unavailable Unavailable Surgery Details Not on file Complications Check Surgery Details section. Procedure Estimated Blood Loss Check Surgery Details section. Procedure Findings Check Surgery Details section. Procedure Specimens Taken Check Surgery Details section.
--- OUTSIDE RECORDS SUMMARY | 2024-02-03 14:02 | XMS_ITS | Clinical Summary ---
Author Organization [facility] Address [address] [place] [address] Care Team Providers Care Bottom Bleacher Name Role Phone Elsewhere, Pcp Primary Care Provider Unavailabl e Source Comments Patient records contain information from all sites at [facility]. For routine questions regarding patient records, call [phone] during business hours, M-F 8:00 AM - 5:00 PM Central Time. Record requests for emergency care only can be directed to [phone] at any time.[facility] Allergies Active Allergy Reactions Criticality Noted Date Comments Animal Dander Other (see comments) 10/03/2016 asthma Diphtheria, Pertussis, Tetanus Vaccine Other (see comments) 04/06/2019 Erythromycin Base Nausea And Vomiting 0 Melon Anaphylaxis 04/06/2019 Penicillins Other (see comments) 04/03/2010 Pineapple Other (see comments) 04/06/2019 Ragweed Shortness of breath (Reselect Reaction) 10/03/2016 wheeze, asthma, scrathy throat [place] Other (see comments) 04/06/2019 Positive on skin test, however able to eat. Sulfa (Sulfonamide Antibiotics) Other (see comments) 10/03/2016 [place] Anaphylaxis 04/06/2019 Both [place] and Black walnut Medications hydroCHLOROthia zide (HYDRODIURIL) [...] (04/06/2019): Added automatically from request for surgery [id number] Radiculopathy Lumbar 09/20/2016 Immunizations Name Administration Dates [...] PM CDT Legal Sex Female 10:36 AM DECORATOR LIGHTING FIXTURES Gender Identity Female 12/20/2020 12:41 PM CDT [...] (308 lb 3.3 oz) 03/10/2021 1:50 PM DECORATOR LIGHTING FIXTURES Height 176.5 cm (5' 9.5) 03/10/2021 1:50 PM DECORATOR LIGHTING FIXTURES Body Mass Index 44.86 03/10/2021 1:50 PM DECORATOR LIGHTING FIXTURES Plan of Treatment Health Maintenance Due Date [...] 07/10/19 23 Medical Devices Implanted Type Area Area Attendant Device Identifier Shelf Expiration Date Model / [...] OUTSIDE MG MAMMOGRAM Routine 03/08/2010 4:13 PM DECORATOR LIGHTING FIXTURES from Last 3 Months or Most Recently Relevant to Health Maintenance Results * (ABNORMAL) Comprehensive Metabolic Panel (12/20/2020 2:45 PM CDT) Pathologist [facility] Potassium, S 3.6 3.6 - 5.2 mmol/L [...] Ph.D. LAB BLOOD ADD-ON Fin al Result [facility] [address] [place] [address], [place] [facility] [address] [place] [address] * Outside MG Mammogram (03/08/2010 4:13 PM DECORATOR LIGHTING FIXTURES) 03/08/2010 4:13 PM DECORATOR LIGHTING FIXTURES Addenda Addendum by Provider, Historical, M.D. on 03/08/2010 4:13 PM DECORATOR LIGHTING FIXTURES ODM^^^MCR XR FFDM MAMMO UNI ADDL VIEWS LEFT 03/08/2010 16:13:51 us Historical Provider IMG BI PROCEDURES Final Resu lt [facility] [address] from Last 3 Months or Most Recently Relevant to Health Maintenance Insurance MEDICARE [facility] FOR [facility] Advance Directives For more information, please contact: [phone] * Full Code (Latest Code Status on File) Date Activated Date Inactivated Comments 04/24/2019 10:01 AM 04/24/2019 3:16 PM Question Answer Comments Full Code: Discussed Care Teams Bottom Bleacher Relationship Specialty Start Date End Date Elsewhere, Pcp PCP - General Family Medicine 12/02/20
== END 2024-02-03 14:01 | disposition home or self-care (01) ==
LOC: WOUND 14:00
PROVIDERS: PCP Internal Medicine; Visit Provider Nurse Practitioner Family
DX: I89.0 Lymphedema, not elsewhere classified (principal); I87.2 Venous insufficiency (chronic) (peripheral)
CPT/HCPCS: G0463

== ENCOUNTER 2024-03-02 08:31 | Outpatient (CLI) | payer MEDICARE, OTHER, SELFPAY ==
--- OUTSIDE RECORDS SUMMARY | 2024-03-02 08:37 | XMS_ITS ---
Author Organization [facility] Address [address] [place] [address] Care Team Providers Care Commercial Credit Portfolio Manager Name Role Phone Unavailable Unavailable Unavailable Surgery Details Not on file Complications Check Surgery Details section. Procedure Estimated Blood Loss Check Surgery Details section. Procedure Findings Check Surgery Details section. Procedure Specimens Taken Check Surgery Details section.
--- OUTSIDE RECORDS SUMMARY | 2024-03-02 08:37 | XMS_ITS | Clinical Summary ---
Author Organization [facility] Address [place], [place] [address] Care Team Providers Care Cashier Ticket Selling Name Role Phone None Unavailable Unavailable Meenakshi Keller MD Primary Care Provider +1- [phone] Allergies Active Allergy Reactions Criticality Noted Date Comments Animal Dander *Unknown 10/03/2016 asthma Diphtheria, Pertussis, Tetanus Vaccine *Unknown 04/06/2019 Erythromycin Base Nausea And Vomiting 0 Melon Anaphylaxis High 04/06/2019 Penicillins *Unknown 12/24/2023 Taken a test but have never taken the medication [place] *Unknown 04/06/2019 Ragweed Dyspnea 10/03/2016 wheeze, asthma, scrathy throat [place] *Unknown 04/06/2019 Positive on skin test, however able to eat. Sulfa (Sulfonamide Antibiotics) *Unknown 10/03/2016 [place] Anaphylaxis High 04/06/2019 Both [place] and Black walnut Medications Medication Sig Dispensed [...] Description 12/24/2023 1:15 PM CDT Office Visit [facility] [address] [place] [address] Alan Villarreal, DPGloria Consult (Left great toenail [...] SCREEN FFDM (IA) Routine 03/08/2010 3:58 PM FURNITURE SALES CONSULTANT Other screening mammogram LIPID PANEL Timed 10/19/2003 3:20 PM CDT from Last 3 Months or Most Recently Relevant to Health Maintenance Results * XR MAMMO BILAT SCREEN FFDM (03/08/2010 3:58 PM FURNITURE SALES CONSULTANT) Anatomical Region Laterality Modality BREASTS, Breast Left, Breast Right Bilateral Mammography Impressions 03/08/2010 4:47 PM FURNITURE SALES CONSULTANT Questionable calcifications in the lateral LEFT breast. Recommend magnification views in the craniocaudad and mediolateral positions to better assess these calcifications. The patient is still in the department, and we will proceed to this now. ACR 0 Incomplete: Additional imaging evaluation needed Gladys Snow MD Breast/Diagnostic Radiologist [facility] BAT/giancarlo 1610 Narrative 03/08/2010 4:47 PM FURNITURE SALES CONSULTANT BILATERAL SCREENING MAMMOGRAM DONE WITH FULL FIELD [...] CDT) CHOLESTEROL,TOTAL 237(H) 110 - 199 mg/dL [facility] TRIGLYCERIDES 124 40 - 149 mg/dL [facility] HDL CHOLESTEROL 43 41 - 95 mg/dL [facility] CHOL/HDL RATIO 5.51(H) <4.51 [facility] LDL CHOLESTEROL 169(H) 60 - 130 mg/dL [facility] PATIENT STATUS Fasting [facility] 10/19/2003 3:20 PM CDT 10/19/2003 6:07 PM CDT Brian Yi MD CHEMISTRY [facility] INTERNAL ZIP [phone] [address] from Last 3 Months or Most Recently Relevant to Health Maintenance Care Teams Cashier Ticket Selling Relationship Specialty Start Date End Date Meenakshi Keller MD [address] [place] [address] PCP - General Internal Medicine 08/15/23 None . 03/06/10
--- OUTSIDE RECORDS SUMMARY | 2024-03-02 08:37 | XMS_ITS | Continuity of Care Document ---
Author Name [facility] Organization [facility] Care Team Providers Care Trust Manager Name Role Phone [facility] Unavailable Unavailable Medications Combined list of outpatient medications from Department of Defense and Veterans Affairs facilities.Medications provided include 1) outpatient medications from the last 15 months, and 2) patient-reported medications. Medication Details Route Status Patient Instructions Prescription Expires Prescription Number Last Dispense Date Ordering Provider Order Date Order Qty Source CARVEDILOL (CARVEDILOL ), 12.5MG, TABLET, ORAL, GLENMARK PHARMA, 500 ea. BOTTLE Cancele d [id number] : 2023 0 Pharmac y Data Transac tion Service Facilit y CARVEDILOL (CARVEDILOL ), 12.5MG, TABLET, ORAL, GLENMARK PHARMA, 500 ea. BOTTLE Active [id number] 4 2023 60 Pharmac y Data Transac tion Service Facilit y CARVEDILOL (CARVEDILOL ), 12.5MG, TABLET, ORAL, GLENMARK PHARMA, 500 ea. BOTTLE Active [id number] 4 2023 60 Pharmac y Data Transac tion Service Facilit y CARVEDILOL (CARVEDILOL ), 12.5MG, TABLET, ORAL, GLENMARK PHARMA, 500 ea. BOTTLE Active [id number] 4 2023 60 Pharmac y Data Transac tion Service Facilit y CYCLOBENZAP RINE HCL (cyclobenza maria isabel HCl), 10 MG, TABLET, ORAL, UNICHEM PHARMAC, 1000 ea. BOTTLE Active [id number] 4 2023 90 Pharmac y Data Transac tion Service Facilit y FUROSEMIDE (furosemide ), 20 MG, TABLET, ORAL, RISING PHARM, 1000 ea. BOTTLE Cancele d [id number] : 2023 0 Pharmac y Data Transac tion Service Facilit y FUROSEMIDE (furosemide ), 20 MG, TABLET, ORAL, RISING PHARM, 1000 ea. BOTTLE Active [id number] 4 2023 60 Pharmac y Data Transac tion Service Facilit y FUROSEMIDE (furosemide ), 20 MG, TABLET, ORAL, RISING PHARM, 1000 ea. BOTTLE Active [id number] 4 2023 30 Pharmac y Data Transac tion Service Facilit y Social History Combined list of available smoking, tobacco, and other social history from Department of Defense and Veterans Affairs facilities. Social History Type Response Date Comment Sour e This section is an empty social history section. DoD
--- OUTSIDE RECORDS SUMMARY | 2024-03-02 08:37 | XMS_ITS | Clinical Summary ---
Author Organization [facility] Address [address] [place] [address] Care Team Providers Care Zig Zag Stitcher Name Role Phone Elsewhere, Pcp Primary Care Provider Unavailabl e Source Comments Patient records contain information from all sites at [facility]. For routine questions regarding patient records, call [phone] during business hours, M-F 8:00 AM - 5:00 PM Central Time. Record requests for emergency care only can be directed to [phone] at any time.[facility] Allergies Active Allergy Reactions Criticality Noted Date Comments Animal Dander Other (see comments) 10/03/2016 asthma Diphtheria, Pertussis, Tetanus Vaccine Other (see comments) 04/06/2019 Erythromycin Base Nausea And Vomiting 0 Melon Anaphylaxis 04/06/2019 Penicillins Other (see comments) 04/03/2010 Pineapple Other (see comments) 04/06/2019 Ragweed Shortness of breath (Reselect Reaction) 10/03/2016 wheeze, asthma, scrathy throat [place] Other (see comments) 04/06/2019 Positive on skin test, however able to eat. Sulfa (Sulfonamide Antibiotics) Other (see comments) 10/03/2016 [place] Anaphylaxis 04/06/2019 Both Syriac and Black walnut Medications hydroCHLOROthia zide (HYDRODIURIL) [...] (04/06/2019): Added automatically from request for surgery [id number] Radiculopathy Lumbar 09/20/2016 Immunizations Name Administration Dates [...] PM CDT Legal Sex Female 10:36 AM TRACTOR TECHNICIAN Gender Identity Female 12/20/2020 12:41 PM CDT Sexual Orientation Straight 12/20/2020 12 :41 PM CDT Last Filed Vital Signs Vital Sign Reading Time Taken Comments Blood Pressure 209/96 01/25/2023 10:02 AM CDT Pulse 87 01/25/2023 10:18 AM CDT Temperature 36 C (96.8 F) 01/25/2023 10:02 AM CDT Respiratory Rate 20 01/25/2023 10:18 AM CDT Oxygen Saturation 98% 01/25/2023 10:18 AM CDT Inhaled Oxygen Concentration - - Weight 140 kg (308 lb 3.3 oz) 03/10/2021 1:50 PM TRACTOR TECHNICIAN Height 176.5 cm (5' 9.5) 03/10/2021 1:50 PM TRACTOR TECHNICIAN Body Mass Index 44.86 03/10/2021 1:50 PM TRACTOR TECHNICIAN Plan of Treatment Health Maintenance Due Date Last Done Comments Bone Density Scan (Osteoporosis Screen) 1951 CT Colonography 1950 FIT 1950 Hepatitis C Screening 1950 Zoster Vaccines (1 of 2) 06/29/2001 Mammogram 10/04/2011 10/03/2010 (Perf ormed elsewhere), 03/08/2010, 03/08/2010, Additional history exists Colonoscopy 10/04/2018 10/04/2008 (Perf ormed elsewhere) Depression Screening (Annual PHQ-2) 04/08/2023 Fall Risk Screen (Annual) 04/08/2023 COVID-19 Vaccine ( season) 2023 01/22/2023, 01/09/2022, 08/09/2021, Additional history exists Fasting Glucose for Diabetes Screening 12/21/2023 12/20/2020 Influenza Vaccine (#1) 2024 3, 01/09/2022, 01/04/2021, Additional history exists Cologuard 07/07/2024 07/07/2021 Colorectal Cancer Screening 07/07/2024 Pneumococcal vaccine (65+ years) Completed 07/09/2022 IPV Vaccines Aged Out No longer eligi ble based on patient's age to complete this topic Medical Devices Implanted Type Area Shoe Worker Device Identifier Shelf Expiration Date Model / [...] OUTSIDE MG MAMMOGRAM Routine 03/08/2010 4:13 PM TRACTOR TECHNICIAN from Last 3 Months or Most Recently [...] 2:45 PM CDT 12/20/2020 3:29 PM CDT us Sabino Jung M.D., Ph.D. LAB BLOOD ADD-ON Fin al Result [facility] [address] [place] [address], [place] DTL [facility] [address] [place] [address] * Outside MG Mammogram (03/08/2010 4:13 PM TRACTOR TECHNICIAN) 03/08/2010 4:13 PM TRACTOR TECHNICIAN Addenda Addendum by ProviderValeriano M.D. on 03/08/2010 4:13 PM TRACTOR TECHNICIAN ODM^^^MCR XR FFDM MAMMO UNI ADDL VIEWS LEFT 03/08/2010 16:13:51 us Historical Provider IMG BI PROCEDURES Final Resu lt [facility] [address] [place] [address] from Last 3 Months or Most Recently Relevant to Health Maintenance Insurance MEDICARE [facility] Advance Directives For more information, please contact: [phone] * Full Code (Latest Code Status on File) Date Activated Date Inactivated Comments 04/24/2019 10:01 AM 04/24/2019 3:16 PM Question Answer Comments Full Code: Discussed Care Teams Zig Zag Stitcher Relationship Specialty Start Date End Date Elsewhere, Pcp PCP - General Family Medicine 12/02/20
--- OUTSIDE RECORDS SUMMARY | 2024-03-02 08:37 | XMS_ITS | Referral Summary ---
Author Organization [facility] Address [address] [place] [address] Care Team Providers Care English Language Arts Teacher Name Role Phone Elsewhere, Pcp Primary Care Provider Unavailabl e Source Comments Patient records contain information from all sites at [facility]. For routine questions regarding patient records, call [phone] during business hours, M-F 8:00 AM - 5:00 PM Central Time. Record requests for emergency care only can be directed to [phone] at any time.[facility] Allergies Active Allergy Reactions Criticality Noted Date Comments Animal Dander Other (see comments) 10/03/2016 asthma Diphtheria, Pertussis, Tetanus Vaccine Other (see comments) 04/06/2019 Erythromycin Base Nausea And Vomiting 0 Melon Anaphylaxis 04/06/2019 Penicillins Other (see comments) 04/03/2010 Pineapple Other (see comments) 04/06/2019 Ragweed Shortness of breath (Reselect Reaction) 10/03/2016 wheeze, asthma, scrathy throat [place] Other (see comments) 04/06/2019 Positive on skin test, however able to eat. Sulfa (Sulfonamide Antibiotics) Other (see comments) 10/03/2016 [place] Anaphylaxis 04/06/2019 Both [place] and Black walnut Medications hydroCHLOROthia zide (HYDRODIURIL) [...] (04/06/2019): Added automatically from request for surgery [id number] Radiculopathy Lumbar 09/20/2016 Immunizations Name Administration Dates [...] PM CDT Legal Sex Female 10:36 AM CLOTH MERCERIZING SUPERVISOR Gender Identity Female 12/20/2020 12:41 PM CDT [...] (308 lb 3.3 oz) 03/10/2021 1:50 PM CLOTH MERCERIZING SUPERVISOR Height 176.5 cm (5' 9.5) 03/10/2021 1:50 PM CLOTH MERCERIZING SUPERVISOR Body Mass Index 44.86 03/10/2021 1:50 PM CLOTH MERCERIZING SUPERVISOR Plan of Treatment Not on file Medical Devices Implanted Type Area Rag Production Worker Device Identifier Shelf Expiration Date Model [...] OUTSIDE MG MAMMOGRAM Routine 03/08/2010 4:13 PM CLOTH MERCERIZING SUPERVISOR from Last 3 Months or Most Recently Relevant to Health Maintenance Results * (ABNORMAL) Comprehensive Metabolic Panel (12/20/2020 2:45 PM CDT) Pathologist Nati Potassium, S 3.6 3.6 - 5.2 mmol/L [...] Ph.D. LAB BLOOD ADD-ON Fin al Result [facility] [address] [place] [address], [facility] DTL [facility] [address] [place] [address] * Outside MG Mammogram (03/08/2010 4:13 PM CLOTH MERCERIZING SUPERVISOR) 03/08/2010 4:13 PM CLOTH MERCERIZING SUPERVISOR Addenda Addendum by ProviderValeriano M.D. on 03/08/2010 4:13 PM CLOTH MERCERIZING SUPERVISOR ODM^^^MCR XR FFDM MAMMO UNI ADDL VIEWS LEFT 03/08/2010 16:13:51 Historical Provider IMG BI PROCEDURES Final Resu lt Performing Organization Address City/[facility] Co de Phone Number [facility] [address] [place] [address] from Last 3 Months or Most Recently Relevant to Health Maintenance Insurance MEDICARE FOR LIFE Advance Directives For more information, please contact: [phone] * Full Code (Latest Code Status on File) Date Activated Date Inactivated Comments 04/24/2019 10:01 AM 04/24/2019 3:16 PM Question Answer Comments Full Code: Discussed Care Teams English Language Arts Teacher Relationship Specialty Start Date End Date Elsewhere, Pcp PCP - General Family Medicine 12/02/20
== END 2024-03-02 08:32 | disposition home or self-care (01) ==
LOC: WOUND 08:31
PROVIDERS: PCP Internal Medicine; Visit Provider Nurse Practitioner Family
DX: S81.811A Laceration without foreign body, right lower leg, initial encounter (principal); W23.0XXA Caught, crushed, jammed, or pinched between moving objects, initial encounter; I89.0 Lymphedema, not elsewhere classified
CPT/HCPCS: 11042; G0463

== ENCOUNTER 2024-03-09 11:08 | Outpatient (CLI) | payer MEDICARE, OTHER, SELFPAY | END 2024-03-09 11:09 | disposition home or self-care (01) | LOC: WOUND 11:09 | PROVIDERS: PCP Internal Medicine; Visit Provider Nurse Practitioner Family | DX: S81.811A Laceration without foreign body, right lower leg, initial encounter (principal); I89.0 Lymphedema, not elsewhere classified | CPT/HCPCS: 97597 ==

== ENCOUNTER 2024-03-16 15:44 | Outpatient (CLI) | payer MEDICARE, OTHER, SELFPAY | END 2024-03-16 15:45 | disposition home or self-care (01) | LOC: WOUND 15:44 | PROVIDERS: PCP Internal Medicine; Visit Provider Nurse Practitioner Family | DX: S81.811A Laceration without foreign body, right lower leg, initial encounter (principal); I89.0 Lymphedema, not elsewhere classified | CPT/HCPCS: 97597 ==

== ENCOUNTER 2024-03-23 11:03 | Outpatient (CLI) | payer MEDICARE, OTHER, SELFPAY | END 2024-03-23 11:04 | disposition home or self-care (01) | LOC: WOUND 11:03 | PROVIDERS: PCP Internal Medicine; Visit Provider Nurse Practitioner Family | DX: S81.811A Laceration without foreign body, right lower leg, initial encounter (principal); I89.0 Lymphedema, not elsewhere classified | CPT/HCPCS: 97602; G0463 ==

== ENCOUNTER 2024-04-06 11:02 | Outpatient (CLI) | payer MEDICARE, OTHER, SELFPAY ==
--- OUTSIDE RECORDS SUMMARY | 2024-03-30 15:09 | XMS_ITS | Continuity of Care Document ---
Author Name [facility] Organization [facility] Care Team Providers Care Band Reamer Machine Operator Name Role Phone [facility] Unavailable Unavailable Medications Combined list of outpatient medications from Department of Defense and Veterans Affairs facilities.Medications provided include 1) outpatient medications from the last 15 months, and 2) patient-reported medications. Medication Details Route Status Patient Instructions Prescription Expires Prescription Number Last Dispense Date Ordering Provider Order Date Order Qty Source CARVEDILOL (CARVEDILOL ), 12.5MG, TABLET, ORAL, GLENMARK PHARMA, 500 ea. BOTTLE Cancele d [id number] : 2023 0 Pharmac y Data Transac tion Service Facilit y CARVEDILOL (CARVEDILOL ), 12.5MG, TABLET, ORAL, GLENMARK PHARMA, 500 ea. BOTTLE Active [id number] 4 2023 60 Pharmac y Data Transac tion Service Facilit y CARVEDILOL (CARVEDILOL ), 12.5MG, TABLET, ORAL, GLENMARK PHARMA, 500 ea. BOTTLE Active [id number] 4 2023 60 Pharmac y Data Transac tion Service Facilit y CARVEDILOL (CARVEDILOL ), 12.5MG, TABLET, ORAL, GLENMARK PHARMA, 500 ea. BOTTLE Active [id number] 4 2023 60 Pharmac y Data Transac tion Service Facilit y CYCLOBENZAP RINE HCL (cyclobenza maria isabel HCl), 10 MG, TABLET, ORAL, [facility]M [facility]AC, 1000 ea. BOTTLE Active [id number] 4 2023 90 Pharmac y Data Transac tion Service Facilit y FUROSEMIDE (furosemide ), 20 MG, TABLET, ORAL, RISING PHARM, 1000 ea. BOTTLE Cancele d [id number] : 2023 0 Pharmac y Data Transac tion Service Facilit y FUROSEMIDE (furosemide ), 20 MG, TABLET, ORAL, RISING PHARM, 1000 ea. BOTTLE Active [id number] 4 2023 60 Pharmac y Data Transac tion Service Facilit y FUROSEMIDE (furosemide ), 20 MG, TABLET, ORAL, RISING PHARM, 1000 ea. BOTTLE Active [id number] 4 2023 30 Pharmac y Data Transac tion Service Facilit y Social History Combined list of available smoking, tobacco, and other social history from Department of Defense and Veterans Affairs facilities. Social History Type Response Date Comment Sour e This section is an empty social history section. DoD
== END 2024-04-06 11:03 | disposition home or self-care (01) ==
LOC: WOUND 11:02
PROVIDERS: PCP Internal Medicine; Visit Provider Physician Assistant Surgical
DX: S81.811D Laceration without foreign body, right lower leg, subsequent encounter (principal); I89.0 Lymphedema, not elsewhere classified
CPT/HCPCS: G0463

== ENCOUNTER 2024-09-24 09:48 | Outpatient (CLI) | payer MEDICARE, OTHER, SELFPAY | END 2024-09-24 09:49 | disposition home or self-care (01) | LOC: WOUND 09:49 | PROVIDERS: PCP Internal Medicine; Visit Provider Nurse Practitioner Family | DX: I89.0 Lymphedema, not elsewhere classified (principal); B35.3 Tinea pedis | CPT/HCPCS: G0463 ==

== ENCOUNTER 2024-12-31 13:27 | Outpatient (CLI) | payer MEDICARE, OTHER, SELFPAY ==
--- NOTE | 2024-12-31 13:45 | CRLHL7_ITS ---
For Patients: As a result of the Century Cures Act, medical imaging exams and procedure reports are released immediately into your electronic medical record. You may view this report before your referring provider. If you have questions, please contact your health care provider. INDICATION: Thoracic spine pain. Comparison : 11/07/2022 Technique : Sagittal T1, T2, and STIR sequences. Axial T2/gradient sequences. Findings : Normal alignment. No fractures. No vertebral body loss of height. No spondylolisthesis. No ligamentous injury. No suspicious osseous lesions. Compared to the previous exam, again seen is patchy T2 and STIR hyperintensity within the left dorsal cord at the level of T1-2 (best seen on series 5, image 9; series 6, image 10). Finding again may represent chronic demyelination. Normal signal intensity within the remainder of the cord. T6-7: Disc degeneration with a stable left paracentral disc protrusion or disc osteophyte complex. Partial effacement ventral thecal sac. Mild narrowing of spinal canal. No neural foraminal narrowing. T7-8: Disc degeneration and small left parasternal disc protrusion or disc osteophyte complex. No narrowing of spinal canal. No neural foraminal narrowing. T10-11: Disc degeneration and posterior disc bulge. No spinal canal neural foraminal narrowing. T11-12: Disc degeneration and posterior disc bulge. No spinal canal or neural foraminal narrowing. Normal paraspinal soft tissues. IMPRESSION: 1. Normal alignment. No fractures 2. Stable patchy T2 and STIR hyperintensity within the left dorsal cord at T1-2. Finding again likely represents chronic demyelination. 3. Normal signal intensity within the remainder of the cord. 4. At T6-7, mild narrowing of the spinal canal 5. No spinal canal or neural foraminal narrowing at the remaining levels Dictated by Sharath Carrera MD @ 01/01/2025 3:53:07 PM (Electronically Signed)
== END 2024-12-31 13:28 | disposition home or self-care (01) ==
LOC: MRI 13:27
PROVIDERS: PCP Internal Medicine; Visit Provider Nurse Anesthetist, Certified Registered
DX: M51.24 Other intervertebral disc displacement, thoracic region (principal)
CPT/HCPCS: 72146